=== PATIENT | female | born 1955 | race Two or more races ===

== ENCOUNTER → 2016-03-20 | Outpatient (CLI) | payer BC ==
--- NOTE | 2016-03-20 16:02 | BD ---
EXAMINATION TYPE: MG DEXA axial skeleton. DATE OF EXAM: 03/20/2016 2:46 PM COMPARISON: NONE CLINICAL HISTORY: N95.1 POST MENOPAUSAL SYMPTOMS Height: 63 Weight: 268 FRAX RISK QUESTIONS: Alcohol (3 or more units per day): NO Family History (Parent hip fracture): NO Glucocorticoids (More than 3mos): NO (Ex: prednisone, prednisolone, methylprednisolone, dexamethasone, and hydrocortisone). History of Fracture in Adulthood: NO Secondary Osteoporosis: 1. Type 1 Diabetes: NO 2. Hyperthyroidism: NO 3. Menopause before 45: NO 4. Malnutrition: NO 5. Chronic liver disease: NO Rheumatoid Arthritis: NO Current Tobacco Use: NO RISK FACTORS HISTORY OF: Family History of Osteoporosis: NO Smoke tobacco: NO Drink Alcohol: SOCIAL Active: SOMEWHAT Diet low in dairy products/other sources of calcium: NO Postmenopausal woman: 48 Adrenal Insufficiency: NO MEDICATIONS: Thyroid Medications: YES, Which medication: SYNTHROID, 50 MGS How Long: JUST STARTED Additional Medications: HX OF RADIATION FOR BREAST CA, BP MEDS, PAIN MEDS, NSAIDS Additional History: BREAST CANCER, LT BREAST 2016, EXAM MEASUREMENTS: Bone mineral densitometry was performed using the LIA System. Bone mineral density as measured about the Lumbar spine is: ----- L1-L4(G/cm2): 1.202 T Score Values are as follows: ----- L1: 0.3 ----- L2: -0.9 ----- L3: 0.4 ----- L4: 0.7 ----- L1-L4: 0.2 Bone mineral density IS HER FIRST BONE DENSITY SCAN....BASELINE Bone mineral density about the R hip (g/cm2): 1.009 Bone mineral density about the L hip (g/cm2): 0.950 T Score values are as follows: -----R Neck: -0.2 -----L Neck: -0.6 -----R Intertrochanter: -0.8 -----L Intertrochanter: -0.5 Bone mineral density IS THE FIRST BONE DENSITY SCAN FOR HER, BASELINE FRAX%'S: FOR MAJOR OSTEOPOROTIC FX: 6.0%.....FOR HIP FX: 0.2% PROBABILITY OF FX IN 10 YR S TIME IMPRESSION: Normal (Values between +1 and -1 indicate normal bone mass) NOTE: T-SCORE=SD OF THE YOUNG ADULT MEAN.
== END | disposition home or self-care (01) ==
LOC: RADBDWWP 14:11
PROVIDERS: ATTEND Internal Medicine Hematology & Oncology
DX: N95.1 Menopausal and female climacteric states (principal)
CPT/HCPCS: 77080

== ENCOUNTER → 2016-09-22 | Outpatient (CLI) | payer BC ==
--- NOTE | 2016-09-22 10:14 | MM ---
Reason for exam: history of breast cancer, conservation therapy. Last mammogram was performed 9 months ago. History: Patient is postmenopausal and has history of breast cancer at age 60. Malignant MG pre op needle loc LT of the left breast, February 08, 2016. Took hormonal contraceptives for 2 years beginning at age 16. Physical Findings: Nurse did not find any significant physical abnormalities on exam. MG 3D Diag Mammo W/Cad EDGAR Bilateral CC and MLO view(s) were taken. Prior study comparison: December 24, 2015, mammogram. There are scattered fibroglandular densities. Post lumpectomy changes in the left breast. No significant new findings when compared with previous films. These results were verbally communicated with the patient and result sheet given to the patient on 09/22/16. ASSESSMENT: Benign, BI-RAD 2 RECOMMENDATION: Follow-up diagnostic mammogram of both breasts in 1 year.
== END | disposition home or self-care (01) ==
LOC: RADMAMWWP 09:04
PROVIDERS: ATTEND Radiology Radiation Oncology
DX: Z08 Encounter for follow-up examination after completed treatment for malignant neoplasm (principal); Z85.3 Personal history of malignant neoplasm of breast
CPT/HCPCS: G0204; G0279

== ENCOUNTER → 2017-07-24 | Outpatient (CLI) | payer BC ==
--- NOTE | 2017-07-24 11:32 | MM ---
Reason for exam: additional evaluation requested from prior study. Last mammogram was performed 10 months ago. History: Patient is postmenopausal and has history of breast cancer at age 60. Malignant MG pre op needle loc LT of the left breast, February 08, 2016. Lumpectomy of the left breast, 2016. Radiation therapy of the left breast, 2016. Took hormonal contraceptives for 2 years beginning at age 16. Taking antineoplastic beginning at age 61. Physical Findings: Nurse did not find any significant physical abnormalities on exam. MG 3D Diag Mammo W/Cad EDGAR Bilateral CC and MLO view(s) were taken. Prior study comparison: September 22, 2016, bilateral MG 3d diag mammo w/cad EDGAR. December 24, 2015, mammogram. The breast tissue is almost entirely fat. Post surgical changes in the left breast. No significant new findings when compared with previous films. These results were verbally communicated with the patient and result sheet given to the patient on 07/24/17. ASSESSMENT: Benign, BI-RAD 2 RECOMMENDATION: Follow-up diagnostic mammogram of both breasts in 1 year.
--- NOTE | 2017-07-24 13:12 | CTL ---
EXAMINATION TYPE: CT Low Dose Lung DATE OF EXAM ORDERED: 07/24/2017 HISTORY: 62-year-old female personal history of breast cancer, difficulty breathing, history of smoking. Lung cancer screening CT DLP: [address] CTDI: 3.56 mGy Automated exposure control for dose reduction was used. SCREENING VISIT: Baseline COMPARISON: None TECHNIQUE: Low dose computed tomography scan was performed through the chest at 1 mm thick sections and reconstructed images in the coronal/sagittal plane at [address] DIAGNOSTIC QUALITY: Limited, but interpretable FINDINGS: Large body habitus causing prominent noise artifacts. Heart upper limits of normal in size with small pericardial effusion measuring 5 mm thick. Coronary vessel calcifications are present and are a marker for coronary artery disease. Ectatic ascending aorta at 3.9 cm. Conventional arch vessel branching anatomy. No thoracic lymphadenopathy identified by CT size criteria. Surgical clips partially visualized in the left breast with some left breast skin thickening likely posttreatment change. Mild diffuse bronchial wall thickening. No consolidation or pleural effusion. - 5 mm anterior right midlung pulmonary nodule along the minor fissure likely intrapulmonary lymph node, axial image 121. - Tiny calcified granuloma peripheral left lower lobe axial image 176a. - Tiny 3 mm left mid lung pulmonary nodule along the major fissure axial image 120 likely intrapulmonary lymph node. Tiny hiatal hernia. Visualized upper abdomen otherwise shows no gross anomaly. Bones: Multiple endplate Schmorl's nodes throughout the thoracic spine with a mild to moderate degenerative disc disease lower thoracic spine. No osseous destructive process. IMPRESSION: 1. LungRADS 2, benign appearance, <1% chance of malignancy (couple 5 mm and smaller pulmonary nodules. Likely intrapulmonary lymph nodes given their fissural location). 2. Mild diffuse bronchial wall thickening could represent bronchitis or asthma. 3. Small 5 mm thick pericardial effusion. 4. CAD. RECOMMENDATION: 1. Continue with annual low-dose CT chest. 2. Smoking cessation. FOLLOW UP CT CHEST RECOMMENDATION: [address] LUNG RAD: Lung-Rad 2 Benign Appearance or Behavior MTDD
== END | disposition home or self-care (01) ==
LOC: RADMAMWWP 10:16
PROVIDERS: ATTEND Radiology Radiation Oncology
DX: Z12.2 Encounter for screening for malignant neoplasm of respiratory organs (principal); Z85.3 Personal history of malignant neoplasm of breast; Z87.891 Personal history of nicotine dependence; Z98.890 Other specified postprocedural states
CPT/HCPCS: 77066; 77062; G0297

== ENCOUNTER → 2018-07-30 | Outpatient (CLI) | payer MEDICARE, BC ==
--- NOTE | 2018-07-30 13:19 | MM ---
Reason for exam: additional evaluation requested from prior study. Last mammogram was performed 1 year ago. History: Patient is postmenopausal and has history of breast cancer at age 60. Family history of breast cancer in 2 paternal aunts. Malignant MG pre op needle loc LT of the left breast, February 08, 2016. Lumpectomy of the left breast, 2016. Radiation therapy of the left breast, 2016. Took hormonal contraceptives for 2 years beginning at age 16. Took antineoplastic for 2 years beginning at age 60. Physical Findings: Nurse did not find any significant physical abnormalities on exam. MG 3D Diag Mammo W/Cad EDGAR Bilateral CC and MLO view(s) were taken. Prior study comparison: July 24, 2017, bilateral MG 3d diag mammo w/cad EDGAR. September 22, 2016, bilateral MG 3d diag mammo w/cad EDGAR. There are scattered fibroglandular densities. No suspicious abnormality. Post therapy change on the left. No significant new findings when compared with previous films. These results were verbally communicated with the patient and result sheet given to the patient on 07/30/18. ASSESSMENT: Benign, BI-RAD 2 RECOMMENDATION: Follow-up diagnostic mammogram of both breasts in 1 year.
== END | disposition home or self-care (01) ==
LOC: RADMAMWWP 12:43
PROVIDERS: ATTEND Radiology Radiation Oncology
DX: C50.412 Malignant neoplasm of upper-outer quadrant of left female breast (principal); Z17.0 Estrogen receptor positive status [ER+]; Z92.3 Personal history of irradiation
CPT/HCPCS: 77066; G0279; 77062

== ENCOUNTER → 2018-08-06 | Outpatient (CLI) | payer MEDICARE, BC ==
--- NOTE | 2018-08-07 10:25 | BD ---
EXAMINATION TYPE: Axial Bone Density DATE OF EXAM: 08/06/2018 COMPARISON: 2017 CLINICAL HISTORY: Postmenopausal female. Osteoporosis screening. Height: 63.50 Weight: 262 FRAX RISK QUESTIONS: Alcohol (3 or more units per day): no Family History (Parent hip fracture): no Glucocorticoids (More than 3mos): no (Ex: prednisone, prednisolone, methylprednisolone, dexamethasone, and hydrocortisone). History of Fracture in Adulthood: no Secondary Osteoporosis: 1. Type 1 Diabetes: no 2. Hyperthyroidism: no 3. Menopause before 45: no 4. Malnutrition: no 5. Chronic liver disease: no Rheumatoid Arthritis: no Current Tobacco Use: no RISK FACTORS HISTORY OF: Family History of Osteoporosis: no Active: yes Diet low in dairy products/other sources of calcium: servings several times a week Postmenopausal woman: yes Take estrogen and/or progesterone medications: not now hormonal contraceptives briefly Lost more than 2 inches in height since high school: no Frequent falls: no Poor Health: no Hyperparathyroidism: unsure Adrenal Insufficiency: no MEDICATIONS: Prednisone or other steroids: no Thyroid Medications: not now Which medication: Synthroid How Long: started in 2017; has since stopped Osteoporosis Medications: no Additional Medications: stopped antineoplastic about one month ago Additional History: Breast CA age 60/radiation; arthritis, blood pressure med, cholesterol med EXAM MEASUREMENTS: Bone mineral densitometry was performed using the Kleer System. Bone mineral density as measured about the Lumbar spine is: ----- L1-L4(G/cm2): 1.165 T Score Values are as follows: ----- L2: -0.8 ----- L3: 0.3 ----- L4: 0.0 ----- L1-L4: -0.1 Bone mineral density has: Decreased -2.3% since study of: 03/20/2016 Bone mineral density about the R hip (g/cm2): 0.953 Bone mineral density about the L hip (g/cm2): 0.944 T Score values are as follows: -----R Neck: -0.6 -----L Neck: -0.7 -----R Total: -0.3 -----L Total: -0.9 Bone mineral density has: Decreased -6.1% since study of: 03/20/2016 IMPRESSION: Normal (Values between +1 and -1 indicate normal bone mass). Consider repeating this study in 5 year s or sooner if there is some new clinical indication. NOTE: T-SCORE=SD OF THE YOUNG ADULT MEAN.
== END | disposition home or self-care (01) ==
LOC: RADBDWWP 09:19
PROVIDERS: ATTEND Internal Medicine Hematology & Oncology
DX: C50.512 Malignant neoplasm of lower-outer quadrant of left female breast (principal); N95.1 Menopausal and female climacteric states; Z79.890 Hormone replacement therapy
CPT/HCPCS: 77080

== ENCOUNTER → 2019-08-21 | Outpatient (CLI) | payer MEDICARE, BC ==
--- NOTE | 2019-08-21 20:36 | CT ---
EXAMINATION TYPE: CT chest w con DATE OF EXAM: 08/21/2019 COMPARISON: None HISTORY: Cough x6 months CT DLP: 657 mGycm Automated exposure control for dose reduction was used. CONTRAST: Performed with IV Contrast, patient injected with 80 mL of Isovue 300. There is some subpleural 2 x 1 cm infiltrate in the superior segment of the right lower lobe posterio rly. There is a irregular 1.5 cm infiltrate right lower lobe. There is no pleural effusion. Heart siz e is normal. There is very small pericardial effusion. Upper abdominal soft tissues are intact. There are no hilar masses. There is no mediastinal adenopathy. There is some irregular 1 cm nodular infilt rate right upper lobe. There are 7 mm low-density infiltrates lateral aspect of the left lower lobe. Thoracic vertebra have normal spacing and alignment. Posterior elements are intact. There is spurring of the endplates. Sternum is intact. IMPRESSION: There is some patchy infiltrate in both lungs as above more likely related to inflammatory disease. N ormal heart size. Small pericardial effusion. Infiltrates are essentially new compared to screening c hest CT scan 07/24/2017.
== END | disposition home or self-care (01) ==
LOC: RADCTMAIN 17:28
PROVIDERS: ATTEND Internal Medicine Hematology & Oncology
DX: R91.8 Other nonspecific abnormal finding of lung field (principal); I31.3 Pericardial effusion (noninflammatory); C50.512 Malignant neoplasm of lower-outer quadrant of left female breast
CPT/HCPCS: 82565; 84520; 71260; 36415; Q9967

== ENCOUNTER 2019-11-13 07:43 | Day surgery (SDC) | payer MEDICARE, BC ==
[2019-11-07 12:05] VITALS: BMI 48.0
[~2019-11-13 07:43] MED LIST: ALPRAZolam 0.25 MG TAB PO PRN; ALPRAZolam 0.5 MG TAB PO PRN; ASPIRIN 325 MG TAB PO STA; ATORVASTATIN 80 MG TAB PO STA; NITROGLYCERIN SL TABS 0.4 MG TAB SUBLINGUAL PRN; SODIUM CHLORIDE 0.9% 1,000 ML in EMPTY BAG 1 BAG IV ONE
[2019-11-13] MEDS ORDERED: LIDOCAINE 1% INJ 10MG/ML (20 ML MDV) SQ ONE (09:12)
[2019-11-13] MEDS ORDERED: MIDAZOLAM 2 MG/2 ML VIAL IVP ONE ×2 (09:12→10:10)
[2019-11-13] MEDS ORDERED: fentaNYL (PF) 50 MCG/ML 2 ML AMP IVP ONE ×2 (09:12→10:10)
--- NOTE | 2019-11-13 10:06 | P.CARDCATH ---
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 Procedure(s) Performed: Left heart catheterization with selective coronary arteriography. No LV gram Description of Procedure: HISTORY: This is a 64-year-old female who was recently seen in the office with complaints of exertional shortness of breath. Clinically patient had aortic stenosis. An echocardiogram showed moderate to severe stenosis. A stress test showed ischemia in the anterolateral. Patient is advised to have a cardiac catheterization for definitive diagnosis. CONSENT:I have discussed the risks, benefits and alternative therapies for the above-mentioned procedure and for both sedation/analgesia as well as necessary blood product administration, if indicated, as they pertain to this patient. The patient has indicated understanding and acceptance of the risks and procedures discussed. PROCEDURE: Patient was brought to the lab in a fasting state. Patient was given some IV sedation. The right groin is infiltrated with lidocaine and right femoral artery was entered using Seldinger technique. A 6-Albanian catheter was left in place and selective coronary arteriography was performed. Patient tolerated the procedure well. Femoral angiogram was performed . No immediate complications were noted and patient is waiting to have FFR of the LAD Conscious Sedation: Versed 1mg Fentanyl 25 g Duration 35minutes HEMODYNAMICS: The aortic pressure is about 120/60. Left ventricular end- diastolic pressures were not measured SELECTIVE CORONARY ARTERIOGRAPHY: LEFT MAIN: Normal length and free of occlusive disease THE LEFT ANTERIOR DESCENDING CORONARY ARTERY:. Histor y good caliber vessel giving rise to good-sized diagonal branch. There seemed to be lesion in the origin of the diagonal branch involving mid LAD. In certain views, it appears to be critical. Patient is going to have FFR THE LEFT CIRCUMFLEX AND IS CORONARY ARTERY: Dominant vessel with about 40-50% stenosis in the proximal portion. There is a total occlusion of the one of the OM branch. The distal circumflex has about 70-80% stenosis THE RIGHT CORONARY ARTERY:. This is nondominant and totally occluded LEFT VENTRICULOGRAPHY: Not performed FINAL IMPRESSION: Tripple-vessel disease with total occlusion of RCA, mild to moderate disease in the circumflex with a total occlusion of one of the OM branch and possibly critical lesion in the LAD PLAN:. FFR of the LAD PROGNOSIS:. If FFR shows significant lesion in the LAD, we'll proceed with ELTON examination. If the ELTON shows critical aortic stenosis, patient may need a valve and bypass surgery. If the aortic stenosis is not critical, we'll proceed with stenting of the LAD
[2019-11-13] MEDS ORDERED: BIVALIRUDIN BOLUS 250 MG/50 ML IV ONE (10:20)
[2019-11-13] MEDS ORDERED: BIVALIRUDIN 250 MG in SODIUM CHLORIDE 0.9% 50 ML IV ONE (10:21)
[2019-11-13] MEDS ORDERED: RX INFO: IV CONTRAST WAS GIVEN 1 EACH MISC MISCELLANE PRN (10:29)
[2019-11-13] MEDS ORDERED: IOPAMIDOL-370 125ML BTL INJ ONE (10:34)
--- NOTE | 2019-11-13 10:58 | CE ---
CARDIAC ELECTROPHYSIOLOGY REPORT FRACTIONAL FLOW RESERVE PROCEDURE: DATE OF SERVICE: 11/13/2019 PERFORMING PHYSICIAN: London Carty MD. PROCEDURE PERFORMED: Fractional flow reserve of the LAD. INDICATION: This is a 64-year-old female patient who sees Dr. Medellin in the office, who was experiencing symptoms of chest discomfort and underwent myocardial perfusion imaging stress test and that revealed anterolateral ischemia. He did a heart catheterization on her and that revealed intermediate to severe disease involving the proximal LAD. Because of that, an FFR was advised. APPROACH: Right common femoral artery. COMPLICATION: None. LEVEL OF SEDATION: Moderate with sedation length of 10 minutes. PROCEDURE DESCRIPTION: Please refer to diagnostic heart catheterization was performed by Dr. Medellin earlier today. Anticoagulation was initiated using Angiomax. Subsequently, after zeroing the Doppler wire and equalizing between the Doppler wire and the guiding catheter which was JL4 guiding catheter, we did an IFR and that came in to be at 0.80 which is below the ischemic threshold. CONCLUSION: An IFR of the LAD was performed and came into below ischemic. POSTPROCEDURE MANAGEMENT: 1. The patient is going to undergo a ELTON. 2. Follow up with the patient. MMODL / IJN: [id number] /
[2019-11-13] MEDS: SODIUM CHLORIDE 0.9% 1,000 ML IV SCH ×2 (12:51→18:21)
[2019-11-13] MEDS: METOPROLOL TARTRATE 50 MG TAB PO SCH (19:58)
[2019-11-13] MEDS: lisinopriL 20 MG TAB PO SCH (19:58)
[2019-11-14] MEDS: SODIUM CHLORIDE 0.9% 1,000 ML IV SCH (07:30)
[2019-11-14] MEDS ORDERED: fentaNYL (PF) 50 MCG/ML 2 ML AMP ONE (07:34)
[2019-11-14 07:41] VITALS: TEMP 98.3
[2019-11-14] MEDS ORDERED: IV FLUID CONTINUATION 900 ML IV ONE (07:54)
[2019-11-14 07:59] VITALS: RESP 12
[2019-11-14] MEDS ORDERED: BENZOCAINE SPRAY 1 CAN MUCOUS MEM ONE (08:09)
[2019-11-14] MEDS ORDERED: fentaNYL (PF) 50 MCG/ML 2 ML AMP IV ONE (08:21)
[2019-11-14] MEDS ORDERED: MIDAZOLAM 2 MG/2 ML VIAL IV ONE ×2 (08:21→08:26)
[2019-11-14 08:40] VITALS: BP 164/84; PULSE 85
[2019-11-14] MEDS ORDERED: hydroCHLOROthiazide 12.5 MG CAP PO SCH (09:00)
[2019-11-14] MEDS ORDERED: ISOSORBIDE MONONITRATE ER 30 MG TAB.ER.24H PO SCH (09:00)
[2019-11-14] MEDS ORDERED: ASPIRIN 81 MG PO SCH (09:00)
[2019-11-14] MEDS ORDERED: EZETIMIBE 10 MG TAB PO SCH (09:00)
[2019-11-14] MEDS: lisinopriL 20 MG TAB PO SCH (09:14)
[2019-11-14] MEDS: METOPROLOL TARTRATE 50 MG TAB PO SCH (09:14)
--- NOTE | 2019-11-14 13:04 | P.GSCN ---
History of Present Illness Consult date: 11/14/19 Reason for Consult: Severe aortic stenosis as well as coronary artery disease Requesting physician: Karli Medellin History of present illness: This is a 64-year-old obese woman who follows on an outpatient basis with Dr. Robbins. She has a previous history of hypertension, hyperlipidemia, TIA in December 2017, breast cancer status post lumpectomy with radiation, ovarian cyst with removal, and previous tobacco dependence. She had been experiencing exertional dyspnea and was worked up by pulmonology at the request of her oncologist. She did have a computed tomography scan of the chest completed in August demonstrating patchy infiltrates in both lungs likely related to inflammatory disease. She continued to have exertional shortness of breath and was seen by cardiology, she had a stress test which demonstrated reversible defect in the anterolateral and inferolateral wall. She was recommended to undergo heart catheterization and transesophageal echocardiogram. Heart catheterization revealed critical lesion involving the mid LAD and diagonal branch with FFR 0.80, proximal circumflex stenosis 40-50%, total occlusion of one of the OM branches, distal circumflex with 70-80% stenosis, and chronic total occlusion of the right coronary artery. ELTON demonstrated a calcified bicuspid aortic valve with valve area 1-1.2 cm, peak gradient 60-70 mmHg, mean gradient 35-40 mmHg. Due to these findings consultation was placed to Dr. Storey from cardiothoracic surgery for surgical revascularization along with aortic valve replacement. Review of Systems Review of systems was completed and was negative except as noted - Constitutional Reports sweats - Cardiovascular Reports as per HPI, Reports dyspnea on exertion Past Medical History Past Medical History: Coronary Artery Disease (CAD), Cancer, CVA/TIA, Hyperlipidemia, Hypertension Additional Past Medical History / Comment(s): See Dr Medellin H&P, Hx LEFT BREAST CANCER, CVA 12/2017, states some delayed speech, previous thyroid medication, none currently History of Any Multi-Drug Resistant Organisms: None Reported Past Surgical History: Appendectomy, Breast Surgery, Cholecystectomy, Tonsillectomy Additional Past Surgical History / Comment(s): OVARIAN CYST WITH APPENDECTOMY, breast biopsy,left breast lumpectomy, has mary catheter for radiation left breast, now removed Past Anesthesia/Blood Transfusion Reactions: Postoperative Nausea & Vomiting (PONV) Past Psychological History: No Psychological Hx Reported Smoking Status: Former smoker Past Alcohol Use History: Occasional Additional Past Alcohol Use History / Comment(s): SMOKED 1- 1 1/2 PPD, SMOKED FOR 30 + YEARS. QUIT SMOKING 2009. Past Drug Use History: None Reported - Past Family History Father Family Medical History: Cancer Additional Family Medical History / Comment(s): from lung cancer Brother(s) Family Medical History: Deep Vein Thrombosis (DVT) Mother Family Medical History: Coronary Artery Disease (CAD), Hypertension Medications and Allergies Home Medications Medication Instructions Recorded Confirmed Type lisinopriL [Zestril] 20 mg PO BID 01/26/16 11/13/19 History Aspirin [Adult Low Dose Aspirin EC] 81 mg PO DAILY 11/07/19 11/13/19 History Hydrochlorothiazide 12.5 mg PO DAILY 11/07/19 11/13/19 History [hydroCHLOROthiazide] Isosorbide Mononitrate [Isosorbide 30 mg PO DAILY 11/07/19 11/13/19 History Mononitrate ER] Metoprolol Tartrate [Lopressor] 50 mg PO BID 11/07/19 11/13/19 History Nitroglycerin Sl Tabs [Nitrostat] 0.4 mg SUBLINGUAL Q5M PRN 11/07/19 11/07/19 History Rosuvastatin Calcium [Crestor] 40 mg PO DAILY 11/07/19 11/13/19 History Ezetimibe [Zetia] 25 mg PO DAILY 11/13/19 11/13/19 History Allergies Allergy/AdvReac Type Severity Reaction Status Date / Time codeine Allergy Unknown "Shakey" Verified 11/07/19 11:56 hydrocodone [From Vicodin] Allergy Unknown Itching Verified 11/07/19 11:56 Surgical - Exam Vital Signs Temp Pulse Resp BP Pulse Ox 98.1 F 74 18 161/71 97 11/13/19 08:28 11/13/19 08:28 11/13/19 08:28 11/13/19 08:28 11/13/19 08:28 - General well developed, well nourished, no distress, no pain, obese - Eyes PERRL, normal ocular movement - ENT no hearing loss - Neck no masses, no bruits, trachea midline - Respiratory Lungs sounds clear bilaterally. Respirations even, nonlabored. Currently on room air with oxygen saturation 96%. No chest wall deformities. No clubbing or cyanosis present. - Cardiovascular S1, S2 present. Systolic murmur present. Regular rate and rhythm, sinus rhythm on telemetry. Palpable peripheral pulses bilaterally. No edema present. No calf pain or tenderness noted. - Abdomen Abdomen: soft, non tender, bowel sounds - Genitourinary Deferred - Rectum Deferred - Integumentary no rash, no growths - Neurologic normal coordination, normal sensation - Musculoskeletal normal gait, normal posture - Psychiatric oriented to time, oriented to person, oriented to place, speech is normal, memory intact Results - Imaging Additional studies: Heart catheterization and ELTON films reviewed with Dr. Storey Assessment and Plan Assessment: 1. Calcified bicuspid aortic valve with aortic stenosis 2. Coronary artery disease 3. Hypertension 4. Hyperlipidemia 5. TIA in 2018 6. History of breast cancer status post lumpectomy with radiation 7. Previous tobacco dependence Plan: The patient was seen and examined the bedside with Dr. Storey. Chart/diagnostics were reviewed. The usual perioperative course of open heart surgery was discussed in detail with the patient and her daughter, risks and benefits were reviewed, all questions were answered. Our plan is for bioprosthetic aortic valve replacement, coronary artery bypass surgery with left internal mammary artery and endoscopic vein harvesting by Dr. Storey, timing to be determined. Patient will need dental clearance, she states that she does see a dentist on a regular basis and we will try to obtain clearance. The patient may be discharged to home from our standpoint to follow-up in the office with Dr. Storey in the next 1-2 weeks to set a surgical date in the near future. This was discussed at length with the patient and her daughter and they are in agreement. The case was also discussed with Dr. Ramos who is her sister superior and he will be involved in her case. More recommendations to follow regarding timing of surgery. Thank you Dr. Medellin for this consult. We look forward to working with you in the care of your patient. Time with Patient: Greater than 30
--- NOTE | 2019-11-26 09:07 | P.TEE ---
Indications for Procedure(s): Aortic stenosis Date of Procedure: 11/14/19 Preoperative Diagnosis: Moderate to severe aortic stenosis Postoperative Diagnosis: Severe aortic stenosis Procedure(s) Performed: ELTON Description of Procedure(s): This patient was recently evaluated for symptoms of shortness of breath. Echocardiogram showed findings consistent with moderate to severe aortic stenosis. Patient is advised to have a ELTON examination for further evaluation. Verbal informed consent was obtained from the patient Procedure: Patient was brought to the lab in a fasting state. She was prepped and draped in the usual fashion. The throat was sprayed with Hurricaine. A lubricated Omni probe was introduced into the oropharynx and stomach and multiple views were obtained. Color, pulsed and continuous Doppler studies were performed. Saline contrast bubble injections were also performed. Patient tolerated the procedure well. No immediate complications. Findings: The aortic valve is tricuspid with the restricted opening excursion, and also calcification. By planimetry and valve area of about 1 cm was obtained. A peak gradient of about 60 with a mean of 40 was obtained by Doppler study. There is no significant aortic regurgitation. Mitral valve did not show any regurgitation. Left atrial appendage appeared free of any clot. Left ventricular pressure is preserved. There appears to relate enlargement. There is mild plaque in the aorta. Saline contrast bubble injections did not reveal any crossing of bubbles the interatrial septum appeared to be intact . Final impression: #1. Severe aortic stenosis. #2. No clot in the left atrial appendage. #3. No PFO performed. #4. Preserved LV function. 5. Mild plaque in the aorta
--- NOTE | 2019-11-26 10:46 | ECHOT ---
Patient Name: Debbie Serrano Date of : 1955 Patient Status: Surgical Day Care Attending Provider: Karli Medellin Date: 11/26/19 09:02 Initialization Date: 11/26/19 09:02 Addendum entered and electronically signed by Karli Medellin MD 11/26/19 09:07: Patient was given 20 g of fentanyl and 3 mg of Versed for sedation. The duration of the procedure was 16 minutes Original Note: Indications for Procedure(s): Aortic stenosis Date of Procedure: 11/14/19 Preoperative Diagnosis: Moderate to severe aortic stenosis Postoperative Diagnosis: Severe aortic stenosis Procedure(s) Performed: ELTON Description of Procedure(s): This patient was recently evaluated for symptoms of shortness of breath. Echocardiogram showed findings consistent with moderate to severe aortic stenosis. Patient is advised to have a ELTON examination for further evaluation. Verbal informed consent was obtained from the patient Procedure: Patient was brought to the lab in a fasting state. She was prepped and draped in the usual fashion. The throat was sprayed with Hurricaine. A lubricated Omni probe was introduced into the oropharynx and stomach and multiple views were obtained. Color, pulsed and continuous Doppler studies were performed. Saline contrast bubble injections were also performed. Patient tolerated the procedure well. No immediate complications. Findings: The aortic valve is tricuspid with the restricted opening excursion, and also calcification. By planimetry and valve area of about 1 cm was obtained. A peak gradient of about 60 with a mean of 40 was obtained by Doppler study. There is no significant aortic regurgitation. Mitral valve did not show any regurgitation. Left atrial appendage appeared free of any clot. Left ventricular pressure is preserved. There appears to relate enlargement. There is mild plaque in the aorta. Saline contrast bubble injections did not reveal any crossing of bubbles the interatrial septum appeared to be intact . Final impression: #1. Severe aortic stenosis. #2. No clot in the left atrial appendage. #3. No PFO performed. #4. Preserved LV function. 5. Mild plaque in the aorta MTDD
== END 2019-11-14 13:04 | disposition home or self-care (01) ==
LOC: CATHCVL 07:43 → 3NCARDOBS 10:42 → CATHCVL 11-14 13:04
PROVIDERS: ATTEND Internal Medicine Cardiovascular Disease
DX: I25.10 Atherosclerotic heart disease of native coronary artery without angina pectoris (principal); I25.82 Chronic total occlusion of coronary artery; I10 Essential (primary) hypertension; Q23.1 Congenital insufficiency of aortic valve; I70.0 Atherosclerosis of aorta; R94.39 Abnormal result of other cardiovascular function study; E66.9 Obesity, unspecified; Z68.42 Body mass index [BMI] 45.0-49.9, adult; Z87.891 Personal history of nicotine dependence; E78.00 Pure hypercholesterolemia, unspecified; E78.5 Hyperlipidemia, unspecified; Z82.49 Family history of ischemic heart disease and other diseases of the circulatory system; Z85.3 Personal history of malignant neoplasm of breast; Z92.3 Personal history of irradiation; Z87.42 Personal history of other diseases of the female genital tract; I69.328 Other speech and language deficits following cerebral infarction; Z80.1 Family history of malignant neoplasm of trachea, bronchus and lung; Z90.49 Acquired absence of other specified parts of digestive tract; Z98.890 Other specified postprocedural states; Z79.811 Long term (current) use of aromatase inhibitors; Z79.82 Long term (current) use of aspirin; Z79.899 Other long term (current) drug therapy; Z88.5 Allergy status to narcotic agent
CPT/HCPCS: 93312; 93320; 93325; 93571; 93454; C1760; C1887; C1769 ×3; C1894; J2250 ×2; J2001; J3010 ×2; J0583; Q9967

== ENCOUNTER → 2019-11-24 | Outpatient (CLI) | payer MEDICARE, BC ==
--- NOTE | 2019-11-24 15:15 | CT ---
EXAMINATION TYPE: CT chest w con DATE OF EXAM: 11/24/2019 COMPARISON: Prior CT chest 08/21/2019 HISTORY: Abnormal lung field CT DLP: 833.0 mGycm Automated exposure control for dose reduction was used. CONTRAST: CT scan of the chest is performed with IV Contrast, patient injected with 80 mL of Isovue 300. FINDINGS: LUNGS: The lungs are grossly clear, there is no concerning parenchymal mass or nodule identified. T here is no pleural effusion or pneumothorax seen. The tracheobronchial tree is patent. MEDIASTINUM: There are no greater than 1 cm hilar or mediastinal lymph nodes. Minimal pericardial eff usion is seen as on prior. There are coronary artery calcifications. AORTA: No additional significant abnormality is seen. Metallic density noted at the root of the aort a as on prior. OTHER: Patient is post cholecystectomy. Low density in the liver may represent hepatic steatosis. Po stop changes noted to the left breast. IMPRESSION: Postop changes. Coronary artery disease, small pericardial effusion. Interval improved a eration as compared to prior exam within the lungs.
== END | disposition home or self-care (01) ==
LOC: RADCTMAIN 12:26
PROVIDERS: ATTEND Internal Medicine Critical Care Medicine
DX: I25.10 Atherosclerotic heart disease of native coronary artery without angina pectoris (principal); I31.3 Pericardial effusion (noninflammatory); J98.4 Other disorders of lung; Z88.8 Allergy status to other drugs, medicaments and biological substances; Z98.890 Other specified postprocedural states
CPT/HCPCS: 82565; 84520; 71260; 36415; Q9967

== ENCOUNTER → 2019-11-28 | Outpatient (CLI) | payer MEDICARE, BC ==
--- NOTE | 2019-12-01 14:06 | MM ---
Reason for exam: screening (asymptomatic). Last mammogram was performed 1 year and 4 months ago. History: Patient is postmenopausal and has history of breast cancer at age 60. Family history of breast cancer in 2 paternal aunts. Malignant MG pre op needle loc LT of the left breast, February 08, 2016. Lumpectomy of the left breast, 2016. Radiation therapy of the left breast, 2016. Took hormonal contraceptives for 2 years beginning at age 16. Took antineoplastic for 2 years beginning at age 60. Physical Findings: A clinical breast exam by your physician is recommended on an annual basis and results should be correlated with mammographic findings. MG 3D Screening Mammo W/Cad Bilateral CC and MLO view(s) were taken. Prior study comparison: July 30, 2018, bilateral MG 3d diag mammo w/cad [facility]. July 24, 2017, bilateral MG 3d diag mammo w/cad [facility]. There are scattered fibroglandular densities. Asymmetric breast tissue greater in the right breast. Focal asymmetry left breast. Post biopsy changes left upper outer quadrant. No significant changes when compared with prior studies. ASSESSMENT: Benign, BI-RAD 2 RECOMMENDATION: Routine screening mammogram of both breasts in 1 year.
== END | disposition home or self-care (01) ==
LOC: RADMAMWWP 14:46
PROVIDERS: ATTEND Radiology Radiation Oncology
DX: Z12.31 Encounter for screening mammogram for malignant neoplasm of breast (principal); C50.412 Malignant neoplasm of upper-outer quadrant of left female breast; Z92.3 Personal history of irradiation; Z17.0 Estrogen receptor positive status [ER+]
CPT/HCPCS: 77063; 77067

== ENCOUNTER → 2019-12-09 | Outpatient (CLI) | payer MEDICARE, BC ==
[2019-12-09 10:25] LABS: Appearance,Urine Clear (Clear); Bilirubin,Urine Negative (Negative); Blood,Urine Negative (Negative); Color,Urine Light Yellow; Glucose,Urine (UA) Negative (Negative); Ketones,Urine Negative (Negative); Leukocyte Esterase,Urine Negative (Negative); Nitrite,Urine Negative (Negative); Protein,Urine Negative (Negative); Specific Gravity,Urine 1.012 (1.001-1.035); Urobilinogen,Urine <2.0 mg/dL (<2.0)
[2019-12-09 10:48] LABS: HCT 43.4 % (34.0-46.0); MCH 33.4 pg (25.0-35.0); MCHC 34.5 g/dL (31.0-37.0); MCV 96.6 fL (80.0-100.0); Mean Platelet Volume 7.1; Platelet Count 224 k/uL (150-450); RBC 4.49 m/uL (3.80-5.40); RDW 13.3 % (11.5-15.5); WBC 6.8 k/uL (3.8-10.6)
[2019-12-09 10:55] LABS: Partial Thromboplastin Time 22.5 sec (22.0-30.0); Prothrombin Time 10.5 sec (9.0-12.0)
[2019-12-09 11:14] LABS: Albumin 4.3 g/dL (3.5-5.0); Calcium 10.2 mg/dL (8.4-10.2); Potassium 4.6 mmol/L (3.5-5.1); Total Bilirubin 1.8 mg/dL (0.2-1.3); Total Protein 7.1 g/dL (6.3-8.2)
[2019-12-09 17:45] LABS: Hemoglobin A1C 4.9 % (4.0-6.0)
[2019-12-09 21:49] LABS: Hepatitis A Antibody IgM Non-Reactive (Non-Reactive); Hepatitis B Core IgM Non-Reactive (Non-Reactive); Hepatitis B Surface Antigen Non-Reactive (Non-Reactive); Hepatitis C IgG Antibody Non-Reactive (Non-Reactive)
--- NOTE | 2019-12-10 08:43 | XR ---
EXAMINATION TYPE: XR chest 2V DATE OF EXAM: 12/09/2019 COMPARISON: None INDICATION: Presurgical clearance TECHNIQUE: Frontal and lateral views of the chest are obtained. FINDINGS: The heart size is normal. The pulmonary vasculature is normal. The lungs are clear. Good inspiratory effort with some flattening the diaphragms is present. Conside r emphysematous change. IMPRESSION: 1. No acute pulmonary process. 2. Some emphysematous change or good inspiratory effort may be present.
--- NOTE | 2019-12-11 11:04 | P.ARTDOP ---
Arterial Doppler LOWER EXTREMITY ARTERIAL DOPPLER: DATE OF SERVICE: 12/09/2019 Reason for study: Preop CABG. Doppler waveforms: Multiphasic bilaterally throughout. Pulse volume recording: []. Pressure gradients: None. Ankle-brachial indices: Greater than 1 bilaterally. Toe brachial indices: [] on the right, [] on the left Impression: Normal study.
--- NOTE | 2019-12-11 11:06 | P.VSCSTY ---
Greater Saphenous Vein Mapping This is bilateral lower extremity greater saphenous vein mapping. Date of service: 12/09/2019 Vein quality and ultrasound appearance: We see no intraluminal thrombus or obvious wall changes.. Vein size groin right : 8.5 x 7.0 groin left: 9.8 x 8.5 High thigh right: 8.2 x 6.0 high thigh left: 6.2 x 5.8 Mid thigh right: 3.9 x 3.8 mid thigh left: 6.0 x 5.5 Above-knee right: 3.2 x 3.2 above-knee left: 4.2 x 3.6 Below knee right: 2.2 x 2.4 below-knee left: 4.0 x 3.5 Mid calf right: 2.1 x 1.3 mid calf left: 3.5 x 3.3 Ankle right: 2.3 x 1.9 ankle left: 2.5 x 2.8 Impression: Usable bilateral greater saphenous vein..
== END | disposition home or self-care (01) ==
LOC: LABPAT 08:14
PROVIDERS: ATTEND Thoracic Surgery (Cardiothoracic Vascular Surgery)
DX: Z01.810 Encounter for preprocedural cardiovascular examination (principal); Z01.818 Encounter for other preprocedural examination; I25.10 Atherosclerotic heart disease of native coronary artery without angina pectoris; I35.1 Nonrheumatic aortic (valve) insufficiency; Z79.899 Other long term (current) drug therapy; Z20.828 Contact with and (suspected) exposure to other viral communicable diseases; I73.9 Peripheral vascular disease, unspecified
CPT/HCPCS: 86900; 86901; 80061; 80053; 80074; 84443; 83735; 85027; 85610; 85730; 86850; 86920; 81003; 87070; 87086; 83036; 71046; 93970; 93922; 93005; 36415; U0003; C9803

== ENCOUNTER → 2019-12-15 | Outpatient (CLI) | payer MEDICARE, BC ==
[2019-12-15 11:23] LABS: Albumin 4.2 g/dL (3.5-5.0); Calcium 9.9 mg/dL (8.4-10.2); Potassium 4.3 mmol/L (3.5-5.1); Total Bilirubin 1.8 mg/dL (0.2-1.3); Total Protein 7.1 g/dL (6.3-8.2)
== END | disposition home or self-care (01) ==
LOC: LABPAT 10:38
PROVIDERS: ATTEND Thoracic Surgery (Cardiothoracic Vascular Surgery)
DX: Z01.818 Encounter for other preprocedural examination (principal)
CPT/HCPCS: 80053

== ENCOUNTER → 2019-12-29 | Outpatient (CLI) | payer MEDICARE, BC ==
[2019-12-30 02:49] LABS: African American GFR (CKD) 54.5 (60.0-200.0); Albumin 4.1 g/dL (3.80-4.90); Albumin/Globulin Ratio 1.71 (1.60-3.17); Anion Gap 7.5 mmol/L (4.00-12.00); BUN/Creat Ratio 14.17 Ratio (12.00-20.00); Carbon Dioxide 27.5 mmol/L (21.6-31.8); Globulin 2.4 g/dL (1.6-3.3); Non-African American GFR(CKD) 47.1 (60.0-200.0); Potassium 4.3 mmol/L (3.5-5.5); Total Bilirubin 1.4 mg/dL (0.2-1.2); Total Protein 6.5 g/dL (6.2-8.2)
== END | disposition home or self-care (01) ==
LOC: LABWHC1 13:35
PROVIDERS: ATTEND Thoracic Surgery (Cardiothoracic Vascular Surgery)
DX: R94.5 Abnormal results of liver function studies (principal)
CPT/HCPCS: 36415; 80053

== ENCOUNTER → 2020-01-09 | Outpatient (CLI) | payer MEDICARE, BC ==
[2020-01-09 11:13] LABS: HCT 47.4 % (34.0-46.0); HGB 15.7 gm/dL (11.4-16.0); MCH 32.8 pg (25.0-35.0); MCHC 33.2 g/dL (31.0-37.0); MCV 98.9 fL (80.0-100.0); Mean Platelet Volume 7.2; Platelet Count 238 k/uL (150-450); RBC 4.79 m/uL (3.80-5.40); RDW 12.1 % (11.5-15.5); WBC 6.7 k/uL (3.8-10.6)
[2020-01-09 11:21] LABS: Prothrombin Time 10.1 sec (9.0-12.0)
[2020-01-09 14:58] LABS: African American GFR (CKD) 77.2 (60.0-200.0); Albumin/Globulin Ratio 1.67 (1.60-3.17); Anion Gap 4.1 mmol/L (4.00-12.00); BUN/Creat Ratio 16.67 Ratio (12.00-20.00); Calcium 9.8 mg/dL (8.7-10.3); Carbon Dioxide 26.9 mmol/L (21.6-31.8); Globulin 2.4 g/dL (1.6-3.3); Non-African American GFR(CKD) 66.6 (60.0-200.0); Potassium 4.4 mmol/L (3.5-5.5); Total Bilirubin 1.3 mg/dL (0.2-1.2); Total Protein 6.4 g/dL (6.2-8.2)
== END | disposition home or self-care (01) ==
LOC: LABWHC1 10:16
PROVIDERS: ATTEND Thoracic Surgery (Cardiothoracic Vascular Surgery)
DX: I35.1 Nonrheumatic aortic (valve) insufficiency (principal); I25.10 Atherosclerotic heart disease of native coronary artery without angina pectoris
CPT/HCPCS: 86900; 86901; 80053; 85027; 85610; 85730; 86850; 86920; 36415; U0003; C9803

== ENCOUNTER 2020-01-15 08:00 | Inpatient (IN) | payer MEDICARE, BC ==
[2020-01-16] MEDS ORDERED: NOREPINEPHRINE 4 MG in SODIUM CHLORIDE 0.9% 250 ML IV ONE (05:00)
[2020-01-16] MEDS ORDERED: PROTAMINE SULFATE 250 MG in EMPTY BAG 1 BAG IV ONE (05:00)
[2020-01-16] MEDS ORDERED: CLEVIDIPINE BUTYRATE 25 MG in EMPTY BAG 1 BAG IV ONE (05:00)
[2020-01-16] MEDS ORDERED: ceFAZolin 3 GM in SODIUM CHLORIDE 0.9% 30 ML IVPB ONE (05:00)
[2020-01-16] MEDS ORDERED: CHLORHEXIDINE GLUCONATE 15 ML CUP MUCOUS MEM ONE (05:00)
[2020-01-16] MEDS ORDERED: NITROGLYCERIN-D5W PMX 50 MG in DEXTROSE/WATER 1 250ML.BAG IV ONE (05:00)
[2020-01-16] MEDS ORDERED: LACTATED RINGERS 1,000 ML IV ONE (05:00)
[2020-01-16] MEDS ORDERED: MAGNESIUM SULFATE MG 500 MG/ML IV ONE (05:00)
[2020-01-16] MEDS ORDERED: TRANEXAMIC ACID 2,000 MG in SODIUM CHLORIDE 0.9% 80 ML IV ONE (05:00)
[2020-01-16] MEDS ORDERED: CALCIUM CHLORIDE 100 MG/ML 10 ML SYRINGE IV ONE (05:00)
[2020-01-16] MEDS ORDERED: HEPARIN SODIUM 1,000 UN/ML (10ML VL) IV ONE (05:00)
[2020-01-16] MEDS ORDERED: PROTAMINE SULFATE 10 MG/ML 25 ML VIAL IV ONE ×2 (05:00→07:10)
[2020-01-16] MEDS ORDERED: ALBUMIN HUMAN 5% 500 ML IVPB ONE (05:00)
[2020-01-16] MEDS ORDERED: PHENYLEPHRINE 40 MG in SODIUM CHLORIDE 0.9% 250 ML IV ONE (05:00)
[2020-01-16] MEDS ORDERED: ASPIRIN 325 MG TAB PO ONE (05:00)
[2020-01-16] MEDS ORDERED: INSULIN REGULAR 100 UNIT in SODIUM CHLORIDE 0.9% 100 ML IV ONE (05:00)
[2020-01-16] MEDS ORDERED: SODIUM BICARB 8.4% 50 ML SYR (1 MEQ/ML) IV ONE (05:00)
[2020-01-16] MEDS ORDERED: NITROGLYCERIN-D5W PMX 25 MG/250 ML BTL IV ONE (05:00)
[2020-01-16] MEDS ORDERED: MANNITOL 25% 12.5 GM/50 ML VIAL IV ONE (05:00)
[2020-01-16] MEDS ORDERED: ALBUMIN HUMAN 25% 50 ML IV ONE (05:00)
[2020-01-16] MEDS ORDERED: METOPROLOL TARTRATE 12.5 MG TAB PO ONE (05:00)
[2020-01-16] MEDS ORDERED: ATORVASTATIN 10 MG TAB PO ONE (05:00)
[2020-01-16] MEDS ORDERED: DEXTROSE 5% IN WATER 1,000 ML with POTASSIUM CHLORIDE 110 MEQ, MAGNESIUM SULFATE 16 MEQ... IV ONE ×5 (05:00)
[2020-01-16] MEDS ORDERED: SODIUM CHLORIDE 0.9% 1,000 ML IV ONE (05:00)
[2020-01-16] MEDS ORDERED: HEPARIN SODIUM,PORCINE 5,000 UNIT in SODIUM CHLORIDE 0.9% 500 ML 500 ML IV ONE (05:00)
[2020-01-16] MEDS ORDERED: PHENYLEPHRINE 10 MG/ML VIAL IV ONE (05:00)
[2020-01-16] MEDS ORDERED: propofoL 1,000 MG/100 ML VIAL IV ONE (05:00)
[2020-01-16] MEDS ORDERED: DEXTROSE 5% IN WATER 1,000 ML with POTASSIUM CHLORIDE 25 MEQ, SODIUM CHLORIDE 2.5MEQ/ML... IRRIGATION ONE ×6 (05:00)
[2020-01-16] MEDS ORDERED: PAPAVERINE 360 MG in SODIUM CHLORIDE 0.9% 90 ML IV ONE (05:00)
[2020-01-16] MEDS ORDERED: LIDOCAINE 1% (10MG/ML) FOR IV START INTRADERMA ONE (06:12)
[2020-01-16 06:30] LABS: Glucose,Whole Blood 120 mg/dL (75-99)
[2020-01-16] MEDS ORDERED: CALCIUM CHLORIDE 100 MG/ML 10 ML SYRINGE ONE (07:10)
[2020-01-16] MEDS ORDERED: HEPARIN SODIUM,PORCINE 10,000 UNIT/ML 1 ML VIAL ONE (07:10)
[2020-01-16] MEDS ORDERED: ELECTROLYTE-R (PH 7.4) 1,000 ML IV.SOLN IV ONE (07:10)
[2020-01-16] MEDS ORDERED: MAGNESIUM SULFATE 4 MEQ/ML 10ML VIAL ONE (07:10)
[2020-01-16] MEDS ORDERED: WATER FOR INJECTION, STERILE 10 ML VIAL IV ONE (07:10)
[2020-01-16] MEDS ORDERED: TRANEXAMIC ACID 1,000 MG/10 ML VIAL ONE (07:10)
[2020-01-16] MEDS ORDERED: fentaNYL (PF) 50 MCG/ML 2 ML AMP ONE (07:10)
[2020-01-16] MEDS ORDERED: SODIUM CHLORIDE 0.9% IRRIG 1,000 ML BTL IRRIGATION ONE (07:10)
[2020-01-16] MEDS ORDERED: LIDOCAINE 2% SYG (PF) 100 MG/5 ML ONE (07:10)
[2020-01-16] MEDS ORDERED: VECURONIUM 10 MG VIAL IV ONE (07:10)
[2020-01-16] MEDS ORDERED: SODIUM CHLORIDE 0.9% 100 ML BAG ONE (07:10)
[2020-01-16] MEDS ORDERED: MIDAZOLAM 2 MG/2 ML VIAL ONE (07:10)
[2020-01-16] MEDS ORDERED: SUFentanil 50 MCG/ML 2ML AMP ONE (07:10)
[2020-01-16] MEDS ORDERED: PROPOFOL 10 MG/ML 20 ML VIAL IV ONE (07:10)
[2020-01-16] MEDS ORDERED: fentaNYL (PF) 50 MCG/ML 50 ML VIAL ONE (07:10)
[2020-01-16 09:09] LABS: ABG Base Excess 0.4 mmol/L; ABG Glucose Whole Blood 111 mg/dL (75-99); ABG HCO3 26 mmol/L (21-25); ABG Hematocrit 43 % (34.0-46.0); ABG PCO2 47 mmHg (35-45); ABG PH 7.36 (7.35-7.45); ABG PO2 413 mmHg (83-108); ABG Potassium Whole Blood 3.9 mmol/L (3.4-4.5); ABG Sodium Whole Blood 140 mmol/L (135-146); ABG TCO2 28 mmol/L (19-24)
--- NOTE | 2020-01-16 10:41 | P.PN ---
Progress Note - Text Progress Note Date: 01/16/20 5 meter walk test was completed 12/09/19 which patient tolerated without difficulty #1 3.60 sec #2 3.79 sec #3 3.99 sec STS risk score calculated and discussed with the patient
--- NOTE | 2020-01-16 13:13 | P.ANPRN ---
Procedure Note - Anesthesia - Invasive Line Right Central Line Time Out Performed: Yes (721) Date of Procedure: 01/16/20 Time of Procedure: 07:22 Location of Patient: Phase I Preparation: Sterile Prep, Sterile Dressing Arterial Line Location: Radial Ultrasound Used: Yes Purpose - Visualization and Identification of Vasculature: Yes Needle Guage: 18g angio Image Stored and Saved: Yes Narrative: Central line placement per sterile protocol utilized. +angio +cvp +jwire + uneventful dilation and introduction right IJ cordis Right [place] Darrin Time Out Performed: Yes (721) Date of Procedure: 01/16/20 Time of Procedure: 07:31 Location of Patient: Phase I Arterial Line Location: Radial Ultrasound Used: No Purpose - Visualization and Identification of Vasculature: No Image Stored and Saved: No Narrative: Central line placement per sterile protocol utilized. floated in sheath to pa at 46cm. no wedge.
[2020-01-16 13:17] LABS: ABG Base Excess -1.7 mmol/L; ABG Glucose Whole Blood 144 mg/dL (75-99); ABG HCO3 25 mmol/L (21-25); ABG Hematocrit 26 % (34.0-46.0); ABG Ionized Calcium 4.6 mg/dL (4.5-5.3); ABG Oxygen Saturation 99.6 % (94-97); ABG PCO2 48 mmHg (35-45); ABG PH 7.32 (7.35-7.45); ABG PO2 212 mmHg (83-108); ABG Potassium Whole Blood 3.8 mmol/L (3.4-4.5); ABG Sodium Whole Blood 138 mmol/L (135-146); ABG TCO2 26 mmol/L (19-24)
[2020-01-16] MEDS: MILRINONE 1 MG/ML 20 ML VIAL IV SCH (13:52)
[2020-01-16] MEDS ORDERED: IPRATROPIUM-ALBUTEROL 3 ML NEB INHALATION PRN (13:52)
[2020-01-16] MEDS ORDERED: NITROGLYCERIN-D5W PMX 50 MG in DEXTROSE/WATER 1 250ML.BAG IV SCH (13:52)
[2020-01-16] MEDS ORDERED: hydrALAZINE HCL 20 MG/ML 1 ML VIAL IVP PRN (13:52)
[2020-01-16] MEDS ORDERED: Magnesium Replacement Protocol 1 EACH MISC MISCELLANE PRN (13:52)
[2020-01-16] MEDS ORDERED: ALBUMIN HUMAN 5% 250 ML in EMPTY BAG 1 BAG IVPB PRN (13:52)
[2020-01-16] MEDS ORDERED: BENZOCAINE/MENTHOL LOZENG 1 EACH LOZENGE MUCOUS MEM PRN (13:52)
[2020-01-16] MEDS ORDERED: ONDANSETRON 4 MG/2 ML VIAL IVP PRN (13:52)
[2020-01-16] MEDS ORDERED: AMIODARONE 360 MG in DEXTROSE 5% IN WATER 200 ML IV PRN ×2 (13:52)
[2020-01-16] MEDS ORDERED: Phosphorus Replacement Protoco 1 EACH MISC MISCELLANE PRN (13:52)
[2020-01-16] MEDS ORDERED: Potassium Replacement Protocol 1 EACH MISC MISCELLANE PRN (13:52)
[2020-01-16] MEDS ORDERED: AMIODARONE 300 MG in DEXTROSE 5% IN WATER 250 ML IV PRN ×2 (13:52)
[2020-01-16] MEDS ORDERED: CALCIUM GLUCONATE 2 GM in SODIUM CHLORIDE 0.9% 100 ML IVPB PRN (13:52)
[2020-01-16] MEDS ORDERED: METOCLOPRAMIDE 5 MG/ML 2 ML VIAL IVP PRN (13:52)
[2020-01-16] MEDS ORDERED: DEXTROSE 5% IN WATER 100 ML with AMIODARONE 150 MG IV PRN (13:52)
[2020-01-16 13:57] LABS: ABG Lactic Acid Whole Blood 2.4 mmol/L (0.5-1.6)
[2020-01-16] MEDS ORDERED: DEXMEDETOMIDINE/0.9% NACL(PMX) 400 MCG in EMPTY BAG 1 BAG IV SCH (14:15)
[2020-01-16 14:40] LABS: Glucose,Whole Blood 136 mg/dL (75-99)
[2020-01-16 14:58] LABS: Ionized Calcium 4.9 mg/dL (4.5-5.3)
[2020-01-16 15:03] LABS: INR 1.3 (<1.2); Partial Thromboplastin Time 30.5 sec (22.0-30.0); Prothrombin Time 13.4 sec (9.0-12.0)
--- NOTE | 2020-01-16 15:03 | XR ---
EXAMINATION TYPE: XR chest 1V portable DATE OF EXAM: 01/16/2020 Comparison: 12/09/2019 Clinical History: 64-year-old female Post Operative Cardiac Surgery Findings: ET tube tip 2.1 cm from the guillermo. Mediastinal drain is demonstrated. Bilateral chest tubes. Median sternotomy wires and post-CABG clips. Right IJ [place]-Darrin catheter in the proximal right main pulmonar y artery. Diffuse perihilar and interstitial densities. No sizable effusion. Epicardial pacer leads. Impression: 1. ET tube tip 2.1 cm from the guillermo. 2. Mild cardiomegaly and interstitial opacities. Correlate for mild pulmonary vascular congestion.
[2020-01-16 15:05] LABS: ALT 226 U/L (4-34); AST 371 U/L (14-36); African American GFR (CKD) >90 (>60 ml/min/1.73 sqM); Albumin 2.7 g/dL (3.5-5.0); Alkaline Phosphatase 39 U/L (38-126); Anion Gap 1 mmol/L; Basophils % (A) 0 %; Blood Urea Nitrogen 14 mg/dL (7-17); Calcium 7.8 mg/dL (8.4-10.2); Carbon Dioxide 27 mmol/L (22-30); Chloride 109 mmol/L (98-107); Eosinophils # (A) 0.1 k/uL (0-0.7); Eosinophils % (A) 1 %; Glucose 126 mg/dL (74-99); HCT 28.8 % (34.0-46.0); Lymphocytes # (A) 0.9 k/uL (1.0-4.8); Lymphocytes % (A) 8 %; MCH 34.3 pg (25.0-35.0); MCHC 35.2 g/dL (31.0-37.0); MCV 97.5 fL (80.0-100.0); Magnesium 2.4 mg/dL (1.6-2.3); Mean Platelet Volume 7.5; Monocytes # (A) 0.4 k/uL (0-1.0); Monocytes % (A) 3 %; Neutrophils # (A) 10.6 k/uL (1.3-7.7); Neutrophils % (A) 88 %; Non-African American GFR(CKD) 83 (>60 ml/min/1.73 sqM); Potassium 3.9 mmol/L (3.5-5.1); RBC 2.96 m/uL (3.80-5.40); RDW 12.4 % (11.5-15.5); Sodium 137 mmol/L (137-145); Total Bilirubin 2.9 mg/dL (0.2-1.3); Total Protein 4.3 g/dL (6.3-8.2); WBC 12.1 k/uL (3.8-10.6)
[2020-01-16 15:11] LABS: HGB 10.2 gm/dL (11.4-16.0); Platelet Count 110 k/uL (150-450)
[2020-01-16 15:17] LABS: Glucose,Whole Blood 134 mg/dL (75-99)
[2020-01-16] MEDS: INSULIN REGULAR 100 UNIT in SODIUM CHLORIDE 0.9% 100 ML IV SCH (15:19)
[2020-01-16 15:20] LABS: ABG Base Excess -1.1 mmol/L; ABG HCO3 26 mmol/L (21-25); ABG PCO2 59 mmHg (35-45); ABG PH 7.26 (7.35-7.45); ABG PO2 302 mmHg (83-108); ABG TCO2 28 mmol/L (19-24); Allen Test Performed? Yes
[2020-01-16] MEDS ORDERED: IPRATROPIUM-ALBUTEROL 3 ML NEB INHALATION SCH (16:00)
[2020-01-16] MEDS: ceFAZolin 3 GM in SODIUM CHLORIDE 0.9% 100 ML IVPB SCH ×2 (16:12→23:26)
[2020-01-16] MEDS: SODIUM CHLORIDE 0.9% 1,000 ML IV SCH (16:12)
[2020-01-16 16:22] LABS: Glucose,Whole Blood 124 mg/dL (75-99)
[2020-01-16] MEDS: CLEVIDIPINE BUTYRATE 25 MG in EMPTY BAG 1 BAG IV SCH ×2 (16:25→20:47)
[2020-01-16] MEDS ORDERED: POTASSIUM BICARBONATE/CIT AC 20 MEQ TABLET.EFF NG-TUBE SCH (17:00)
[2020-01-16 17:20] LABS: Glucose,Whole Blood 186 mg/dL (75-99)
[2020-01-16 17:39] LABS: Basophils % (A) 0 %; Eosinophils % (A) 0 %; HCT 32.1 % (34.0-46.0); Lymphocytes # (A) 0.8 k/uL (1.0-4.8); Lymphocytes % (A) 5 %; MCH 33.5 pg (25.0-35.0); MCHC 34.3 g/dL (31.0-37.0); MCV 97.5 fL (80.0-100.0); Mean Platelet Volume 7.6; Monocytes # (A) 0.7 k/uL (0-1.0); Monocytes % (A) 4 %; Neutrophils # (A) 15.4 k/uL (1.3-7.7); Neutrophils % (A) 91 %; Platelet Count 144 k/uL (150-450); RBC 3.29 m/uL (3.80-5.40); RDW 12.5 % (11.5-15.5)
[2020-01-16 18:17] LABS: Glucose,Whole Blood 187 mg/dL (75-99)
[2020-01-16] MEDS: ACETAMINOPHEN IV (For NPO) 1,000 MG in EMPTY BAG 1 BAG IVPB SCH ×2 (18:18→23:01)
[2020-01-16 18:34] LABS: ABG Base Excess -2.3 mmol/L; ABG HCO3 24 mmol/L (21-25); ABG Oxygen Saturation 99.3 % (94-97); ABG PCO2 46 mmHg (35-45); ABG PH 7.33 (7.35-7.45); ABG PO2 128 mmHg (83-108); ABG TCO2 25 mmol/L (19-24); Allen Test Performed? Yes
--- NOTE | 2020-01-16 19:04 | CONS ---
CONSULTATION PULMONARY/CRITICAL CARE CONSULT: DATE OF SERVICE: January 16, 2020. REASON FOR CONSULTATION: ICU management, ventilator management. HISTORY OF PRESENT ILLNESS: This is a patient who has a history of coronary artery disease and aortic stenosis. The patient underwent aortic valve replacement and 2 vessel bypass grafting. The patient had a BAHENA to LAD and saphenous vein graft to the obtuse marginal coronary artery. The surgery was done by Dr. Storey. The cardiac catheterization was done by Dr. Medellin back on November 12. That showed triple-vessel disease with total occlusion of the RCA, mild to moderate disease in the circumflex with total occlusion of the OM branches of the circumflex and critical lesion in the LAD. In addition, transesophageal echocardiogram on November 25 revealed severe aortic stenosis. The valve surface area is 1 cm2. The gradient across the valve was 60 mmHg. For that reason, she underwent surgery today. Today is postop day #0. She came back to the ICU on the ventilator. She was on the SIMV mode, rate of 12, tidal volume 400, FiO2 100%. PEEP of 10. Blood gases show pO2 of 302, pCO2 of 59, and pH is 7.26. The FiO2 was dropped from 100-50 percent and the rate was increased from 12-16. Currently, she is on saline at 50 mL an hour, nitroglycerin at 5 mcg/minute, insulin 0.5 units an hour. PAST MEDICAL HISTORY: Includes chronic tobacco use, hypertension, hyperlipidemia, and family history of coronary artery disease. ALLERGIES: CODEINE AND HYDROCODONE. HOME MEDICATIONS: Include aspirin, lisinopril, nitroglycerin, metoprolol, and hydrochlorothiazide. FAMILY HISTORY: Positive for cardiac disease. OCCUPATIONAL HISTORY: Noncontributory. SURGICAL HISTORY: Primarily remote. REVIEW OF SYSTEMS: Cannot be obtained, the patient is currently on the ventilator. PHYSICAL EXAMINATION: VITAL SIGNS: Current vital signs are temperature 96.8, heart rate 83, respiratory rate 16, blood pressure 110/72 mean 84. Saturations are 100%. CVP 17. Pulmonary artery pressure is 40/23. GENERAL: Appears in no acute distress. Currently semi awake. HEENT: Examination is grossly unremarkable. There is an orally placed endotracheal tube. NECK: Supple. Full range of motion. No adenopathy. Neck veins are flat. CARDIOVASCULAR: Examination reveals regular rhythm and rate. S1, S2 normal. No S3, S4, or murmur. LUNGS: A few scattered rhonchi. No wheezes. ABDOMEN: Soft. Bowel sounds are not noted. EXTREMITIES are intact. No edema. SKIN: Without rash. NEUROLOGIC: Examination could not be adequately assessed. LABS: Reviewed. White count 12.1, hemoglobin 10.2, hematocrit 28.8, platelet count 110,000. PT 13.4, INR 1.3 PTT 30.5. Blood gases have been noted. Sodium 137, potassium 3.9, chloride 109 CO2 27 anion gap was 1, BUN and creatinine were 14 and 0.75. The rest of the labs are reviewed. Medications are reviewed. ASSESSMENT: 1. Postop day #0, status post aortic valve replacement and 2 vessel bypass grafting for aortic stenosis and coronary artery disease. 2. History of chronic tobacco use. 3. History of hypertension. 4. History of hyperlipidemia. PLAN: Currently, the patient is doing well. We hope to get the patient extubated in the near future. The patient is somewhat awake currently. We will go ahead and proceed to a weaning protocol. No additional recommendations are made. Hemodynamically she is stable. She remains on nitroglycerin at 5 mics per minute, insulin 0.5 units an hour. She is getting saline at 50 mL an hour. Oxygenation is reasonable. MMODL / IJN: [id number] /
[2020-01-16 19:12] LABS: Glucose,Whole Blood 179 mg/dL (75-99)
--- NOTE | 2020-01-16 19:27 | OP ---
OPERATIVE REPORT DATE OF THE OPERATION: 01/16/2020. ATTENDING SURGEON: Dr. Javier Storey. ASSIST: Srinivas Gomez and Robert Grissom NP PREOPERATIVE DIAGNOSES: Severe bicuspid aortic valve stenosis, coronary artery disease. POSTOPERATIVE DIAGNOSES: Severe bicuspid aortic valve stenosis, coronary artery disease. PROCEDURE PERFORMED: 1. Aortic valve replacement with a #25 mm Alveles Medtronic bioprosthetic aortic valve. 2. Coronary bypass grafting x2 with left internal mammary to left anterior descending artery, reverse saphenous vein graft off the aorta to the distal obtuse marginal artery. 3. Clip ligation of the left atrial appendage with a 35 mm AtriClip. 4. Intraoperative ELTON. 5. Left lower extremity greater saphenous vein endoscopic vein harvesting. ANESTHESIA: General. BLOOD LOSS: 500 mL. SUMMARY: The patient brought to the operating room, placed supine position. After administration of a general endotracheal anesthetic, placement of [place]-Darrin catheter arterial line adequate IV access, Glover catheter, the patient is carefully prepped and draped in normal sterile fashion using chlorhexidine paint and sterile towels. In reviewing the cardiac cath, the circumflex artery did have about a 70% lesion and 1 piece of vein endoscopically was to be harvested. Greater saphenous vein was harvested from the left thigh using endoscopic vein harvesting technique. All branches were doubly tied and divided. The incisions closed in 2 layers. A midline incision in the chest made, sternum divided, pericardium was opened. Heart size was flat and was relatively normal-sized. The aorta was soft. Left pleural space opened and left internal mammary artery harvested as a pedicle from the xiphoid to the left subclavian vein. It was of 2 mm quality with excellent flow. The patient was heparinized with AST of greater than 480. The aorta and vena cava were cannulated. Antegrade and retrograde cardioplegic catheters positioned in the ascending aorta and the coronary sinus. The patient was placed on bypass, cross-clamp placed, heart arrested with 1 L of antegrade followed by 500 mL retrograde cardioplegia. Retrograde cardioplegia was delivered 3-500 mL at the end of each 20 minutes interval, First the base of the left atrial appendage was measured and a 35 mm AtriClip was secured at the base officially obliterating the left atrial appendage. Distal anastomoses constructed. Reverse saphenous vein graft anastomosis to the circumflex artery was constructed using a 7-0 Prolene running suture. Caliber of this vessel was 1.25-1.5 mm and was a diffusely diseased vessel. Next, the left internal mammary was beveled. Distal anastomosis to the mid left anterior descending artery constructed using an 8-0 Prolene running suture. Caliber of this vessel was 1.75 mm. Next, transverse aortotomy incision was made 2 cm distal to the takeoff of the right coronary artery. A handheld retractor was placed. The aortic valve was a bicuspid valve, very heavily calcified. The valve leaflets were excised. The anulus debrided and it was irrigated out copiously with cold saline. It sized to a 25 mm ICAgen of Aveles aortic valve. The valve was brought into the field and prepared in the usual fashion as 2-0 Tycron pledgeted sutures were placed ventricularly based circumferentially. These were then passed through the sewing cuff of the valve which was seated and seated well. All sutures were then secured, tied and cut using the core knot ligature system device. Once it was irrigated out again copiously, the aorta aortotomy incision was closed with 2 felt strips as buttresses on both outer edges using a 4-0 Prolene vertical mattress followed by an over- and over stitch from both sites. A single proximal anastomosis was then constructed using 6-0 Prolene running suture in the ascending aorta. The patient was placed head down. Complete de-airing maneuvers performed three times. One L of warm blood retrograde cardioplegia was run. Cross-clamp was removed. The vein graft de-aired. Once beating normal sinus rhythm, the patient was brought off bypass. Came off bypass uneventfully with good hemodynamics. Protamine delivered. Patient decannulated. Atrial ventricular pacing wires were placed. Mediastinal left pleural chest tubes were placed. At this point, the sternum was closed with 4 #6 sternal wires and 2 [id number] Tivoli sternal cable closure devices. Skin and subcutaneous tissue, fascia closed in 3 layers. No complications. Patient tolerated procedure well and was taken to the cardiovascular intensive care unit in stable condition. MMODL / IJN: [id number] /
[2020-01-16] MEDS: IPRATROPIUM-ALBUTEROL 3 ML NEB INHALATION SCH ×2 (20:11→20:24)
[2020-01-16 20:16] LABS: Glucose,Whole Blood 161 mg/dL (75-99)
[2020-01-16] MEDS: HEPARIN SODIUM,PORCINE 5,000 UNIT/ML 1 ML VIAL SQ SCH (20:22)
[2020-01-16 20:26] LABS: Basophils % (A) 0 %; Eosinophils % (A) 0 %; HCT 33.2 % (34.0-46.0); HGB 11.2 gm/dL (11.4-16.0); Lymphocytes # (A) 0.4 k/uL (1.0-4.8); Lymphocytes % (A) 3 %; MCH 32.8 pg (25.0-35.0); MCHC 33.7 g/dL (31.0-37.0); MCV 97.2 fL (80.0-100.0); Mean Platelet Volume 8.6; Monocytes # (A) 0.4 k/uL (0-1.0); Monocytes % (A) 3 %; Neutrophils % (A) 94 %; Platelet Count 142 k/uL (150-450); RBC 3.42 m/uL (3.80-5.40); WBC 12.8 k/uL (3.8-10.6)
[2020-01-16] MEDS ORDERED: MUPIROCIN 2% OINT 22 GM TUBE NASAL ONE (20:45)
[2020-01-16 21:02] LABS: Glucose,Whole Blood 157 mg/dL (75-99)
[2020-01-16 22:03] LABS: Glucose,Whole Blood 140 mg/dL (75-99)
[2020-01-16 22:59] LABS: Glucose,Whole Blood 136 mg/dL (75-99)
[2020-01-17] LABS: Glucose,Whole Blood 133 mg/dL (75-99)
[2020-01-17] MEDS ORDERED: HYDROcodone/APAP 5-325MG 1 EACH TAB PO PRN (00:38)
[2020-01-17 01:34] LABS: Glucose,Whole Blood 122 mg/dL (75-99)
[2020-01-17 03:09] LABS: Glucose,Whole Blood 122 mg/dL (75-99)
[2020-01-17] MEDS: HYDROcodone/APAP 5-325MG 1 EACH TAB PO PRN ×3 (03:48→17:02)
[2020-01-17 04:11] LABS: Glucose,Whole Blood 121 mg/dL (75-99)
[2020-01-17 04:25] LABS: Basophils % (A) 0 %; Eosinophils % (A) 0 %; HCT 32.2 % (34.0-46.0); HGB 11.1 gm/dL (11.4-16.0); Lymphocytes # (A) 0.9 k/uL (1.0-4.8); Lymphocytes % (A) 7 %; MCH 33.5 pg (25.0-35.0); MCHC 34.4 g/dL (31.0-37.0); MCV 97.3 fL (80.0-100.0); Mean Platelet Volume 8.4; Monocytes # (A) 0.7 k/uL (0-1.0); Monocytes % (A) 5 %; Neutrophils # (A) 12.3 k/uL (1.3-7.7); Neutrophils % (A) 88 %; Platelet Count 153 k/uL (150-450); RBC 3.31 m/uL (3.80-5.40); RDW 12.5 % (11.5-15.5)
[2020-01-17 04:44] LABS: Ionized Calcium 5.2 mg/dL (4.5-5.3)
[2020-01-17 04:51] LABS: ALT 235 U/L (4-34); AST 212 U/L (14-36); African American GFR (CKD) >90 (>60 ml/min/1.73 sqM); Albumin 3.2 g/dL (3.5-5.0); Alkaline Phosphatase 50 U/L (38-126); Anion Gap 3 mmol/L; Blood Urea Nitrogen 15 mg/dL (7-17); Calcium 8.8 mg/dL (8.4-10.2); Carbon Dioxide 27 mmol/L (22-30); Chloride 108 mmol/L (98-107); Glucose 116 mg/dL (74-99); Magnesium 2.2 mg/dL (1.6-2.3); Non-African American GFR(CKD) 83 (>60 ml/min/1.73 sqM); Potassium 4.3 mmol/L (3.5-5.1); Sodium 138 mmol/L (137-145); Total Bilirubin 1.9 mg/dL (0.2-1.3); Total Protein 5.1 g/dL (6.3-8.2)
[2020-01-17 05:25] LABS: Glucose,Whole Blood 115 mg/dL (75-99)
[2020-01-17 06:28] LABS: Glucose,Whole Blood 122 mg/dL (75-99)
[2020-01-17 07:09] LABS: Glucose,Whole Blood 119 mg/dL (75-99)
--- NOTE | 2020-01-17 07:11 | P.CRDCN ---
History of Present Illness Consult date: 01/17/20 Chief complaint: Status post open heart surgery History of present illness: This is a pleasant 64-year-old female patient was coronary artery disease as well as aortic stenosis who was admitted to the hospital yesterday and underwent aortic valve replacement along with coronary artery bypass grafting. She underwent BAHENA to LAD and reverse SVG to OM. Beside that she underwent aortic valve replacement using a bioprosthetic valve. This is postoperative elevation day #1. The patient overall is doing reasonable recovery. She is not on any vasopressors at this point. She has been maintaining normal sinus mechanism. She has been having good urine output. She has been having low drainage from the chest a few weeks. She is on dual antiplatelet therapy. She is not on a statin because of abnormal liver function tests. The chest x-ray was reviewed this morning. The patient was diagnosed recently with severe triple-vessel coronary artery disease based on heart catheterization was performed by Dr. Medellin in November 2019. Also she underwent transesophageal echocardiogram and that revealed evidence of severe aortic stenosis. Please note that the patient was also extubated yesterday. From a cardiovascular standpoint of view, the patient seems to be moving in the right direction. We will continue the current medical regimen. Continue monitor the kidney function and electrolytes. And continue following up with the patient. Past Medical History Past Medical History: Coronary Artery Disease (CAD), Cancer, CVA/TIA, Hyperlipidemia, Hypertension Additional Past Medical History / Comment(s): Hx LEFT BREAST CANCER, CVA 12/2017, states some delayed speech, previous thyroid medication, none currently, this surgery cancelled recently due to elevated liver enzymes, going down per pt., has happened before when taking statin which was d/c History of Any Multi-Drug Resistant Organisms: None Reported Past Surgical History: Appendectomy, Breast Surgery, Cholecystectomy, Tonsillectomy Additional Past Surgical History / Comment(s): OVARIAN CYST WITH APPENDECTOMY, breast biopsy,left breast lumpectomy, has mary catheter for radiation left breast, now removed Past Anesthesia/Blood Transfusion Reactions: Postoperative Nausea & Vomiting (PONV) Past Psychological History: No Psychological Hx Reported Smoking Status: Former smoker Past Alcohol Use History: Occasional Additional Past Alcohol Use History / Comment(s): SMOKED 1- 1 1/2 PPD, SMOKED FOR 30 + YEARS. QUIT SMOKING 2009. Past Drug Use History: None Reported - Past Family History Father Family Medical History: Cancer Additional Family Medical History / Comment(s): from lung cancer Brother(s) Family Medical History: Deep Vein Thrombosis (DVT) Mother Family Medical History: Coronary Artery Disease (CAD), Hypertension Medications and Allergies Home Medications Medication Instructions Recorded Confirmed Type lisinopriL [Zestril] 20 mg PO DAILY 01/26/16 01/06/20 History Aspirin [Adult Low Dose Aspirin EC] 81 mg PO DAILY 11/07/19 01/16/20 History Hydrochlorothiazide 12.5 mg PO DAILY 11/07/19 01/06/20 History [hydroCHLOROthiazide] Metoprolol Tartrate [Lopressor] 50 mg PO BID 11/07/19 01/06/20 History Nitroglycerin Sl Tabs [Nitrostat] 0.4 mg SUBLINGUAL Q5M PRN 11/07/19 01/06/20 History Allergies Allergy/AdvReac Type Severity Reaction Status Date / Time codeine Allergy Unknown "Shakey" Verified 01/06/20 15:46 hydrocodone [From Vicodin] Allergy Unknown Itching Verified 01/06/20 15:46 Physical Exam Vitals: Vital Signs Temp Pulse Resp BP Pulse Ox 01/17/20 07:00 93 17 121/72 95 01/17/20 06:30 93 15 94 L 01/17/20 06:00 99.3 F 96 20 121/72 93 L 01/17/20 05:30 96 16 93 L 01/17/20 05:00 99.0 F 94 15 130/82 95 01/17/20 04:30 98 16 94 L 01/17/20 04:00 99.0 F 96 13 122/82 95 01/17/20 03:30 96 13 96 01/17/20 03:00 98.8 F 95 15 124/82 96 01/17/20 02:45 96 13 96 01/17/20 02:30 93 13 95 01/17/20 02:15 93 14 95 01/17/20 02:00 98.6 F 94 14 120/83 95 01/17/20 01:45 93 16 120/83 94 L 01/17/20 01:30 97 30 H 120/83 94 L 01/17/20 01:15 96 15 95 01/17/20 01:00 95 16 120/83 95 01/17/20 00:45 95 18 94 L 01/17/20 00:30 93 14 95 01/17/20 00:15 94 16 96 01/17/20 00:03 92 13 119/84 95 01/17/20 00:00 98.6 F 92 14 119/84 96 01/16/20 23:45 93 14 93 L 01/16/20 23:30 93 14 95 01/16/20 23:15 96 15 89 L 01/16/20 23:00 98.8 F 93 14 121/81 94 L 01/16/20 22:45 96 11 L 91 L 01/16/20 22:30 92 14 93 L 01/16/20 22:15 93 14 93 L 01/16/20 22:00 98.8 F 96 17 113/75 94 L 01/16/20 21:45 94 15 94 L 01/16/20 21:30 94 15 92 L 01/16/20 21:15 96 15 95 01/16/20 21:00 96 16 138/97 97 01/16/20 20:45 94 15 138/97 97 01/16/20 20:39 90 01/16/20 20:30 98.6 F 92 13 137/89 100 01/16/20 20:24 92 01/16/20 20:15 89 9 L 138/97 97 01/16/20 20:00 98.6 F 90 22 135/86 95 01/16/20 19:45 88 13 135/86 94 L 01/16/20 19:30 90 16 135/86 99 01/16/20 19:15 88 19 135/86 93 L 01/16/20 19:00 89 20 135/86 94 L 01/16/20 18:54 93 L 01/16/20 18:45 84 15 99 01/16/20 18:30 85 7 L 100 01/16/20 18:15 84 12 99 01/16/20 18:00 97.9 F 84 14 120/83 99 01/16/20 17:45 81 14 99 01/16/20 17:30 82 18 99 01/16/20 17:15 80 16 100 01/16/20 17:00 97.3 F L 79 16 121/77 100 01/16/20 16:45 77 141 H 100 01/16/20 16:30 76 16 99 11/13/20 16:25 82 01/16/20 16:15 78 18 100 01/16/20 16:00 96.8 F L 80 16 110/72 100 01/16/20 15:58 80 01/16/20 15:45 81 13 119/75 100 01/16/20 15:30 84 16 100 01/16/20 15:15 82 12 100 01/16/20 15:00 96.6 F L 79 12 100 01/16/20 14:45 79 12 100 01/16/20 14:30 96.4 F L 85 12 100 Intake and Output 01/16/20 01/17/20 01/17/20 22:59 06:59 14:59 Intake Total 1037.303 625.583 Output Total 1091 1052 Balance -53.697 -426.417 Intake: Intake, IV Titration 1037.303 625.583 Amount ACETAMINOPHEN IV (For NPO 100 100 ) 1,000 mg In Empty Bag 1 bag @ 400 mls/hr IVPB Q6HR AMAYA Rx#:[id number] Albumin Human 5% 250 ml 250 In Empty Bag 1 bag @ 250 mls/hr IVPB Q1HR PRN Rx#: [id number] Clevidipine Butyrate 25 1.467 mg In Empty Bag 1 bag @ 1 MG/HR 2 mls/hr IV .Q24H AMAYA Rx#:[id number] Insulin Regular 100 unit 28.237 15.083 In Sodium Chloride 0.9% 100 ml @ Per Protocol IV .Q0M AMAYA Rx#:[id number] Nitroglycerin-D5w Pmx 50 12.0 10.5 mg In Dextrose/Water 1 250ml.bag @ 5 MCG/MIN 1.5 mls/hr IV .Q24H AMAYA Rx#: [id number] Sodium Chloride 0.9% 1, 400 400 000 ml @ 50 mls/hr IV . Q20H AMAYA Rx#:[id number] ceFAZolin 3 gm In Sodium 100 100 Chloride 0.9% 100 ml @ 100 mls/hr IVPB Q8H AMAYA Rx#:[id number] propofoL 1,000 mg In 145.599 Empty Bag 1 bag @ Titrate IV .Q0M AMAYA Rx#: [id number] Output: Chest Tube Drainage [address] 82 270 Drainage 200 60 Left Calf [address] 130 Urine [id number] Other: Voiding Method Indwelling Catheter Indwelling Catheter Weight 134 kg ABP, PAP, CO, CI - Last 8 Hours Arterial Blood Pressure 123/63 Arterial Blood Pressure 129/62 Arterial Blood Pressure 131/65 Arterial Blood Pressure 128/65 Arterial Blood Pressure 133/71 Arterial Blood Pressure 122/64 Arterial Blood Pressure 130/67 Arterial Blood Pressure 125/63 Arterial Blood Pressure 123/63 Arterial Blood Pressure 124/62 Arterial Blood Pressure 119/60 Arterial Blood Pressure 123/63 Arterial Blood Pressure 120/77 Arterial Blood Pressure 119/62 Arterial Blood Pressure 110/57 Arterial Blood Pressure 126/65 Arterial Blood Pressure 122/63 Arterial Blood Pressure 122/64 Arterial Blood Pressure 127/67 Arterial Blood Pressure 125/65 Arterial Blood Pressure 119/62 Arterial Blood Pressure 125/65 Arterial Blood Pressure 121/62 Arterial Blood Pressure 117/60 Arterial Blood Pressure 118/61 Pulmonary Artery Pressure 28/13 Pulmonary Artery Pressure 26/12 Pulmonary Artery Pressure 30/19 Pulmonary Artery Pressure 31/18 Pulmonary Artery Pressure 36/22 Pulmonary Artery Pressure 31/17 Pulmonary Artery Pressure 31/18 Pulmonary Artery Pressure 29/16 Pulmonary Artery Pressure 30/17 Pulmonary Artery Pressure 30/16 Pulmonary Artery Pressure 30/15 Pulmonary Artery Pressure 31/17 Pulmonary Artery Pressure 31/17 Pulmonary Artery Pressure 29/18 Pulmonary Artery Pressure 30/18 Pulmonary Artery Pressure 29/17 Pulmonary Artery Pressure 29/17 Pulmonary Artery Pressure 31/17 Pulmonary Artery Pressure 30/18 Pulmonary Artery Pressure 31/17 Pulmonary Artery Pressure 30/16 Pulmonary Artery Pressure 31/18 Pulmonary Artery Pressure 32/18 Pulmonary Artery Pressure 31/15 Pulmonary Artery Pressure 33/18 Cardiac Output 6.3 Cardiac Output 5.5 Cardiac Output 6.8 Cardiac Output 6.8 Cardiac Output 6.8 Cardiac Index 2.8 Cardiac Index 2.5 Cardiac Index 3 Cardiac Index 3 Cardiac Index 3 - Constitutional General appearance: no acute distress - Respiratory Respiratory: bilateral: diminished - Cardiovascular Rhythm: regular Heart sounds: normal: S1, S2 Results 01/17/20 04:10 01/17/20 04:10 Cardiac Enzymes 01/16/20 01/17/20 Range/Units 14:40 04:10 AST 371 H 212 H (14-36) U/L Coagulation 01/16/20 Range/Units 14:40 PT 13.4 H (9.0-12.0) sec APTT 30.5 H (22.0-30.0) sec CBC 01/16/20 01/16/20 01/16/20 Range/Units 14:40 17:20 20:15 WBC 12.1 H 17.0 H 12.8 H (3.8-10.6) k/uL RBC 2.96 L 3.29 L 3.42 L (3.80-5.40) m/uL Hgb 10.2 L D 11.0 L 11.2 L (11.4-16.0) gm/dL Hct 28.8 L 32.1 L 33.2 L (34.0-46.0) % Plt Count 110 L D 144 L 142 L (150-450) k/uL 01/17/20 Range/Units 04:10 WBC 14.0 H (3.8-10.6) k/uL RBC 3.31 L (3.80-5.40) m/uL Hgb 11.1 L (11.4-16.0) gm/dL Hct 32.2 L (34.0-46.0) % Plt Count 153 (150-450) k/uL Comprehensive Metabolic Panel 01/16/20 01/17/20 Range/Units 14:40 04:10 Sodium 137 138 (137-145) mmol/L Potassium 3.9 4.3 (3.5-5.1) mmol/L Chloride 109 H 108 H (98-107) mmol/L Carbon Dioxide 27 27 (22-30) mmol/L BUN 14 15 (7-17) mg/dL Creatinine 0.75 0.76 (0.52-1.04) mg/dL Glucose 126 H 116 H (74-99) mg/dL Calcium 7.8 L 8.8 (8.4-10.2) mg/dL AST 371 H 212 H (14-36) U/L ALT 226 H 235 H (4-34) U/L Alkaline Phosphatase 39 50 (38-126) U/L Total Protein 4.3 L 5.1 L (6.3-8.2) g/dL Albumin 2.7 L 3.2 L (3.5-5.0) g/dL Current Medications Generic Name Dose Route Start Last Admin Trade Name Freq PRN Reason Stop Dose Admin Hydrocodone Bitart/Acetaminophen 2 each 01/17/20 00:38 01/17/20 03:48 Hydrocodone/Apap 5-325mg 1 Each Tab PO 2 each Q4HR PRN Administration Severe Pain Hydrocodone Bitart/Acetaminophen 1 each 01/17/20 00:38 Hydrocodone/Apap 5-325mg 1 Each Tab PO Q4HR PRN Moderate Pain Albuterol/Ipratropium 3 ml 01/16/20 13:52 Ipratropium-Albuterol 3 Ml Neb INHALATION RT-Q2H PRN Shortness Of Breath Or Wheezing Albuterol/Ipratropium 3 ml 01/16/20 18:39 01/16/20 20:24 Ipratropium-Albuterol 3 Ml Neb INHALATION 3 ml RT-QID AMAYA Administration Aspirin 325 mg 01/17/20 09:00 Aspirin 325 Mg Tab PO DAILY AMAYA Benzocaine/Menthol 1 each 01/16/20 13:52 Benzocaine/Menthol Lozeng 1 Each Lozenge MUCOUS MEM Q2H PRN Sore Throat Bisacodyl 10 mg 01/17/20 09:00 Bisacodyl 10 Mg Supp RECTAL DAILY PRN Constipation Clopidogrel Bisulfate 75 mg 01/17/20 09:00 Clopidogrel 75 Mg Tab PO DAILY AMAYA Heparin Sodium (Porcine) 5,000 unit 01/16/20 20:39 01/16/20 20:22 Heparin Sodium,Porcine 5,000 Unit/Ml 1 Ml Vial SQ 5,000 unit Q8HR AMAYA Administration Hydralazine HCl 10 mg 01/16/20 13:52 Hydralazine Hcl 20 Mg/Ml 1 Ml Vial IVP Q1H PRN Blood Pressure - High Amiodarone HCl 150 mg/ 103 mls @ 618 mls/hr 01/16/20 13:52 Dextrose/Water IV .Q10M PRN A.FIB/FLUTTER Protocol Amiodarone HCl 360 mg/ 200 mls @ 33.333 mls/hr 01/16/20 13:52 Dextrose/Water IV .Q6H PRN A.FIB/FLUTTER Protocol 1 MG/MIN Amiodarone HCl 300 mg/ 250 mls @ 25 mls/hr 01/16/20 13:52 Dextrose/Water IV .Q10H PRN A.FIB/FLUTTER Protocol 0.5 MG/MIN Albumin Human 250 ml/ IV 250 mls @ 250 mls/hr 01/16/20 13:52 01/16/20 16:36 Solution IVPB 01/18/20 13:53 250 mls/hr Q1HR PRN Administration For Volume Clevidipine 25 mg/ IV Solution 50 mls @ 2 mls/hr 01/16/20 13:52 01/16/20 21:26 IV 1 mg/hr .Q24H AMAYA 2 mls/hr Titration Protocol 1 MG/HR Nitroglycerin/Dextrose 50 mg/ 250 mls @ 1.5 mls/hr 01/16/20 13:52 01/16/20 16:12 IV Solution IV 5 mcg/min .Q24H AMAYA 1.5 mls/hr Administration 5 MCG/MIN Dexmedetomidine HCl 400 mcg/ 100 mls @ 0 mls/hr 01/16/20 14:15 IV Solution IV 01/17/20 14:16 .Q0M AMAYA Protocol Titrate Cefazolin Sodium 3 gm/ Sodium 100 mls @ 100 mls/hr 01/16/20 16:00 01/16/20 23 :26 Chloride IVPB 01/17/20 08:59 100 mls/hr Q8H AMAYA Administration Calcium Gluconate 2 gm/ Sodium 120 mls @ 100 mls/hr 01/16/20 13:52 Chloride IVPB 01/19/20 13:53 ONCE PRN Ionized Calcium less than 4.4 Insulin Human Regular 100 unit 101 mls @ 0 mls/hr 01/16/20 14:30 01/17/20 01:46 / Sodium Chloride IV 3.47 unit/hr .Q0M AMAYA 3.5 mls/hr Titration Protocol Per Protocol Sodium Chloride 1,000 mls @ 50 mls/hr 01/16/20 13:52 01/16/20 16:12 Saline 0.9% IV 50 mls/hr .Q20H AMAYA Administration Magnesium Hydroxide 2,400 mg 01/17/20 09:00 Magnesium Hydroxide 2,400 Mg/10 Ml Cup PO BID PRN Constipation Metoclopramide HCl 10 mg 01/16/20 13:52 Metoclopramide 5 Mg/Ml 2 Ml Vial IVP Q4H PRN Nausea And Vomiting Metoprolol Tartrate 12.5 mg 01/17/20 09:00 Metoprolol Tartrate 12.5 Mg Tab PO BID AMAYA Miscellaneous Information 1 each 01/16/20 13:52 Potassium Replacement Protocol 1 Each [facility] [place]ANE DAILY PRN Per Protocol Protocol Miscellaneous Information 1 each 01/16/20 13:52 Magnesium Replacement Protocol 1 [facility] PRN Per Protocol Protocol Miscellaneous Information 1 each 01/16/20 13:52 Phosphorus Replacement Protoco 1 Each [facility] [place]ISCELLANE DAILY PRN Per Protocol Protocol Ondansetron HCl 4 mg 01/16/20 13:52 01/16/20 19:59 Ondansetron 4 Mg/2 Ml Vial IVP 4 mg Q6HR PRN Administration Nausea And Vomiting Pantoprazole Sodium 40 mg 01/17/20 09:00 Pantoprazole 40 Mg/10 Ml Vial IVP DAILY AMAYA Senna/Docusate Sodium 2 each 01/17/20 21:00 Sennosides-Docusate Sodium 1 Each Tab PO HS AMAYA Sodium Chloride 10 ml 01/16/20 21:00 01/16/20 20:22 Sodium Chloride 0.9% Flush 10 Ml Syringe IV 10 ml BID AMAYA Administration Intake and Output 01/16/20 01/17/20 01/17/20 22:59 06:59 14:59 Intake Total 1037.303 625.583 Output Total 1091 1052 Balance -53.697 -426.417 Intake: Intake, IV Titration 1037.303 625.583 Amount ACETAMINOPHEN IV (For NPO 100 100 ) 1,000 mg In Empty Bag 1 bag @ 400 mls/hr IVPB Q6HR AMA[facility] Rx#:[id number] Albumin Human 5% 250 ml 250 In Empty Bag 1 bag @ 250 mls/hr IVPB Q1HR PRN Rx#: [id number] Clevidipine Butyrate 25 1.467 mg In Empty Bag 1 bag @ 1 MG/HR 2 mls/hr IV .Q24H AMAYA Rx#:[id number] Insulin Regular 100 unit 28.237 15.083 In Sodium Chloride 0.9% 100 ml @ Per Protocol IV .Q0M AMAYA Rx#:[id number] Nitroglycerin-D5w Pmx 50 12.0 10.5 mg In Dextrose/Water 1 250ml.bag @ 5 MCG/MIN 1.5 mls/hr IV .Q24H AMAYA Rx#: [id number] Sodium Chloride 0.9% 1, 400 400 000 ml @ 50 mls/hr IV . Q20H AMAYA Rx#:[id number] ceFAZolin 3 gm In Sodium 100 100 Chloride 0.9% 100 ml @ 100 mls/hr IVPB Q8H AMAYA Rx#:[id number] propofoL 1,000 mg In 145.599 Empty Bag 1 bag @ Titrate IV .Q0M AMAYA Rx#: [id number] Output: Chest Tube Drainage [address] 82 270 Drainage 200 60 Left Calf [address] 130 Urine 752 [id number] Other: Voiding Method Indwelling Catheter Indwelling Catheter Weight 134 kg 01/17/20 04:10 01/17/20 04:10 Assessment and Plan Assessment: Assessment #1 status post aortic valve replacement and coronary artery that is grafting #2 known severe coronary artery disease #3 known severe aortic stenosis #4 multiple comorbid conditions Plan #1 continue the current medical regimen #2 continue hold the statin the liver function tests comedown #3 continue dual antiplatelet therapy #4 follow-up with the patient #5 monitor the kidney function and electrolytes #6 monitor the hemoglobin
[2020-01-17] MEDS: ceFAZolin 3 GM in SODIUM CHLORIDE 0.9% 100 ML IVPB SCH (07:12)
[2020-01-17] MEDS: IPRATROPIUM-ALBUTEROL 3 ML NEB INHALATION SCH ×4 (07:20→19:44)
--- NOTE | 2020-01-17 07:37 | XR ---
EXAMINATION TYPE: XR chest 1V portable DATE OF EXAM: 01/17/2020 COMPARISON: Prior chest x-ray 01/16/2020 HISTORY: Postop cardiac surgery TECHNIQUE: Single frontal view of the chest is obtained. FINDINGS: Endotracheal tube has been removed. Bilateral chest tubes remain in place. Central venous catheter and mediastinal drain, atrial appendage clipping are all stable. Heart remains enlarged, pat ient is rotated. There is prominence of central vascularity and interstitium, patchy bibasilar densit y noted. Lung volumes are low. No evident pneumothorax. . IMPRESSION: Interval extubation. Expiratory rotated exam. There is probable atelectasis. Stable card iomegaly
[2020-01-17 08:18] LABS: Glucose,Whole Blood 115 mg/dL (75-99)
[2020-01-17] MEDS: METOPROLOL TARTRATE 25 MG TAB PO SCH ×2 (08:19→20:12)
[2020-01-17] MEDS: CLOPIDOGREL 75 MG TAB PO SCH (08:19)
[2020-01-17] MEDS: PANTOPRAZOLE 40 MG TABLET PO SCH (08:19)
[2020-01-17] MEDS: KETOROLAC 15 MG/ML 1 ML VIAL IVP SCH ×4 (08:19→23:25)
[2020-01-17] MEDS: ASPIRIN 325 MG TAB PO SCH (08:19)
[2020-01-17] MEDS: HEPARIN SODIUM,PORCINE 5,000 UNIT/ML 1 ML VIAL SQ SCH ×3 (08:20→23:25)
[2020-01-17] MEDS ORDERED: FUROSEMIDE 10 MG/ML 2 ML VIAL IV STA (08:57)
[2020-01-17] MEDS ORDERED: PANTOPRAZOLE 40 MG/10 ML VIAL IVP SCH (09:00)
[2020-01-17] MEDS ORDERED: bisacodyL 10 MG SUPP RECTAL PRN (09:00)
[2020-01-17] MEDS ORDERED: MAGNESIUM HYDROXIDE 2,400 MG/10 ML CUP PO PRN (09:00)
[2020-01-17] MEDS ORDERED: METOPROLOL TARTRATE 12.5 MG TAB PO SCH (09:00)
[2020-01-17 09:17] LABS: Glucose,Whole Blood 126 mg/dL (75-99)
--- NOTE | 2020-01-17 09:45 | P.PN ---
Subjective Progress Note Date: 01/17/20 Principal diagnosis: Severe bicuspid aortic valve stenosis, coronary artery disease. Past medical history significant for hypertension, hyperlipidemia, breast cancer, TIA in 2018, preoperative elevation of her transaminase enzymes, family history of coronary artery disease less than 60 years of age and history of chronic tobacco abuse. POD #1 aortic valve replacement with a 25 mm Avalus Medtronic bioprosthetic aortic valve, coronary artery bypass grafting 2 with left internal mammary artery to the left anterior ascending coronary artery, reverse greater saphenous vein graft off the aorta to the distal obtuse marginal coronary artery, clip ligation of the left atrial appendage with a 35 mm Atriclip, intraoperative transesophageal echocardiogram and left lower extremity greater saphenous vein endoscopic vein harvesting. Postoperative acute blood loss anemia, expected dilutional. The patient is seen in follow-up today on 01/17/2020 at her bedside in the intensive care unit. Currently she is sitting up to the bedside chair, is awake, alert and oriented 3 and is in no acute distress. She remains hemodynamically stable and is currently on no inotropic or pressor support. Right right IJ Brashear-Darrin catheter remains in place with current hemodynamics showing a cardiac output 6.3, cardiac index 2.8, PA pressures 28/13, CVP 8 mmHg. She is on 1 mg an hour of Cleviprex to keep systolic blood pressure around 120 mmHg. Bedside telemetry showing normal sinus rhythm heart rate 93 BPM. Oxygen saturation are 95% on 4 L nasal cannula and she is achieving 500-750 mL on her incentive spirometry with encouragement. Mediastinal, left and right pleural chest tubes remain in place to low continuous wall suction -20 cm H2O. Left and right pleural chest tubes showing a intermittent air leak. Draining thin serosanguineous drainage with mediastinal straining 100 mL output in the last 8 hours and 210 mL output since surgery, left and right pleural chest tubes bekah ined 270 mL output in the last 8 hours and 550 mL output since surgery. Objective - Vital Signs Vital signs: Vital Signs Temp 99.3 F 01/17/20 06:00 Pulse 88 01/17/20 07:37 Resp 17 01/17/20 07:00 BP 121/72 01/17/20 07:00 Pulse Ox 95 01/17/20 07:00 Intake & Output 01/16/20 01/17/20 01/17/20 18:59 06:59 18:59 Intake Total 769.986 954.900 51.5 Output Total 2117 1626 55 Balance -1347.014 -671.100 -3.5 Weight 134 kg Intake: IV 62 Intake, IV Titration 707.986 954.900 51.5 Amount ACETAMINOPHEN IV (For NPO 200 ) 1,000 mg In Empty Bag 1 bag @ 400 mls/hr IVPB Q6HR [facility] Rx#:[id number] Albumin Human 5% 250 ml 250 In Empty Bag 1 bag @ 250 mls/hr IVPB Q1HR PRN Rx#: [id number] Clevidipine Butyrate 25 1.467 mg In Empty Bag 1 bag @ 1 MG/HR 2 mls/hr IV .Q24H [facility] Rx#:[id number] Insulin Regular 100 unit 6.387 36.933 In Sodium Chloride 0.9% 100 ml @ Per Protocol IV .Q0M [facility] Rx#:[id number] Nitroglycerin-D5w Pmx 50 6.0 16.5 1.5 mg In Dextrose/Water 1 250ml.bag @ 5 MCG/MIN 1.5 mls/hr IV .Q24H [facility] Rx#: [id number] Sodium Chloride 0.9% 1, 200 600 50 000 ml @ 50 mls/hr IV . Q20H [facility] Rx#:[id number] ceFAZolin 3 gm In Sodium 100 100 Chloride 0.9% 100 ml @ 100 mls/hr IVPB Q8H [facility] Rx#:[id number] propofoL 1,000 mg In 145.599 Empty Bag 1 bag @ Titrate IV .Q0M AMAYA Rx#: [id number] Output: Chest Tube Drainage [address] 352 30 Drainage 175 85 Left Calf [address] 120 10 Urine 942 1034 25 Estimated Blood Loss 1000 Other: Voiding Method Indwelling Catheter Indwelling Catheter ABP, PAP, CO, CI - Last Documented Arterial Blood Pressure 123/63 Pulmonary Artery Pressure 28/13 Cardiac Output 6.3 Cardiac Index 2.8 - Constitutional General appearance: Present: cooperative, morbidly obese, no acute distress - EENT Eyes: Present: normal appearance. Absent: scleral icterus ENT: Present: hearing grossly normal - Neck Details: Neck is supple, right IJ Cordis and Brashear-Darrin catheter in place and functioning. - Respiratory Details: Lung sounds essentially clear to her bilateral upper lobes, diminished bilateral bases. No wheezes, rhonchi or crackles. Respirations are symmetrical and nonla bored. Oxygen saturation is 95% on 4 L nasal cannula. Achieving 500-750 mL on her incentive spirometry. Mediastinal, left and right pleural chest tubes remain in place to low continuous wall suction -20 cm H2O. Left and right pleural chest tubes showing a intermittent air leak. Draining thin serosanguineous drainage with mediastinal straining 100 mL output in the last 8 hours and 210 mL output since surgery, left and right pleural chest tubes drained 270 mL output in the last 8 hours and 550 mL output since surgery. - Cardiovascular Details: Regular rhythm and rate. S1 and S2 present, negative for S3, gallop or murmur. Sternum is stable. Heart hugger is in place and she is demonstrating appropriate use. Knee-high KIERRA hose and sequential compression devices in place to bilateral lower extremities. Atrial and ventricular epicardial pacemaker wires in place and grounded. Bedside telemetry showing normal sinus rhythm heart rate 93 BPM. No edema present. Right IJ Brashear-Darrin catheter remains in place with current hemodynamic showing a cardiac output 6.3, cardiac index 2.8, PA pressures 28/13, CVP 8 mmHg. - Gastrointestinal Gastrointestinal Comment(s): Abdomen is soft, nontender and nondistended. Hypoactive bowel sounds present in all 4 abdominal quadrants. No guarding or rigidity. Tolerating oral intake. Morbidly obese. - Genitourinary Genitourinary Comment(s): Glover catheter for accurate I&O. Draining clear yellow urine, 625 mL output the last 8 hours. - Integumentary Integumentary Comment(s): Skin is warm and dry. No clubbing or cyanosis is present. Midline sternal incision is clean, dry and approximated. No drainage or redness is present. Dressing is clean, dry and intact. Left lower extremity EVH sites are clean, dry and approximated. No drainage or redness is present. Left lower extremity ADOLFO drain in place draining thin scant serosanguineous drainage with 60 mL output in the last 8 hours. - Neurologic Neurologic: Present: CNII-XII intact - Musculoskeletal Musculoskeletal: Present: gait normal, generalized weakness, strength equal bilaterally - Psychiatric Psychiatric: Present: A&O x's 3, appropriate affect, intact judgment & insight - Allied health notes Allied health notes reviewed: nursing - Labs CBC & Chem 7: 01/17/20 04:10 01/17/20 04:10 Labs: Abnormal Lab Results - Last 24 Hours (Table) 01/09/20 01/16/20 01/16/20 Range/Units 10:26 09:09 13:16 WBC (3.8-10.6) k/uL RBC (3.80-5.40) m/uL Hgb (11.4-16.0) gm/dL Hct (34.0-46.0) % Plt Count (150-450) k/uL Neutrophils # (1.3-7.7) k/uL Lymphocytes # (1.0-4.8) k/uL PT (9.0-12.0) sec INR (<1.2) APTT (22.0-30.0) sec ABG pH 7.32 L (7.35-7.45) ABG pCO2 47 H 48 H (35-45) mmHg ABG pO2 413 H 212 H (83-108) mmHg ABG HCO3 26 H (21-25) mmol/L ABG Total CO2 28 H 26 H (19-24) mmol/L ABG O2 Saturation 100.0 H 99.6 H (94-97) % ABG Hematocrit 26 L (34.0-46.0) % ABG Glucose 111 H 144 H (75-99) mg/dL ABG Lactic Acid 2.4 H* (0.5-1.6) mmol/L Hemoglobin 8.5 L (11.4-16.0) gm/dL Chloride (98-107) mmol/L Glucose (74-99) mg/dL POC Glucose (mg/dL) (75-99) mg/dL Calcium (8.4-10.2) mg/dL Magnesium (1.6-2.3) mg/dL Total Bilirubin (0.2-1.3) mg/dL AST (14-36) U/L ALT (4-34) U/L Total Protein (6.3-8.2) g/dL Albumin (3.5-5.0) g/dL Arterial Blood Glucose 111 H 144 H (75-99) mg/dL Crossmatch See Detail 01/16/20 01/16/20 01/16/20 Range/Units 14:38 14:40 14:40 WBC 12.1 H (3.8-10.6) k/uL RBC 2.96 L (3.80-5.40) m/uL Hgb 10.2 L D (11.4-16.0) gm/dL Hct 28.8 L (34.0-46.0) % Plt Count 110 L D (150-450) k/uL Neutrophils # 10.6 H (1.3-7.7) k/uL Lymphocytes # 0.9 L (1.0-4.8) k/uL PT 13.4 H (9.0-12.0) sec INR 1.3 H (<1.2) APTT 30.5 H (22.0-30.0) sec ABG pH (7.35-7.45) ABG pCO2 (35-45) mmHg ABG pO2 (83-108) mmHg ABG HCO3 (21-25) mmol/L ABG Total CO2 (19-24) mmol/L ABG O2 Saturation (94-97) % ABG Hematocrit (34.0-46.0) % ABG Glucose (75-99) mg/dL ABG Lactic Acid (0.5-1.6) mmol/L Hemoglobin (11.4-16.0) gm/dL Chloride (98-107) mmol/L Glucose (74-99) mg/dL POC Glucose (mg/dL) 136 H (75-99) mg/dL Calcium (8.4-10.2) mg/dL Magnesium (1.6-2.3) mg/dL Total Bilirubin (0.2-1.3) mg/dL AST (14-36) U/L ALT (4-34) U/L Total Protein (6.3-8.2) g/dL Albumin (3.5-5.0) g/dL Arterial Blood Glucose (75-99) mg/dL Crossmatch 01/16/20 01/16/20 01/16/20 Range/Units 14:40 15:16 15:18 WBC (3.8-10.6) k/uL RBC (3.80-5.40) m/uL Hgb (11.4-16.0) gm/dL Hct (34.0-46.0) % Plt Count (150-450) k/uL Neutrophils # (1.3-7.7) k/uL Lymphocytes # (1.0-4.8) k/uL PT (9.0-12.0) sec INR (<1.2) APTT (22.0-30.0) sec ABG pH 7.26 L (7.35-7.45) ABG pCO2 59 H (35-45) mmHg ABG pO2 302 H (83-108) mmHg ABG HCO3 26 H (21-25) mmol/L ABG Total CO2 28 H (19-24) mmol/L ABG O2 Saturation 100.0 H (94-97) % ABG Hematocrit (34.0-46.0) % ABG Glucose (75-99) mg/dL ABG Lactic Acid (0.5-1.6) mmol/L Hemoglobin (11.4-16.0) gm/dL Chloride 109 H (98-107) mmol/L Glucose 126 H (74-99) mg/dL POC Glucose (mg/dL) 134 H (75-99) mg/dL Calcium 7.8 L (8.4-10.2) mg/dL Magnesium 2.4 H (1.6-2.3) mg/dL Total Bilirubin 2.9 H (0.2-1.3) mg/dL AST 371 H (14-36) U/L ALT 226 H (4-34) U/L Total Protein 4.3 L (6.3-8.2) g/dL Albumin 2.7 L (3.5-5.0) g/dL Arterial Blood Glucose (75-99) mg/dL Crossmatch 01/16/20 01/16/20 01/16/20 Range/Units 16:20 17:19 17:20 WBC 17.0 H (3.8-10.6) k/uL RBC 3.29 L (3.80-5.40) m/uL Hgb 11.0 L (11.4-16.0) gm/dL Hct 32.1 L (34.0-46.0) % Plt Count 144 L (150-450) k/uL Neutrophils # 15.4 H (1.3-7.7) k/uL Lymphocytes # 0.8 L (1.0-4.8) k/uL PT (9.0-12.0) sec INR (<1.2) APTT (22.0-30.0) sec ABG pH (7.35-7.45) ABG pCO2 (35-45) mmHg ABG pO2 (83-108) mmHg ABG HCO3 (21-25) mmol/L ABG Total CO2 (19-24) mmol/L ABG O2 Saturation (94-97) % ABG Hematocrit (34.0-46.0) % ABG Glucose (75-99) mg/dL ABG Lactic Acid (0.5-1.6) mmol/L Hemoglobin (11.4-16.0) gm/dL Chloride (98-107) mmol/L Glucose (74-99) mg/dL POC Glucose (mg/dL) 124 H 186 H (75-99) mg/dL Calcium (8.4-10.2) mg/dL Magnesium (1.6-2.3) mg/dL Total Bilirubin (0.2-1.3) mg/dL AST (14-36) U/L ALT (4-34) U/L Total Protein (6.3-8.2) g/dL Albumin (3.5-5.0) g/dL Arterial Blood Glucose (75-99) mg/dL Crossmatch 01/16/20 01/16/20 01/16/20 Range/Units 18:16 18:30 19:10 WBC (3.8-10.6) k/uL RBC (3.80-5.40) m/uL Hgb (11.4-16.0) gm/dL Hct (34.0-46.0) % Plt Count (150-450) k/uL Neutrophils # (1.3-7.7) k/uL Lymphocytes # (1.0-4.8) k/uL PT (9.0-12.0) sec INR (<1.2) APTT (22.0-30.0) sec ABG pH 7.33 L (7.35-7.45) ABG pCO2 46 H (35-45) mmHg ABG pO2 128 H (83-108) mmHg ABG HCO3 (21-25) mmol/L ABG Total CO2 25 H (19-24) mmol/L ABG O2 Saturation 99.3 H (94-97) % ABG Hematocrit (34.0-46.0) % ABG Glucose (75-99) mg/dL ABG Lactic Acid (0.5-1.6) mmol/L Hemoglobin (11.4-16.0) gm/dL Chloride (98-107) mmol/L Glucose (74-99) mg/dL POC Glucose (mg/dL) 187 H 179 H (75-99) mg/dL Calcium (8.4-10.2) mg/dL Magnesium (1.6-2.3) mg/dL Total Bilirubin (0.2-1.3) mg/dL AST (14-36) U/L ALT (4-34) U/L Total Protein (6.3-8.2) g/dL Albumin (3.5-5.0) g/dL Arterial Blood Glucose (75-99) mg/dL Crossmatch 01/16/20 01/16/20 01/16/20 Range/Units 20:15 20:15 21:00 WBC 12.8 H (3.8-10.6) k/uL RBC 3.42 L (3.80-5.40) m/uL Hgb 11.2 L (11.4-16.0) gm/dL Hct 33.2 L (34.0-46.0) % Plt Count 142 L (150-450) k/uL Neutrophils # 12.0 H (1.3-7.7) k/uL Lymphocytes # 0.4 L (1.0-4.8) k/uL PT (9.0-12.0) sec INR (<1.2) APTT (22.0-30.0) sec ABG pH (7.35-7.45) ABG pCO2 (35-45) mmHg ABG pO2 (83-108) mmHg ABG HCO3 (21-25) mmol/L ABG Total CO2 (19-24) mmol/L ABG O2 Saturation (94-97) % ABG Hematocrit (34.0-46.0) % ABG Glucose (75-99) mg/dL ABG Lactic Acid (0.5-1.6) mmol/L Hemoglobin (11.4-16.0) gm/dL Chloride (98-107) mmol/L Glucose (74-99) mg/dL POC Glucose (mg/dL) 161 H 157 H (75-99) mg/dL Calcium (8.4-10.2) mg/dL Magnesium (1.6-2.3) mg/dL Total Bilirubin (0.2-1.3) mg/dL AST (14-36) U/L ALT (4-34) U/L Total Protein (6.3-8.2) g/dL Albumin (3.5-5.0) g/dL Arterial Blood Glucose (75-99) mg/dL Crossmatch 01/16/20 01/16/20 01/16/20 Range/Units 22:01 22:58 23:58 WBC (3.8-10.6) k/uL RBC (3.80-5.40) m/uL Hgb (11.4-16.0) gm/dL Hct (34.0-46.0) % Plt Count (150-450) k/uL Neutrophils # (1.3-7.7) k/uL Lymphocytes # (1.0-4.8) k/uL PT (9.0-12.0) sec INR (<1.2) APTT (22.0-30.0) sec ABG pH (7.35-7.45) ABG pCO2 (35-45) mmHg ABG pO2 (83-108) mmHg ABG HCO3 (21-25) mmol/L ABG Total CO2 (19-24) mmol/L ABG O2 Saturation (94-97) % ABG Hematocrit (34.0-46.0) % ABG Glucose (75-99) mg/dL ABG Lactic Acid (0.5-1.6) mmol/L Hemoglobin (11.4-16.0) gm/dL Chloride (98-107) mmol/L Glucose (74-99) mg/dL POC Glucose (mg/dL) 140 H 136 H 133 H (75-99) mg/dL Calcium (8.4-10.2) mg/dL Magnesium (1.6-2.3) mg/dL Total Bilirubin (0.2-1.3) mg/dL AST (14-36) U/L ALT (4-34) U/L Total Protein (6.3-8.2) g/dL Albumin (3.5-5.0) g/dL Arterial Blood Glucose (75-99) mg/dL Crossmatch 01/17/20 01/17/20 01/17/20 Range/Units 01:32 03:06 04:09 WBC (3.8-10.6) k/uL RBC (3.80-5.40) m/uL Hgb (11.4-16.0) gm/dL Hct (34.0-46.0) % Plt Count (150-450) k/uL Neutrophils # (1.3-7.7) k/uL Lymphocytes # (1.0-4.8) k/uL PT (9.0-12.0) sec INR (<1.2) APTT (22.0-30.0) sec ABG pH (7.35-7.45) ABG pCO2 (35-45) mmHg ABG pO2 (83-108) mmHg ABG HCO3 (21-25) mmol/L ABG Total CO2 (19-24) mmol/L ABG O2 Saturation (94-97) % ABG Hematocrit (34.0-46.0) % ABG Glucose (75-99) mg/dL ABG Lactic Acid (0.5-1.6) mmol/L Hemoglobin (11.4-16.0) gm/dL Chloride (98-107) mmol/L Glucose (74-99) mg/dL POC Glucose (mg/dL) 122 H 122 H 121 H (75-99) mg/dL Calcium (8.4-10.2) mg/dL Magnesium (1.6-2.3) mg/dL Total Bilirubin (0.2-1.3) mg/dL AST (14-36) U/L ALT (4-34) U/L Total Protein (6.3-8.2) g/dL Albumin (3.5-5.0) g/dL Arterial Blood Glucose (75-99) mg/dL Crossmatch 01/17/20 01/17/20 01/17/20 Range/Units 04:10 04:10 05:24 WBC 14.0 H (3.8-10.6) k/uL RBC 3.31 L (3.80-5.40) m/uL Hgb 11.1 L (11.4-16.0) gm/dL Hct 32.2 L (34.0-46.0) % Plt Count (150-450) k/uL Neutrophils # 12.3 H (1.3-7.7) k/uL Lymphocytes # 0.9 L (1.0-4.8) k/uL PT (9.0-12.0) sec INR (<1.2) APTT (22.0-30.0) sec ABG pH (7.35-7.45) ABG pCO2 (35-45) mmHg ABG pO2 (83-108) mmHg ABG HCO3 (21-25) mmol/L ABG Total CO2 (19-24) mmol/L ABG O2 Saturation (94-97) % ABG Hematocrit (34.0-46.0) % ABG Glucose (75-99) mg/dL ABG Lactic Acid (0.5-1.6) mmol/L Hemoglobin (11.4-16.0) gm/dL Chloride 108 H (98-107) mmol/L Glucose 116 H (74-99) mg/dL POC Glucose (mg/dL) 115 H (75-99) mg/dL Calcium (8.4-10.2) mg/dL Magnesium (1.6-2.3) mg/dL Total Bilirubin 1.9 H (0.2-1.3) mg/dL AST 212 H (14-36) U/L ALT 235 H (4-34) U/L Total Protein 5.1 L (6.3-8.2) g/dL Albumin 3.2 L (3.5-5.0) g/dL Arterial Blood Glucose (75-99) mg/dL Crossmatch 01/17/20 01/17/20 01/17/20 Range/Units 06:23 07:07 08:17 WBC (3.8-10.6) k/uL RBC (3.80-5.40) m/uL Hgb (11.4-16.0) gm/dL Hct (34.0-46.0) % Plt Count (150-450) k/uL Neutrophils # (1.3-7.7) k/uL Lymphocytes # (1.0-4.8) k/uL PT (9.0-12.0) sec INR (<1.2) APTT (22.0-30.0) sec ABG pH (7.35-7.45) ABG pCO2 (35-45) mmHg ABG pO2 (83-108) mmHg ABG HCO3 (21-25) mmol/L ABG Total CO2 (19-24) mmol/L ABG O2 Saturation (94-97) % ABG Hematocrit (34.0-46.0) % ABG Glucose (75-99) mg/dL ABG Lactic Acid (0.5-1.6) mmol/L Hemoglobin (11.4-16.0) gm/dL Chloride (98-107) mmol/L Glucose (74-99) mg/dL POC Glucose (mg/dL) 122 H 119 H 115 H (75-99) mg/dL Calcium (8.4-10.2) mg/dL Magnesium (1.6-2.3) mg/dL Total Bilirubin (0.2-1.3) mg/dL AST (14-36) U/L ALT (4-34) U/L Total Protein (6.3-8.2) g/dL Albumin (3.5-5.0) g/dL Arterial Blood Glucose (75-99) mg/dL Crossmatch 01/17/20 Range/Units 09:16 WBC (3.8-10.6) k/uL RBC (3.80-5.40) m/uL Hgb (11.4-16.0) gm/dL Hct (34.0-46.0) % Plt Count (150-450) k/uL Neutrophils # (1.3-7.7) k/uL Lymphocytes # (1.0-4.8) k/uL PT (9.0-12.0) sec INR (<1.2) APTT (22.0-30.0) sec ABG pH (7.35-7.45) ABG pCO2 (35-45) mmHg ABG pO2 (83-108) mmHg ABG HCO3 (21-25) mmol/L ABG Total CO2 (19-24) mmol/L ABG O2 Saturation (94-97) % ABG Hematocrit (34.0-46.0) % ABG Glucose (75-99) mg/dL ABG Lactic Acid (0.5-1.6) mmol/L Hemoglobin (11.4-16.0) gm/dL Chloride (98-107) mmol/L Glucose (74-99) mg/dL POC Glucose (mg/dL) 126 H (75-99) mg/dL Calcium (8.4-10.2) mg/dL Magnesium (1.6-2.3) mg/dL Total Bilirubin (0.2-1.3) mg/dL AST (14-36) U/L ALT (4-34) U/L Total Protein (6.3-8.2) g/dL Albumin (3.5-5.0) g/dL Arterial Blood Glucose (75-99) mg/dL Crossmatch - Imaging and Cardiology Chest x-ray: report reviewed, image reviewed Assessment and Plan Assessment: 1. Severe bicuspid aortic valve stenosis, status post aortic valve replacement using a 25 mm Avalus Medtronic bioprosthetic aortic valve 2. Coronary artery disease, status post coronary artery bypass grafting 2 vessels 3. History of hypertension, 4. History of hyperlipidemia 5. History of TIA in 2018 6. History of breast cancer 7. History of elevation in her transaminase enzymes preoperatively 8. Chronic tobacco abuse 9. Family history of coronary artery disease less than 60 years of age 10. Postoperative acute blood loss anemia, expected 11. Postoperative elevation in her transaminase enzymes, expected Plan: 1. Continue to maximize medical therapy with aspirin, Plavix and beta chase. Will increase metoprolol tartrate 25 mg by mouth twice a day. 2. Discontinue IV nitroglycerin drip. 3. Wean O2 as tolerated. Continue to encourage use of incentive spirometry 10 times every hour while awake. Bronchodilators per pulmonology/critical care management. 4. Will monitor daily labs and chest x-rays. Electrolytes replacement per protocol. No transfusion at this time. 5. GI/DVT prophylaxis. Protonix switched to by mouth. 6. Pain control with current medication regimen. 7. Diabetes/insulin management per Dr. Hansen. 8. Discontinue right IJ Brashear-Darrin catheter, keep right IJ Cordis and placed to continuous CVP monitoring. 9. Keep mediastinal and left/right pleural chest tubes for another 24 hours. We will separate the left and right pleural chest tubes. 10. Keep Glover catheter for another 24 hours for strict accurate intake and output. 11. Daily weights using standup scale, no bed scale. 12. Lasix 20 mg IV 1 now. 13. Keep atrial and ventricular epicardial pacemaker wires in place and grounded. 14. More recommendations to follow based on patient's clinical course. Nurse practitioner note has been reviewed by the physician. Signing provider agrees with the above documented findings, assessment and plan of care. Time with Patient: Greater than 30
[2020-01-17 10:40] LABS: Glucose,Whole Blood 120 mg/dL (75-99)
--- NOTE | 2020-01-17 11:44 | P.PN ---
Subjective Progress Note Date: 01/17/20 Principal diagnosis: Severe bicuspid aortic valve stenosis, coronary artery disease The patient is seen today 01/17/2020. She was found to have severe bicuspid aortic valve stenosis, coronary artery disease and is status post aortic valve replacement with a bioprosthetic aortic valve and coronary artery bypass grafting 2. This is postoperative day #1. She does have a history of hypertension, hyperlipidemia, breast cancer, TIA and a prior history of chronic tobacco use. She is seen today in follow-up in the ICU. She is currently sitting up in a chair at the bedside. Awake and alert in no acute distress. He was successfully extubated approximately 4 hours 20 minutes postoperatively. She is currently on 3 L/m per nasal cannula to maintain O2 saturations in the 90 s. She remains on lactated Ringer's at 20 ML's per hour. Insulin drip at 3.5 units per hour. She is working well with the incentive spirometer. Right IJ Arimo-Darrin catheter remains in place. Cardiac output 6.3. Cardiac index 2.8. PA pressures 28/13 with a CVP of 8 mmHg. Her Cleviprex is off. Right, left and mediastinal chest tubes remain in place, her chest x-ray reveals some atelectasis at the bases. Objective - Vital Signs Vital signs: Vital Signs Temp 99.1 F 01/17/20 08:00 Pulse 92 01/17/20 11:27 Resp 15 01/17/20 10:00 BP 121/69 01/17/20 10:00 Pulse Ox 97 01/17/20 10:00 Intake & Output 01/16/20 01/17/20 01/17/20 18:59 06:59 18:59 Intake Total 769.986 954.900 211.5 Output Total 2117 1626 285 Balance -1347.014 -671.100 -73.5 Weight 134 kg Intake: IV 62 Intake, IV Titration 707.986 954.900 111.5 Amount ACETAMINOPHEN IV (For NPO 200 ) 1,000 mg In Empty Bag 1 bag @ 400 mls/hr IVPB Q6HR [facility] Rx#:[id number] Albumin Human 5% 250 ml 250 In Empty Bag 1 bag @ 250 mls/hr IVPB Q1HR PRN Rx#: [id number] Clevidipine Butyrate 25 1.467 mg In Empty Bag 1 bag @ 1 MG/HR 2 mls/hr IV .Q24H [facility]MA[facility] Rx#:[id number] Insulin Regular 100 unit 6.387 36.933 In Sodium Chloride 0.9% 100 ml @ Per Protocol IV .Q0M [facility] Rx#:[id number] Nitroglycerin-D5w Pmx 50 6.0 16.5 1.5 mg In Dextrose/Water 1 250ml.bag @ 5 MCG/MIN 1.5 mls/hr IV .Q24H [facility] Rx#: [id number] Sodium Chloride 0.9% 1, 200 600 110 000 ml @ 20 mls/hr IV . Q24H [facility] Rx#:[id number] ceFAZolin 3 gm In Sodium 100 100 Chloride 0.9% 100 ml @ 100 mls/hr IVPB Q8H [facility] Rx#:[id number] propofoL 1,000 mg In 145.599 Empty Bag 1 bag @ Titrate IV .Q0M AMA[facility] Rx#: [id number] Oral 100 Output: Chest Tube Drainage [address] 352 30 Drainage 175 85 110 Left Calf [address] 55 15 [address] 120 10 70 Urine 942 1034 145 Estimated Blood Loss 1000 Other: Voiding Method Indwelling Catheter Indwelling Catheter Indwelling Catheter ABP, PAP, CO, CI - Last Documented Arterial Blood Pressure 113/61 Pulmonary Artery Pressure 28/12 Cardiac Output 6.9 Cardiac Index 3.1 - Exam GENERAL EXAM: Alert, very pleasant 64 year old female patient, up in a chair at the bedside, on 3 L nasal cannula, fairly comfortable in no apparent distress. HEAD: Normocephalic. EYES: Normal reaction of pupils, equal size. NOSE: Clear with pink turbinates. THROAT: No erythema or exudates. NECK: Right IJ Arimo-Darrin catheter in place. No masses, no JVD. CHEST: Sternal dressing dry and intact. Heart Hugger in place. Mediastinal and bilateral chest tubes in place. Epicardial pacemaker wires in place and grounded. LUNGS: Equal air entry with crackles in the bilateral posterior bases. CVS: S1 and S2 normal with no audible murmur, regular rhythm. ABDOMEN: No hepatosplenomegaly, normal bowel sounds, no guarding or rigidity. SPINE: No scoliosis or deformity SKIN: No rashes CENTRAL NERVOUS SYSTEM: No focal deficits, tone is normal in all 4 extremities. EXTREMITIES: Apnea KIERRA hose in place with sequential compression devices bilate rally. There is no peripheral edema. No clubbing, no cyanosis. Peripheral pulses are intact. - Labs CBC & Chem 7: 01/17/20 04:10 01/17/20 04:10 Labs: Abnormal Lab Results - Last 24 Hours (Table) 01/09/20 01/16/20 01/16/20 Range/Units 10:26 09:09 13:16 WBC (3.8-10.6) k/uL RBC (3.80-5.40) m/uL Hgb (11.4-16.0) gm/dL Hct (34.0-46.0) % Plt Count (150-450) k/uL Neutrophils # (1.3-7.7) k/uL Lymphocytes # (1.0-4.8) k/uL PT (9.0-12.0) sec INR (<1.2) APTT (22.0-30.0) sec ABG pH 7.32 L (7.35-7.45) ABG pCO2 47 H 48 H (35-45) mmHg ABG pO2 413 H 212 H (83-108) mmHg ABG HCO3 26 H (21-25) mmol/L ABG Total CO2 28 H 26 H (19-24) mmol/L ABG O2 Saturation 100.0 H 99.6 H (94-97) % ABG Hematocrit 26 L (34.0-46.0) % ABG Glucose 111 H 144 H (75-99) mg/dL ABG Lactic Acid 2.4 H* (0.5-1.6) mmol/L Hemoglobin 8.5 L (11.4-16.0) gm/dL Chloride (98-107) mmol/L Glucose (74-99) mg/dL POC Glucose (mg/dL) (75-99) mg/dL Calcium (8.4-10.2) mg/dL Magnesium (1.6-2.3) mg/dL Total Bilirubin (0.2-1.3) mg/dL AST (14-36) U/L ALT (4-34) U/L Total Protein (6.3-8.2) g/dL Albumin (3.5-5.0) g/dL Arterial Blood Glucose 111 H 144 H (75-99) mg/dL Crossmatch See Detail 01/16/20 01/16/20 01/16/20 Range/Units 14:38 14:40 14:40 WBC 12.1 H (3.8-10.6) k/uL RBC 2.96 L (3.80-5.40) m/uL Hgb 10.2 L D (11.4-16.0) gm/dL Hct 28.8 L (34.0-46.0) % Plt Count 110 L D (150-450) k/uL Neutrophils # 10.6 H (1.3-7.7) k/uL Lymphocytes # 0.9 L (1.0-4.8) k/uL PT 13.4 H (9.0-12.0) sec INR 1.3 H (<1.2) APTT 30.5 H (22.0-30.0) sec ABG pH (7.35-7.45) ABG pCO2 (35-45) mmHg ABG pO2 (83-108) mmHg ABG HCO3 (21-25) mmol/L ABG Total CO2 (19-24) mmol/L ABG O2 Saturation (94-97) % ABG Hematocrit (34.0-46.0) % ABG Glucose (75-99) mg/dL ABG Lactic Acid (0.5-1.6) mmol/L Hemoglobin (11.4-16.0) gm/dL Chloride (98-107) mmol/L Glucose (74-99) mg/dL POC Glucose (mg/dL) 136 H (75-99) mg/dL Calcium (8.4-10.2) mg/dL Magnesium (1.6-2.3) mg/dL Total Bilirubin (0.2-1.3) mg/dL AST (14-36) U/L ALT (4-34) U/L Total Protein (6.3-8.2) g/dL Albumin (3.5-5.0) g/dL Arterial Blood Glucose (75-99) mg/dL Crossmatch 01/16/20 01/16/20 01/16/20 Range/Units 14:40 15:16 15:18 WBC (3.8-10.6) k/uL RBC (3.80-5.40) m/uL Hgb (11.4-16.0) gm/dL Hct (34.0-46.0) % Plt Count (150-450) k/uL Neutrophils # (1.3-7.7) k/uL Lymphocytes # (1.0-4.8) k/uL PT (9.0-12.0) sec INR (<1.2) APTT (22.0-30.0) sec ABG pH 7.26 L (7.35-7.45) ABG pCO2 59 H (35-45) mmHg ABG pO2 302 H (83-108) mmHg ABG HCO3 26 H (21-25) mmol/L ABG Total CO2 28 H (19-24) mmol/L ABG O2 Saturation 100.0 H (94-97) % ABG Hematocrit (34.0-46.0) % ABG Glucose (75-99) mg/dL ABG Lactic Acid (0.5-1.6) mmol/L Hemoglobin (11.4-16.0) gm/dL Chloride 109 H (98-107) mmol/L Glucose 126 H (74-99) mg/dL POC Glucose (mg/dL) 134 H (75-99) mg/dL Calcium 7.8 L (8.4-10.2) mg/dL Magnesium 2.4 H (1.6-2.3) mg/dL Total Bilirubin 2.9 H (0.2-1.3) mg/dL AST 371 H (14-36) U/L ALT 226 H (4-34) U/L Total Protein 4.3 L (6.3-8.2) g/dL Albumin 2.7 L (3.5-5.0) g/dL Arterial Blood Glucose (75-99) mg/dL Crossmatch 01/16/20 01/16/20 01/16/20 Range/Units 16:20 17:19 17:20 WBC 17.0 H (3.8-10.6) k/uL RBC 3.29 L (3.80-5.40) m/uL Hgb 11.0 L (11.4-16.0) gm/dL Hct 32.1 L (34.0-46.0) % Plt Count 144 L (150-450) k/uL Neutrophils # 15.4 H (1.3-7.7) k/uL Lymphocytes # 0.8 L (1.0-4.8) k/uL PT (9.0-12.0) sec INR (<1.2) APTT (22.0-30.0) sec ABG pH (7.35-7.45) ABG pCO2 (35-45) mmHg ABG pO2 (83-108) mmHg ABG HCO3 (21-25) mmol/L ABG Total CO2 (19-24) mmol/L ABG O2 Saturation (94-97) % ABG Hematocrit (34.0-46.0) % ABG Glucose (75-99) mg/dL ABG Lactic Acid (0.5-1.6) mmol/L Hemoglobin (11.4-16.0) gm/dL Chloride (98-107) mmol/L Glucose (74-99) mg/dL POC Glucose (mg/dL) 124 H 186 H (75-99) mg/dL Calcium (8.4-10.2) mg/dL Magnesium (1.6-2.3) mg/dL Total Bilirubin (0.2-1.3) mg/dL AST (14-36) U/L ALT (4-34) U/L Total Protein (6.3-8.2) g/dL Albumin (3.5-5.0) g/dL Arterial Blood Glucose (75-99) mg/dL Crossmatch 01/16/20 01/16/20 01/16/20 Range/Units 18:16 18:30 19:10 WBC (3.8-10.6) k/uL RBC (3.80-5.40) m/uL Hgb (11.4-16.0) gm/dL Hct (34.0-46.0) % Plt Count (150-450) k/uL Neutrophils # (1.3-7.7) k/uL Lymphocytes # (1.0-4.8) k/uL PT (9.0-12.0) sec INR (<1.2) APTT (22.0-30.0) sec ABG pH 7.33 L (7.35-7.45) ABG pCO2 46 H (35-45) mmHg ABG pO2 128 H (83-108) mmHg ABG HCO3 (21-25) mmol/L ABG Total CO2 25 H (19-24) mmol/L ABG O2 Saturation 99.3 H (94-97) % ABG Hematocrit (34.0-46.0) % ABG Glucose (75-99) mg/dL ABG Lactic Acid (0.5-1.6) mmol/L Hemoglobin (11.4-16.0) gm/dL Chloride (98-107) mmol/L Glucose (74-99) mg/dL POC Glucose (mg/dL) 187 H 179 H (75-99) mg/dL Calcium (8.4-10.2) mg/dL Magnesium (1.6-2.3) mg/dL Total Bilirubin (0.2-1.3) mg/dL AST (14-36) U/L ALT (4-34) U/L Total Protein (6.3-8.2) g/dL Albumin (3.5-5.0) g/dL Arterial Blood Glucose (75-99) mg/dL Crossmatch 01/16/20 01/16/20 01/16/20 Range/Units 20:15 20:15 21:00 WBC 12.8 H (3.8-10.6) k/uL RBC 3.42 L (3.80-5.40) m/uL Hgb 11.2 L (11.4-16.0) gm/dL Hct 33.2 L (34.0-46.0) % Plt Count 142 L (150-450) k/uL Neutrophils # 12.0 H (1.3-7.7) k/uL Lymphocytes # 0.4 L (1.0-4.8) k/uL PT (9.0-12.0) sec INR (<1.2) APTT (22.0-30.0) sec ABG pH (7.35-7.45) ABG pCO2 (35-45) mmHg ABG pO2 (83-108) mmHg ABG HCO3 (21-25) mmol/L ABG Total CO2 (19-24) mmol/L ABG O2 Saturation (94-97) % ABG Hematocrit (34.0-46.0) % ABG Glucose (75-99) mg/dL ABG Lactic Acid (0.5-1.6) mmol/L Hemoglobin (11.4-16.0) gm/dL Chloride (98-107) mmol/L Glucose (74-99) mg/dL POC Glucose (mg/dL) 161 H 157 H (75-99) mg/dL Calcium (8.4-10.2) mg/dL Magnesium (1.6-2.3) mg/dL Total Bilirubin (0.2-1.3) mg/dL AST (14-36) U/L ALT (4-34) U/L Total Protein (6.3-8.2) g/dL Albumin (3.5-5.0) g/dL Arterial Blood Glucose (75-99) mg/dL Crossmatch 01/16/20 01/16/20 01/16/20 Range/Units 22:01 22:58 23:58 WBC (3.8-10.6) k/uL RBC (3.80-5.40) m/uL Hgb (11.4-16.0) gm/dL Hct (34.0-46.0) % Plt Count (150-450) k/uL Neutrophils # (1.3-7.7) k/uL Lymphocytes # (1.0-4.8) k/uL PT (9.0-12.0) sec INR (<1.2) APTT (22.0-30.0) sec ABG pH (7.35-7.45) ABG pCO2 (35-45) mmHg ABG pO2 (83-108) mmHg ABG HCO3 (21-25) mmol/L ABG Total CO2 (19-24) mmol/L ABG O2 Saturation (94-97) % ABG Hematocrit (34.0-46.0) % ABG Glucose (75-99) mg/dL ABG Lactic Acid (0.5-1.6) mmol/L Hemoglobin (11.4-16.0) gm/dL Chloride (98-107) mmol/L Glucose (74-99) mg/dL POC Glucose (mg/dL) 140 H 136 H 133 H (75-99) mg/dL Calcium (8.4-10.2) mg/dL Magnesium (1.6-2.3) mg/dL Total Bilirubin (0.2-1.3) mg/dL AST (14-36) U/L ALT (4-34) U/L Total Protein (6.3-8.2) g/dL Albumin (3.5-5.0) g/dL Arterial Blood Glucose (75-99) mg/dL Crossmatch 01/17/20 01/17/20 01/17/20 Range/Units 01:32 03:06 04:09 WBC (3.8-10.6) k/uL RBC (3.80-5.40) m/uL Hgb (11.4-16.0) gm/dL Hct (34.0-46.0) % Plt Count (150-450) k/uL Neutrophils # (1.3-7.7) k/uL Lymphocytes # (1.0-4.8) k/uL PT (9.0-12.0) sec INR (<1.2) APTT (22.0-30.0) sec ABG pH (7.35-7.45) ABG pCO2 (35-45) mmHg ABG pO2 (83-108) mmHg ABG HCO3 (21-25) mmol/L ABG Total CO2 (19-24) mmol/L ABG O2 Saturation (94-97) % ABG Hematocrit (34.0-46.0) % ABG Glucose (75-99) mg/dL ABG Lactic Acid (0.5-1.6) mmol/L Hemoglobin (11.4-16.0) gm/dL Chloride (98-107) mmol/L Glucose (74-99) mg/dL POC Glucose (mg/dL) 122 H 122 H 121 H (75-99) mg/dL Calcium (8.4-10.2) mg/dL Magnesium (1.6-2.3) mg/dL Total Bilirubin (0.2-1.3) mg/dL AST (14-36) U/L ALT (4-34) U/L Total Protein (6.3-8.2) g/dL Albumin (3.5-5.0) g/dL Arterial Blood Glucose (75-99) mg/dL Crossmatch 01/17/20 01/17/20 01/17/20 Range/Units 04:10 04:10 05:24 WBC 14.0 H (3.8-10.6) k/uL RBC 3.31 L (3.80-5.40) m/uL Hgb 11.1 L (11.4-16.0) gm/dL Hct 32.2 L (34.0-46.0) % Plt Count (150-450) k/uL Neutrophils # 12.3 H (1.3-7.7) k/uL Lymphocytes # 0.9 L (1.0-4.8) k/uL PT (9.0-12.0) sec INR (<1.2) APTT (22.0-30.0) sec ABG pH (7.35-7.45) ABG pCO2 (35-45) mmHg ABG pO2 (83-108) mmHg ABG HCO3 (21-25) mmol/L ABG Total CO2 (19-24) mmol/L ABG O2 Saturation (94-97) % ABG Hematocrit (34.0-46.0) % ABG Glucose (75-99) mg/dL ABG Lactic Acid (0.5-1.6) mmol/L Hemoglobin (11.4-16.0) gm/dL Chloride 108 H (98-107) mmol/L Glucose 116 H (74-99) mg/dL POC Glucose (mg/dL) 115 H (75-99) mg/dL Calcium (8.4-10.2) mg/dL Magnesium (1.6-2.3) mg/dL Total Bilirubin 1.9 H (0.2-1.3) mg/dL AST 212 H (14-36) U/L ALT 235 H (4-34) U/L Total Protein 5.1 L (6.3-8.2) g/dL Albumin 3.2 L (3.5-5.0) g/dL Arterial Blood Glucose (75-99) mg/dL Crossmatch 01/17/20 01/17/20 01/17/20 Range/Units 06:23 07:07 08:17 WBC (3.8-10.6) k/uL RBC (3.80-5.40) m/uL Hgb (11.4-16.0) gm/dL Hct (34.0-46.0) % Plt Count (150-450) k/uL Neutrophils # (1.3-7.7) k/uL Lymphocytes # (1.0-4.8) k/uL PT (9.0-12.0) sec INR (<1.2) APTT (22.0-30.0) sec ABG pH (7.35-7.45) ABG pCO2 (35-45) mmHg ABG pO2 (83-108) mmHg ABG HCO3 (21-25) mmol/L ABG Total CO2 (19-24) mmol/L ABG O2 Saturation (94-97) % ABG Hematocrit (34.0-46.0) % ABG Glucose (75-99) mg/dL ABG Lactic Acid (0.5-1.6) mmol/L Hemoglobin (11.4-16.0) gm/dL Chloride (98-107) mmol/L Glucose (74-99) mg/dL POC Glucose (mg/dL) 122 H 119 H 115 H (75-99) mg/dL Calcium (8.4-10.2) mg/dL Magnesium (1.6-2.3) mg/dL Total Bilirubin (0.2-1.3) mg/dL AST (14-36) U/L ALT (4-34) U/L Total Protein (6.3-8.2) g/dL Albumin (3.5-5.0) g/dL Arterial Blood Glucose (75-99) mg/dL Crossmatch 01/17/20 01/17/20 Range/Units 09:16 10:27 WBC (3.8-10.6) k/uL RBC (3.80-5.40) m/uL Hgb (11.4-16.0) gm/dL Hct (34.0-46.0) % Plt Count (150-450) k/uL Neutrophils # (1.3-7.7) k/uL Lymphocytes # (1.0-4.8) k/uL PT (9.0-12.0) sec INR (<1.2) APTT (22.0-30.0) sec ABG pH (7.35-7.45) ABG pCO2 (35-45) mmHg ABG pO2 (83-108) mmHg ABG HCO3 (21-25) mmol/L ABG Total CO2 (19-24) mmol/L ABG O2 Saturation (94-97) % ABG Hematocrit (34.0-46.0) % ABG Glucose (75-99) mg/dL ABG Lactic Acid (0.5-1.6) mmol/L Hemoglobin (11.4-16.0) gm/dL Chloride (98-107) mmol/L Glucose (74-99) mg/dL POC Glucose (mg/dL) 126 H 120 H (75-99) mg/dL Calcium (8.4-10.2) mg/dL Magnesium (1.6-2.3) mg/dL Total Bilirubin (0.2-1.3) mg/dL AST (14-36) U/L ALT (4-34) U/L Total Protein (6.3-8.2) g/dL Albumin (3.5-5.0) g/dL Arterial Blood Glucose (75-99) mg/dL Crossmatch Assessment and Plan Assessment: 1 Severe bicuspid aortic valve stenosis, status post aortic valve replacement utilizing a 25 mm bioprosthetic aortic valve. Post operative day #1 2 Coronary artery disease status post coronary artery bypass grafting 2, postoperative day #1 3 Hypertension. 4 Hyperlipidemia 5 Chronic tobacco dependence 6 History of breast cancer 8 History of TIA Plan: The patient was seen and evaluated by Dr. García Chest x-ray and labs reviewed Lasix 20 mg IVP times one per CT services Encouraged increased use the incentive spirometer and cough and deep breathing exercises Increase her activity as tolerated Repeat chest x-ray in a.m. Continue bronchodilators Encouraged regarding the importance of complete smoking cessation We will continue to follow and make further recommendations based on her clinical status I, the cosigning physician, performed a history & physical examination of the patient. Lungs sounds crackles in the bilateral posterior bases. Maintaining good O2 saturations in the 90s on 3 L/m per nasal cannula. I discussed the assessment and plan of care with my nurse practitioner, Ivelisse Mcgowan. I attest to the above note as dictated by her.
[2020-01-17 12:10] LABS: Glucose,Whole Blood 101 mg/dL (75-99)
[2020-01-17 13:36] LABS: Glucose,Whole Blood 134 mg/dL (75-99)
[2020-01-17] MEDS: SODIUM CHLORIDE 0.9% 1,000 ML IV SCH (13:39)
[2020-01-17] MEDS: INSULIN REGULAR 100 UNIT in SODIUM CHLORIDE 0.9% 100 ML IV SCH (14:41)
[2020-01-17 14:45] LABS: Glucose,Whole Blood 123 mg/dL (75-99)
[2020-01-17 15:55] LABS: Glucose,Whole Blood 111 mg/dL (75-99)
[2020-01-17 17:11] LABS: Glucose,Whole Blood 118 mg/dL (75-99)
--- NOTE | 2020-01-17 17:15 | P.CONS ---
History of Present Illness - Reason for Consult Consult date: 01/17/20 Medical management - Chief Complaint Severe bicuspid aortic valve stenosis - History of Present Illness 64-year-old female patient with severe bicuspid aortic valve stenosis, coronary artery disease and is status post aortic valve replacement with a bioprosthetic aortic valve and coronary artery bypass grafting 2. This is postoperative day #1. She does have a history of hypertension, hyperlipidemia, breast cancer, TIA and a prior history of chronic tobacco use. She is seen today in follow-up in the ICU. She is currently sitting up in a chair at the bedside. Awake and alert in no acute distress. He was successfully extubated approximately 4 hours 20 minutes postoperatively. She is currently on 3 L/m per nasal cannula to maintain O2 saturations in the 90s. She remains on lactated Ringer's at 20 ML's per hour. Insulin drip at 3.5 units per hour. She is working well with the [email or web address] spirometer. Internal medicine service is consulted for medical management Review of Systems REVIEW OF SYSTEMS: CONSTITUTIONAL: No fever, no malaise, no fatigue. HEENT: No recent visual problems or hearing problems. Denied any sore throat. CARDIOVASCULAR: No chest pain, orthopnea, PND, no palpitations, no syncope. PULMONARY: No shortness of breath, no cough, no hemoptysis. GASTROINTESTINAL: No diarrhea, no nausea, no vomiting, no abdominal pain. NEUROLOGICAL: No headaches, no weakness, no numbness. HEMATOLOGICAL: Denies any bleeding or petechiae. GENITOURINARY: Denies any burning micturition, frequency, or urgency. MUSCULOSKELETAL/RHEUMATOLOGICAL: Denies any joint pain, swelling, or any muscle pain. ENDOCRINE: Denies any polyuria or polydipsia. The rest of the 14-point review of systems is negative. Past Medical History Past Medical History: Coronary Artery Disease (CAD), Cancer, CVA/TIA, Hyperlipidemia, Hypertension Additional Past Medical History / Comment(s): Hx LEFT BREAST CANCER, CVA 12/2017, states some delayed speech, previous thyroid medication, none currently, this surgery cancelled recently due to elevated liver enzymes, going down per pt., has happened before when taking statin which was d/c History of Any Multi-Drug Resistant Organisms: None Reported Past Surgical History: Appendectomy, Breast Surgery, Cholecystectomy, Tonsillectomy Additional Past Surgical History / Comment(s): OVARIAN CYST WITH APPENDECTOMY, breast biopsy,left breast lumpectomy, has mary catheter for radiation left breast, now removed Past Anesthesia/Blood Transfusion Reactions: Postoperative Nausea & Vomiting (PONV) Past Psychological History: No Psychological Hx Reported Smoking Status: Former smoker Past Alcohol Use History: Occasional Additional Past Alcohol Use History / Comment(s): SMOKED 1- 1 1/2 PPD, SMOKED FOR 30 + YEARS. QUIT SMOKING 2009. Past Drug Use History: None Reported - Past Family History Father Family Medical History: Cancer Additional Family Medical History / Comment(s): from lung cancer Brother(s) Family Medical History: Deep Vein Thrombosis (DVT) Mother Family Medical History: Coronary Artery Disease (CAD), Hypertension Medications and Allergies Home Medications Medication Instructions Recorded Confirmed Type lisinopriL [Zestril] 20 mg PO DAILY 01/26/16 01/06/20 History Aspirin [Adult Low Dose Aspirin EC] 81 mg PO DAILY 11/07/19 01/16/20 History Hydrochlorothiazide 12.5 mg PO DAILY 11/07/19 01/06/20 History [hydroCHLOROthiazide] Metoprolol Tartrate [Lopressor] 50 mg PO BID 11/07/19 01/06/20 History Nitroglycerin Sl Tabs [Nitrostat] 0.4 mg SUBLINGUAL Q5M PRN 11/07/19 01/06/20 History Allergies Allergy/AdvReac Type Severity Reaction Status Date / Time codeine Allergy Unknown "Shakey" Verified 01/06/20 15:46 hydrocodone [From Vicodin] Allergy Unknown Itching Verified 01/06/20 15:46 Physical Exam Vitals: Vital Signs Temp Pulse Resp BP Pulse Ox 01/17/20 09:00 96 17 123/66 98 01/17/20 08:00 99.1 F 98 17 112/76 98 01/17/20 07:37 88 01/17/20 07:20 92 01/17/20 07:00 93 17 121/72 95 01/17/20 06:30 93 15 94 L 01/17/20 06:00 99.3 F 96 20 121/72 93 L 01/17/20 05:30 96 16 93 L 01/17/20 05:00 99.0 F 94 15 130/82 95 01/17/20 04:30 98 16 94 L 01/17/20 04:00 99.0 F 96 13 122/82 95 01/17/20 03:30 96 13 96 01/17/20 03:00 98.8 F 95 15 124/82 96 01/17/20 02:45 96 13 96 01/17/20 02:30 93 13 95 01/17/20 02:15 93 14 95 01/17/20 02:00 98.6 F 94 14 120/83 95 01/17/20 01:45 93 16 120/83 94 L 01/17/20 01:30 97 30 H 120/83 94 L 01/17/20 01:15 96 15 95 01/17/20 01:00 95 16 120/83 95 01/17/20 00:45 95 18 94 L 01/17/20 00:30 93 14 95 01/17/20 00:15 94 16 96 01/17/20 00:03 92 13 119/84 95 01/17/20 00:00 98.6 F 92 14 119/84 96 01/16/20 23:45 93 14 93 L 01/16/20 23:30 93 14 95 01/16/20 23:15 96 15 89 L 01/16/20 23:00 98.8 F 93 14 121/81 94 L 01/16/20 22:45 96 11 L 91 L 01/16/20 22:30 92 14 93 L 01/16/20 22:15 93 14 93 L 01/16/20 22:00 98.8 F 96 17 113/75 94 L 01/16/20 21:45 94 15 94 L 01/16/20 21:30 94 15 92 L 01/16/20 21:15 96 15 95 01/16/20 21:00 96 16 138/97 97 01/16/20 20:45 94 15 138/97 97 01/16/20 20:39 90 01/16/20 20:30 98.6 F 92 13 137/89 100 01/16/20 20:24 92 01/16/20 20:15 89 9 L 138/97 97 01/16/20 20:00 98.6 F 90 22 135/86 95 01/16/20 19:45 88 13 135/86 94 L 01/16/20 19:30 90 16 135/86 99 01/16/20 19:15 88 19 135/86 93 L 01/16/20 19:00 89 20 135/86 94 L 01/16/20 18:54 93 L 01/16/20 18:45 84 15 99 01/16/20 18:30 85 7 L 100 01/16/20 18:15 84 12 99 01/16/20 18:00 97.9 F 84 14 120/83 99 01/16/20 17:45 81 14 99 01/16/20 17:30 82 18 99 01/16/20 17:15 80 16 100 01/16/20 17:00 97.3 F L 79 16 121/77 100 01/16/20 16:45 77 141 H 100 01/16/20 16:30 76 16 99 01/16/20 16:25 82 01/16/20 16:15 78 18 100 01/16/20 16:00 96.8 F L 80 16 110/72 100 01/16/20 15:58 80 01/16/20 15:45 81 13 119/75 100 01/16/20 15:30 84 16 100 01/16/20 15:15 82 12 100 01/16/20 15:00 96.6 F L 79 12 100 01/16/20 14:45 79 12 100 01/16/20 14:30 96.4 F L 85 12 100 Intake and Output 01/16/20 01/17/20 01/17/20 22:59 06:59 14:59 Intake Total 1037.303 625.583 191.5 Output Total 1091 1052 200 Balance -53.697 -426.417 -8.5 Intake: Intake, IV Titration 1037.303 625.583 91.5 Amount ACETAMINOPHEN IV (For NPO 100 100 ) 1,000 mg In Empty Bag 1 bag @ 400 mls/hr IVPB Q6HR [facility] Rx#:[id number] Albumin Human 5% 250 ml 250 In Empty Bag 1 bag @ 250 mls/hr IVPB Q1HR PRN Rx#: [id number] Clevidipine Butyrate 25 1.467 mg In Empty Bag 1 bag @ 1 MG/HR 2 mls/hr IV .Q24H AMA[facility] Rx#:[id number] Insulin Regular 100 unit 28.237 15.083 In Sodium Chloride 0.9% 100 ml @ Per Protocol IV .Q0M [facility]MA[facility] Rx#:[id number] Nitroglycerin-D5w Pmx 50 12.0 10.5 1.5 mg In Dextrose/Water 1 250ml.bag @ 5 MCG/MIN 1.5 mls/hr IV .Q24H [facility]MA[facility] Rx#: [id number] Sodium Chloride 0.9% 1, 400 400 90 000 ml @ 20 mls/hr IV . Q24H [facility] Rx#:[id number] ceFAZolin 3 gm In Sodium 100 100 Chloride 0.9% 100 ml @ 100 mls/hr IVPB Q8H [facility] Rx#:[id number] propofoL 1,000 mg In 145.599 Empty Bag 1 bag @ Titrate IV .Q0M AMAYA Rx#: [id number] Oral 100 Output: Chest Tube Drainage [address] 57 98 [address] 82 270 30 Drainage 200 60 70 Left Calf [address] 70 [address] 130 50 Urine 752 624 100 Other: Voiding Method Indwelling Catheter Indwelling Catheter Weight 134 kg ABP, PAP, CO, CI - Last 8 Hours Arterial Blood Pressure 121/61 Arterial Blood Pressure 116/60 Arterial Blood Pressure 123/63 Arterial Blood Pressure 129/62 Arterial Blood Pressure 131/65 Arterial Blood Pressure 128/65 Arterial Blood Pressure 133/71 Arterial Blood Pressure 122/64 Arterial Blood Pressure 130/67 Arterial Blood Pressure 125/63 Arterial Blood Pressure 123/63 Arterial Blood Pressure 124/62 Arterial Blood Pressure 119/60 Arterial Blood Pressure 123/63 Pulmonary Artery Pressure 28/12 Pulmonary Artery Pressure 24/13 Pulmonary Artery Pressure 28/13 Pulmonary Artery Pressure 26/12 Pulmonary Artery Pressure 30/19 Pulmonary Artery Pressure 31/18 Pulmonary Artery Pressure 36/22 Pulmonary Artery Pressure 31/17 Pulmonary Artery Pressure 31/18 Pulmonary Artery Pressure 29/16 Pulmonary Artery Pressure 30/17 Pulmonary Artery Pressure 30/16 Pulmonary Artery Pressure 30/15 Pulmonary Artery Pressure 31/17 Cardiac Output 6.9 Cardiac Output 6.3 Cardiac Output 5.5 Cardiac Index 3.1 Cardiac Index 2.8 Cardiac Index 2.5 GENERAL EXAM: Alert, very pleasant 64 year old female patient, up in a chair at the bedside, on 3 L nasal cannula, fairly comfortable in no apparent distress. HEAD: Normocephalic. EYES: Normal reaction of pupils, equal size. NECK: Right IJ [place] catheter in place. No masses, no JVD. CHEST: Sternal dressing dry and intact. Heart Hugger in place. Mediastinal and bilateral chest tubes in place. Epicardial pacemaker wires in place and grounded. LUNGS: Equal air entry with crackles in the bilateral posterior bases. CVS: S1 and S2 normal with no audible murmur, regular rhythm. ABDOMEN: No hepatosplenomegaly, normal bowel sounds, no guarding or rigidity. EXTREMITIES: Apnea KIERRA hose in place with sequential compression devices bilaterally. There is no peripheral edema. No clubbing, no cyanosis. Periphe ral pulses are intact. Results CBC & Chem 7: 01/17/20 04:10 01/17/20 04:10 Labs: Abnormal Lab Results - Last 24 Hours (Table) 01/09/20 01/16/20 01/16/20 Range/Units 10:26 09:09 13:16 WBC (3.8-10.6) k/uL RBC (3.80-5.40) m/uL Hgb (11.4-16.0) gm/dL Hct (34.0-46.0) % Plt Count (150-450) k/uL Neutrophils # (1.3-7.7) k/uL Lymphocytes # (1.0-4.8) k/uL PT (9.0-12.0) sec INR (<1.2) APTT (22.0-30.0) sec ABG pH 7.32 L (7.35-7.45) ABG pCO2 47 H 48 H (35-45) mmHg ABG pO2 413 H 212 H (83-108) mmHg ABG HCO3 26 H (21-25) mmol/L ABG Total CO2 28 H 26 H (19-24) mmol/L ABG O2 Saturation 100.0 H 99.6 H (94-97) % ABG Hematocrit 26 L (34.0-46.0) % ABG Glucose 111 H 144 H (75-99) mg/dL ABG Lactic Acid 2.4 H* (0.5-1.6) mmol/L Hemoglobin 8.5 L (11.4-16.0) gm/dL Chloride (98-107) mmol/L Glucose (74-99) mg/dL POC Glucose (mg/dL) (75-99) mg/dL Calcium (8.4-10.2) mg/dL Magnesium (1.6-2.3) mg/dL Total Bilirubin (0.2-1.3) mg/dL AST (14-36) U/L ALT (4-34) U/L Total Protein (6.3-8.2) g/dL Albumin (3.5-5.0) g/dL Arterial Blood Glucose 111 H 144 H (75-99) mg/dL Crossmatch See Detail 01/16/20 01/16/20 01/16/20 Range/Units 14:38 14:40 14:40 WBC 12.1 H (3.8-10.6) k/uL RBC 2.96 L (3.80-5.40) m/uL Hgb 10.2 L D (11.4-16.0) gm/dL Hct 28.8 L (34.0-46.0) % Plt Count 110 L D (150-450) k/uL Neutrophils # 10.6 H (1.3-7.7) k/uL Lymphocytes # 0.9 L (1.0-4.8) k/uL PT 13.4 H (9.0-12.0) sec INR 1.3 H (<1.2) APTT 30.5 H (22.0-30.0) sec ABG pH (7.35-7.45) ABG pCO2 (35-45) mmHg ABG pO2 (83-108) mmHg ABG HCO3 (21-25) mmol/L ABG Total CO2 (19-24) mmol/L ABG O2 Saturation (94-97) % ABG Hematocrit (34.0-46.0) % ABG Glucose (75-99) mg/dL ABG Lactic Acid (0.5-1.6) mmol/L Hemoglobin (11.4-16.0) gm/dL Chloride (98-107) mmol/L Glucose (74-99) mg/dL POC Glucose (mg/dL) 136 H (75-99) mg/dL Calcium (8.4-10.2) mg/dL Magnesium (1.6-2.3) mg/dL Total Bilirubin (0.2-1.3) mg/dL AST (14-36) U/L ALT (4-34) U/L Total Protein (6.3-8.2) g/dL Albumin (3.5-5.0) g/dL Arterial Blood Glucose (75-99) mg/dL Crossmatch 01/16/20 01/16/20 01/16/20 Range/Units 14:40 15:16 15:18 WBC (3.8-10.6) k/uL RBC (3.80-5.40) m/uL Hgb (11.4-16.0) gm/dL Hct (34.0-46.0) % Plt Count (150-450) k/uL Neutrophils # (1.3-7.7) k/uL Lymphocytes # (1.0-4.8) k/uL PT (9.0-12.0) sec INR (<1.2) APTT (22.0-30.0) sec ABG pH 7.26 L (7.35-7.45) ABG pCO2 59 H (35-45) mmHg ABG pO2 302 H (83-108) mmHg ABG HCO3 26 H (21-25) mmol/L ABG Total CO2 28 H (19-24) mmol/L ABG O2 Saturation 100.0 H (94-97) % ABG Hematocrit (34.0-46.0) % ABG Glucose (75-99) mg/dL ABG Lactic Acid (0.5-1.6) mmol/L Hemoglobin (11.4-16.0) gm/dL Chloride 109 H (98-107) mmol/L Glucose 126 H (74-99) mg/dL POC Glucose (mg/dL) 134 H (75-99) mg/dL Calcium 7.8 L (8.4-10.2) mg/dL Magnesium 2.4 H (1.6-2.3) mg/dL Total Bilirubin 2.9 H (0.2-1.3) mg/dL AST 371 H (14-36) U/L ALT 226 H (4-34) U/L Total Protein 4.3 L (6.3-8.2) g/dL Albumin 2.7 L (3.5-5.0) g/dL Arterial Blood Glucose (75-99) mg/dL Crossmatch 01/16/20 01/16/20 01/16/20 Range/Units 16:20 17:19 17:20 WBC 17.0 H (3.8-10.6) k/uL RBC 3.29 L (3.80-5.40) m/uL Hgb 11.0 L (11.4-16.0) gm/dL Hct 32.1 L (34.0-46.0) % Plt Count 144 L (150-450) k/uL Neutrophils # 15.4 H (1.3-7.7) k/uL Lymphocytes # 0.8 L (1.0-4.8) k/uL PT (9.0-12.0) sec INR (<1.2) APTT (22.0-30.0) sec ABG pH (7.35-7.45) ABG pCO2 (35-45) mmHg ABG pO2 (83-108) mmHg ABG HCO3 (21-25) mmol/L ABG Total CO2 (19-24) mmol/L ABG O2 Saturation (94-97) % ABG Hematocrit (34.0-46.0) % ABG Glucose (75-99) mg/dL ABG Lactic Acid (0.5-1.6) mmol/L Hemoglobin (11.4-16.0) gm/dL Chloride (98-107) mmol/L Glucose (74-99) mg/dL POC Glucose (mg/dL) 124 H 186 H (75-99) mg/dL Calcium (8.4-10.2) mg/dL Magnesium (1.6-2.3) mg/dL Total Bilirubin (0.2-1.3) mg/dL AST (14-36) U/L ALT (4-34) U/L Total Protein (6.3-8.2) g/dL Albumin (3.5-5.0) g/dL Arterial Blood Glucose (75-99) mg/dL Crossmatch 01/16/20 01/16/20 01/16/20 Range/Units 18:16 18:30 19:10 WBC (3.8-10.6) k/uL RBC (3.80-5.40) m/uL Hgb (11.4-16.0) gm/dL Hct (34.0-46.0) % Plt Count (150-450) k/uL Neutrophils # (1.3-7.7) k/uL Lymphocytes # (1.0-4.8) k/uL PT (9.0-12.0) sec INR (<1.2) APTT (22.0-30.0) sec ABG pH 7.33 L (7.35-7.45) ABG pCO2 46 H (35-45) mmHg ABG pO2 128 H (83-108) mmHg ABG HCO3 (21-25) mmol/L ABG Total CO2 25 H (19-24) mmol/L ABG O2 Saturation 99.3 H (94-97) % ABG Hematocrit (34.0-46.0) % ABG Glucose (75-99) mg/dL ABG Lactic Acid (0.5-1.6) mmol/L Hemoglobin (11.4-16.0) gm/dL Chloride (98-107) mmol/L Glucose (74-99) mg/dL POC Glucose (mg/dL) 187 H 179 H (75-99) mg/dL Calcium (8.4-10.2) mg/dL Magnesium (1.6-2.3) mg/dL Total Bilirubin (0.2-1.3) mg/dL AST (14-36) U/L ALT (4-34) U/L Total Protein (6.3-8.2) g/dL Albumin (3.5-5.0) g/dL Arterial Blood Glucose (75-99) mg/dL Crossmatch 01/16/20 01/16/20 01/16/20 Range/Units 20:15 20:15 21:00 WBC 12.8 H (3.8-10.6) k/uL RBC 3.42 L (3.80-5.40) m/uL Hgb 11.2 L (11.4-16.0) gm/dL Hct 33.2 L (34.0-46.0) % Plt Count 142 L (150-450) k/uL Neutrophils # 12.0 H (1.3-7.7) k/uL Lymphocytes # 0.4 L (1.0-4.8) k/uL PT (9.0-12.0) sec INR (<1.2) APTT (22.0-30.0) sec ABG pH (7.35-7.45) ABG pCO2 (35-45) mmHg ABG pO2 (83-108) mmHg ABG HCO3 (21-25) mmol/L ABG Total CO2 (19-24) mmol/L ABG O2 Saturation (94-97) % ABG Hematocrit (34.0-46.0) % ABG Glucose (75-99) mg/dL ABG Lactic Acid (0.5-1.6) mmol/L Hemoglobin (11.4-16.0) gm/dL Chloride (98-107) mmol/L Glucose (74-99) mg/dL POC Glucose (mg/dL) 161 H 157 H (75-99) mg/dL Calcium (8.4-10.2) mg/dL Magnesium (1.6-2.3) mg/dL Total Bilirubin (0.2-1.3) mg/dL AST (14-36) U/L ALT (4-34) U/L Total Protein (6.3-8.2) g/dL Albumin (3.5-5.0) g/dL Arterial Blood Glucose (75-99) mg/dL Crossmatch 01/16/20 01/16/20 01/16/20 Range/Units 22:01 22:58 23:58 WBC (3.8-10.6) k/uL RBC (3.80-5.40) m/uL Hgb (11.4-16.0) gm/dL Hct (34.0-46.0) % Plt Count (150-450) k/uL Neutrophils # (1.3-7.7) k/uL Lymphocytes # (1.0-4.8) k/uL PT (9.0-12.0) sec INR (<1.2) APTT (22.0-30.0) sec ABG pH (7.35-7.45) ABG pCO2 (35-45) mmHg ABG pO2 (83-108) mmHg ABG HCO3 (21-25) mmol/L ABG Total CO2 (19-24) mmol/L ABG O2 Saturation (94-97) % ABG Hematocrit (34.0-46.0) % ABG Glucose (75-99) mg/dL ABG Lactic Acid (0.5-1.6) mmol/L Hemoglobin (11.4-16.0) gm/dL Chloride (98-107) mmol/L Glucose (74-99) mg/dL POC Glucose (mg/dL) 140 H 136 H 133 H (75-99) mg/dL Calcium (8.4-10.2) mg/dL Magnesium (1.6-2.3) mg/dL Total Bilirubin (0.2-1.3) mg/dL AST (14-36) U/L ALT (4-34) U/L Total Protein (6.3-8.2) g/dL Albumin (3.5-5.0) g/dL Arterial Blood Glucose (75-99) mg/dL Crossmatch 01/17/20 01/17/20 01/17/20 Range/Units 01:32 03:06 04:09 WBC (3.8-10.6) k/uL RBC (3.80-5.40) m/uL Hgb (11.4-16.0) gm/dL Hct (34.0-46.0) % Plt Count (150-450) k/uL Neutrophils # (1.3-7.7) k/uL Lymphocytes # (1.0-4.8) k/uL PT (9.0-12.0) sec INR (<1.2) APTT (22.0-30.0) sec ABG pH (7.35-7.45) ABG pCO2 (35-45) mmHg ABG pO2 (83-108) mmHg ABG HCO3 (21-25) mmol/L ABG Total CO2 (19-24) mmol/L ABG O2 Saturation (94-97) % ABG Hematocrit (34.0-46.0) % ABG Glucose (75-99) mg/dL ABG Lactic Acid (0.5-1.6) mmol/L Hemoglobin (11.4-16.0) gm/dL Chloride (98-107) mmol/L Glucose (74-99) mg/dL POC Glucose (mg/dL) 122 H 122 H 121 H (75-99) mg/dL Calcium (8.4-10.2) mg/dL Magnesium (1.6-2.3) mg/dL Total Bilirubin (0.2-1.3) mg/dL AST (14-36) U/L ALT (4-34) U/L Total Protein (6.3-8.2) g/dL Albumin (3.5-5.0) g/dL Arterial Blood Glucose (75-99) mg/dL Crossmatch 01/17/20 01/17/20 01/17/20 Range/Units 04:10 04:10 05:24 WBC 14.0 H (3.8-10.6) k/uL RBC 3.31 L (3.80-5.40) m/uL Hgb 11.1 L (11.4-16.0) gm/dL Hct 32.2 L (34.0-46.0) % Plt Count (150-450) k/uL Neutrophils # 12.3 H (1.3-7.7) k/uL Lymphocytes # 0.9 L (1.0-4.8) k/uL PT (9.0-12.0) sec INR (<1.2) APTT (22.0-30.0) sec ABG pH (7.35-7.45) ABG pCO2 (35-45) mmHg ABG pO2 (83-108) mmHg ABG HCO3 (21-25) mmol/L ABG Total CO2 (19-24) mmol/L ABG O2 Saturation (94-97) % ABG Hematocrit (34.0-46.0) % ABG Glucose (75-99) mg/dL ABG Lactic Acid (0.5-1.6) mmol/L Hemoglobin (11.4-16.0) gm/dL Chloride 108 H (98-107) mmol/L Glucose 116 H (74-99) mg/dL POC Glucose (mg/dL) 115 H (75-99) mg/dL Calcium (8.4-10.2) mg/dL Magnesium (1.6-2.3) mg/dL Total Bilirubin 1.9 H (0.2-1.3) mg/dL AST 212 H (14-36) U/L ALT 235 H (4-34) U/L Total Protein 5.1 L (6.3-8.2) g/dL Albumin 3.2 L (3.5-5.0) g/dL Arterial Blood Glucose (75-99) mg/dL Crossmatch 01/17/20 01/17/20 01/17/20 Range/Units 06:23 07:07 08:17 WBC (3.8-10.6) k/uL RBC (3.80-5.40) m/uL Hgb (11.4-16.0) gm/dL Hct (34.0-46.0) % Plt Count (150-450) k/uL Neutrophils # (1.3-7.7) k/uL Lymphocytes # (1.0-4.8) k/uL PT (9.0-12.0) sec INR (<1.2) APTT (22.0-30.0) sec ABG pH (7.35-7.45) ABG pCO2 (35-45) mmHg ABG pO2 (83-108) mmHg ABG HCO3 (21-25) mmol/L ABG Total CO2 (19-24) mmol/L ABG O2 Saturation (94-97) % ABG Hematocrit (34.0-46.0) % ABG Glucose (75-99) mg/dL ABG Lactic Acid (0.5-1.6) mmol/L Hemoglobin (11.4-16.0) gm/dL Chloride (98-107) mmol/L Glucose (74-99) mg/dL POC Glucose (mg/dL) 122 H 119 H 115 H (75-99) mg/dL Calcium (8.4-10.2) mg/dL Magnesium (1.6-2.3) mg/dL Total Bilirubin (0.2-1.3) mg/dL AST (14-36) U/L ALT (4-34) U/L Total Protein (6.3-8.2) g/dL Albumin (3.5-5.0) g/dL Arterial Blood Glucose (75-99) mg/dL Crossmatch 01/17/20 Range/Units 09:16 WBC (3.8-10.6) k/uL RBC (3.80-5.40) m/uL Hgb (11.4-16.0) gm/dL Hct (34.0-46.0) % Plt Count (150-450) k/uL Neutrophils # (1.3-7.7) k/uL Lymphocytes # (1.0-4.8) k/uL PT (9.0-12.0) sec INR (<1.2) APTT (22.0-30.0) sec ABG pH (7.35-7.45) ABG pCO2 (35-45) mmHg ABG pO2 (83-108) mmHg ABG HCO3 (21-25) mmol/L ABG Total CO2 (19-24) mmol/L ABG O2 Saturation (94-97) % ABG Hematocrit (34.0-46.0) % ABG Glucose (75-99) mg/dL ABG Lactic Acid (0.5-1.6) mmol/L Hemoglobin (11.4-16.0) gm/dL Chloride (98-107) mmol/L Glucose (74-99) mg/dL POC Glucose (mg/dL) 126 H (75-99) mg/dL Calcium (8.4-10.2) mg/dL Magnesium (1.6-2.3) mg/dL Total Bilirubin (0.2-1.3) mg/dL AST (14-36) U/L ALT (4-34) U/L Total Protein (6.3-8.2) g/dL Albumin (3.5-5.0) g/dL Arterial Blood Glucose (75-99) mg/dL Crossmatch Assessment and Plan Assessment: 1 Severe bicuspid aortic valve stenosis, status post aortic valve replacement; Post operative day #1 - Patient encouraged to use incentive spirometer with cough and deep breathing exercises - Increase activity as tolerated 2 Coronary artery disease status post coronary artery bypass grafting 2, postoperative day #1 - Management per CT services 3 Hypertension; metoprolol 25 mg twice a day. 4 Hyperlipidemia; atorvastatin 10 mg daily- held secondary to transaminitis 5 Chronic tobacco dependence; counseling done on cessation of smoking 6 History of TIA; aspirin 325 mg daily; statin therapy on hold due to transaminitis
[2020-01-17 18:10] LABS: Glucose,Whole Blood 156 mg/dL (75-99)
[2020-01-17 19:10] LABS: Glucose,Whole Blood 135 mg/dL (75-99)
[2020-01-17 20:07] LABS: Glucose,Whole Blood 120 mg/dL (75-99)
[2020-01-17] MEDS: SENNOSIDES-DOCUSATE SODIUM 1 EACH TAB PO SCH (20:12)
[2020-01-17 21:11] LABS: Glucose,Whole Blood 124 mg/dL (75-99)
[2020-01-17 21:53] LABS: Glucose,Whole Blood 132 mg/dL (75-99)
[2020-01-17 23:20] LABS: Glucose,Whole Blood 135 mg/dL (75-99)
[2020-01-18 00:31] LABS: Glucose,Whole Blood 134 mg/dL (75-99)
[2020-01-18 00:57] LABS: Glucose,Whole Blood 140 mg/dL (75-99)
[2020-01-18 02:20] LABS: Glucose,Whole Blood 134 mg/dL (75-99)
[2020-01-18 03:00] LABS: Glucose,Whole Blood 129 mg/dL (75-99)
[2020-01-18 04:07] LABS: Glucose,Whole Blood 138 mg/dL (75-99)
[2020-01-18 04:30] LABS: Basophils % (A) 0 %; Eosinophils # (A) 0.3 k/uL (0-0.7); Eosinophils % (A) 2 %; HCT 29.4 % (34.0-46.0); Lymphocytes # (A) 1.2 k/uL (1.0-4.8); Lymphocytes % (A) 8 %; MCH 33.2 pg (25.0-35.0); MCHC 33.9 g/dL (31.0-37.0); MCV 97.9 fL (80.0-100.0); Mean Platelet Volume 8.3; Monocytes # (A) 0.7 k/uL (0-1.0); Monocytes % (A) 5 %; Neutrophils # (A) 12.7 k/uL (1.3-7.7); Neutrophils % (A) 85 %; Platelet Count 124 k/uL (150-450); RDW 13.1 % (11.5-15.5)
[2020-01-18 04:43] LABS: Ionized Calcium 5.2 mg/dL (4.5-5.3)
[2020-01-18 04:51] LABS: Glucose,Whole Blood 141 mg/dL (75-99)
[2020-01-18 04:52] LABS: Albumin 2.7 g/dL (3.5-5.0); Calcium 8.7 mg/dL (8.4-10.2); Potassium 4.3 mmol/L (3.5-5.1); Total Bilirubin 2.1 mg/dL (0.2-1.3); Total Protein 4.7 g/dL (6.3-8.2)
[2020-01-18] MEDS: KETOROLAC 15 MG/ML 1 ML VIAL IVP SCH ×3 (05:17→18:31)
[2020-01-18 06:04] LABS: Glucose,Whole Blood 143 mg/dL (75-99)
[2020-01-18] MEDS: PANTOPRAZOLE 40 MG TABLET PO SCH (06:36)
[2020-01-18] MEDS: HYDROcodone/APAP 5-325MG 1 EACH TAB PO PRN ×2 (06:36→10:18)
[2020-01-18 06:56] LABS: Glucose,Whole Blood 139 mg/dL (75-99)
[2020-01-18] MEDS: IPRATROPIUM-ALBUTEROL 3 ML NEB INHALATION SCH ×4 (07:25→22:06)
--- NOTE | 2020-01-18 07:27 | XR ---
EXAMINATION TYPE: XR chest 1V portable DATE OF EXAM: 01/18/2020 HISTORY: Post Op CABG COMPARISON: 01/17/2020 TECHNIQUE: Single view of the chest is submitted. FINDINGS: Endotracheal tube, NG tube, SG catheter, mediastianal drains and chest tubes are appropriately placed . Post operative changes of CABG. No sizeable pneumothorax. Scattered Pleural-parenchymal opacities may reflect atelectasis. The heart mildly enlarged. IMPRESSION: 1. Post operative changes of CABG. Overall no significant change when compared to prior examination.
[2020-01-18] MEDS ORDERED: FUROSEMIDE 10 MG/ML 2 ML VIAL IV STA (07:30)
--- NOTE | 2020-01-18 07:35 | P.PN ---
Subjective Progress Note Date: 01/18/20 Principal diagnosis: Status post open heart surgery This is a pleasant 64-year-old female patient was coronary artery disease as well as aortic stenosis who was admitted to the hospital yesterday and underwent aortic valve replacement along with coronary artery bypass grafting. She underwent BAHENA to LAD and reverse SVG to OM. Beside that she underwent aortic valve replacement using a bioprosthetic valve. This is postoperative patient day #2. Overall the patient is doing good recovery. She remains in normal sinus rhythm. She remains hemodynamics the stable and not on any vasopressors. The chest tube drainage is minimal. Urine output is good. She is on maximize medical treatment including dual antiplatelet therapy along with metoprolol but she is not on statin because of abnormal liver function tests. From a cardiovascular standpoint of view, we'll continue the current medical regimen and continue monitor the kidney function and electrolytes as well as hemoglobin and continue following up with the patient. Objective - Vital Signs Vital signs: Vital Signs Temp 98.4 F 01/18/20 04:00 Pulse 94 01/18/20 07:00 Resp 18 01/18/20 07:00 BP 108/71 01/18/20 07:00 Pulse Ox 92 L 01/18/20 07:00 Intake & Output 01/17/20 01/18/20 01/18/20 18:59 06:59 18:59 Intake Total 815.525 395.460 36 Output Total 1085 582 210 Balance -269.475 -186.540 -174 Weight 134 kg 133.3 kg Intake: IV 66 6 Pressure bags 66 6 Intake, IV Titration 315.525 329.460 30 Amount Insulin Regular 100 unit 44.025 19.460 In Sodium Chloride 0.9% 100 ml @ Per Protocol IV .Q0M [facility] Rx#:[id number] Nitroglycerin-D5w Pmx 50 1.5 mg In Dextrose/Water 1 250ml.bag @ 5 MCG/MIN 1.5 mls/hr IV .Q24H [facility] Rx#: [id number] Sodium Chloride 0.9% 1, 270 310 30 000 ml @ 20 mls/hr IV . Q24H [facility] Rx#:[id number] Oral 500 Output: Chest Tube Drainage 30 192 170 Left [address] 0 70 40 Right 73 [address] 30 Drainage 285 30 Left 70 20 Left Calf [address] 60 0 Right 45 [address] 70 Urine 770 360 40 Other: Voiding Method Indwelling Catheter Indwelling Catheter ABP, PAP, CO, CI - Last Documented Arterial Blood Pressure 94/51 Pulmonary Artery Pressure 28/12 Cardiac Output 6.9 Cardiac Index 3.1 - Constitutional General appearance: Present: no acute distress - Respiratory Respiratory: bilateral: diminished - Cardiovascular Rhythm: regular - Labs CBC & Chem 7: 01/18/20 04:10 01/18/20 04:10 Labs: Abnormal Lab Results - Last 24 Hours (Table) 01/17/20 01/17/20 01/17/20 Range/Units 08:17 09:16 10:27 WBC (3.8-10.6) k/uL RBC (3.80-5.40) m/uL Hgb (11.4-16.0) gm/dL Hct (34.0-46.0) % Plt Count (150-450) k/uL Neutrophils # (1.3-7.7) k/uL Sodium (137-145) mmol/L BUN (7-17) mg/dL Glucose (74-99) mg/dL POC Glucose (mg/dL) 115 H 126 H 120 H (75-99) mg/dL Total Bilirubin (0.2-1.3) mg/dL AST (14-36) U/L ALT (4-34) U/L Total Protein (6.3-8.2) g/dL Albumin (3.5-5.0) g/dL 01/17/20 01/17/20 01/17/20 Range/Units 12:09 13:34 14:43 WBC (3.8-10.6) k/uL RBC (3.80-5.40) m/uL Hgb (11.4-16.0) gm/dL Hct (34.0-46.0) % Plt Count (150-450) k/uL Neutrophils # (1.3-7.7) k/uL Sodium (137-145) mmol/L BUN (7-17) mg/dL Glucose (74-99) mg/dL POC Glucose (mg/dL) 101 H 134 H 123 H (75-99) mg/dL Total Bilirubin (0.2-1.3) mg/dL AST (14-36) U/L ALT (4-34) U/L Total Protein (6.3-8.2) g/dL Albumin (3.5-5.0) g/dL 01/17/20 01/17/20 01/17/20 Range/Units 15:53 17:09 18:09 WBC (3.8-10.6) k/uL RBC (3.80-5.40) m/uL Hgb (11.4-16.0) gm/dL Hct (34.0-46.0) % Plt Count (150-450) k/uL Neutrophils # (1.3-7.7) k/uL Sodium (137-145) mmol/L BUN (7-17) mg/dL Glucose (74-99) mg/dL POC Glucose (mg/dL) 111 H 118 H 156 H (75-99) mg/dL Total Bilirubin (0.2-1.3) mg/dL AST (14-36) U/L ALT (4-34) U/L Total Protein (6.3-8.2) g/dL Albumin (3.5-5.0) g/dL 01/17/20 01/17/20 01/17/20 Range/Units 19:09 20:06 21:09 WBC (3.8-10.6) k/uL RBC (3.80-5.40) m/uL Hgb (11.4-16.0) gm/dL Hct (34.0-46.0) % Plt Count (150-450) k/uL Neutrophils # (1.3-7.7) k/uL Sodium (137-145) mmol/L BUN (7-17) mg/dL Glucose (74-99) mg/dL POC Glucose (mg/dL) 135 H 120 H 124 H (75-99) mg/dL Total Bilirubin (0.2-1.3) mg/dL AST (14-36) U/L ALT (4-34) U/L Total Protein (6.3-8.2) g/dL Albumin (3.5-5.0) g/dL 01/17/20 01/17/20 01/18/20 Range/Units 21:51 23:18 00:30 WBC (3.8-10.6) k/uL RBC (3.80-5.40) m/uL Hgb (11.4-16.0) gm/dL Hct (34.0-46.0) % Plt Count (150-450) k/uL Neutrophils # (1.3-7.7) k/uL Sodium (137-145) mmol/L BUN (7-17) mg/dL Glucose (74-99) mg/dL POC Glucose (mg/dL) 132 H 135 H 134 H (75-99) mg/dL Total Bilirubin (0.2-1.3) mg/dL AST (14-36) U/L ALT (4-34) U/L Total Protein (6.3-8.2) g/dL Albumin (3.5-5.0) g/dL 01/18/20 01/18/20 01/18/20 Range/Units 00:56 02:19 02:59 WBC (3.8-10.6) k/uL RBC (3.80-5.40) m/uL Hgb (11.4-16.0) gm/dL Hct (34.0-46.0) % Plt Count (150-450) k/uL Neutrophils # (1.3-7.7) k/uL Sodium (137-145) mmol/L BUN (7-17) mg/dL Glucose (74-99) mg/dL POC Glucose (mg/dL) 140 H 134 H 129 H (75-99) mg/dL Total Bilirubin (0.2-1.3) mg/dL AST (14-36) U/L ALT (4-34) U/L Total Protein (6.3-8.2) g/dL Albumin (3.5-5.0) g/dL 01/18/20 01/18/20 01/18/20 Range/Units 04:01 04:10 04:10 WBC 15.0 H (3.8-10.6) k/uL RBC 3.00 L (3.80-5.40) m/uL Hgb 10.0 L (11.4-16.0) gm/dL Hct 29.4 L (34.0-46.0) % Plt Count 124 L (150-450) k/uL Neutrophils # 12.7 H (1.3-7.7) k/uL Sodium 134 L (137-145) mmol/L BUN 22 H (7-17) mg/dL Glucose 139 H (74-99) mg/dL POC Glucose (mg/dL) 138 H (75-99) mg/dL Total Bilirubin 2.1 H (0.2-1.3) mg/dL AST 73 H (14-36) U/L ALT 127 H (4-34) U/L Total Protein 4.7 L (6.3-8.2) g/dL Albumin 2.7 L (3.5-5.0) g/dL 01/18/20 01/18/20 01/18/20 Range/Units 04:50 06:03 06:55 WBC (3.8-10.6) k/uL RBC (3.80-5.40) m/uL Hgb (11.4-16.0) gm/dL Hct (34.0-46.0) % Plt Count (150-450) k/uL Neutrophils # (1.3-7.7) k/uL Sodium (137-145) mmol/L BUN (7-17) mg/dL Glucose (74-99) mg/dL POC Glucose (mg/dL) 141 H 143 H 139 H (75-99) mg/dL Total Bilirubin (0.2-1.3) mg/dL AST (14-36) U/L ALT (4-34) U/L Total Protein (6.3-8.2) g/dL Albumin (3.5-5.0) g/dL Assessment and Plan Assessment: Assessment #1 status post aortic valve replacement and coronary artery that is grafting #2 known severe coronary artery disease #3 known severe aortic stenosis #4 multiple comorbid conditions Plan #1 continue the current medical regimen #2 continue hold the statin the liver function tests comedown #3 continue dual antiplatelet therapy #4 follow-up with the patient
[2020-01-18 08:27] LABS: Glucose,Whole Blood 141 mg/dL (75-99)
[2020-01-18] MEDS: INSULIN ASPART (NovoLOG) 100 UNIT/ML VIAL SQ SCH ×4 (08:28→21:23)
[2020-01-18] MEDS: HEPARIN SODIUM,PORCINE 5,000 UNIT/ML 1 ML VIAL SQ SCH ×2 (08:54→16:25)
[2020-01-18] MEDS: ASPIRIN 325 MG TAB PO SCH (08:55)
[2020-01-18] MEDS: METOPROLOL TARTRATE 25 MG TAB PO SCH ×3 (08:55→21:40)
[2020-01-18] MEDS: CLOPIDOGREL 75 MG TAB PO SCH (08:55)
[2020-01-18] MEDS: CLEVIDIPINE BUTYRATE 25 MG in EMPTY BAG 1 BAG IV SCH (08:56)
[2020-01-18] MEDS: SODIUM CHLORIDE 0.9% 1,000 ML IV SCH (08:56)
--- NOTE | 2020-01-18 11:49 | P.PN ---
Subjective Progress Note Date: 01/18/20 Principal diagnosis: Severe bicuspid aortic valve stenosis, coronary artery disease The patient is seen today 01/17/2020. She was found to have severe bicuspid aortic valve stenosis, coronary artery disease and is status post aortic valve replacement with a bioprosthetic aortic valve and coronary artery bypass grafting 2. This is postoperative day #1. She does have a history of hypertension, hyperlipidemia, breast cancer, TIA and a prior history of chronic tobacco use. She is seen today in follow-up in the ICU. She is currently sitting up in a chair at the bedside. Awake and alert in no acute distress. He was successfully extubated approximately 4 hours 20 minutes postoperatively. She is currently on 3 L/m per nasal cannula to maintain O2 saturations in the 90 s. She remains on lactated Ringer's at 20 ML's per hour. Insulin drip at 3.5 units per hour. She is working well with the incentive spirometer. Right IJ [place]-Darrin catheter remains in place. Cardiac output 6.3. Cardiac index 2.8. PA pressures 28/13 with a CVP of 8 mmHg. Her Cleviprex is off. Right, left and mediastinal chest tubes remain in place, her chest x-ray reveals some atelectasis at the bases. The patient is seen today 01/18/2020 in follow-up in the intensive care unit. She is currently sitting up in a chair at the bedside. Awake and alert in no acute distress. This is postoperative day #2. She is maintaining good O2 saturations in the 90s on 2 L/m per nasal cannula. No IV fluids. Chest x-ray reveals scattered pleural parenchymal opacities reflecting atelectasis. No change compared to previous. His been up with assistance. Working well with the incentive spirometer. White count 15.0. Hemoglobin 10.0. Platelet count 124. Sodium 134. Potassium 4.3. Creatinine 0.87. Objective - Vital Signs Vital signs: Vital Signs Temp 98.1 F 01/18/20 08:00 Pulse 86 01/18/20 11:00 Resp 18 01/18/20 11:00 BP 99/55 01/18/20 11:00 Pulse Ox 93 L 01/18/20 11:00 Intake & Output 01/17/20 01/18/20 01/18/20 18:59 06:59 18:59 Intake Total 815.525 395.460 182 Output Total 1085 582 775 Balance -269.475 -186.540 -593 Weight 134 kg 133.3 kg Intake: IV 66 12 Pressure bags 66 12 Intake, IV Titration 315.525 329.460 50 Amount Insulin Regular 100 unit 44.025 19.460 In Sodium Chloride 0.9% 100 ml @ Per Protocol IV .Q0M [facility] Rx#:[id number] Nitroglycerin-D5w Pmx 50 1.5 mg In Dextrose/Water 1 250ml.bag @ 5 MCG/MIN 1.5 mls/hr IV .Q24H [facility] Rx#: [id number] Sodium Chloride 0.9% 1, 270 310 50 000 ml @ 20 mls/hr IV . Q24H [facility] Rx#:[id number] Oral 500 120 Output: Chest Tube Drainage 30 192 170 Left [address] 0 70 40 Right 73 [address] 30 Drainage 285 30 80 Left 70 20 10 Left Calf [address] 60 0 10 Right 45 10 [address] 70 Urine 770 360 525 Other: Voiding Method Indwelling Catheter Indwelling Catheter Indwelling Catheter ABP, PAP, CO, CI - Last Documented Arterial Blood Pressure 94/51 Pulmonary Artery Pressure 28/12 Cardiac Output 6.9 Cardiac Index 3.1 - Exam GENERAL EXAM: Alert, very pleasant 64 year old female patient, up in a chair at the bedside, on 2 L nasal cannula, fairly comfortable in no apparent distress. HEAD: Normocephalic. EYES: Normal reaction of pupils, equal size. NOSE: Clear with pink turbinates. THROAT: No erythema or exudates. NECK: Right IJ [facility] [place]-Darrin catheter in place. No masses, no JVD. CHEST: Sternal dressing dry and intact. Heart Hugger in place. Mediastinal and bilateral chest tubes in place. Epicardial pacemaker wires in place and grounded. LUNGS: Equal air entry with crackles in the bilateral posterior bases. CVS: S1 and S2 normal with no audible murmur, regular rhythm. ABDOMEN: No hepatosplenomegaly, normal bowel sounds, no guarding or rigidity. SPINE: No scoliosis or deformity SKIN: No rashes CENTRAL NERVOUS SYSTEM: No focal deficits, tone is normal in all 4 extremities. EXTREMITIES: Apnea KIERRA hose in place with sequential compression devices bilaterally. There is no peripheral edema. No clubbing, no cyanosis. Peripheral pulses are intact. - Labs CBC & Chem 7: 01/18/20 04:10 01/18/20 04:10 Labs: Abnormal Lab Results - Last 24 Hours (Table) 01/17/20 01/17/20 01/17/20 Range/Units 12:09 13:34 14:43 WBC (3.8-10.6) k/uL RBC (3.80-5.40) m/uL Hgb (11.4-16.0) gm/dL Hct (34.0-46.0) % Plt Count (150-450) k/uL Neutrophils # (1.3-7.7) k/uL Sodium (137-145) mmol/L BUN (7-17) mg/dL Glucose (74-99) mg/dL POC Glucose (mg/dL) 101 H 134 H 123 H (75-99) mg/dL Total Bilirubin (0.2-1.3) mg/dL AST (14-36) U/L ALT (4-34) U/L Total Protein (6.3-8.2) g/dL Albumin (3.5-5.0) g/dL 01/17/20 01/17/20 01/17/20 Range/Units 15:53 17:09 18:09 WBC (3.8-10.6) k/uL RBC (3.80-5.40) m/uL Hgb (11.4-16.0) gm/dL Hct (34.0-46.0) % Plt Count (150-450) k/uL Neutrophils # (1.3-7.7) k/uL Sodium (137-145) mmol/L BUN (7-17) mg/dL Glucose (74-99) mg/dL POC Glucose (mg/dL) 111 H 118 H 156 H (75-99) mg/dL Total Bilirubin (0.2-1.3) mg/dL AST (14-36) U/L ALT (4-34) U/L Total Protein (6.3-8.2) g/dL Albumin (3.5-5.0) g/dL 01/17/20 01/17/20 01/17/20 Range/Units 19:09 20:06 21:09 WBC (3.8-10.6) k/uL RBC (3.80-5.40) m/uL Hgb (11.4-16.0) gm/dL Hct (34.0-46.0) % Plt Count (150-450) k/uL Neutrophils # (1.3-7.7) k/uL Sodium (137-145) mmol/L BUN (7-17) mg/dL Glucose (74-99) mg/dL POC Glucose (mg/dL) 135 H 120 H 124 H (75-99) mg/dL Total Bilirubin (0.2-1.3) mg/dL AST (14-36) U/L ALT (4-34) U/L Total Protein (6.3-8.2) g/dL Albumin (3.5-5.0) g/dL 01/17/20 01/17/20 01/18/20 Range/Units 21:51 23:18 00:30 WBC (3.8-10.6) k/uL RBC (3.80-5.40) m/uL Hgb (11.4-16.0) gm/dL Hct (34.0-46.0) % Plt Count (150-450) k/uL Neutrophils # (1.3-7.7) k/uL Sodium (137-145) mmol/L BUN (7-17) mg/dL Glucose (74-99) mg/dL POC Glucose (mg/dL) 132 H 135 H 134 H (75-99) mg/dL Total Bilirubin (0.2-1.3) mg/dL AST (14-36) U/L ALT (4-34) U/L Total Protein (6.3-8.2) g/dL Albumin (3.5-5.0) g/dL 01/18/20 01/18/20 01/18/20 Range/Units 00:56 02:19 02:59 WBC (3.8-10.6) k/uL RBC (3.80-5.40) m/uL Hgb (11.4-16.0) gm/dL Hct (34.0-46.0) % Plt Count (150-450) k/uL Neutrophils # (1.3-7.7) k/uL Sodium (137-145) mmol/L BUN (7-17) mg/dL Glucose (74-99) mg/dL POC Glucose (mg/dL) 140 H 134 H 129 H (75-99) mg/dL Total Bilirubin (0.2-1.3) mg/dL AST (14-36) U/L ALT (4-34) U/L Total Protein (6.3-8.2) g/dL Albumin (3.5-5.0) g/dL 01/18/20 01/18/20 01/18/20 Range/Units 04:01 04:10 04:10 WBC 15.0 H (3.8-10.6) k/uL RBC 3.00 L (3.80-5.40) m/uL Hgb 10.0 L (11.4-16.0) gm/dL Hct 29.4 L (34.0-46.0) % Plt Count 124 L (150-450) k/uL Neutrophils # 12.7 H (1.3-7.7) k/uL Sodium 134 L (137-145) mmol/L BUN 22 H (7-17) mg/dL Glucose 139 H (74-99) mg/dL POC Glucose (mg/dL) 138 H (75-99) mg/dL Total Bilirubin 2.1 H (0.2-1.3) mg/dL AST 73 H (14-36) U/L ALT 127 H (4-34) U/L Total Protein 4.7 L (6.3-8.2) g/dL Albumin 2.7 L (3.5-5.0) g/dL 01/18/20 01/18/20 01/18/20 Range/Units 04:50 06:03 06:55 WBC (3.8-10.6) k/uL RBC (3.80-5.40) m/uL Hgb (11.4-16.0) gm/dL Hct (34.0-46.0) % Plt Count (150-450) k/uL Neutrophils # (1.3-7.7) k/uL Sodium (137-145) mmol/L BUN (7-17) mg/dL Glucose (74-99) mg/dL POC Glucose (mg/dL) 141 H 143 H 139 H (75-99) mg/dL Total Bilirubin (0.2-1.3) mg/dL AST (14-36) U/L ALT (4-34) U/L Total Protein (6.3-8.2) g/dL Albumin (3.5-5.0) g/dL 01/18/20 Range/Units 08:26 WBC (3.8-10.6) k/uL RBC (3.80-5.40) m/uL Hgb (11.4-16.0) gm/dL Hct (34.0-46.0) % Plt Count (150-450) k/uL Neutrophils # (1.3-7.7) k/uL Sodium (137-145) mmol/L BUN (7-17) mg/dL Glucose (74-99) mg/dL POC Glucose (mg/dL) 141 H (75-99) mg/dL Total Bilirubin (0.2-1.3) mg/dL AST (14-36) U/L ALT (4-34) U/L Total Protein (6.3-8.2) g/dL Albumin (3.5-5.0) g/dL Assessment and Plan Assessment: 1 Severe bicuspid aortic valve stenosis, status post aortic valve replacement utilizing a 25 mm bioprosthetic aortic valve. Post operative day #2 2 Coronary artery disease status post coronary artery bypass grafting 2, postoperative day #2 3 Hypertension. 4 Hyperlipidemia 5 Chronic tobacco dependence 6 History of breast cancer 8 History of TIA Plan: The patient was seen and evaluated by Dr. García Chest x-ray and labs reviewed Encouraged increased use the incentive spirometer and cough and deep breathing exercises Increase her activity as tolerated We will continue to follow and make further recommendations based on her clinical status I, the cosigning physician, performed a history & physical examination of the patient. Lungs sounds crackles in the bilateral posterior bases. Maintaining good O2 saturations in the 90s on 2 L/m per nasal cannula. I discussed the assessment and plan of care with my nurse practitioner, Ivelisse Mcgowan. I attest to the above note as dictated by her.
[2020-01-18 12:09] LABS: Glucose,Whole Blood 131 mg/dL (75-99)
--- NOTE | 2020-01-18 12:45 | P.PN ---
Subjective Progress Note Date: 01/18/20 Principal diagnosis: Severe bicuspid aortic valve stenosis, coronary artery disease. Past medical history significant for hypertension, hyperlipidemia, breast cancer, TIA in 2018, preoperative elevation of her transaminase enzymes, family history of coronary artery disease less than 60 years of age and history of chronic tobacco abuse. POD #2 aortic valve replacement with a 25 mm Avalus Medtronic bioprosthetic aortic valve, coronary artery bypass grafting 2 with left internal mammary artery to the left anterior ascending coronary artery, reverse greater saphenous vein graft off the aorta to the distal obtuse marginal coronary artery, clip ligation of the left atrial appendage with a 35 mm Atriclip, intraoperative transesophageal echocardiogram and left lower extremity greater saphenous vein endoscopic vein harvesting. Postoperative acute blood loss anemia, expected dilutional. The patient is seen in follow-up today on 01/18/2020 at her bedside in the intensive care unit. Currently she is sitting up to the bedside chair, is awake, alert and oriented 3 and is in no acute distress. She remains hemodynamically stable and is currently on no inotropic or pressor support. Right IJ cordis remains in place with continuous CVP monitoring, current CVP pressure 16 mmHg. Oxygen saturation are 92% on 2 L nasal cannula and she is achieving 500 mL with much encouragement on her incentive spirometry. Mediastinal, right and left pleural chest tubes remain in place to low continuous wall suction -20 cm H2O. No air leak is present. Chest tubes are draining thin serosanguineous drainage. Mediastinal chest tube drained 180 mL output in 24 hours and 60 mL output in the last 8 hours, left pleural chest tube drained 170 mL output in the last 24 hours and 40 mL output last 8 hours and her right pleural chest tube drained 220 mL output in the last 24 hours and 70 mL output in the last 8 hours. She reports she ambulated in the intensive care unit hallway yesterday around 25-50 feet with assistance from nursing staff. Denies any complaints of shortness of breath, although is complaining of some surgical type pain to her chest tube insertion sites. Objective - Vital Signs Vital signs: Vital Signs Temp 98.4 F 01/18/20 04:00 Pulse 94 01/18/20 07:00 Resp 18 01/18/20 07:00 BP 108/71 01/18/20 07:00 Pulse Ox 92 L 01/18/20 07:00 Intake & Output 01/17/20 01/18/20 01/18/20 18:59 06:59 18:59 Intake Total 815.525 395.460 36 Output Total 1085 582 210 Balance -269.475 -186.540 -174 Weight 134 kg 133.3 kg Intake: IV 66 6 Pressure bags 66 6 Intake, IV Titration 315.525 329.460 30 Amount Insulin Regular 100 unit 44.025 19.460 In Sodium Chloride 0.9% 100 ml @ Per Protocol IV .Q0M [facility] Rx#:[id number] Nitroglycerin-D5w Pmx 50 1.5 mg In Dextrose/Water 1 250ml.bag @ 5 MCG/MIN 1.5 mls/hr IV .Q24H [facility] Rx#: [id number] Sodium Chloride 0.9% 1, 270 310 30 000 ml @ 20 mls/hr IV . Q24H [facility] Rx#:[id number] Oral 500 Output: Chest Tube Drainage 30 192 170 Left [address] 0 70 40 Right 73 [address] 30 Drainage 285 30 Left 70 20 Left Calf [address] 60 0 Right 45 [address] 70 Urine 770 360 40 Other: Voiding Method Indwelling Catheter Indwelling Catheter ABP, PAP, CO, CI - Last Documented Arterial Blood Pressure 94/51 Pulmonary Artery Pressure 28/12 Cardiac Output 6.9 Cardiac Index 3.1 - Constitutional General appearance: Present: cooperative, morbidly obese, no acute distress - EENT Eyes: Present: normal appearance. Absent: scleral icterus - Neck Details: Neck is supple, no JVD, no lymphadenopathy. Right IJ Cordis with continuous CVP monitoring. - Respiratory Details: Lung sounds essentially clear to her bilateral upper lobes, diminished bilateral bases with few scattered crackles. No wheezes or rhonchi. Respirations are symmetrical and nonlabored. Oxygen saturation is 92% on 2 L nasal cannula. A chieving 500 mL on her incentive spirometry. Mediastinal, right and left pleural chest tubes remain in place to low continuous wall suction -20 cm H2O. No air leak is present. Chest tubes are draining thin serosanguineous drainage. Mediastinal chest tube drained 180 mL output in 24 hours and 60 mL output in the last 8 hours, left pleural chest tube drained 170 mL output in the last 24 hours and 40 mL output last 8 hours and her right pleural chest tube drained 220 mL output in the last 24 hours and 70 mL output in the last 8 hours. - Cardiovascular Details: Regular rhythm and rate. S1 and S2 present, negative for S3, gallop or murmur. Sternum is stable. Bedside telemetry showing normal sinus rhythm heart rate 96 BPM. No edema present. Right IJ Cordis with continuous CVP monitoring, current CVP pressure 60 mmHg. Knee-high KIERRA hose and sequential compression devices in place to bilateral lower extremities. Heart hugger is in place and she is demonstrating appropriate use. Atrial and ventricular epicardial pacemaker wires in place and grounded. - Gastrointestinal Gastrointestinal Comment(s): Abdomen is soft, nontender and nondistended. Hypoactive bowel sounds present in all 4 abdominal quadrants. No guarding or rigidity. Tolerating oral intake. Passing flatus. - Genitourinary Genitourinary Comment(s): Glover catheter for accurate I&O. Draining clear lizzie urine. 230 mL output in the last 8 hours. - Neurologic Neurologic: Present: CNII-XII intact - Musculoskeletal Musculoskeletal: Present: gait normal, generalized weakness, strength equal bilaterally - Psychiatric Psychiatric: Present: A&O x's 3, appropriate affect, intact judgment & insight - Allied health notes Allied health notes reviewed: nursing - Labs CBC & Chem 7: 01/18/20 04:10 01/18/20 04:10 Labs: Abnormal Lab Results - Last 24 Hours (Table) 01/17/20 01/17/20 01/17/20 Range/Units 08:17 09:16 10:27 WBC (3.8-10.6) k/uL RBC (3.80-5.40) m/uL Hgb (11.4-16.0) gm/dL Hct (34.0-46.0) % Plt Count (150-450) k/uL Neutrophils # (1.3-7.7) k/uL Sodium (137-145) mmol/L BUN (7-17) mg/dL Glucose (74-99) mg/dL POC Glucose (mg/dL) 115 H 126 H 120 H (75-99) mg/dL Total Bilirubin (0.2-1.3) mg/dL AST (14-36) U/L ALT (4-34) U/L Total Protein (6.3-8.2) g/dL Albumin (3.5-5.0) g/dL 01/17/20 01/17/20 01/17/20 Range/Units 12:09 13:34 14:43 WBC (3.8-10.6) k/uL RBC (3.80-5.40) m/uL Hgb (11.4-16.0) gm/dL Hct (34.0-46.0) % Plt Count (150-450) k/uL Neutrophils # (1.3-7.7) k/uL Sodium (137-145) mmol/L BUN (7-17) mg/dL Glucose (74-99) mg/dL POC Glucose (mg/dL) 101 H 134 H 123 H (75-99) mg/dL Total Bilirubin (0.2-1.3) mg/dL AST (14-36) U/L ALT (4-34) U/L Total Protein (6.3-8.2) g/dL Albumin (3.5-5.0) g/dL 01/17/20 01/17/20 01/17/20 Range/Units 15:53 17:09 18:09 WBC (3.8-10.6) k/uL RBC (3.80-5.40) m/uL Hgb (11.4-16.0) gm/dL Hct (34.0-46.0) % Plt Count (150-450) k/uL Neutrophils # (1.3-7.7) k/uL Sodium (137-145) mmol/L BUN (7-17) mg/dL Glucose (74-99) mg/dL POC Glucose (mg/dL) 111 H 118 H 156 H (75-99) mg/dL Total Bilirubin (0.2-1.3) mg/dL AST (14-36) U/L ALT (4-34) U/L Total Protein (6.3-8.2) g/dL Albumin (3.5-5.0) g/dL 01/17/20 01/17/20 01/17/20 Range/Units 19:09 20:06 21:09 WBC (3.8-10.6) k/uL RBC (3.80-5.40) m/uL Hgb (11.4-16.0) gm/dL Hct (34.0-46.0) % Plt Count (150-450) k/uL Neutrophils # (1.3-7.7) k/uL Sodium (137-145) mmol/L BUN (7-17) mg/dL Glucose (74-99) mg/dL POC Glucose (mg/dL) 135 H 120 H 124 H (75-99) mg/dL Total Bilirubin (0.2-1.3) mg/dL AST (14-36) U/L ALT (4-34) U/L Total Protein (6.3-8.2) g/dL Albumin (3.5-5.0) g/dL 01/17/20 01/17/20 01/18/20 Range/Units 21:51 23:18 00:30 WBC (3.8-10.6) k/uL RBC (3.80-5.40) m/uL Hgb (11.4-16.0) gm/dL Hct (34.0-46.0) % Plt Count (150-450) k/uL Neutrophils # (1.3-7.7) k/uL Sodium (137-145) mmol/L BUN (7-17) mg/dL Glucose (74-99) mg/dL POC Glucose (mg/dL) 132 H 135 H 134 H (75-99) mg/dL Total Bilirubin (0.2-1.3) mg/dL AST (14-36) U/L ALT (4-34) U/L Total Protein (6.3-8.2) g/dL Albumin (3.5-5.0) g/dL 01/18/20 01/18/20 01/18/20 Range/Units 00:56 02:19 02:59 WBC (3.8-10.6) k/uL RBC (3.80-5.40) m/uL Hgb (11.4-16.0) gm/dL Hct (34.0-46.0) % Plt Count (150-450) k/uL Neutrophils # (1.3-7.7) k/uL Sodium (137-145) mmol/L BUN (7-17) mg/dL Glucose (74-99) mg/dL POC Glucose (mg/dL) 140 H 134 H 129 H (75-99) mg/dL Total Bilirubin (0.2-1.3) mg/dL AST (14-36) U/L ALT (4-34) U/L Total Protein (6.3-8.2) g/dL Albumin (3.5-5.0) g/dL 01/18/20 01/18/20 01/18/20 Range/Units 04:01 04:10 04:10 WBC 15.0 H (3.8-10.6) k/uL RBC 3.00 L (3.80-5.40) m/uL Hgb 10.0 L (11.4-16.0) gm/dL Hct 29.4 L (34.0-46.0) % Plt Count 124 L (150-450) k/uL Neutrophils # 12.7 H (1.3-7.7) k/uL Sodium 134 L (137-145) mmol/L BUN 22 H (7-17) mg/dL Glucose 139 H (74-99) mg/dL POC Glucose (mg/dL) 138 H (75-99) mg/dL Total Bilirubin 2.1 H (0.2-1.3) mg/dL AST 73 H (14-36) U/L ALT 127 H (4-34) U/L Total Protein 4.7 L (6.3-8.2) g/dL Albumin 2.7 L (3.5-5.0) g/dL 01/18/20 01/18/20 01/18/20 Range/Units 04:50 06:03 06:55 WBC (3.8-10.6) k/uL RBC (3.80-5.40) m/uL Hgb (11.4-16.0) gm/dL Hct (34.0-46.0) % Plt Count (150-450) k/uL Neutrophils # (1.3-7.7) k/uL Sodium (137-145) mmol/L BUN (7-17) mg/dL Glucose (74-99) mg/dL POC Glucose (mg/dL) 141 H 143 H 139 H (75-99) mg/dL Total Bilirubin (0.2-1.3) mg/dL AST (14-36) U/L ALT (4-34) U/L Total Protein (6.3-8.2) g/dL Albumin (3.5-5.0) g/dL - Imaging and Cardiology Chest x-ray: report reviewed, image reviewed Assessment and Plan Assessment: 1. Severe bicuspid aortic valve stenosis, status post aortic valve replacement using a 25 mm Avalus Medtronic bioprosthetic aortic valve 2. Coronary artery disease, status post coronary artery bypass grafting 2 vessels 3. History of hypertension, 4. History of hyperlipidemia 5. History of TIA in 2018 6. History of breast cancer 7. History of elevation in her transaminase enzymes preoperatively 8. Chronic tobacco abuse 9. Family history of coronary artery disease less than 60 years of age 10. Postoperative acute blood loss anemia, expected 11. Postoperative elevation in her transaminase enzymes, expected Plan: 1. Continue to maximize medical therapy with aspirin, Plavix and beta chase. Will increase metoprolol tartrate 25 mg by mouth 3 times a day. 2. Discontinue Glover catheter. Continue to record accurate I's and O's. 3. Wean O2 as tolerated. Continue to encourage use of incentive spirometry 10 times every hour while awake. Bronchodilators per pulmonology/critical care management. 4. Will monitor daily labs and chest x-rays. Electrolytes replacement per protocol. No transfusion at this time. 5. GI/DVT prophylaxis. 6. Pain control with current medication regimen. Discontinue [place], had acetaminophen 1000 mg by mouth every 6 hours when necessary pain. Continue Toradol. 7. Diabetes/insulin management per Dr. Hansen. 8. Discontinue right IJ Cordis. 9. Remove mediastinal chest tube, keep right and left pleural chest tubes in place to low continuous wall suction -20 cm H2O. 10. Lasix 20 mg IV 1 now. 11. Daily weights using standup scale, no bed scale. 12. Remove atrial epicardial pacemaker wires. Bed rest for 1 hour post pacemaker wire removal. Ground and ventricular epicardial pacemaker wires. 13. More recommendations to follow based on patient's clinical course Nurse practitioner note has been reviewed by the physician. Signing provider agrees with the above documented findings, assessment and plan of care. Time with Patient: Greater than 30
[2020-01-18] MEDS: ACETAMINOPHEN TAB 500 MG TAB PO PRN ×2 (16:24→21:39)
[2020-01-18 16:33] LABS: Glucose,Whole Blood 107 mg/dL (75-99)
--- NOTE | 2020-01-18 16:56 | P.PN ---
Subjective Progress Note Date: 01/18/20 Principal diagnosis: Severe bicuspid aortic valve stenosis, coronary artery disease 64-year-old female patient with severe bicuspid aortic valve stenosis, coronary artery disease and is status post aortic valve replacement with a bioprosthetic aortic valve and coronary artery bypass grafting 2. This is postoperative day #1. She does have a history of hypertension, hyperlipidemia, breast cancer, TIA and a prior history of chronic tobacco use. She is seen today in follow-up in the ICU. She is currently sitting up in a chair at the bedside. Awake and alert in no acute distress. He was successfully extubated approximately 4 hours 20 minutes postoperatively. 01/18/2020 Patient is seen and evaluated in follow-up in the intensive care unit. She is currently sitting up in a chair at the bedside. Awake and alert in no acute distress. This is postoperative day #2. She is maintaining good O2 saturations in the 90s on 2 L/m per nasal cannula. No IV fluids. Chest x-ray reveals scattered pleural parenchymal opacities reflecting atelectasis. No change compared to previous. His been up with assistance. Working well with the incentive spirometer. White count 15.0. Hemoglobin 10.0. Platelet count 124. Sodium 134. Potassium 4.3. Creatinine 0.87. Objective - Vital Signs Vital signs: Vital Signs Temp 98.4 F 01/18/20 04:00 Pulse 96 01/18/20 07:40 Resp 18 01/18/20 07:00 BP 108/71 01/18/20 07:00 Pulse Ox 92 L 01/18/20 07:00 Intake & Output 01/17/20 01/18/20 01/18/20 18:59 06:59 18:59 Intake Total 815.525 395.460 182 Output Total 1085 582 380 Balance -269.475 -186.540 -198 Weight 134 kg 133.3 kg Intake: IV 66 12 Pressure bags 66 12 Intake, IV Titration 315.525 329.460 50 Amount Insulin Regular 100 unit 44.025 19.460 In Sodium Chloride 0.9% 100 ml @ Per Protocol IV .Q0M [facility] Rx#:[id number] Nitroglycerin-D5w Pmx 50 1.5 mg In Dextrose/Water 1 250ml.bag @ 5 MCG/MIN 1.5 mls/hr IV .Q24H [facility] Rx#: [id number] Sodium Chloride 0.9% 1, 270 310 50 000 ml @ 20 mls/hr IV . Q24H [facility] Rx#:[id number] Oral 500 120 Output: Chest Tube Drainage 30 192 170 Left [address] 0 70 40 Right 73 [address] 30 Drainage 285 30 20 Left 70 20 10 Left Calf [address] 60 0 0 Right 45 10 [address] 70 Urine 770 360 190 Other: Voiding Method Indwelling Catheter Indwelling Catheter ABP, PAP, CO, CI - Last Documented Arterial Blood Pressure 94/51 Pulmonary Artery Pressure 28/12 Cardiac Output 6.9 Cardiac Index 3.1 - Exam GENERAL EXAM: Alert, very pleasant 64 year old female patient, up in a chair at the bedside, on 3 L nasal cannula, fairly comfortable in no apparent distress. HEAD: Normocephalic. EYES: Normal reaction of pupils, equal size. NECK: Right IJ Riparius-Darrin catheter in place. No masses, no JVD. CHEST: Sternal dressing dry and intact. Heart Hugger in place. Mediastinal and bilateral chest tubes in place. Epicardial pacemaker wires in place and grounded. LUNGS: Equal air entry with crackles in the bilateral posterior bases. CVS: S1 and S2 normal with no audible murmur, regular rhythm. ABDOMEN: No hepatosplenomegaly, normal bowel sounds, no guarding or rigidity. - Labs CBC & Chem 7: 01/18/20 04:10 01/18/20 04:10 Labs: Abnormal Lab Results - Last 24 Hours (Table) 01/17/20 01/17/20 01/17/20 Range/Units 10:27 12:09 13:34 WBC (3.8-10.6) k/uL RBC (3.80-5.40) m/uL Hgb (11.4-16.0) gm/dL Hct (34.0-46.0) % Plt Count (150-450) k/uL Neutrophils # (1.3-7.7) k/uL Sodium (137-145) mmol/L BUN (7-17) mg/dL Glucose (74-99) mg/dL POC Glucose (mg/dL) 120 H 101 H 134 H (75-99) mg/dL Total Bilirubin (0.2-1.3) mg/dL AST (14-36) U/L ALT (4-34) U/L Total Protein (6.3-8.2) g/dL Albumin (3.5-5.0) g/dL 01/17/20 01/17/20 01/17/20 Range/Units 14:43 15:53 17:09 WBC (3.8-10.6) k/uL RBC (3.80-5.40) m/uL Hgb (11.4-16.0) gm/dL Hct (34.0-46.0) % Plt Count (150-450) k/uL Neutrophils # (1.3-7.7) k/uL Sodium (137-145) mmol/L BUN (7-17) mg/dL Glucose (74-99) mg/dL POC Glucose (mg/dL) 123 H 111 H 118 H (75-99) mg/dL Total Bilirubin (0.2-1.3) mg/dL AST (14-36) U/L ALT (4-34) U/L Total Protein (6.3-8.2) g/dL Albumin (3.5-5.0) g/dL 01/17/20 01/17/20 01/17/20 Range/Units 18:09 19:09 20:06 WBC (3.8-10.6) k/uL RBC (3.80-5.40) m/uL Hgb (11.4-16.0) gm/dL Hct (34.0-46.0) % Plt Count (150-450) k/uL Neutrophils # (1.3-7.7) k/uL Sodium (137-145) mmol/L BUN (7-17) mg/dL Glucose (74-99) mg/dL POC Glucose (mg/dL) 156 H 135 H 120 H (75-99) mg/dL Total Bilirubin (0.2-1.3) mg/dL AST (14-36) U/L ALT (4-34) U/L Total Protein (6.3-8.2) g/dL Albumin (3.5-5.0) g/dL 01/17/20 01/17/20 01/17/20 Range/Units 21:09 21:51 23:18 WBC (3.8-10.6) k/uL RBC (3.80-5.40) m/uL Hgb (11.4-16.0) gm/dL Hct (34.0-46.0) % Plt Count (150-450) k/uL Neutrophils # (1.3-7.7) k/uL Sodium (137-145) mmol/L BUN (7-17) mg/dL Glucose (74-99) mg/dL POC Glucose (mg/dL) 124 H 132 H 135 H (75-99) mg/dL Total Bilirubin (0.2-1.3) mg/dL AST (14-36) U/L ALT (4-34) U/L Total Protein (6.3-8.2) g/dL Albumin (3.5-5.0) g/dL 01/18/20 01/18/20 01/18/20 Range/Units 00:30 00:56 02:19 WBC (3.8-10.6) k/uL RBC (3.80-5.40) m/uL Hgb (11.4-16.0) gm/dL Hct (34.0-46.0) % Plt Count (150-450) k/uL Neutrophils # (1.3-7.7) k/uL Sodium (137-145) mmol/L BUN (7-17) mg/dL Glucose (74-99) mg/dL POC Glucose (mg/dL) 134 H 140 H 134 H (75-99) mg/dL Total Bilirubin (0.2-1.3) mg/dL AST (14-36) U/L ALT (4-34) U/L Total Protein (6.3-8.2) g/dL Albumin (3.5-5.0) g/dL 01/18/20 01/18/20 01/18/20 Range/Units 02:59 04:01 04:10 WBC 15.0 H (3.8-10.6) k/uL RBC 3.00 L (3.80-5.40) m/uL Hgb 10.0 L (11.4-16.0) gm/dL Hct 29.4 L (34.0-46.0) % Plt Count 124 L (150-450) k/uL Neutrophils # 12.7 H (1.3-7.7) k/uL Sodium (137-145) mmol/L BUN (7-17) mg/dL Glucose (74-99) mg/dL POC Glucose (mg/dL) 129 H 138 H (75-99) mg/dL Total Bilirubin (0.2-1.3) mg/dL AST (14-36) U/L ALT (4-34) U/L Total Protein (6.3-8.2) g/dL Albumin (3.5-5.0) g/dL 01/18/20 01/18/20 01/18/20 Range/Units 04:10 04:50 06:03 WBC (3.8-10.6) k/uL RBC (3.80-5.40) m/uL Hgb (11.4-16.0) gm/dL Hct (34.0-46.0) % Plt Count (150-450) k/uL Neutrophils # (1.3-7.7) k/uL Sodium 134 L (137-145) mmol/L BUN 22 H (7-17) mg/dL Glucose 139 H (74-99) mg/dL POC Glucose (mg/dL) 141 H 143 H (75-99) mg/dL Total Bilirubin 2.1 H (0.2-1.3) mg/dL AST 73 H (14-36) U/L ALT 127 H (4-34) U/L Total Protein 4.7 L (6.3-8.2) g/dL Albumin 2.7 L (3.5-5.0) g/dL 01/18/20 01/18/20 Range/Units 06:55 08:26 WBC (3.8-10.6) k/uL RBC (3.80-5.40) m/uL Hgb (11.4-16.0) gm/dL Hct (34.0-46.0) % Plt Count (150-450) k/uL Neutrophils # (1.3-7.7) k/uL Sodium (137-145) mmol/L BUN (7-17) mg/dL Glucose (74-99) mg/dL POC Glucose (mg/dL) 139 H 141 H (75-99) mg/dL Total Bilirubin (0.2-1.3) mg/dL AST (14-36) U/L ALT (4-34) U/L Total Protein (6.3-8.2) g/dL Albumin (3.5-5.0) g/dL Assessment and Plan Assessment: 1 Severe bicuspid aortic valve stenosis, status post aortic valve replacement; Post operative day #1 - Patient encouraged to use incentive spirometer with cough and deep breathing exercises - Increase activity as tolerated 2 Coronary artery disease status post coronary artery bypass grafting 2, postoperative day #1 - Management per CT services 3 Hypertension; metoprolol 25 mg twice a day. 4 Hyperlipidemia; atorvastatin 10 mg daily- held secondary to transaminitis 5 Chronic tobacco dependence; counseling done on cessation of smoking 6 History of TIA; aspirin 325 mg daily; statin therapy on hold due to transaminitis
[2020-01-18 21:07] LABS: Glucose,Whole Blood 116 mg/dL (75-99)
[2020-01-18] MEDS: SENNOSIDES-DOCUSATE SODIUM 1 EACH TAB PO SCH (21:39)
[2020-01-19] MEDS: KETOROLAC 15 MG/ML 1 ML VIAL IVP SCH ×4 (00:10→17:05)
[2020-01-19] MEDS: HEPARIN SODIUM,PORCINE 5,000 UNIT/ML 1 ML VIAL SQ SCH ×3 (00:11→17:04)
[2020-01-19 02:21] LABS: Glucose,Whole Blood 126 mg/dL (75-99)
[2020-01-19] MEDS: INSULIN ASPART (NovoLOG) 100 UNIT/ML VIAL SQ SCH ×5 (02:26→21:11)
[2020-01-19] MEDS: ACETAMINOPHEN TAB 500 MG TAB PO PRN ×3 (04:33→17:05)
[2020-01-19 05:10] LABS: Basophils # (A) 0.1 k/uL (0-0.2); Basophils % (A) 0 %; Eosinophils # (A) 0.1 k/uL (0-0.7); Eosinophils % (A) 1 %; HCT 27.9 % (34.0-46.0); HGB 9.3 gm/dL (11.4-16.0); Lymphocytes # (A) 1.5 k/uL (1.0-4.8); Lymphocytes % (A) 11 %; MCH 32.8 pg (25.0-35.0); MCHC 33.1 g/dL (31.0-37.0); MCV 98.8 fL (80.0-100.0); Monocytes # (A) 0.6 k/uL (0-1.0); Monocytes % (A) 5 %; Neutrophils % (A) 82 %; Platelet Count 134 k/uL (150-450); RBC 2.83 m/uL (3.80-5.40); RDW 13.2 % (11.5-15.5); WBC 13.3 k/uL (3.8-10.6)
[2020-01-19 05:24] LABS: Albumin 2.7 g/dL (3.5-5.0); Calcium 8.7 mg/dL (8.4-10.2); Potassium 3.9 mmol/L (3.5-5.1); Total Bilirubin 1.9 mg/dL (0.2-1.3); Total Protein 4.7 g/dL (6.3-8.2)
[2020-01-19] MEDS ORDERED: POTASSIUM CHLORIDE ER 20 MEQ TAB.ER PO SCH (06:00)
--- NOTE | 2020-01-19 08:13 | XR ---
EXAMINATION TYPE: XR chest 1V portable DATE OF EXAM: 01/19/2020 HISTORY: Shortness of breath. COMPARISON: 01/18/2020 TECHNIQUE: Single view of the chest is submitted. FINDINGS: Bilateral chest tubes are in place. No evidence for sizable pneumothorax. Scattered pleural-parenchym al opacities persist although appear to be improving. The heart is stable. Hilar and mediastinal structures are within normal limits. Degenerative changes are seen of the dorsal spine. IMPRESSION: 1. Bilateral chest tubes are in place. No evidence for sizable pneumothorax. Scattered pleural-paren chymal opacities persist although appear to be improving
[2020-01-19] MEDS: CLOPIDOGREL 75 MG TAB PO SCH (08:19)
[2020-01-19] MEDS: METOPROLOL TARTRATE 25 MG TAB PO SCH (08:19)
[2020-01-19] MEDS: PANTOPRAZOLE 40 MG TABLET PO SCH (08:19)
[2020-01-19] MEDS: ASPIRIN 325 MG TAB PO SCH (08:19)
[2020-01-19] MEDS ORDERED: FUROSEMIDE 10 MG/ML 2 ML VIAL IV STA (08:27)
[2020-01-19] MEDS: IPRATROPIUM-ALBUTEROL 3 ML NEB INHALATION SCH ×4 (08:30→20:04)
[2020-01-19] MEDS ORDERED: METOPROLOL TARTRATE 25 MG TAB PO STA (08:43)
--- NOTE | 2020-01-19 08:55 | P.PN ---
Subjective Progress Note Date: 01/19/20 Principal diagnosis: Severe bicuspid aortic valve stenosis, coronary artery disease. Past medical history significant for hypertension, hyperlipidemia, breast cancer, TIA in 2018, preoperative elevation of her transaminase enzymes, family history of coronary artery disease less than 60 years of age and history of chronic tobacco abuse. POD #3 aortic valve replacement with a 25 mm Avalus Medtronic bioprosthetic aortic valve, coronary artery bypass grafting 2 with left internal mammary artery to the left anterior ascending coronary artery, reverse greater saphenous vein graft off the aorta to the distal obtuse marginal coronary artery, clip ligation of the left atrial appendage with a 35 mm Atriclip, intraoperative transesophageal echocardiogram and left lower extremity greater saphenous vein endoscopic vein harvesting. Postoperative acute blood loss anemia, expected dilutional. The patient is seen in follow-up today on 01/19/2020 at her bedside in the intensive care unit. Currently she is sitting up to the bedside chair, is awake, alert and oriented 3 and is in no acute distress. She denies any complaints of pain or shortness of breath at this time. She reports that she has been ambulating in the intensive care unit hallway with assistance from nursing staff. She remained hemodynamically stable and is currently on no inotropic her pressure support. Bedside telemetry showing normal sinus rhythm heart rate 90 BPM. Oxygen saturation is 95% on 2 L nasal cannula and she is achieving 750 mL on her incentive spirometry. Right and left pleural chest tubes remain in place to low continuous wall suction -20 cm H2O. Small intermittent air leak present to her right pleural chest tube. Draining thin serosanguineous drainage. Right pleural chest tube drained 40 mL output in the last 8 hours and 200 mL output in the last 24 hours. Left pleural chest tube drained 50 mL output in the last 8 hours, and 160 mL output last 24 hours. Mediastinal chest tube and atrial epicardial pacemaker wires were removed yesterday without incident. Objective - Vital Signs Vital signs: Vital Signs Temp 99.1 F 01/19/20 04:00 Pulse 93 01/19/20 08:30 Resp 18 01/19/20 07:00 BP 104/47 01/19/20 07:00 Pulse Ox 94 L 01/19/20 07:00 Intake & Output 01/18/20 01/19/20 01/19/20 18:59 06:59 18:59 Intake Total 302 Output Total 1165 470 Balance -863 -470 Weight 130.1 kg Intake: IV 12 Pressure bags 12 Intake, IV Titration 50 Amount Sodium Chloride 0.9% 1, 50 000 ml @ 20 mls/hr IV . Q24H [facility] Rx#:[id number] Oral 240 Output: Chest Tube Drainage 170 90 Left [address] 40 Right 100 40 Drainage 170 20 Left [address] 10 Right 110 10 Urine 825 360 Other: Voiding Method Indwelling Catheter Bedside Commode # Voids 1 ABP, PAP, CO, CI - Last Documented Arterial Blood Pressure 94/51 Pulmonary Artery Pressure 28/12 Cardiac Output 6.9 Cardiac Index 3.1 - Constitutional General appearance: Present: cooperative, morbidly obese, no acute distress - EENT Eyes: Present: normal appearance. Absent: scleral icterus - Neck Details: Neck is supple, no JVD. - Respiratory Details: Lung sounds essentially clear throughout, diminished bilateral bases. No wheezes, rhonchi or crackles. Respirations are symmetrical and nonlabored. Oxygen saturation are 95% on 2 L nasal cannula. Achieving 750 mL on her incentive spirometry. Right and left pleural chest tube to remain in place to low continuous wall suction -20 cm H2O. Small intermittent air leak present to her right pleural chest tube. Chest tubes are draining thin serosanguineous drainage with right pleural chest tube draining 40 mL output in the last 8 hours and 200 mL output in the last 24 hours, left pleural chest tube draining 50 mL output in the last 8 hours and 160 mL output in the last 24 hours. - Cardiovascular Details: Regular rhythm and rate. S1 and S2 present, negative for S3, gallop or murmur. Sternum is stable. Bedside telemetry showing normal sinus rhythm heart rate 90 BPM. Ventricular epicardial pacemaker wires in place and grounded. Heart hugger is in place and she is demonstrating appropriate use. Knee-high KIERRA hose and sequential compression devices in place to bilateral lower extremities. - Gastrointestinal Gastrointestinal Comment(s): Abdomen is soft, nontender and nondistended. Active bowel sounds present in all 4 abdominal quadrants. No guarding or rigidity. No organomegaly appreciated. Morbidly obese. Tolerating oral intake. - Genitourinary Genitourinary Comment(s): Continues to void. 360 mL urine output in the last 8 hours. - Integumentary Integumentary Comment(s): Skin is warm and dry. No clubbing or cyanosis is present. Midline sternal incision is clean, dry and approximated. No drainage or redness is present. Left lower extremity EVH sites are clean, dry and approximated. No drainage or redness is present. - Neurologic Neurologic: Present: CNII-XII intact - Musculoskeletal Musculoskeletal: Present: gait normal, generalized weakness, strength equal bilaterally - Psychiatric Psychiatric: Present: A&O x's 3, appropriate affect, intact judgment & insight - Allied health notes Allied health notes reviewed: nursing - Labs CBC & Chem 7: 01/19/20 04:04 01/19/20 04:04 Labs: Abnormal Lab Results - Last 24 Hours (Table) 01/18/20 01/18/20 01/18/20 Range/Units 12:08 16:31 21:05 WBC (3.8-10.6) k/uL RBC (3.80-5.40) m/uL Hgb (11.4-16.0) gm/dL Hct (34.0-46.0) % Plt Count (150-450) k/uL Neutrophils # (1.3-7.7) k/uL Sodium (137-145) mmol/L BUN (7-17) mg/dL Glucose (74-99) mg/dL POC Glucose (mg/dL) 131 H 107 H 116 H (75-99) mg/dL Total Bilirubin (0.2-1.3) mg/dL AST (14-36) U/L ALT (4-34) U/L Total Protein (6.3-8.2) g/dL Albumin (3.5-5.0) g/dL 01/19/20 01/19/20 01/19/20 Range/Units 02:19 04:04 04:04 WBC 13.3 H (3.8-10.6) k/uL RBC 2.83 L (3.80-5.40) m/uL Hgb 9.3 L (11.4-16.0) gm/dL Hct 27.9 L (34.0-46.0) % Plt Count 134 L (150-450) k/uL Neutrophils # 11.0 H (1.3-7.7) k/uL Sodium 134 L (137-145) mmol/L BUN 27 H (7-17) mg/dL Glucose 105 H (74-99) mg/dL POC Glucose (mg/dL) 126 H (75-99) mg/dL Total Bilirubin 1.9 H (0.2-1.3) mg/dL AST 37 H (14-36) U/L ALT 90 H (4-34) U/L Total Protein 4.7 L (6.3-8.2) g/dL Albumin 2.7 L (3.5-5.0) g/dL - Imaging and Cardiology Chest x-ray: report reviewed, image reviewed Assessment and Plan Assessment: 1. Severe bicuspid aortic valve stenosis, status post aortic valve replacement using a 25 mm Avalus Medtronic bioprosthetic aortic valve 2. Coronary artery disease, status post coronary artery bypass grafting 2 vessels 3. History of hypertension, 4. History of hyperlipidemia 5. History of TIA in 2018 6. History of breast cancer 7. History of elevation in her transaminase enzymes preoperatively 8. Chronic tobacco abuse 9. Family history of coronary artery disease less than 60 years of age 10. Postoperative acute blood loss anemia, expected 11. Postoperative elevation in her transaminase enzymes, expected Plan: 1. Continue to maximize medical therapy with aspirin, Plavix and beta chase. Will increase metoprolol tartrate 50 mg by mouth twice a day. 2. Continue to record strict and accurate I's and O's. 3. Wean O2 as tolerated. Continue to encourage use of incentive spirometry 10 times every hour while awake. Bronchodilators per pulmonology/critical care management. 4. Will monitor daily labs and chest x-rays. Electrolytes replacement per protocol. 5. GI/DVT prophylaxis. 6. Pain control with current medication regimen. 7. Diabetes/insulin management per Dr. Hansen. 8. We will remove her left pleural chest tube today and keep her right pleural chest tube in place to water seal. 9. Lasix 20 mg IV 1 now. 10. Continue daily weights using standup scale, no bed scale use. 11. Keep ventricular epicardial pacemaker wire in place and grounded. 12. Discharge planning is in place. Transfer orders placed for the cardiac stepdown unit. 13. More recommendations to follow based on patient's clinical course Nurse practitioner note has been reviewed by the physician. Signing provider agrees with the above documented findings, assessment and plan of care. Time with Patient: Greater than 30
--- NOTE | 2020-01-19 09:29 | PN ---
PROGRESS NOTE Mrs. Serrano is a 64-year-old female who underwent aortic valve replacement for severe bicuspid aortic valve stenosis, and coronary artery bypass grafting with BAHENA to LAD, saphenous vein graft to the distal OM with ligation of the left atrial appendage. She is feeling tired this morning. She denies any symptoms of chest discomfort. Her breathing is stable. She is in sinus mechanism. She denies any dizziness, palpitation. She denies any nausea. Hemodynamically, she is stable, on no pressors. Her urine output is good. She continues to be on aspirin once a day, Plavix 75 mg daily, metoprolol tartrate 25 mg 3 times a day. PHYSICAL EXAMINATION: Blood pressure 104/50 with a heart rate in the 90s. LUNGS: Clear. HEART: Regular rate and rhythm, S1, S2. No S3 with a systolic murmur, no diastolic murmur, no rub. ABDOMEN: Soft, nontender. EXTREMITIES: No edema. LAB DATA: BUN and creatinine 27 and 0.93, potassium 3.9, hemoglobin of 9.3. IMPRESSION: 1. Status post aortic valve replacement coronary bypass grafting, stable. 2. History of hypertension. 3. Prior history of smoking. 4. History of TIA. RECOMMENDATION: From the cardiac standpoint, will continue present therapy. Continue incentive spirometry, increase her level of activity gradually and depending on her blood pressure trend, further recommendation will be made. MMODL / IJN: [id number] /
[2020-01-19 12:23] LABS: Glucose,Whole Blood 114 mg/dL (75-99)
[2020-01-19 16:45] LABS: Glucose,Whole Blood 100 mg/dL (75-99)
--- NOTE | 2020-01-19 16:57 | P.PN ---
Subjective Progress Note Date: 01/19/20 Severe bicuspid aortic valve stenosis, coronary artery disease The patient is seen today 01/17/2020. She was found to have severe bicuspid aortic valve stenosis, coronary artery disease and is status post aortic valve replacement with a bioprosthetic aortic valve and coronary artery bypass grafting 2. This is postoperative day #1. She does have a history of hypertension, hyperlipidemia, breast cancer, TIA and a prior history of chronic tobacco use. She is seen today in follow-up in the ICU. She is currently sitting up in a chair at the bedside. Awake and alert in no acute distress. He was successfully extubated approximately 4 hours 20 minutes postoperatively. She is currently on 3 L/m per nasal cannula to maintain O2 saturations in the 90s. She remains on lactated Ringer's at 20 ML's per hour. Insulin drip at 3.5 units per hour. She is working well with the incentive spirometer. Right IJ Dickinson-Darrin catheter remains in place. Cardiac output 6.3. Cardiac index 2.8. PA pressures 28/13 with a CVP of 8 mmHg. Her Cleviprex is off. Right, left and mediastinal chest tubes remain in place, her chest x-ray reveals some atelectasis at the bases. The patient is seen today 01/18/2020 in follow-up in the intensive care unit. She is currently sitting up in a chair at the bedside. Awake and alert in no acute distress. This is postoperative day #2. She is maintaining good O2 saturations in the 90s on 2 L/m per nasal cannula. No IV fluids. Chest x-ray reveals scattered pleural parenchymal opacities reflecting atelectasis. No change compared to previous. His been up with assistance. Working well with the incentive spirometer. White count 15.0. Hemoglobin 10.0. Platelet count 124. Sodium 134. Potassium 4.3. Creatinine 0.87. On 01/19/2020, the patient is doing well. The patient has no specific complaints. The patient is recovering nicely from her surgery. She is currently on 2 L of oxygen by nasal cannula. She is postop day #3. The patient has a normal sinus rhythm. The patient is still has a left-sided chest tube in place. Chest x-ray from today shows bilateral chest tubes being in place. There is no evidence of any significant pneumothorax. The plan is to remove the left pleural chest tube based on the diminished output that has been noted over the past 24 hours. Hemoglobin stable at 9.3. Renal function is also stable. Objective - Vital Signs Vital signs: Vital Signs Temp 97.8 F 01/19/20 08:00 Pulse 91 01/19/20 16:04 Resp 14 01/19/20 12:00 BP 110/61 01/19/20 12:00 Pulse Ox 95 01/19/20 12:00 Intake & Output 01/18/20 01/19/20 01/19/20 18:59 06:59 18:59 Intake Total 302 Output Total 1165 470 650 Balance -178 -080 -650 Weight 130.1 kg Intake: IV 12 Pressure bags 12 Intake, IV Titration 50 Amount Sodium Chloride 0.9% 1, 50 000 ml @ 20 mls/hr IV . Q24H [facility] Rx#:[id number] Oral 240 Output: Chest Tube Drainage 170 90 Left [address] 40 Right 100 40 Drainage 170 20 Left [address] 10 Right 110 10 Urine 825 360 650 Other: Voiding Method Indwelling Catheter Bedside Commode Bedside Commode # Voids 1 # Bowel Movements 1 ABP, PAP, CO, CI - Last Documented Arterial Blood Pressure 94/51 Pulmonary Artery Pressure 28/12 Cardiac Output 6.9 Cardiac Index 3.1 - Exam - Constitutional General appearance: Present: cooperative, morbidly obese, no acute distress - EENT Eyes: Present: normal appearance. Absent: scleral icterus - Neck Details: Neck is supple, no JVD. - Respiratory Details: Lung sounds essentially clear throughout, diminished bilateral bases. No wheezes, rhonchi or crackles. Respirations are symmetrical and nonlabored. Oxygen saturation are 95% on 2 L nasal cannula. Achieving 750 mL on her incentive spirometry. Right and left pleural chest tube to remain in place to low continuous wall suction -20 cm H2O. Small intermittent air leak present to her right pleural chest tube. Chest tubes are draining thin serosanguineous drainage with right pleural chest tube draining 40 mL output in the last 8 hours and 200 mL output in the last 24 hours, left pleural chest tube draining 50 mL output in the last 8 hours and 160 mL output in the last 24 hours. - Cardiovascular Details: Regular rhythm and rate. S1 and S2 present, negative for S3, gallop or murmur. Sternum is stable. Bedside telemetry showing normal sinus rhythm heart rate 90 BPM. Ventricular epicardial pacemaker wires in place and grounded. Heart hugger is in place and she is demonstrating appropriate use. Knee-high KIERRA hose and sequential compression devices in place to bilateral lower extremities. - Gastrointestinal Gastrointestinal Comment(s): Abdomen is soft, nontender and nondistended. Active bowel sounds present in all 4 abdominal quadrants. No guarding or rigidity. No organomegaly appreciated. Morbidly obese. Tolerating oral intake. - Genitourinary Genitourinary Comment(s): Continues to void. 360 mL urine output in the last 8 hours. - Integumentary Integumentary Comment(s): Skin is warm and dry. No clubbing or cyanosis is present. Midline sternal incision is clean, dry and approximated. No drainage or redness is present. Left lower extremity EVH sites are clean, dry and approximated. No drainage or redness is present. - Neurologic Neurologic: Present: CNII-XII intact - Musculoskeletal Musculoskeletal: Present: gait normal, generalized weakness, strength equal bilaterally - Psychiatric Psychiatric: Present: A&O x's 3, appropriate affect, intact judgment & insight - Labs CBC & Chem 7: 01/19/20 04:04 01/19/20 04:04 Labs: Abnormal Lab Results - Last 24 Hours (Table) 01/18/20 01/19/20 01/19/20 Range/Units 21:05 02:19 04:04 WBC 13.3 H (3.8-10.6) k/uL RBC 2.83 L (3.80-5.40) m/uL Hgb 9.3 L (11.4-16.0) gm/dL Hct 27.9 L (34.0-46.0) % Plt Count 134 L (150-450) k/uL Neutrophils # 11.0 H (1.3-7.7) k/uL Sodium (137-145) mmol/L BUN (7-17) mg/dL Glucose (74-99) mg/dL POC Glucose (mg/dL) 116 H 126 H (75-99) mg/dL Total Bilirubin (0.2-1.3) mg/dL AST (14-36) U/L ALT (4-34) U/L Total Protein (6.3-8.2) g/dL Albumin (3.5-5.0) g/dL 01/19/20 01/19/20 01/19/20 Range/Units 04:04 12:20 16:44 WBC (3.8-10.6) k/uL RBC (3.80-5.40) m/uL Hgb (11.4-16.0) gm/dL Hct (34.0-46.0) % Plt Count (150-450) k/uL Neutrophils # (1.3-7.7) k/uL Sodium 134 L (137-145) mmol/L BUN 27 H (7-17) mg/dL Glucose 105 H (74-99) mg/dL POC Glucose (mg/dL) 114 H 100 H (75-99) mg/dL Total Bilirubin 1.9 H (0.2-1.3) mg/dL AST 37 H (14-36) U/L ALT 90 H (4-34) U/L Total Protein 4.7 L (6.3-8.2) g/dL Albumin 2.7 L (3.5-5.0) g/dL Assessment and Plan Plan: 1 Severe bicuspid aortic valve stenosis, status post aortic valve replacement ut ilizing a 25 mm bioprosthetic aortic valve. Post operative day #3 2 Coronary artery disease status post coronary artery bypass grafting 2, postoperative day #3 3 post thoracotomy. The patient has been weaned off the mechanical ventilator and the patient is currently on 2 L of oxygen by nasal cannula. Patient utilizing incentive spirometer. Surgical into the with anterior chest that is dry clean and intact. Patient has bilateral chest tubes in place. The patient has a right pleural and left pleural chest tube. There are also postsurgical small bilateral pleural effusions. No evidence of pneumothorax. 4 Hypertension. 5 Hyperlipidemia 6 History of breast cancer 7 History of TIA 8 history of smoking Plan Patient is doing well. Patient is on examination aspirin and Plavix and beta blockers. Metoprolol be increased up to 50 mg by mouth twice a day. Remove the left pleural chest tube Give the patient was on Lasix 20 mg IV push Keep the right pleural chest tube in place Monitor electrolytes We'll chance for this patient out of the intensive care unit. This was discussed with cardiothoracic surgery.
[2020-01-19 20:41] LABS: Glucose,Whole Blood 120 mg/dL (75-99)
[2020-01-19] MEDS: METOPROLOL TARTRATE 50 MG TAB PO SCH (21:15)
[2020-01-19] MEDS: SENNOSIDES-DOCUSATE SODIUM 1 EACH TAB PO SCH (21:15)
[2020-01-20] MEDS: HEPARIN SODIUM,PORCINE 5,000 UNIT/ML 1 ML VIAL SQ SCH ×3 (00:03→17:04)
[2020-01-20] MEDS: KETOROLAC 15 MG/ML 1 ML VIAL IVP SCH ×2 (00:03→05:29)
[2020-01-20] MEDS: ACETAMINOPHEN TAB 500 MG TAB PO PRN ×2 (00:22→17:04)
[2020-01-20 02:05] LABS: Glucose,Whole Blood 112 mg/dL (75-99)
[2020-01-20] MEDS: INSULIN ASPART (NovoLOG) 100 UNIT/ML VIAL SQ SCH ×5 (02:05→20:13)
[2020-01-20 06:13] LABS: Glucose,Whole Blood 102 mg/dL (75-99)
[2020-01-20] MEDS: PANTOPRAZOLE 40 MG TABLET PO SCH (06:15)
[2020-01-20] MEDS: IPRATROPIUM-ALBUTEROL 3 ML NEB INHALATION SCH ×4 (07:20→19:52)
--- NOTE | 2020-01-20 08:30 | XR ---
EXAMINATION TYPE: XR chest 1V portable DATE OF EXAM: 01/20/2020 COMPARISON: Prior chest x-ray 01/19/2020 HISTORY: Postop cardiac surgery and atrial valve replacement TECHNIQUE: Single frontal view of the chest is obtained. FINDINGS: Patient is post median sternotomy, left atrial appendage clipping placement. Right-sided c hest tube remains in place. Heart is stable. Left chest tube has been removed. No sizable pneumothora x. Bibasilar density persists. IMPRESSION: No evident complication status post left chest tube removal. There may be basilar atelec tasis, minimal effusion.
[2020-01-20 08:52] LABS: HCT 29.1 % (34.0-46.0); HGB 9.6 gm/dL (11.4-16.0); MCH 32.6 pg (25.0-35.0); MCHC 32.9 g/dL (31.0-37.0); MCV 99.1 fL (80.0-100.0); Mean Platelet Volume 8.3; Platelet Count 186 k/uL (150-450); RBC 2.94 m/uL (3.80-5.40); RDW 13.4 % (11.5-15.5)
[2020-01-20 09:04] LABS: Calcium 9.1 mg/dL (8.4-10.2); Potassium 4.1 mmol/L (3.5-5.1); Total Bilirubin 2.2 mg/dL (0.2-1.3); Total Protein 5.4 g/dL (6.3-8.2)
[2020-01-20] MEDS: ASPIRIN 325 MG TAB PO SCH (10:17)
[2020-01-20] MEDS: CLOPIDOGREL 75 MG TAB PO SCH (10:17)
[2020-01-20] MEDS: METOPROLOL TARTRATE 50 MG TAB PO SCH (10:18)
--- NOTE | 2020-01-20 10:22 | P.PN ---
Subjective Progress Note Date: 01/19/20 Principal diagnosis: Severe bicuspid aortic valve stenosis, coronary artery disease 64-year-old female patient with severe bicuspid aortic valve stenosis, coronary artery disease and is status post aortic valve replacement with a bioprosthetic aortic valve and coronary artery bypass grafting 2. This is postoperative day #1. She does have a history of hypertension, hyperlipidemia, breast cancer, TIA and a prior history of chronic tobacco use. She is seen today in follow-up in the ICU. She is currently sitting up in a chair at the bedside. Awake and alert in no acute distress. He was successfully extubated approximately 4 hours 20 minutes postoperatively. 01/18/2020 Patient is seen and evaluated in follow-up in the intensive care unit. She is currently sitting up in a chair at the bedside. Awake and alert in no acute distress. This is postoperative day #2. She is maintaining good O2 saturations in the 90s on 2 L/m per nasal cannula. No IV fluids. Chest x-ray reveals scattered pleural parenchymal opacities reflecting atelectasis. No change compared to previous. His been up with assistance. Working well with the incentive spirometer. White count 15.0. Hemoglobin 10.0. Platelet count 124. Sodium 134. Potassium 4.3. Creatinine 0.87. 01/19/2020 Patient is currently lying in the bed comfortably. No complaints of chest pain or shortness of breath. Left-sided chest pain will be removed as per CT surgery. Chest x-ray showed bilateral chest tubes in place. No evidence for sizable pneumothorax. Scattered pleural parenchymal opacities persist although appears to be improving. Laboratory data showed dullness at 13.3, hemoglobin 9.3 and platelets 134 Sodium 134, potassium 3.9 and BUN and 27 creatinine 0.93, total bilirubin level I.9 Patient is being transferred to medical floor today. Current medications reviewed. Objective - Vital Signs Vital signs: Vital Signs Temp 97.8 F 01/19/20 08:00 Pulse 91 01/19/20 16:04 Resp 14 01/19/20 12:00 BP 110/61 01/19/20 12:00 Pulse Ox 95 01/19/20 12:00 Intake & Output 01/18/20 01/19/20 01/19/20 18:59 06:59 18:59 Intake Total 302 Output Total 1162 990 096 Balance -791 -882 -944 Weight 130.1 kg Intake: IV 12 Pressure bags 12 Intake, IV Titration 50 Amount Sodium Chloride 0.9% 1, 50 000 ml @ 20 mls/hr IV . Q24H [facility] Rx#:[id number] Oral 240 Output: Chest Tube Drainage 170 90 Left [address] 40 Right 100 40 Drainage 170 20 Left [address] 10 Right 110 10 Urine 825 360 650 Other: Voiding Method Indwelling Catheter Bedside Commode Bedside Commode # Voids 1 # Bowel Movements 1 ABP, PAP, CO, CI - Last Documented Arterial Blood Pressure 94/51 Pulmonary Artery Pressure 28/12 Cardiac Output 6.9 Cardiac Index 3.1 - Exam - Exam GENERAL EXAM: Alert, very pleasant 64 year old female patient, up in a chair at the bedside, on 3 L nasal cannula, fairly comfortable in no apparent distress. HEAD: Normocephalic. EYES: Normal reaction of pupils, equal size. NECK: Right IJ Bulan-Darrin catheter in place. No masses, no JVD. CHEST: Sternal dressing dry and intact. Heart Hugger in place. Mediastinal and bilateral chest tubes in place. Epicardial pacemaker wires in place and grounded. LUNGS: Equal air entry with crackles in the bilateral posterior bases. CVS: S1 and S2 normal with no audible murmur, regular rhythm. ABDOMEN: No hepatosplenomegaly, normal bowel sounds, no guarding or rigidity. - Labs CBC & Chem 7: 01/20/20 08:02 01/20/20 08:02 Labs: Abnormal Lab Results - Last 24 Hours (Table) 01/18/20 01/18/20 01/19/20 Range/Units 16:31 21:05 02:19 WBC (3.8-10.6) k/uL RBC (3.80-5.40) m/uL Hgb (11.4-16.0) gm/dL Hct (34.0-46.0) % Plt Count (150-450) k/uL Neutrophils # (1.3-7.7) k/uL Sodium (137-145) mmol/L BUN (7-17) mg/dL Glucose (74-99) mg/dL POC Glucose (mg/dL) 107 H 116 H 126 H (75-99) mg/dL Total Bilirubin (0.2-1.3) mg/dL AST (14-36) U/L ALT (4-34) U/L Total Protein (6.3-8.2) g/dL Albumin (3.5-5.0) g/dL 01/19/20 01/19/20 01/19/20 Range/Units 04:04 04:04 12:20 WBC 13.3 H (3.8-10.6) k/uL RBC 2.83 L (3.80-5.40) m/uL Hgb 9.3 L (11.4-16.0) gm/dL Hct 27.9 L (34.0-46.0) % Plt Count 134 L (150-450) k/uL Neutrophils # 11.0 H (1.3-7.7) k/uL Sodium 134 L (137-145) mmol/L BUN 27 H (7-17) mg/dL Glucose 105 H (74-99) mg/dL POC Glucose (mg/dL) 114 H (75-99) mg/dL Total Bilirubin 1.9 H (0.2-1.3) mg/dL AST 37 H (14-36) U/L ALT 90 H (4-34) U/L Total Protein 4.7 L (6.3-8.2) g/dL Albumin 2.7 L (3.5-5.0) g/dL Assessment and Plan Assessment: 1 Severe bicuspid aortic valve stenosis, status post aortic valve replacement; Post operative day #3 - Patient encouraged to use incentive spirometer with cough and deep breathing exercises - Increase activity as tolerated 2 Coronary artery disease status post coronary artery bypass grafting 2, postoperative day #3 - Management per CT services 3 Hypertension; metoprolol 25 mg twice a day. 4 Hyperlipidemia; atorvastatin 10 mg daily- held secondary to transaminitis 5 Chronic tobacco dependence; counseling done on cessation of smoking 6 History of TIA; aspirin 325 mg daily; statin therapy on hold due to transam initis Time with Patient: Greater than 30
[2020-01-20 11:38] LABS: Glucose,Whole Blood 102 mg/dL (75-99)
--- NOTE | 2020-01-20 12:21 | P.PN ---
Subjective This is a pleasant 64-year-old female status post aortic valve replacement and coronary artery bypass grafting. She is seen and examined sitting up in bed in no acute distress. She complains of feeling uncomfortable and unable to get into a comfortable position. She is tired and ready to go home. Her chest tube pacemaker leads came out this morning per CT surgery. She denies symptoms of chest pain, shortness of breath, dizziness or palpitations. She continues to maintain sinus mechanism on telemetry. Blood pressure 137/72 heart rate 84 afebrile maintaining oxygen saturation on room air. Laboratory data reviewed, WBC 12, hemoglobin 9.6, platelets 186, sodium 134, potassium 4.1, creatinine 0.84. Chest x-ray this morning reveals minimal effusion and basilar atelectasis. Currently maintained on aspirin 325 mg daily, Plavix 75 mg daily and metoprolol 50 mg twice a day. GENERAL: Well-appearing, well-nourished and in no acute distress. NECK: Supple without JVD or thyromegaly. LUNGS: Breath sounds clear to auscultation bilaterally. Respiration equal and unlabored. No wheezes, rales or rhonchi. HEART: Regular rate and rhythm with systolic ejection murmur at the base, no rubs or gallops. S1 and S2 heard. Heart hugger in place. EXTREMITIES: Normal range of motion, no edema. No clubbing or cyanosis. Peripheral pulses intact. ASSESSMENT Valvular heart disease status post aortic valve replacement and coronary artery bypass grafting Coronary artery disease Hypertension PLAN Recommend ongoing use of incentive spirometer q1hour while awake. Increase activity as tolerated and recommended per CT surgery. Nurse Practitioner note has been reviewed, I agree with a documented findings and plan of care. Patient was seen and examined. Objective - Vital Signs Vital signs: Vital Signs Temp 98.2 F 01/20/20 07:50 Pulse 84 01/20/20 10:58 Resp 18 01/20/20 07:50 BP 137/72 01/20/20 07:50 Pulse Ox 94 L 01/20/20 08:44 Intake & Output 01/19/20 01/20/20 01/20/20 18:59 06:59 18:59 Intake Total 470 900 240 Output Total 1700 760 300 Balance -1230 140 -60 Weight 129 kg Intake: Oral 470 900 240 Output: Chest Tube Drainage 160 Right 160 Drainage 0 Right 0 Urine 1700 600 300 Other: Voiding Method Toilet Toilet # Voids 2 1 # Bowel Movements 1 ABP, PAP, CO, CI - Last Documented Arterial Blood Pressure 94/51 Pulmonary Artery Pressure 28/12 Cardiac Output 6.9 Cardiac Index 3.1 - Labs CBC & Chem 7: 01/20/20 08:02 01/20/20 08:02 Labs: Abnormal Lab Results - Last 24 Hours (Table) 01/19/20 01/19/20 01/19/20 Range/Units 12:20 16:44 20:39 WBC (3.8-10.6) k/uL RBC (3.80-5.40) m/uL Hgb (11.4-16.0) gm/dL Hct (34.0-46.0) % Sodium (137-145) mmol/L BUN (7-17) mg/dL Glucose (74-99) mg/dL POC Glucose (mg/dL) 114 H 100 H 120 H (75-99) mg/dL Total Bilirubin (0.2-1.3) mg/dL ALT (4-34) U/L Total Protein (6.3-8.2) g/dL Albumin (3.5-5.0) g/dL 01/20/20 01/20/20 01/20/20 Range/Units 02:03 06:12 08:02 WBC (3.8-10.6) k/uL RBC (3.80-5.40) m/uL Hgb (11.4-16.0) gm/dL Hct (34.0-46.0) % Sodium 134 L (137-145) mmol/L BUN 25 H (7-17) mg/dL Glucose 106 H (74-99) mg/dL POC Glucose (mg/dL) 112 H 102 H (75-99) mg/dL Total Bilirubin 2.2 H (0.2-1.3) mg/dL ALT 68 H (4-34) U/L Total Protein 5.4 L (6.3-8.2) g/dL Albumin 3.0 L (3.5-5.0) g/dL 01/20/20 Range/Units 08:02 WBC 12.0 H (3.8-10.6) k/uL RBC 2.94 L (3.80-5.40) m/uL Hgb 9.6 L (11.4-16.0) gm/dL Hct 29.1 L (34.0-46.0) % Sodium (137-145) mmol/L BUN (7-17) mg/dL Glucose (74-99) mg/dL POC Glucose (mg/dL) (75-99) mg/dL Total Bilirubin (0.2-1.3) mg/dL ALT (4-34) U/L Total Protein (6.3-8.2) g/dL Albumin (3.5-5.0) g/dL
[2020-01-20 14:24] VITALS: BMI 48.8
[2020-01-20 16:27] LABS: Glucose,Whole Blood 101 mg/dL (75-99)
[2020-01-20] MEDS ORDERED: FUROSEMIDE 10 MG/ML 4 ML VIAL IV STA (16:44)
--- NOTE | 2020-01-20 17:14 | P.PN ---
Subjective Progress Note Date: 01/20/20 Principal diagnosis: Severe bicuspid aortic valve stenosis, coronary artery disease. Past medical history significant for hypertension, hyperlipidemia, breast cancer, TIA in 2018, preoperative elevation of her transaminase enzymes, family history of coronary artery disease less than 60 years of age and history of chronic tobacco abuse. POD #4 aortic valve replacement with a 25 mm Avalus Medtronic bioprosthetic aortic valve, coronary artery bypass grafting 2 with left internal mammary artery to the left anterior ascending coronary artery, reverse greater saphenous vein graft off the aorta to the distal obtuse marginal coronary artery, clip ligation of the left atrial appendage with a 35 mm Atriclip, intraoperative transesophageal echocardiogram and left lower extremity greater saphenous vein endoscopic vein harvesting. Postoperative acute blood loss anemia, expected dilutional. The patient is seen in follow-up today on 01/20/2020 at her bedside on the cardiac stepdown unit. Currently she is sitting up to the bedside chair, is awake, alert and oriented 3 and is in no acute distress. She denies any complaints of pain or shortness of breath at this time. She reports she has been up ambulating in the cardiac stepdown unit hallway with minimal assistance from nursing staff. Bowel movement this a.m. She remains hemodynamically stable and is currently on no inotropic or pressor support. Remote telemetry showing normal sinus rhythm heart rate 96 BPM. Oxygen saturations 97% on room air. Achieving 4927-1306 mL on her incentive spirometry. No new concerns. Objective - Vital Signs Vital signs: Vital Signs Temp 98.8 F 01/20/20 12:09 Pulse 80 01/20/20 16:05 Resp 18 01/20/20 12:09 BP 127/57 01/20/20 12:09 Pulse Ox 97 01/20/20 15:52 Intake & Output 01/19/20 01/20/20 01/20/20 18:59 06:59 18:59 Intake Total 470 900 240 Output Total 1700 760 300 Balance -1230 140 -60 Weight 129 kg 129 kg Intake: Oral 470 900 240 Output: Chest Tube Drainage 160 Right 160 Drainage 0 Right 0 Urine 1700 600 300 Other: Voiding Method Toilet Toilet # Voids 2 1 # Bowel Movements 1 ABP, PAP, CO, CI - Last Documented Arterial Blood Pressure 94/51 Pulmonary Artery Pressure 28/12 Cardiac Output 6.9 Cardiac Index 3.1 - Constitutional General appearance: Present: cooperative, morbidly obese, no acute distress - EENT Eyes: Present: scleral icterus - Neck Details: Neck is supple, no JVD, no lymphadenopathy. - Respiratory Details: Lungs sounds essentially clear throughout, diminished bilateral bases. No wheezes, rhonchi or crackles. Respirations are symmetrical and nonlabored. Oxygen saturation is 97% on room air. Achieving 9513-1853 mL on her incentive spirometry. Right pleural chest tube in place to water seal. No air leak is present. 150 mL output of thin serosanguineous drainage in the last 24 hours. - Cardiovascular Details: Regular rhythm and rate. S1 and S2 present, negative for S3, gallop or murmur. Sternum is stable. Remote telemetry showing normal sinus rhythm heart rate 96 BPM. Knee-high KIERRA hose and sequential compression devices in place from her bilateral lower extremities. Heart hugger is in place and she is demonstrating appropriate use. Ventricular epicardial pacemaker wires remain in place and grounded. - Gastrointestinal Gastrointestinal Comment(s): Abdomen is soft, nontender and nondistended. Morbidly obese. No guarding or rigidity. No organomegaly appreciated. Tolerating oral intake. Bowel movement this a.m. - Genitourinary Genitourinary Comment(s): Continues to void. - Integumentary Integumentary Comment(s): Skin is warm and dry. No clubbing or cyanosis is present. Midline sternal incision is clean, dry and approximated. No drainage or redness is present. Left lower extremity EVH sites clean, dry and approximated. No drainage redness is present. - Neurologic Neurologic: Present: CNII-XII intact - Musculoskeletal Musculoskeletal: Present: gait normal, generalized weakness, strength equal bi laterally - Psychiatric Psychiatric: Present: A&O x's 3, appropriate affect, intact judgment & insight - Allied health notes Allied health notes reviewed: nursing - Labs CBC & Chem 7: 01/20/20 08:02 01/20/20 08:02 Labs: Abnormal Lab Results - Last 24 Hours (Table) 01/19/20 01/20/20 01/20/20 Range/Units 20:39 02:03 06:12 WBC (3.8-10.6) k/uL RBC (3.80-5.40) m/uL Hgb (11.4-16.0) gm/dL Hct (34.0-46.0) % Sodium (137-145) mmol/L BUN (7-17) mg/dL Glucose (74-99) mg/dL POC Glucose (mg/dL) 120 H 112 H 102 H (75-99) mg/dL Total Bilirubin (0.2-1.3) mg/dL ALT (4-34) U/L Total Protein (6.3-8.2) g/dL Albumin (3.5-5.0) g/dL 01/20/20 01/20/20 01/20/20 Range/Units 08:02 08:02 11:37 WBC 12.0 H (3.8-10.6) k/uL RBC 2.94 L (3.80-5.40) m/uL Hgb 9.6 L (11.4-16.0) gm/dL Hct 29.1 L (34.0-46.0) % Sodium 134 L (137-145) mmol/L BUN 25 H (7-17) mg/dL Glucose 106 H (74-99) mg/dL POC Glucose (mg/dL) 102 H (75-99) mg/dL Total Bilirubin 2.2 H (0.2-1.3) mg/dL ALT 68 H (4-34) U/L Total Protein 5.4 L (6.3-8.2) g/dL Albumin 3.0 L (3.5-5.0) g/dL 01/20/20 Range/Units 16:26 WBC (3.8-10.6) k/uL RBC (3.80-5.40) m/uL Hgb (11.4-16.0) gm/dL Hct (34.0-46.0) % Sodium (137-145) mmol/L BUN (7-17) mg/dL Glucose (74-99) mg/dL POC Glucose (mg/dL) 101 H (75-99) mg/dL Total Bilirubin (0.2-1.3) mg/dL ALT (4-34) U/L Total Protein (6.3-8.2) g/dL Albumin (3.5-5.0) g/dL - Imaging and Cardiology Chest x-ray: report reviewed, image reviewed Assessment and Plan Assessment: 1. Severe bicuspid aortic valve stenosis, status post aortic valve replacement using a 25 mm Avalus Medtronic bioprosthetic aortic valve 2. Coronary artery disease, status post coronary artery bypass grafting 2 vessels 3. History of hypertension, 4. History of hyperlipidemia 5. History of TIA in 2018 6. History of breast cancer 7. History of elevation in her transaminase enzymes preoperatively 8. Chronic tobacco abuse 9. Family history of coronary artery disease less than 60 years of age 10. Postoperative acute blood loss anemia, expected 11. Postoperative elevation in her transaminase enzymes, expected Plan: 1. Continue to maximize medical therapy with aspirin, Plavix and beta chase. Will increase metoprolol tartrate 75 mg by mouth twice a day. 2. Continue to record strict and accurate I's and O's. 3. Continue to encourage use of incentive spirometry 10 times every hour while awake. Bronchodilators per pulmonology/critical care management. 4. Will monitor daily labs and chest x-rays. Electrolytes replacement per protocol. 5. GI/DVT prophylaxis. 6. Pain control with current medication regimen. 7. Diabetes/insulin management per Dr. Hansen. 8. Right pleural chest tube removed without incident. 4 x 4 gauze to cover, impregnated Vaseline gauze to cover and secured with tape. 9. Lasix 40 mg IV 1 now. 10. Continue daily weights using standup scale, no bed scale use. 11. Ventricular epicardial pacemaker wires removed without incident. Bed rest for 1 hour post pacemaker wire removal. 12. Discharge planning is in place. Anticipate discharge home within the next 24 hours to 48 hours with home health care. 13. Increase activity as tolerated, physical/occupational therapy and cardiac rehab following. Out of bed for all meals. 14. First postoperative shower tomorrow 01/21/2020. 15. More recommendations to follow based on patient's clinical course Nurse practitioner note has been reviewed by the physician. Signing provider agrees with the above documented findings, assessment and plan of care. Time with Patient: Greater than 30
--- NOTE | 2020-01-20 19:18 | P.PN ---
Subjective Progress Note Date: 01/20/20 Principal diagnosis: Severe bicuspid aortic valve stenosis, coronary artery disease The patient is seen today 01/17/2020. She was found to have severe bicuspid aortic valve stenosis, coronary artery disease and is status post aortic valve replacement with a bioprosthetic aortic valve and coronary artery bypass grafting 2. This is postoperative day #1. She does have a history of hypertension, hyperlipidemia, breast cancer, TIA and a prior history of chronic tobacco use. She is seen today in follow-up in the ICU. She is currently sitting up in a chair at the bedside. Awake and alert in no acute distress. He was successfully extubated approximately 4 hours 20 minutes postoperatively. She is currently on 3 L/m per nasal cannula to maintain O2 saturations in the 9 0s. She remains on lactated Ringer's at 20 ML's per hour. Insulin drip at 3.5 units per hour. She is working well with the incentive spirometer. Right IJ Spelter-Darrin catheter remains in place. Cardiac output 6.3. Cardiac index 2.8. PA pressures 28/13 with a CVP of 8 mmHg. Her Cleviprex is off. Right, left and mediastinal chest tubes remain in place, her chest x-ray reveals some atelectasis at the bases. The patient is seen today 01/18/2020 in follow-up in the intensive care unit. She is currently sitting up in a chair at the bedside. Awake and alert in no acute distress. This is postoperative day #2. She is maintaining good O2 saturations in the 90s on 2 L/m per nasal cannula. No IV fluids. Chest x-ray reveals scattered pleural parenchymal opacities reflecting atelectasis. No change compared to previous. His been up with assistance. Working well with the incentive spirometer. White count 15.0. Hemoglobin 10.0. Platelet count 124. Sodium 134. Potassium 4.3. Creatinine 0.87. On 01/19/2020, the patient is doing well. The patient has no specific complaints. The patient is recovering nicely from her surgery. She is currently on 2 L of oxygen by nasal cannula. She is postop day #3. The patient has a normal sinus rhythm. The patient is still has a left-sided chest tube in place. Chest x-ray from today shows bilateral chest tubes being in place. There is no evidence of any significant pneumothorax. The plan is to remove the left pleural chest tube based on the diminished output that has been noted over the past 24 hours. Hemoglobin stable at 9.3. Renal function is also stable. On 01/20/2020 patient seen in follow-up on selective care unit. Today is postoperative day 4, status post aortic valve replacement with a bioprosthetic aortic valve and coronary artery bypass grafting 2. She is awake and alert, in no acute distress, she is currently on room air, her pulse ox is 95%, all chest tubes have been removed, Glover catheter has been removed, patient denies any physical complaints, she has been ambulating extensively in the [place] with the physical therapy and tolerating it well. Chest x-ray today reviewed showing basilar atelectasis, minimal effusion. Clinically patient has been stable, she's been working on incentive spirometer, lung sounds are clear, with minimal right basilar crackles. She is maintaining sinus mechanism on the monitor. Vital signs have been stable. Objective - Vital Signs Vital signs: Vital Signs Temp 98.6 F 01/20/20 16:00 Pulse 80 01/20/20 16:05 Resp 18 01/20/20 16:00 BP 131/79 01/20/20 16:00 Pulse Ox 95 01/20/20 16:00 Intake & Output 01/20/20 01/20/20 01/21/20 06:59 18:59 06:59 Intake Total 900 240 Output Total 760 1800 Balance 140 -1560 Weight 129 kg 129 kg Intake: Oral 900 240 Output: Chest Tube Drainage 160 Right 160 Drainage 0 Right 0 Urine 600 1800 Other: Voiding Method Toilet Toilet # Voids 1 5 # Bowel Movements 1 ABP, PAP, CO, CI - Last Documented Arterial Blood Pressure 94/51 Pulmonary Artery Pressure 28/12 Cardiac Output 6.9 Cardiac Index 3.1 - Exam GENERAL EXAM: Alert, active, 64-year-old white female, on room air, ambulating with physical therapy comfortable in no apparent distress. HEAD: Normocephalic/atraumatic. EYES: Normal reaction of pupils, equal size. Conjunctiva pink, sclera white. NOSE: Clear with pink turbinates. THROAT: No erythema or exudates. NECK: No masses, no JVD, no thyroid enlargement, no adenopathy. CHEST: No chest wall deformity. Symmetrical expansion. Midsternal incision, chest tube sites are clean dry and intact, covered with surgical dressing LUNGS: Equal air entry with no crackles, wheeze, rhonchi or dullness. CVS: Regular rate and rhythm, normal S1 and S2, no gallops, no murmurs, no rubs ABDOMEN: Soft, nontender. No hepatosplenomegaly, normal bowel sounds, no guarding or rigidity. EXTREMITIES: No clubbing, no edema, no cyanosis, 2+ pulses and upper and lower extremities. MUSCULOSKELETAL: Muscle strength and tone normal. SPINE: No scoliosis or deformity SKIN: No rashes CENTRAL NERVOUS SYSTEM: Alert and oriented -3. No focal deficits, tone is normal in all 4 extremities. PSYCHIATRIC: Alert and oriented -3. Appropriate affect. Intact judgment and insight. - Labs CBC & Chem 7: 01/20/20 08:02 01/20/20 08:02 Labs: Abnormal Lab Results - Last 24 Hours (Table) 01/19/20 01/20/20 01/20/20 Range/Units 20:39 02:03 06:12 WBC (3.8-10.6) k/uL RBC (3.80-5.40) m/uL Hgb (11.4-16.0) gm/dL Hct (34.0-46.0) % Sodium (137-145) mmol/L BUN (7-17) mg/dL Glucose (74-99) mg/dL POC Glucose (mg/dL) 120 H 112 H 102 H (75-99) mg/dL Total Bilirubin (0.2-1.3) mg/dL ALT (4-34) U/L Total Protein (6.3-8.2) g/dL Albumin (3.5-5.0) g/dL 01/20/20 01/20/20 01/20/20 Range/Units 08:02 08:02 11:37 WBC 12.0 H (3.8-10.6) k/uL RBC 2.94 L (3.80-5.40) m/uL Hgb 9.6 L (11.4-16.0) gm/dL Hct 29.1 L (34.0-46.0) % Sodium 134 L (137-145) mmol/L BUN 25 H (7-17) mg/dL Glucose 106 H (74-99) mg/dL POC Glucose (mg/dL) 102 H (75-99) mg/dL Total Bilirubin 2.2 H (0.2-1.3) mg/dL ALT 68 H (4-34) U/L Total Protein 5.4 L (6.3-8.2) g/dL Albumin 3.0 L (3.5-5.0) g/dL 11/17/20 Range/Units 16:26 WBC (3.8-10.6) k/uL RBC (3.80-5.40) m/uL Hgb (11.4-16.0) gm/dL Hct (34.0-46.0) % Sodium (137-145) mmol/L BUN (7-17) mg/dL Glucose (74-99) mg/dL POC Glucose (mg/dL) 101 H (75-99) mg/dL Total Bilirubin (0.2-1.3) mg/dL ALT (4-34) U/L Total Protein (6.3-8.2) g/dL Albumin (3.5-5.0) g/dL Assessment and Plan Plan: Assessment: 1 Severe bicuspid aortic valve stenosis, status post aortic valve replacement utilizing a 25 mm bioprosthetic aortic valve. Post operative day #4 2 Coronary artery disease status post coronary artery bypass grafting 2, postoperative day #4 3 post thoracotomy. The patient has been weaned off the mechanical ventilator and the patient is currently on 2 L of oxygen by nasal cannula. Patient utilizing incentive spirometer. Surgical into the with anterior chest that is dry clean and intact. Patient has bilateral chest tubes in place. The patient has a right pleural and left pleural chest tube. There are also postsurgical small bilateral pleural effusions. No evidence of pneumothorax. 4 Hypertension. 5 Hyperlipidemia 6 History of breast cancer 7 History of TIA 8 history of smoking Plan: Continue encouraging deep breathing and coughing, ambulation, vital signs have been stable, today's chest x-ray has been reviewed showing atelectasis, patient is on room air, she's had no acute events overnight. Maintaining sinus mech anism, anticipate discharge home tomorrow if cleared by CT surgery, we'll continue to follow I performed a history & physical examination of the patient and discussed their management with my nurse practitioner, Mckenna Ravi. I reviewed the nurse practitioner's note and agree with the documented findings and plan of care. Lung sounds are positive for dim breath sounds. The findings and the impression was discussed with the patient. I attest to the documentation by the nurse practitioner. Time with Patient: Less than 30
[2020-01-20 20:00] LABS: Glucose,Whole Blood 110 mg/dL (75-99)
[2020-01-20] MEDS: METOPROLOL TARTRATE 25 MG TAB PO SCH (20:23)
[2020-01-20] MEDS: SENNOSIDES-DOCUSATE SODIUM 1 EACH TAB PO SCH (20:23)
[2020-01-21] MEDS: HEPARIN SODIUM,PORCINE 5,000 UNIT/ML 1 ML VIAL SQ SCH ×2 (00:29→08:55)
[2020-01-21 02:13] LABS: Glucose,Whole Blood 105 mg/dL (75-99)
[2020-01-21] MEDS: INSULIN ASPART (NovoLOG) 100 UNIT/ML VIAL SQ SCH ×3 (03:20→12:11)
[2020-01-21 06:15] LABS: Glucose,Whole Blood 109 mg/dL (75-99)
[2020-01-21] MEDS: PANTOPRAZOLE 40 MG TABLET PO SCH (06:37)
[2020-01-21 08:10] VITALS: RESP 18; TEMP 98.6
[2020-01-21 08:11] LABS: HCT 28.8 % (34.0-46.0); HGB 9.5 gm/dL (11.4-16.0); MCH 33.1 pg (25.0-35.0); MCHC 33.1 g/dL (31.0-37.0); MCV 99.8 fL (80.0-100.0); Mean Platelet Volume 7.8; Platelet Count 208 k/uL (150-450); RBC 2.88 m/uL (3.80-5.40); RDW 12.9 % (11.5-15.5); WBC 11.8 k/uL (3.8-10.6)
--- NOTE | 2020-01-21 08:24 | XR ---
EXAMINATION TYPE: XR chest 2V DATE OF EXAM: 01/21/2020 COMPARISON: 01/20/2020 INDICATION: Postop cardiac surgery TECHNIQUE: Frontal and lateral views of the chest are obtained. FINDINGS: The heart size is normal. Sternotomy wires are present from prior CABG. The pulmonary vasculature is normal. There appears to be some bibasilar atelectasis present. Minimal left pleural effusion should be consi dered.. IMPRESSION: 1. Bibasilar atelectasis with mild left pleural effusion. 2. No pneumothorax post right chest tube removal.
[2020-01-21 08:29] LABS: African American GFR (CKD) >90 (>60 ml/min/1.73 sqM); Anion Gap 4 mmol/L; Blood Urea Nitrogen 19 mg/dL (7-17); Calcium 9.1 mg/dL (8.4-10.2); Carbon Dioxide 27 mmol/L (22-30); Chloride 104 mmol/L (98-107); Glucose 95 mg/dL (74-99); Magnesium 1.9 mg/dL (1.6-2.3); Non-African American GFR(CKD) 81 (>60 ml/min/1.73 sqM); Potassium 3.7 mmol/L (3.5-5.1); Sodium 135 mmol/L (137-145)
[2020-01-21] MEDS: CLOPIDOGREL 75 MG TAB PO SCH (08:55)
[2020-01-21] MEDS: ASPIRIN 325 MG TAB PO SCH (08:55)
[2020-01-21] MEDS: METOPROLOL TARTRATE 25 MG TAB PO SCH (08:56)
[2020-01-21] MEDS: IPRATROPIUM-ALBUTEROL 3 ML NEB INHALATION SCH ×2 (08:57→13:06)
[2020-01-21] MEDS ORDERED: FUROSEMIDE 40 MG TAB PO SCH (09:00)
[2020-01-21] MEDS ORDERED: POTASSIUM CHLORIDE ER 20 MEQ TAB.ER PO SCH (09:00)
[2020-01-21 11:56] LABS: Glucose,Whole Blood 106 mg/dL (75-99)
[2020-01-21 12:21] VITALS: BP 129/74; PULSE 95
--- NOTE | 2020-01-21 12:57 | P.DS ---
Providers Date of admission: 01/16/20 05:32 Expected date of discharge: 01/21/20 Attending physician: Javier Storey Consults: 01/16/20 13:52 Consult Physician Routine Consulting Provider: Epifanio García Consult Reason/Comments: Tire Fabric Inspector Consult: post cardiac surgery Do you want consulting provider notified?: Yes Consult Physician Routine Consulting Provider: Keagan Hansen Consult Reason/Comments: [facility] [place]; [place] patient Do you want consulting provider notified?: Yes Consult Physician Routine Consulting Provider: London Carty Consult Reason/Comments: Shear Operator Helper Consult: post cardiac surgery Do you want consulting provider notified?: Yes Primary care physician: Chaz cristy [facility] Course: FINAL DIAGNOSIS: 1. Severe bicuspid aortic valve stenosis, status post aortic valve replacement using a 25 mm Avalus Medtronic bioprosthetic aortic valve 2. Coronary artery disease, status post coronary artery bypass grafting 2 vessels 3. History of hypertension, 4. History of hyperlipidemia 5. History of TIA in 2018 6. History of breast cancer 7. History of elevation in her transaminase enzymes preoperatively 8. Chronic tobacco abuse 9. Family history of coronary artery disease less than 60 years of age 10. Postoperative acute blood loss anemia, expected 11. Postoperative elevation in her transaminase enzymes, expected PRINCIPAL PROCEDURE: 1. Aortic valve replacement with a 25 mm Avalus Medtronic bioprosthetic aortic valve. 2. Coronary artery bypass grafting 2 vessels with left internal mammary artery to the left anterior descending coronary artery, a reverse greater saphenous vein graft off the aorta to the distal obtuse marginal coronary artery. 3. Clip ligation of the left atrial appendage using a 35 mm Atriclip. 4. Intraoperative transesophageal echocardiogram. 5. Left lower extremity greater saphenous vein endoscopic harvesting. HISTORY OF PRESENT ILLNESS: This is a 64-year-old female patient who is followed by Dr. Chaz Robbins on an outpatient basis. She has a past medical history significant for hypertension, hyperlipidemia, history of TIA in 2018, history of breast cancer, elevation in her transaminase enzymes from statins, chronic tobacco abuse and family history of coronary artery disease less than 60 years of age. Recently, the patient has been experiencing some episodes of exertional shortness of breath. She underwent a nuclear stress test which showed some ischemia in the anterior lateral segments. Due to her shortness of breath and abnormal stress test she underwent a cardiac catheterization on 11/13/2019 which demonstrated a critical lesion in the left anterior descending coronary artery, a 40-50% stenosis of the proximal circumflex coronary artery, a 70-80% stenosis to her obtuse marginal branch of her circumflex coronary artery and a totally occluded right coronary artery. For further evaluation she underwent a transesophageal echocardiogram completed on 11/26/2019 which showed severe aortic valve stenosis, and a preserved left ventricular function. Due to the findings on the cardiac catheterization and transesophageal echocardiogram a consult was placed to Dr. Javier Storey from cardiothoracic surgery for further evaluation and treatment recommendations. Dr. Storey met with the patient as an outpatient, reviewed the findings on the cardiac catheterization and transesophageal echocardiogram with the patient, treatment options were discussed including aortic valve replacement and coronary artery bypass grafting surgery. Knowing the risks and benefits of surgery including the STS risk for she decided to proceed with the surgical option. HOSPITAL COURSE: The patient was admitted to the hospital on 01/16/2020, brought to the preoperative area, prepared in the usual fashion and subsequently taken to the operating room where Dr. Javier Storey performed an aortic valve replacement with a 25 mm Avalus Medtronic bioprosthetic aortic valve, coronary artery bypass grafting 2 vessels with left internal mammary artery to the left anterior descending coronary artery, a reverse greater saphenous vein graft off the aorta to the distal obtuse marginal coronary artery, clip ligation of the left atrial appendage using a 35 mm Atriclip, left lower extremity greater saphenous vein endoscopic harvesting and an intraoperative transesophageal echocardiogram. Upon completion of the surgery the patient was transferred to the cardiovascular intensive care unit where she was recovered, monitored hemodynamically and where she progressed cardiac rehabilitation phase 1. She was extubated, all lines, tubes and supportive drips were discontinued when appropriate and she was transferred to the cardiac stepdown unit for further monitoring and will dilatation. Her oxygen was titrated down, she continued work with physical and occupational therapy, she was tolerating an oral diet, her pain was well-controlled and was ready to be discharged home with [facility] care on postoperative day #5. She has received written and verbal instructions regarding her medications, activity restrictions, signs and symptoms requiring physician on occasion and her follow-up appointments. COMPLICATIONS: There were no postoperative complications. CONSULTATIONS: 1. Dr. Carty for cardiology management. 2. Dr. García for pulmonary and ventilator management. 3. Dr. Sotelo for medical management. Plan - Discharge Summary Discharge Rx Participant: Yes New Discharge Prescriptions: New Aspirin 325 mg PO DAILY tab Furosemide [Lasix] 40 mg PO DAILY #4 tab Metoprolol Tartrate [Lopressor] 75 mg PO BID #180 tab Clopidogrel [Plavix] 75 mg PO DAILY #30 tab Pantoprazole [Protonix] 40 mg PO AC-BRKFST #30 tablet. Acetaminophen Tab [Tylenol] 1,000 mg PO Q6HR PRN tab PRN Reason: Fever And/ Or Pain lisinopriL [Zestril] 2.5 mg PO DAILY #30 tab Potassium Chloride ER [K-Dur 10] 10 meq PO DAILY #4 tab Ezetimibe [Zetia] 10 mg PO DAILY #30 tab Discontinued lisinopriL [Zestril] 20 mg PO DAILY Nitroglycerin Sl Tabs [Nitrostat] 0.4 mg SUBLINGUAL Q5M PRN PRN Reason: Angina Metoprolol Tartrate [Lopressor] 50 mg PO BID Hydrochlorothiazide [hydroCHLOROthiazide] 12.5 mg PO DAILY Aspirin [Adult Low Dose Aspirin EC] 81 mg PO DAILY Discharge Medication List Acetaminophen Tab [Tylenol] 1,000 mg PO Q6HR PRN tab 01/21/20 [Rx] Aspirin 325 mg PO DAILY tab 01/21/20 [Rx] Clopidogrel [Plavix] 75 mg PO DAILY #30 tab 01/21/20 [Rx] Ezetimibe [Zetia] 10 mg PO DAILY #30 tab 01/21/20 [Rx] Furosemide [Lasix] 40 mg PO DAILY #4 tab 01/21/20 [Rx] Metoprolol Tartrate [Lopressor] 75 mg PO BID #180 tab 01/21/20 [Rx] Pantoprazole [Protonix] 40 mg PO AC-BRKFST #30 tablet. 01/21/20 [Rx] Potassium Chloride ER [K-Dur 10] 10 meq PO DAILY #4 tab 01/21/20 [Rx] lisinopriL [Zestril] 2.5 mg PO DAILY #30 tab 01/21/20 [Rx] Follow up Appointment(s)/Referral(s): Yovani Grissom NPC [Nurse Practitioner] - 01/28/20 3:00 pm [facility], [NON-STAFF] - Javier Storey MD [STAFF PHYSICIAN] - 02/13/20 1:00 pm Karli Medellin MD [STAFF PHYSICIAN] - 01/26/20 2:45 pm (north office at [facility] in front of [address] in [facility] ) Chaz Robbins MD [Primary Care Provider] - 01/28/20 8:30 am Magaly Ramos MD [STAFF PHYSICIAN] - 02/17/20 9:45 am Ambulatory/Diagnostic Orders: Complete Blood Count w/diff [LAB.AMB] Time Frame: 01/24/20, Facility: [facility], Location: Laboratory [facility] Comprehensive Metabolic Panel [LAB.AMB] Time Frame: 01/24/20, Facility: [facility], Location: [facility] Patient Instructions/Handouts: Sternal Precautions (GEN), CABG (Coronary Artery Bypass Graft) (DC) Activity/Diet/Wound Care/Special Instructions: DISCHARGE INSTRUCTIONS: 1. No driving for 4 weeks, or until physician gives their ok. 2. The patient should sleep in their own bed, no medical bed needed. 3. Stairs are not an issue. If the bedroom is upstairs, it is advised that the patient go up at night and down in the morning for the first week. Go slowly, using handrail and take 1 step at a time. 4. KIERRA hose are to be worn for 30 days or until physician discontinues. 5. Heart hugger is to be worn 100% of the time until physician discontinues.(except when showering) 6. No lifting, pushing, or pulling more than 10 pounds for 12 weeks. The physician will advise of any restriction changes. 7. The patient is expected to continue the prescribed walking program. 8. Continue pain control per as needed orders. 9. Continue with incentive spirometry and splinting/heart hugger until otherwise directed by the physician. 10. Must shower daily using liquid antibacterial soap and a separate white wa shcloth for each individual incision. 11. Routine sternal incision care. No powders, lotions, ointments on incisions. No dressings are necessary on incisions unless they are draining. Dermabond tape is to remain on sternal incision until surgeon follow-up. 12. Please call surgeon/LICENSED APPRAISER for temp greater than 101 F or purulent drainage from incisions. 13. All prescriptions given by surgeon for 30 days. Refills need to be filled through circulation worker/primary care physician. 14. A Red armband has been placed on the patient. It should be worn for 30 days post surgery and will be removed by the cardiac surgeons. If an ER visit is necessary, please make sure the number on the Red armband is called. 15. You have been referred to and are expected to begin Cardiac Rehab in approximately 4-6 weeks. en stop 16. Please weigh yourself every morning and keep a log of your daily weights 17. The patient will not be discharged home on a statin at this time due to some elevation in her liver enzymes preoperatively and postoperatively. This will be reevaluated on an outpatient basis. HOME HEALTH SERVICES TO PROVIDE: RN SKILLED HOME CARE SERVICES FOR POST-OP SURGICAL PATIENTS WITH THE FOLLOWING: Coronary Artery Bypass Surgery (CABG), Mitral Valve Replacement/Repair ( MVR), Aortic Valve Replacement/Repair (AVR) RN TO CONTINUE EDUCATION FROM ``ROAD TO A HEALTH HEART PATIENT EDUCATION MANUAL (GIVEN TO PATIENT IN THE HOSPITAL) MEDICATION RECONCILIATION WITH EDUCATION NEEDED ON FIRST HOME VISIT EMPHASIZE IMPORTANCE OF WEARING BREAST SUPPORT/HEART HUGGER ENCOURAGE USE OF INCENTIVE SPIROMETER 10 X EVERY HOUR WHILE AWAKE ENCOURAGE UTILIZATION OF LOWER EXTREMITY COMPRESSION STOCKINGS/KIERRA HOSE and ELEVATE LEGS ABOVE LEVEL OF HEART WHILE AT REST. ENCOURAGE AMBULATION 3-5x/day INCREASING TOLERATES, WHILE AVOIDING EXTREMES IN TEMPERATURE FREQUENCY: RN TO OPEN THE PATIENT WITHIN 24 HOURS OF DISCHARGE FROM THE HOSPITAL WITH TELEHEALTH INSTALLED AT [facility], RN TO VISIT 2-3 X A WEEK FOR 4 WEEKS ESTABLISHED BY PATIENT NEEDS. LABORATORY: CBC, CMP TO BE DRAWN ON THE THIRD DAY HOME, 01/24/2020 (RAN STAT) FAX RESULTS TO [phone]. TELEHEALTH PARAMETERS: WEIGHT: NOTIFY MD OF WEIGHT GAIN OF 2 LBS IN 24 HOURS OR 5 LBS IN ONE WEEK HR: NOTIFY MD OF HR <55 BPM OR HR>100 BPM BP: NOTIFY MD IF BP <90/55 OR BP>140/100 O2 SAT: NOTIFY MD IF PO2<93% ON ROOM AIR SEND TELEHEALTH REPORT TO MATERIALS ASSOCIATE AND CARDIOVASCULAR SURGEON THE FIRST WEEK OF CARE AND THEN BI-WEEKLY. PLEASE ADDITIONALLY COMMUNICATE ANY ABNORMALS AND NEW FINDINGS TO THE SURGEONS OFFICE. For any questions or concerns please call geopolitics teacher Erin @ or Robert @ Discharge Disposition: HOME WITH HOME HEALTH SERVICES
--- NOTE | 2020-01-21 13:23 | P.PN ---
Subjective This is a pleasant 64-year-old female status post aortic valve replacement and coronary artery bypass grafting. She is seen and examined sitting up in the chair in no acute distress. She denies chest pain, shortness of breath, dizziness or palpitations. She is tearful and expressing feeling sad missing her and desire to go home. CT surgery is planning for discharge home today. Blood pressure 135/78 heart rate 98 afebrile and maintaining oxygen saturation on room air. Laboratory data reviewed, WBC 11.8, hemoglobin 9.5, platelets 208, sodium 135, potassium 3.7, creatinine 0.77 and magnesium 1.9. GENERAL: Well-appearing, well-nourished and in no acute distress. NECK: Supple without JVD or thyromegaly. LUNGS: Breath sounds clear to auscultation bilaterally. Respiration equal and unlabored. No wheezes, rales or rhonchi. HEART: Regular rate and rhythm with systolic ejection murmur at the base, no rubs or gallops. S1 and S2 heard. Heart hugger in place. EXTREMITIES: Normal range of motion, no edema. No clubbing or cyanosis. Peripheral pulses intact. ASSESSMENT Valvular heart disease status post aortic valve replacement and coronary artery bypass grafting Coronary artery disease Hypertension PLAN Recommend ongoing use of incentive spirometer q1hour while awake. Increase activity as tolerated and recommended per CT surgery. Follow up with Dr. Medellin in the office upon discharge. Nurse Practitioner note has been reviewed, I agree with a documented findings and plan of care. Patient was seen and examined. Objective - Vital Signs Vital signs: Vital Signs Temp 98.6 F 01/21/20 08:09 Pulse 96 01/21/20 09:11 Resp 18 01/21/20 08:09 BP 135/78 01/21/20 08:09 Pulse Ox 95 01/21/20 08:09 Intake & Output 01/20/20 01/21/20 01/21/20 18:59 06:59 18:59 Intake Total 240 0 Output Total 1800 900 0 Balance -1560 -900 0 Weight 129 kg 127.6 kg Intake: Oral 240 0 Output: Urine 1800 900 0 Stool 0 Other: Voiding Method Toilet Toilet # Voids 5 0 # Bowel Movements 1 0 ABP, PAP, CO, CI - Last Documented Arterial Blood Pressure 94/51 Pulmonary Artery Pressure 28/12 Cardiac Output 6.9 Cardiac Index 3.1 - Labs CBC & Chem 7: 01/21/20 07:17 01/21/20 07:17 Labs: Abnormal Lab Results - Last 24 Hours (Table) 01/20/20 01/20/20 01/20/20 Range/Units 11:37 16:26 19:59 WBC (3.8-10.6) k/uL RBC (3.80-5.40) m/uL Hgb (11.4-16.0) gm/dL Hct (34.0-46.0) % Sodium (137-145) mmol/L BUN (7-17) mg/dL POC Glucose (mg/dL) 102 H 101 H 110 H (75-99) mg/dL 01/21/20 01/21/20 01/21/20 Range/Units 02:12 06:14 07:17 WBC 11.8 H (3.8-10.6) k/uL RBC 2.88 L (3.80-5.40) m/uL Hgb 9.5 L (11.4-16.0) gm/dL Hct 28.8 L (34.0-46.0) % Sodium (137-145) mmol/L BUN (7-17) mg/dL POC Glucose (mg/dL) 105 H 109 H (75-99) mg/dL 01/21/20 Range/Units 07:17 WBC (3.8-10.6) k/uL RBC (3.80-5.40) m/uL Hgb (11.4-16.0) gm/dL Hct (34.0-46.0) % Sodium 135 L (137-145) mmol/L BUN 19 H (7-17) mg/dL POC Glucose (mg/dL) (75-99) mg/dL
--- NOTE | 2020-01-21 14:52 | P.PN ---
Subjective Progress Note Date: 01/21/20 Principal diagnosis: Severe bicuspid aortic valve stenosis, coronary artery disease The patient is seen today 01/17/2020. She was found to have severe bicuspid aortic valve stenosis, coronary artery disease and is status post aortic valve replacement with a bioprosthetic aortic valve and coronary artery bypass grafting 2. This is postoperative day #1. She does have a history of hypertension, hyperlipidemia, breast cancer, TIA and a prior history of chronic tobacco use. She is seen today in follow-up in the ICU. She is currently sitting up in a chair at the bedside. Awake and alert in no acute distress. He was successfully extubated approximately 4 hours 20 minutes postoperatively. She is currently on 3 L/m per nasal cannula to maintain O2 saturations in the 90 s. She remains on lactated Ringer's at 20 ML's per hour. Insulin drip at 3.5 units per hour. She is working well with the incentive spirometer. Right IJ Sentinel-Darrin catheter remains in place. Cardiac output 6.3. Cardiac index 2.8. PA pressures 28/13 with a CVP of 8 mmHg. Her Cleviprex is off. Right, left and mediastinal chest tubes remain in place, her chest x-ray reveals some atelectasis at the bases. The patient is seen today 01/18/2020 in follow-up in the intensive care unit. She is currently sitting up in a chair at the bedside. Awake and alert in no acute distress. This is postoperative day #2. She is maintaining good O2 saturations in the 90s on 2 L/m per nasal cannula. No IV fluids. Chest x-ray reveals scattered pleural parenchymal opacities reflecting atelectasis. No change compared to previous. His been up with assistance. Working well with the incentive spirometer. White count 15.0. Hemoglobin 10.0. Platelet count 124. Sodium 134. Potassium 4.3. Creatinine 0.87. The patient is seen today 01/21/2020 in follow-up on the selective care unit. She is awake and alert in no acute distress. Maintaining good O2 saturations in the 90s on room air. She denies any worsening shortness of breath, cough or congestion. Chest x-ray reveals bibasilar atelectasis with mild left pleural effusion. No pneumothorax post chest tube removal. She continues to work well with the incentive spirometer. White count 11.8. Hemoglobin 9.5. Sodium 135. Potassium 3.7. Creatinine 0.77. Objective - Vital Signs Vital signs: Vital Signs Temp 98.6 F 01/21/20 12:20 Pulse 95 01/21/20 12:20 Resp 18 01/21/20 12:20 BP 129/74 01/21/20 12:20 Pulse Ox 96 01/21/20 12:20 Intake & Output 01/20/20 01/21/20 01/21/20 18:59 06:59 18:59 Intake Total 240 180 Output Total 1800 900 0 Balance -1560 -900 180 Weight 129 kg 127.6 kg Intake: Oral 240 180 Output: Urine 1800 900 0 Stool 0 Other: Voiding Method Toilet Toilet Toilet # Voids 5 0 # Bowel Movements 1 0 ABP, PAP, CO, CI - Last Documented Arterial Blood Pressure 94/51 Pulmonary Artery Pressure 28/12 Cardiac Output 6.9 Cardiac Index 3.1 - Exam GENERAL EXAM: Alert, very pleasant 64 year old female patient, up in a chair at the bedside, on room air, comfortable in no apparent distress. HEAD: Normocephalic. EYES: Normal reaction of pupils, equal size. NOSE: Clear with pink turbinates. THROAT: No erythema or exudates. NECK: No masses, no JVD. CHEST: Sternal dressing dry and intact. Heart Hugger in place. LUNGS: Equal air entry with crackles in the bilateral posterior bases. CVS: S1 and S2 normal with no audible murmur, regular rhythm. ABDOMEN: No hepatosplenomegaly, normal bowel sounds, no guarding or rigidity. SPINE: No scoliosis or deformity SKIN: No rashes CENTRAL NERVOUS SYSTEM: No focal deficits, tone is normal in all 4 extremities. EXTREMITIES: Apnea KIERRA hose in place with sequential compression devices bilaterally. There is no peripheral edema. No clubbing, no cyanosis. Peripheral pulses are intact. - Labs CBC & Chem 7: 01/21/20 07:17 01/21/20 07:17 Labs: Abnormal Lab Results - Last 24 Hours (Table) 01/20/20 01/20/20 01/21/20 Range/Units 16:26 19:59 02:12 WBC (3.8-10.6) k/uL RBC (3.80-5.40) m/uL Hgb (11.4-16.0) gm/dL Hct (34.0-46.0) % Sodium (137-145) mmol/L BUN (7-17) mg/dL POC Glucose (mg/dL) 101 H 110 H 105 H (75-99) mg/dL 01/21/20 01/21/20 01/21/20 Range/Units 06:14 07:17 07:17 WBC 11.8 H (3.8-10.6) k/uL RBC 2.88 L (3.80-5.40) m/uL Hgb 9.5 L (11.4-16.0) gm/dL Hct 28.8 L (34.0-46.0) % Sodium 135 L (137-145) mmol/L BUN 19 H (7-17) mg/dL POC Glucose (mg/dL) 109 H (75-99) mg/dL 01/21/20 Range/Units 11:55 WBC (3.8-10.6) k/uL RBC (3.80-5.40) m/uL Hgb (11.4-16.0) gm/dL Hct (34.0-46.0) % Sodium (137-145) mmol/L BUN (7-17) mg/dL POC Glucose (mg/dL) 106 H (75-99) mg/dL Assessment and Plan Assessment: 1 Severe bicuspid aortic valve stenosis, status post aortic valve replacement utilizing a 25 mm bioprosthetic aortic valve. 2 Coronary artery disease status post coronary artery bypass grafting 2 3 Hypertension. 4 Hyperlipidemia 5 Chronic tobacco dependence 6 History of breast cancer 8 History of TIA Plan: The patient was seen and evaluated by Dr. Ramos Chest x-ray and labs reviewed Encouraged increased use the incentive spirometer and cough and deep breathing exercises Cleared for discharge from the pulmonary standpoint Follow-up in the office in 1 week, we will repeat a chest x-ray done I, the cosigning physician, performed a history & physical examination of the patient. Lungs sounds crackles in the bilateral posterior bases. Maintaining good O2 saturations in the 90s on room air. I discussed the assessment and plan of care with my nurse practitioner, Ivelisse Mcgowan. I attest to the above note as dictated by her.
== END 2020-01-21 14:18 | disposition home health service (06) | DRG 220 ==
LOC: 2ORMAIN 01-16 05:32 → 2SICU 01-16 13:39 → 3SCARD 01-19 13:18
PROVIDERS: ADMIT Thoracic Surgery (Cardiothoracic Vascular Surgery); ATTEND Thoracic Surgery (Cardiothoracic Vascular Surgery)
PROC: 02L70CK Occlusion of Left Atrial Appendage with Extraluminal Device, Open Approach (ICD-10-PCS; principal; 2020-01-16 08:00)
PROC: 06BQ4ZZ Excision of Left Saphenous Vein, Percutaneous Endoscopic Approach (ICD-10-PCS; principal; 2020-01-16 08:00)
PROC: 021009W Bypass Coronary Artery, One Artery from Aorta with Autologous Venous Tissue, Open Approach (ICD-10-PCS; principal; 2020-01-16 08:00)
PROC: 02RF08Z Replacement of Aortic Valve with Zooplastic Tissue, Open Approach (ICD-10-PCS; principal; 2020-01-16 08:00)
PROC: B24BZZ4 Ultrasonography of Heart with Aorta, Transesophageal (ICD-10-PCS; principal; 2020-01-16 08:00)
PROC: 5A1221Z Performance of Cardiac Output, Continuous (ICD-10-PCS; principal; 2020-01-16 08:00)
PROC: 02100Z9 Bypass Coronary Artery, One Artery from Left Internal Mammary, Open Approach (ICD-10-PCS; principal; 2020-01-16 08:00)
PROC: 02HN0JZ Insertion of Pacemaker Lead into Pericardium, Open Approach (ICD-10-PCS; principal; 2020-01-16 08:00)
PROC: 5A1223Z Performance of Cardiac Pacing, Continuous (ICD-10-PCS; principal; 2020-01-16 08:00)
DX: I35.0 Nonrheumatic aortic (valve) stenosis (principal); D62 Acute posthemorrhagic anemia; J90 Pleural effusion, not elsewhere classified; J98.11 Atelectasis; Z68.42 Body mass index [BMI] 45.0-49.9, adult; E66.01 Morbid (severe) obesity due to excess calories; I25.82 Chronic total occlusion of coronary artery; I25.10 Atherosclerotic heart disease of native coronary artery without angina pectoris; E78.5 Hyperlipidemia, unspecified; F17.210 Nicotine dependence, cigarettes, uncomplicated; I10 Essential (primary) hypertension; R94.5 Abnormal results of liver function studies; R74.01 Elevation of levels of liver transaminase levels; Z71.6 Tobacco abuse counseling; Z79.82 Long term (current) use of aspirin; Z79.899 Other long term (current) drug therapy; Z86.73 Personal history of transient ischemic attack (TIA), and cerebral infarction without residual deficits; Z85.3 Personal history of malignant neoplasm of breast; Z88.5 Allergy status to narcotic agent; Z90.49 Acquired absence of other specified parts of digestive tract; Z98.890 Other specified postprocedural states; Z90.89 Acquired absence of other organs; Z87.42 Personal history of other diseases of the female genital tract; Z80.1 Family history of malignant neoplasm of trachea, bronchus and lung; Z82.49 Family history of ischemic heart disease and other diseases of the circulatory system
CPT/HCPCS: 71045; 71046; 80048; 80053; 82330; 82805; 83735; 85025; 85027; 85347; 85520; 85610; 85730; 86850; 86891; 86900; 86901; 86920; 88305; 94002; 94640

== ENCOUNTER 2020-01-30 16:40 | Inpatient (IN) | payer MEDICARE, BC ==
[2020-01-30] MEDS ORDERED: SODIUM CHLORIDE 0.9% 1,000 ML IV STA ×2 (16:54→17:44)
[2020-01-30] MEDS ORDERED: DILTIAZEM DRIP BOLUS FROM BAG 1 MG SOLN IV ONE ×2 (16:54→18:01)
[2020-01-30] MEDS ORDERED: SODIUM CHLORIDE 0.9% 500 ML 500 ML IV STA (16:54)
--- NOTE | 2020-01-30 16:54 | ED ---
Arrhythmia/Palpitations HPI - General Chief Complaint: Arrhythmia/Palpitations Stated Complaint: Fluctuating Heart Rate Time Seen by Provider: 01/30/20 16:49 Source: patient, RN notes reviewed, old records reviewed Mode of arrival: wheelchair Limitations: physical limitation - History of Present Illness Initial Comments: This is a 64-year-old female DF for evaluation she is about 10 days out of open heart surgery bypass and aortic valve replacement. On blood thinners, patient coming a significantly elevated heart rate today some anxiety and shortness of breath secondary recent which she says is both stress of the elevated heart rate and she feels the palpitations. No recent fevers no nausea vomiting or diarrhea no other illnesses, taking all medications as prescribed MD Complaint: rapid heart beat, "heart racing", palpitations -: hour(s) Context: occurred during rest Arrhythmia History: other (Recent history of heart surgery) Associated Symptoms: shortness of breath Treatments Prior to Arrival: other (Patient is on beta blockers taken as prescribed) - Related Data Previous Rx's Medication Instructions Recorded Acetaminophen Tab [Tylenol] 1,000 mg PO Q6HR PRN tab 01/21/20 Aspirin 325 mg PO DAILY tab 01/21/20 Clopidogrel [Plavix] 75 mg PO DAILY #30 tab 01/21/20 Ezetimibe [Zetia] 10 mg PO DAILY #30 tab 01/21/20 Furosemide [Lasix] 40 mg PO DAILY #4 tab 01/21/20 Metoprolol Tartrate [Lopressor] 75 mg PO BID #180 tab 01/21/20 Pantoprazole [Protonix] 40 mg PO AC-BRKFST #30 tablet. 01/21/20 Potassium Chloride ER [K-Dur 10] 10 meq PO DAILY #4 tab 01/21/20 lisinopriL [Zestril] 2.5 mg PO DAILY #30 tab 01/21/20 Allergies Allergy/AdvReac Type Severity Reaction Status Date / Time codeine Allergy Unknown "Shakey" Verified 01/30/20 16:48 hydrocodone [From Vicodin] Allergy Unknown Itching Verified 01/30/20 16:48 Review of Systems ROS Statement: Those systems with pertinent positive or pertinent negative responses have been documented in the HPI. ROS Other: All systems not noted in ROS Statement are negative. Past Medical History Past Medical History: Coronary Artery Disease (CAD), Cancer, CVA/TIA, Hyperlipidemia, Hypertension Additional Past Medical History / Comment(s): Hx LEFT BREAST CANCER, CVA 12/2017, states some delayed speech History of Any Multi-Drug Resistant Organisms: None Reported Past Surgical History: Appendectomy, Breast Surgery, Cholecystectomy, Coronary Bypass/CABG, Tonsillectomy Additional Past Surgical History / Comment(s): OVARIAN CYST WITH APPENDECTOMY, breast biopsy,left breast lumpectomy, has mary catheter for radiation left breast, cabg Past Anesthesia/Blood Transfusion Reactions: Postoperative Nausea & Vomiting (PONV) Past Psychological History: No Psychological Hx Reported Smoking Status: Former smoker Past Alcohol Use History: Occasional Past Drug Use History: None Reported - Past Family History Father Family Medical History: Cancer Additional Family Medical History / Comment(s): from lung cancer Brother(s) Family Medical History: Deep Vein Thrombosis (DVT) Mother Family Medical History: Coronary Artery Disease (CAD), Hypertension General Exam Limitations: physical limitation General appearance: alert, in no apparent distress, anxious Head exam: Present: atraumatic, normocephalic, normal inspection Eye exam: Present: normal appearance, PERRL, EOMI. Absent: scleral icterus, conjunctival injection, periorbital swelling ENT exam: Present: normal exam, mucous membranes moist Neck exam: Present: normal inspection. Absent: tenderness, meningismus, lymphadenopathy Respiratory exam: Present: accessory muscle use, decreased breath sounds, prolonged expiratory. Absent: respiratory distress, wheezes, rales, rhonchi, stridor Cardiovascular Exam: Present: normal rhythm, tachycardia, normal heart sounds. Absent: systolic murmur, diastolic murmur, rubs, gallop, clicks GI/Abdominal exam: Present: soft, normal bowel sounds. Absent: distended, tenderness, guarding, rebound, rigid Extremities exam: Present: normal inspection, full ROM, normal capillary refill. Absent: tenderness, pedal edema, joint swelling, calf tenderness Back exam: Present: normal inspection Neurological exam: Present: alert, oriented X3, CN II-XII intact Psychiatric exam: Present: normal affect, normal mood Skin exam: Present: warm, dry, intact, normal color. Absent: rash Course Vital Signs 01/30/20 01/30/20 01/30/20 16:44 17:10 17:30 Temperature 98.1 F Pulse Rate 156 H 161 H 152 H Respiratory 20 18 18 Rate Blood Pressure 119/83 118/90 105/68 O2 Sat by Pulse 95 97 98 Oximetry 01/30/20 01/30/20 17:40 17:50 Temperature Pulse Rate 151 H 151 H Respiratory 16 16 Rate Blood Pressure 94/54 100/77 O2 Sat by Pulse 99 99 Oximetry - Reevaluation(s) Reevaluation #1: 01/30/20 17:12 Medical record is reviewed Reevaluation #2: 01/30/20 18:27 Heart rate difficult to control, patient is showing A. fib likely a flutter heart rate right on 151 after metoprolol. Did switch to a dose of Cardizem and digoxin after speaking with Dr. Medellin who is patient's own neurology technologist Reevaluation #3: 01/30/20 18:27 Blood pressure remains labile cannot diuresis although she does have effusion and CHF on x-ray - Consultations Consultation #1: Spoke with H who agree to admit this patient EKG Findings - EKG Comments: EKG Findings:: EKG is sinus tach 162, VT 94, QRS 86 QTc 508 Medical Decision Making - Medical Decision Making 64 female DF for evaluation to the ER w atrial fibrillation a flutter with RVR. Moderately improved rate control and not significantly improved. Patient is on anticoagulation will continue, elevated troponin, patient does have pleural effusions anticoagulation on x-ray - Lab Data Result diagrams: 01/30/20 17:07 01/30/20 17:07 Lab Results 01/30/20 01/30/20 01/30/20 Range/Units 17:07 17:07 17:07 WBC 18.6 H (3.8-10.6) k/uL RBC 3.69 L (3.80-5.40) m/uL Hgb 11.8 (11.4-16.0) gm/dL Hct 37.1 (34.0-46.0) % MCV 100.6 H (80.0-100.0) fL MCH 32.0 (25.0-35.0) pg MCHC 31.8 (31.0-37.0) g/dL RDW 14.1 (11.5-15.5) % Plt Count 645 H D (150-450) k/uL MPV 6.8 Neutrophils % 89 % Lymphocytes % 6 % Monocytes % 3 % Eosinophils % 1 % Basophils % 0 % Neutrophils # 16.6 H (1.3-7.7) k/uL Lymphocytes # 1.0 (1.0-4.8) k/uL Monocytes # 0.6 (0-1.0) k/uL Eosinophils # 0.2 (0-0.7) k/uL Basophils # 0.1 (0-0.2) k/uL Macrocytosis Slight PT 11.3 (9.0-12.0) sec INR 1.1 (<1.2) APTT 22.6 (22.0-30.0) sec Sodium 137 (137-145) mmol/L Potassium 3.9 (3.5-5.1) mmol/L Chloride 104 (98-107) mmol/L Carbon Dioxide 27 (22-30) mmol/L Anion Gap 6 mmol/L BUN 15 (7-17) mg/dL Creatinine 0.86 (0.52-1.04) mg/dL Est GFR (CKD-EPI)AfAm 82 (>60 ml/min/1.73 sqM) Est GFR (CKD-EPI)NonAf 71 (>60 ml/min/1.73 sqM) Glucose 114 H (74-99) mg/dL Calcium 9.4 (8.4-10.2) mg/dL Phosphorus 3.1 (2.5-4.5) mg/dL Magnesium 2.0 (1.6-2.3) mg/dL Total Bilirubin 1.1 (0.2-1.3) mg/dL AST 36 (14-36) U/L ALT 69 H (4-34) U/L Alkaline Phosphatase 105 (38-126) U/L Creatine Kinase 31 (30-135) U/L Troponin I (0.000-0.034) ng/mL NT-Pro-B Natriuret Pep pg/mL Total Protein 6.1 L (6.3-8.2) g/dL Albumin 3.3 L (3.5-5.0) g/dL TSH 2.970 (0.465-4.680) mIU/L 01/30/20 01/30/20 Range/Units 17:07 17:07 WBC (3.8-10.6) k/uL RBC (3.80-5.40) m/uL Hgb (11.4-16.0) gm/dL Hct (34.0-46.0) % MCV (80.0-100.0) fL MCH (25.0-35.0) pg MCHC (31.0-37.0) g/dL RDW (11.5-15.5) % Plt Count (150-450) k/uL MPV Neutrophils % % Lymphocytes % % Monocytes % % Eosinophils % % Basophils % % Neutrophils # (1.3-7.7) k/uL Lymphocytes # (1.0-4.8) k/uL Monocytes # (0-1.0) k/uL Eosinophils # (0-0.7) k/uL Basophils # (0-0.2) k/uL Macrocytosis PT (9.0-12.0) sec INR (<1.2) APTT (22.0-30.0) sec Sodium (137-145) mmol/L Potassium (3.5-5.1) mmol/L Chloride (98-107) mmol/L Carbon Dioxide (22-30) mmol/L Anion Gap mmol/L BUN (7-17) mg/dL Creatinine (0.52-1.04) mg/dL Est GFR (CKD-EPI)AfAm (>60 ml/min/1.73 sqM) Est GFR (CKD-EPI)NonAf (>60 ml/min/1.73 sqM) Glucose (74-99) mg/dL Calcium (8.4-10.2) mg/dL Phosphorus (2.5-4.5) mg/dL Magnesium (1.6-2.3) mg/dL Total Bilirubin (0.2-1.3) mg/dL AST (14-36) U/L ALT (4-34) U/L Alkaline Phosphatase (38-126) U/L Creatine Kinase (30-135) U/L Troponin I 0.102 H* (0.000-0.034) ng/mL NT-Pro-B Natriuret Pep 2840 pg/mL Total Protein (6.3-8.2) g/dL Albumin (3.5-5.0) g/dL TSH (0.465-4.680) mIU/L - Radiology Data Radiology results: report reviewed (Chest x-rays pleural effusions and CHF), image reviewed Critical Care Time Critical Care Time: Yes Total Critical Care Time: 31 Disposition Clinical Impression: Atrial fibrillation, Tachycardia, Palpitations, Atrial fibrillation with RVR, CHF (congestive heart failure), Elevated troponin Disposition: ADMITTED IP TO THIS HOSP Condition: Fair Is patient prescribed a controlled substance at d/c from ED?: No Referrals: Chaz Robbins MD [Primary Care Provider] - 1-2 days
[2020-01-30] MEDS ORDERED: DILTIAZEM 125 MG in SODIUM CHLORIDE 0.9% 100 ML IV SCH ×2 (17:00→18:15)
[2020-01-30] MEDS ORDERED: METOPROLOL TARTRATE 5 MG/5 ML VIAL IVP STA ×4 (17:07→17:44)
[2020-01-30 17:22] LABS: Basophils # (A) 0.1 k/uL (0-0.2); Basophils % (A) 0 %; Eosinophils # (A) 0.2 k/uL (0-0.7); Eosinophils % (A) 1 %; HCT 37.1 % (34.0-46.0); HGB 11.8 gm/dL (11.4-16.0); Lymphocytes % (A) 6 %; MCHC 31.8 g/dL (31.0-37.0); MCV 100.6 fL (80.0-100.0); Macrocytosis Slight; Mean Platelet Volume 6.8; Monocytes # (A) 0.6 k/uL (0-1.0); Monocytes % (A) 3 %; Neutrophils # (A) 16.6 k/uL (1.3-7.7); Neutrophils % (A) 89 %; RBC 3.69 m/uL (3.80-5.40); RDW 14.1 % (11.5-15.5); WBC 18.6 k/uL (3.8-10.6)
[2020-01-30 17:31] LABS: Platelet Count 645 k/uL (150-450)
[2020-01-30 17:34] LABS: Albumin 3.3 g/dL (3.5-5.0); Calcium 9.4 mg/dL (8.4-10.2); INR 1.1 (<1.2); Partial Thromboplastin Time 22.6 sec (22.0-30.0); Phosphorus 3.1 mg/dL (2.5-4.5); Potassium 3.9 mmol/L (3.5-5.1); Prothrombin Time 11.3 sec (9.0-12.0); Total Bilirubin 1.1 mg/dL (0.2-1.3); Total Protein 6.1 g/dL (6.3-8.2)
[2020-01-30] MEDS ORDERED: DIGOXIN 250 MCG/ML 2 ML AMP IVP ONE (18:01)
--- NOTE | 2020-01-30 18:13 | XR ---
EXAMINATION TYPE: XR chest 1V portable DATE OF EXAM: 01/30/2020 COMPARISON: 01/21/2020 HISTORY: Short of breath TECHNIQUE: FINDINGS: Heart is enlarged. There is some pulmonary vascular congestion. There is blunting of the co stophrenic angles. There are sternal wires. There are chest leads. IMPRESSION: Congestive heart failure with pleural effusions increased compared to recent exam.
[2020-01-30] MEDS: SODIUM CHLORIDE 0.9% 1,000 ML IV SCH (19:11)
[2020-01-30] MEDS ORDERED: HEPARIN SODIUM,PORCINE 5,000 UNIT/ML 1 ML VIAL IV ONE (19:16)
[2020-01-30] MEDS ORDERED: HEPARIN SODIUM,PORCINE 5,000 UNIT/ML 1 ML VIAL IV PRN (19:16)
[2020-01-30] MEDS ORDERED: HEPARIN SOD,PORK IN 0.45% NACL 25,000 UNIT in 0.45% NACL 1 250ML.BAG IV SCH (19:30)
[2020-01-30] MEDS: FAMOTIDINE 20 MG/2 ML VIAL IV SCH (22:04)
[2020-01-31] MEDS: DIGOXIN 250 MCG/ML 2 ML AMP IVP SCH ×3 (01:00→13:41)
[2020-01-31 06:05] LABS: Basophils # (A) 0.1 k/uL (0-0.2); Basophils % (A) 1 %; Eosinophils # (A) 0.1 k/uL (0-0.7); Eosinophils % (A) 0 %; HCT 34.7 % (34.0-46.0); HGB 11.2 gm/dL (11.4-16.0); Hypochromasia Slight; Lymphocytes # (A) 1.3 k/uL (1.0-4.8); Lymphocytes % (A) 9 %; MCHC 32.4 g/dL (31.0-37.0); MCV 101.8 fL (80.0-100.0); Macrocytosis Slight; Mean Platelet Volume 7.3; Monocytes # (A) 0.6 k/uL (0-1.0); Monocytes % (A) 4 %; Neutrophils # (A) 12.9 k/uL (1.3-7.7); Neutrophils % (A) 86 %; Platelet Count 544 k/uL (150-450); RBC 3.41 m/uL (3.80-5.40); RDW 13.7 % (11.5-15.5); WBC 15.1 k/uL (3.8-10.6)
[2020-01-31 06:14] LABS: INR 1.2 (<1.2); Partial Thromboplastin Time 25.6 sec (22.0-30.0); Prothrombin Time 11.9 sec (9.0-12.0)
[2020-01-31] MEDS: PANTOPRAZOLE 40 MG TABLET PO SCH (07:19)
[2020-01-31] MEDS: APIXABAN 5 MG TAB PO SCH ×2 (09:12→21:03)
[2020-01-31] MEDS: FAMOTIDINE 20 MG/2 ML VIAL IV SCH ×2 (09:12→21:03)
[2020-01-31] MEDS: FUROSEMIDE 10 MG/ML 2 ML VIAL IV SCH ×2 (09:13→21:03)
[2020-01-31] MEDS: EZETIMIBE 10 MG TAB PO SCH (09:13)
[2020-01-31] MEDS: ASPIRIN 81 MG PO SCH (09:13)
[2020-01-31] MEDS: lisinopriL 20 MG TAB PO SCH (09:14)
[2020-01-31] MEDS: METOPROLOL TARTRATE 25 MG TAB PO SCH ×2 (09:15→21:03)
[2020-01-31] MEDS: POTASSIUM CHLORIDE ER 10 MEQ TAB.ER.PRT PO SCH (09:16)
[2020-01-31] MEDS: SPIRONOLACTONE 25 MG TAB PO SCH (09:16)
--- NOTE | 2020-01-31 11:53 | ECHOF ---
Referral Reason:Heart Failure MEASUREMENTS -------- HEIGHT: 162.6 cm WEIGHT: 126.6 kg BP: IVSd: 1.3 cm (0.6 - 1.1) LVIDd: 4.5 cm (3.9 - 5.3) LVPWd: 1.4 cm (0.6 - 1.1) EDV(Teich): 91 ml IVSs: 1.6 cm LVIDs: 2.7 cm LVPWs: 1.7 cm %IVS Thck: 25 % ESV(Teich): 27 ml EF(Teich): 71 % %FS: 40 % SV(Teich): 65 ml LALs A4C: 5.7 cm LAAs A4C: 23.5 cm LAESV A-L A4C: 82 ml LAESV MOD A4C: 73 ml LALs A2C: 4.6 cm LAAs A2C: 11.7 cm LAESV A-L A2C: 25 ml LAESV MOD A2C: 24 ml LAESV(A-L): 51 ml LAESV Index (A-L): 22.40 ml/m Ao Diam: 3.5 cm (2.0 - 3.7) LA Diam: 3.2 cm (2.7 - 3.8) EPSS: 0.5 cm MV E Franco: 0.83 m/s MV DecT: 209 ms MV Dec Grundy: 4.0 m/s MV A Franco: 0.60 m/s MV E/A Ratio: 1.40 MV PHT: 61 ms MR Vmax: 1.34 m/s MR maxP.23 mmHg AV Vmax: 2.40 m/s AV maxP.98 mmHg AV Vmax: 2.49 m/s AV Vmean: 1.95 m/s AV maxP.84 mmHg AV meanP.15 mmHg AV Env.Ti: 240 ms AV VTI: 46.8 cm TR Vmax: 1.59 m/s TR maxP.06 mmHg RAP: 5.00 mmHg RVSP: 15.06 mmHg MV EF SLOPE: 57.26 mm/s (70 - 150) MV EXCURSION: 17.31 mm (> 18.000) FINDINGS -------- This was a technically difficult study with suboptimal views. The left ventricular size is normal. There is moderate concentric left ventricular hypertrophy. O verall left ventricular systolic function is normal with, an EF between 55 - 60 %. Normal LAP Grade 1 Diastolic Dysfunction. The right ventricle is normal in size. The left atrial size is normal. The right atrial size is normal. Lumason used Peak/mean gradient across the Aortic Valve is 24.84mmHg / 16.15mmHg. Normally functioning bioprosth etic valve. The mitral valve is normal. Mild mitral regurgitation is present. The tricuspid valve appears structurally normal. Mild tricuspid regurgitation present. Right vent ricular systolic pressure is normal at < 35 mmHg. There is no pulmonic regurgitation present. The aortic root size is normal. IVC Not well visulized. There is no pericardial effusion. CONCLUSIONS -------- 1. The left ventricular size is normal. 2. There is moderate concentric left ventricular hypertrophy. 3. Overall left ventricular systolic function is normal with, an EF between 55 - 60 %. 4. Normal LAP Grade 1 Diastolic Dysfunction. 5. Peak/mean gradient across the Aortic Valve is 24.84mmHg / 16.15mmHg. 6. Normally functioning bioprosthetic valve. 7. Mild mitral regurgitation is present. 8. Mild tricuspid regurgitation present. 9. There is no pericardial effusion. ROUGH RICE TENDER: Erin Martines RDCS
--- NOTE | 2020-01-31 12:32 | P.CRDCN ---
History of Present Illness Consult date: 01/31/20 History of present illness: CHIEF COMPLAINT: A. fib, CHF HISTORY OF PRESENT ILLNESS: This is a 64 -year old female with a past medical history significant for coronary artery disease with recent CABG 2 and aortic valve replacement, hypertension, hyperlipidemia, and breast cancer. Patient follows in the office with Dr. Medellin. We have been asked to see the patient in consultation for atrial fibrillation and CHF. Patient examined this morning in the emergency room. Patient presented to the hospital secondary to shortness of breath and heart palpitations. The patient denies chest pain or pressure. The patient was started on a cardizem drip in the ER. Dr. Medellin reviewed EKG revealing atrial flutter. She is currently maintaining sinus mechanism. DIAGNOSTICS: EKG reveals atrial flutter. Heart rate 162 Chest xray congestive heart failure with pleural effusions Laboratory data: WBC 15.1. Hemoglobin 11.2. Platelet count 544. Sodium 137. Potassium 3.9. BUN 15. Creatinine 0.86. Troponin 0.102. 0.102. 0.092. 0.095. BNP 2940. Current home cardiac medications include lisinopril 10 mg daily, metoprolol 75 mg twice a day, Lasix 40 mg daily, Plavix 75 mg daily, and aspirin 25 mg daily REVIEW OF SYSTEMS: At the time of my exam: CONSTITUTIONAL: Denies fever or chills. HEENT: Denies blurred vision, vision changes, or eye pain. Denies hemoptysis CARDIOVASCULAR: Denies chest pain, orthopnea, PND or palpitations RESPIRATORY: No shortness of breath. GASTROINTESTINAL: Denies abdominal pain. Denies nausea or vomiting. HEMATOLOGIC: Denies bleeding disorders. GENITOURINARY: Denies any blood in urine. SKIN: Denies pruitis. Denies rash. PHYSICAL EXAM: VITAL SIGNS: Reviewed. GENERAL: Well-developed in no acute distress. HEENT: Head is normocephalic. Pupils are equal, round. Sclerae anicteric. Mucous membranes of the mouth are moist. Neck supple. No JVD or thyromegaly LUNGS: Respirations even and unlabored. Lungs diminished with rales to bilateral bases HEART: Regular rate and rhythm. S1 and S2 heard. Heart hugger present. ABDOMEN: Soft. Nondistended. Nontender. EXTREMITIES: Normal range of motion. No clubbing or cyanosis. Peripheral pulses intact. No lower extremity edema NEUROLOGIC: Awake and alert. Oriented x 3. ASSESSMENT: New-onset atrial flutter, currently maintaining sinus mechanism Acute exacerbation of chronic diastolic congestive heart failure, EF 55-60% Coronary artery disease with recent CABG 2 and aortic valve replacement Abnormal troponins, no evidence of acute coronary syndrome Hypertension Hyperlipidemia PLAN: Begin Eliquis 5 mg twice a day. Discontinue IV heparin Patient has been started on digoxin per ER physician. Continue digoxin 125mcg PO daily Begin Lasix 20 mg IV every 12 hours Aldactone 12.5 mg daily Monitor kidney function Accurate I&O Daily weights Obtain 2-D echo to assess cardiac structure and function Consult CTS due to recent CABG Further recommendations pending patient's course Nurse practitioner note has been reviewed by physician. Signing provider agrees with the documented findings, assessment, and plan of care. Past Medical History Past Medical History: Coronary Artery Disease (CAD), Cancer, CVA/TIA, Hyperlipidemia, Hypertension Additional Past Medical History / Comment(s): Hx LEFT BREAST CANCER, CVA 12/2017, states some delayed speech History of Any Multi-Drug Resistant Organisms: None Reported Past Surgical History: Appendectomy, Breast Surgery, Cholecystectomy, Coronary Bypass/CABG, Tonsillectomy Additional Past Surgical History / Comment(s): OVARIAN CYST WITH APPENDECTOMY, breast biopsy,left breast lumpectomy, has mary catheter for radiation left breast, cabg Past Anesthesia/Blood Transfusion Reactions: Postoperative Nausea & Vomiting (PONV) Past Psychological History: No Psychological Hx Reported Smoking Status: Former smoker Past Alcohol Use History: Occasional Past Drug Use History: None Reported - Past Family History Father Family Medical History: Cancer Additional Family Medical History / Comment(s): from lung cancer Brother(s) Family Medical History: Deep Vein Thrombosis (DVT) Mother Family Medical History: Coronary Artery Disease (CAD), Hypertension Medications and Allergies Home Medications Medication Instructions Recorded Confirmed Type Acetaminophen Tab [Tylenol] 1,000 mg PO Q6HR PRN tab 01/21/20 01/30/20 Rx Aspirin 325 mg PO DAILY tab 01/21/20 01/30/20 Rx Clopidogrel [Plavix] 75 mg PO DAILY #30 tab 01/21/20 01/30/20 Rx Ezetimibe [Zetia] 10 mg PO DAILY #30 tab 01/21/20 01/30/20 Rx Furosemide [Lasix] 40 mg PO DAILY #4 tab 01/21/20 01/30/20 Rx Metoprolol Tartrate [Lopressor] 75 mg PO BID #180 tab 01/21/20 01/30/20 Rx Pantoprazole [Protonix] 40 mg PO AC-BRKFST #30 tablet. 01/21/20 01/30/20 Rx Potassium Chloride ER [K-Dur 10] 10 meq PO DAILY #4 tab 01/21/20 01/30/20 Rx lisinopriL [Prinivil] 10 mg PO DAILY 01/30/20 01/30/20 History Allergies Allergy/AdvReac Type Severity Reaction Status Date / Time codeine Allergy Unknown "Shakey" Verified 01/30/20 21:18 hydrocodone [From Vicodin] Allergy Unknown Itching Verified 01/30/20 21:18 Physical Exam Vitals: Vital Signs Temp Pulse Pulse Resp BP Pulse Ox 01/31/20 11:29 97.6 F 76 18 123/75 99 01/31/20 11:24 97.6 F 75 16 123/65 99 01/31/20 09:26 98.1 F 86 18 127/85 100 01/31/20 09:01 98.1 F 86 18 127/85 199 H 01/31/20 06:35 98.6 F 78 18 116/71 99 01/31/20 03:00 75 18 113/98 98 01/31/20 02:00 113 H 18 123/72 98 01/31/20 01:00 112 H 18 115/94 99 01/30/20 23:00 113 H 18 122/92 95 01/30/20 22:13 156 H 18 122/92 98 01/30/20 20:30 138 H 18 102/70 98 01/30/20 20:00 128 H 18 113/81 98 01/30/20 19:30 135 H 18 113/81 98 01/30/20 19:00 105 H 16 120/77 99 01/30/20 18:43 105 H 18 109/78 98 01/30/20 18:40 124 H 20 120/88 99 01/30/20 18:30 158 H 19 110/44 98 01/30/20 18:10 151 H 01/30/20 18:00 151 H 22 100/77 99 01/30/20 17:50 151 H 16 100/77 99 01/30/20 17:40 151 H 16 94/54 99 01/30/20 17:30 152 H 18 105/68 98 01/30/20 17:10 161 H 18 118/90 97 01/30/20 16:44 98.1 F 156 H 20 119/83 95 Intake and Output 01/30/20 01/31/20 01/31/20 22:59 06:59 14:59 Intake Total 16.667 18.833 124 Balance 16.667 18.833 124 Intake: Intake, IV Titration 16.667 18.833 124 Amount Diltiazem 125 mg In 16.667 18.833 Sodium Chloride 0.9% 100 ml @ 5 MG/HR 5 mls/hr IV .Q24H [facility] Rx#:[id number] Heparin Sod,Pork in 0.45% 124 NaCl 25,000 unit In 0.45 % NaCl 1 250ml.bag @ 7. 902 UNITS/KG/HR 10 mls/hr IV .Q24H [facility] Rx#: [id number] Other: Weight 126.552 kg Results 01/31/20 04:44 01/30/20 17:07 Cardiac Enzymes 01/30/20 01/30/20 01/30/20 Range/Units 17:07 17:07 20:17 AST 36 (14-36) U/L Troponin I 0.102 H* 0.102 H* (0.000-0.034) ng/mL 01/30/20 01/31/20 Range/Units 22:35 02:00 AST (14-36) U/L Troponin I 0.092 H* 0.095 H* (0.000-0.034) ng/mL Coagulation 01/30/20 01/31/20 Range/Units 17:07 04:44 PT 11.3 11.9 (9.0-12.0) sec APTT 22.6 25.6 (22.0-30.0) sec CBC 01/30/20 01/31/20 Range/Units 17:07 04:44 WBC 18.6 H 15.1 H (3.8-10.6) k/uL RBC 3.69 L 3.41 L (3.80-5.40) m/uL Hgb 11.8 11.2 L (11.4-16.0) gm/dL Hct 37.1 34.7 (34.0-46.0) % Plt Count 645 H D 544 H (150-450) k/uL Comprehensive Metabolic Panel 01/30/20 Range/Units 17:07 Sodium 137 (137-145) mmol/L Potassium 3.9 (3.5-5.1) mmol/L Chloride 104 (98-107) mmol/L Carbon Dioxide 27 (22-30) mmol/L BUN 15 (7-17) mg/dL Creatinine 0.86 (0.52-1.04) mg/dL Glucose 114 H (74-99) mg/dL Calcium 9.4 (8.4-10.2) mg/dL AST 36 (14-36) U/L ALT 69 H (4-34) U/L Alkaline Phosphatase 105 (38-126) U/L Total Protein 6.1 L (6.3-8.2) g/dL Albumin 3.3 L (3.5-5.0) g/dL Current Medications Generic Name Dose Route Start Last Admin Trade Name Freq PRN Reason Stop Dose Admin Apixaban 5 mg 01/31/20 09:00 01/31/20 09:12 Apixaban 5 Mg Tab PO 5 mg BID AMAYA Administration Aspirin 81 mg 01/31/20 09:00 01/31/20 09:13 Aspirin 81 Mg PO 81 mg DAILY AMAYA Administration Digoxin 125 mcg 02/01/20 09:00 Digoxin 125 Mcg Tab PO DAILY AMAYA Ezetimibe 10 mg 01/31/20 09:00 01/31/20 09:13 Ezetimibe 10 Mg Tab PO 10 mg DAILY AMAYA Administration Famotidine 20 mg 01/30/20 21:00 01/31/20 09:12 Famotidine 20 Mg/2 Ml Vial IV 20 mg Q12HR AMAYA Administration Furosemide 20 mg 01/31/20 09:00 01/31/20 09:13 Furosemide 10 Mg/Ml 2 Ml Vial IV 20 mg Q12HR [facility]MA[facility] Administration Diltiazem HCl 125 mg/ Sodium 125 mls @ 5 mls/hr 01/30/20 18:15 01/30/20 23:52 Chloride IV 15 mg/hr .Q24H [facility] 15 mls/hr Infusion 5 MG/HR Sodium Chloride 1,000 mls @ 20 mls/hr 01/30/20 18:30 01/30/20 19:11 Saline 0.9% IV 20 mls/hr .Q24H [facility]MA[facility] Administration Lisinopril 5 mg 01/31/20 09:00 01/31/20 09:14 Lisinopril 20 Mg Tab PO 5 mg DAILY AMAYA Administration Metoprolol Tartrate 50 mg 01/31/20 09:00 01/31/20 09:15 Metoprolol Tartrate 25 Mg Tab PO 50 mg BID AMAYA Administration Pantoprazole Sodium 40 mg 01/31/20 07:30 01/31/20 07:19 Pantoprazole 40 Mg Tablet PO 40 mg AC-BRKFST A[facility] Administration Potassium Chloride 10 meq 01/31/20 09:00 01/31/20 09:16 Potassium Chloride Er 10 Meq Tab.Er.Prt PO 10 meq DAILY AMAYA Administration Spironolactone 12.5 mg 01/31/20 09:00 01/31/20 09:16 Spironolactone 25 Mg Tab PO 12.5 mg DAILY AMAYA Administration Intake and Output 01/30/20 01/31/20 01/31/20 22:59 06:59 14:59 Intake Total 16.667 18.833 124 Balance 16.667 18.833 124 Intake: Intake, IV Titration 16.667 18.833 124 Amount Diltiazem 125 mg In 16.667 18.833 Sodium Chloride 0.9% 100 ml @ 5 MG/HR 5 mls/hr IV .Q24H [facility] Rx#:[id number] Heparin Sod,Pork in 0.45% 124 NaCl 25,000 unit In 0.45 % NaCl 1 250ml.bag @ 7. 902 UNITS/KG/HR 10 mls/hr IV .Q24H [facility] Rx#: [id number] Other: Weight 126.552 kg 01/31/20 04:44 01/30/20 17:07
--- NOTE | 2020-01-31 12:59 | P.HPIM ---
History of Present Illness This is a pleasant 64 years old female who was recently discharged from the hospital about 10 days ago for aortic stenosis and coronary artery disease, she underwent aortic valve replacement and two-vessel bypass grafting. With other medical problems including hypertension, hyperlipidemia and nicotine dependence Presents because of dyspnea and anxiety and tachycardia. She denies coughing, no dysuria. She has some purulent discharge from the puncture at her medial upper left thigh where she had the procedure On admission her heart rate was 150-16, reversal vitals are stable. Labs showing leukocytosis of 15.1 K, rest of CBC, INR, BMP and liver enzymes were unremarkable. Troponin was elevated time for between 0.09 and 0.1 Chest x-ray: Invasive heart failure with pleural effusion agrees to recent exam EKG shows supraventricular tachycardia at 151 Echocardiogram showed ejection fraction of 55-60%. LV hypertrophy. Grade 1 diastolic dysfunction. Mild valvular disease An ER patient was started on digoxin. And started on Lasix 20 mg IV twice daily Review of Systems CONSTITUTIONAL: No fever, no malaise, no fatigue. HEENT: No recent visual problems or hearing problems. Denied any sore throat. CARDIOVASCULAR: No orthopnea, PND, no palpitations, no syncope. PULMONARY: No shortness of breath, no cough, no hemoptysis. GASTROINTESTINAL: No diarrhea, no nausea, no vomiting, no abdominal pain. Normoactive bowel sounds. NEUROLOGICAL: No headaches, no weakness, no numbness. HEMATOLOGICAL: Denies any bleeding or petechiae. GENITOURINARY: Denies any burning micturition, frequency, or urgency. MUSCULOSKELETAL/RHEUMATOLOGICAL: Denies any joint pain, swelling, or any muscle pain. ENDOCRINE: Denies any polyuria or polydipsia. Past Medical History Past Medical History: Coronary Artery Disease (CAD), Cancer, CVA/TIA, Hyperlipidemia, Hypertension Additional Past Medical History / Comment(s): Hx LEFT BREAST CANCER, CVA 12/2017, states some delayed speech History of Any Multi-Drug Resistant Organisms: None Reported Past Surgical History: Appendectomy, Breast Surgery, Cholecystectomy, Coronary Bypass/CABG, Tonsillectomy Additional Past Surgical History / Comment(s): OVARIAN CYST WITH APPENDECTOMY, breast biopsy,left breast lumpectomy, has mary catheter for radiation left breast, cabg Past Anesthesia/Blood Transfusion Reactions: Postoperative Nausea & Vomiting (PONV) Past Psychological History: No Psychological Hx Reported Smoking Status: Former smoker Past Alcohol Use History: Occasional Past Drug Use History: None Reported - Past Family History Father Family Medical History: Cancer Additional Family Medical History / Comment(s): from lung cancer Brother(s) Family Medical History: Deep Vein Thrombosis (DVT) Mother Family Medical History: Coronary Artery Disease (CAD), Hypertension Medications and Allergies Home Medications Medication Instructions Recorded Confirmed Type Acetaminophen Tab [Tylenol] 1,000 mg PO Q6HR PRN tab 01/21/20 01/30/20 Rx Aspirin 325 mg PO DAILY tab 01/21/20 01/30/20 Rx Clopidogrel [Plavix] 75 mg PO DAILY #30 tab 01/21/20 01/30/20 Rx Ezetimibe [Zetia] 10 mg PO DAILY #30 tab 01/21/20 01/30/20 Rx Furosemide [Lasix] 40 mg PO DAILY #4 tab 01/21/20 01/30/20 Rx Metoprolol Tartrate [Lopressor] 75 mg PO BID #180 tab 01/21/20 01/30/20 Rx Pantoprazole [Protonix] 40 mg PO AC-BRKFST #30 tablet. 01/21/20 01/30/20 Rx Potassium Chloride ER [K-Dur 10] 10 meq PO DAILY #4 tab 01/21/20 01/30/20 Rx lisinopriL [Prinivil] 10 mg PO DAILY 01/30/20 01/30/20 History Allergies Allergy/AdvReac Type Severity Reaction Status Date / Time codeine Allergy Unknown "Shakey" Verified 01/30/20 21:18 hydrocodone [From Vicodin] Allergy Unknown Itching Verified 01/30/20 21:18 Physical Exam Vitals: Vital Signs Temp Pulse Pulse Resp BP Pulse Ox 01/31/20 11:29 97.6 F 76 18 123/75 99 01/31/20 11:24 97.6 F 75 16 123/65 99 01/31/20 09:26 98.1 F 86 18 127/85 100 01/31/20 09:01 98.1 F 86 18 127/85 199 H 01/31/20 06:35 98.6 F 78 18 116/71 99 01/31/20 03:00 75 18 113/98 98 01/31/20 02:00 113 H 18 123/72 98 01/31/20 01:00 112 H 18 115/94 99 01/30/20 23:00 113 H 18 122/92 95 01/30/20 22:13 156 H 18 122/92 98 01/30/20 20:30 138 H 18 102/70 98 01/30/20 20:00 128 H 18 113/81 98 01/30/20 19:30 135 H 18 113/81 98 01/30/20 19:00 105 H 16 120/77 99 01/30/20 18:43 105 H 18 109/78 98 01/30/20 18:40 124 H 20 120/88 99 01/30/20 18:30 158 H 19 110/44 98 01/30/20 18:10 151 H 01/30/20 18:00 151 H 22 100/77 99 01/30/20 17:50 151 H 16 100/77 99 01/30/20 17:40 151 H 16 94/54 99 01/30/20 17:30 152 H 18 105/68 98 01/30/20 17:10 161 H 18 118/90 97 01/30/20 16:44 98.1 F 156 H 20 119/83 95 Intake and Output 01/30/20 01/31/20 01/31/20 22:59 06:59 14:59 Intake Total 16.667 18.833 124 Balance 16.667 18.833 124 Intake: Intake, IV Titration 16.667 18.833 124 Amount Diltiazem 125 mg In 16.667 18.833 Sodium Chloride 0.9% 100 ml @ 5 MG/HR 5 mls/hr IV .Q24H [facility] Rx#:[id number] Heparin Sod,Pork in 0.45% 124 NaCl 25,000 unit In 0.45 % NaCl 1 250ml.bag @ 7. 902 UNITS/KG/HR 10 mls/hr IV .Q24H [facility] Rx#: [id number] Other: Weight 126.552 kg GENERAL: The patient is alert and oriented x3, not in any acute distress. Well developed, well nourished. HEENT: Pupils are round and equally reacting to light. EOMI. No scleral icterus. No conjunctival pallor. Normocephalic, atraumatic. No pharyngeal erythema. No thyromegaly. CARDIOVASCULAR: S1 and S2 present. No murmurs, rubs, or gallops. PULMONARY: Chest is clear to auscultation, no wheezing or crackles. ABDOMEN: Soft, nontender, nondistended, normoactive bowel sounds. No palpable organomegaly. MUSCULOSKELETAL: No joint swelling or deformity. -EXTREMITIES: No cyanosis, clubbing, or pedal edema. Left upper medial thigh there is a puncture wound with some purulent discharge, dressing is in place. No surrounding cellulitis NEUROLOGICAL: Gross neurological examination did not reveal any focal deficits. SKIN: No rashes. No petechiae Results CBC & Chem 7: 01/31/20 04:44 01/30/20 17:07 Labs: Abnormal Lab Results - Last 24 Hours (Table) 01/30/20 01/30/20 01/30/20 Range/Units 17:07 17:07 17:07 WBC 18.6 H (3.8-10.6) k/uL RBC 3.69 L (3.80-5.40) m/uL Hgb (11.4-16.0) gm/dL MCV 100.6 H (80.0-100.0) fL Plt Count 645 H D (150-450) k/uL Neutrophils # 16.6 H (1.3-7.7) k/uL INR (<1.2) Glucose 114 H (74-99) mg/dL ALT 69 H (4-34) U/L Troponin I 0.102 H* (0.000-0.034) ng/mL Total Protein 6.1 L (6.3-8.2) g/dL Albumin 3.3 L (3.5-5.0) g/dL 01/30/20 01/30/20 01/31/20 Range/Units 20:17 22:35 02:00 WBC (3.8-10.6) k/uL RBC (3.80-5.40) m/uL Hgb (11.4-16.0) gm/dL MCV (80.0-100.0) fL Plt Count (150-450) k/uL Neutrophils # (1.3-7.7) k/uL INR (<1.2) Glucose (74-99) mg/dL ALT (4-34) U/L Troponin I 0.102 H* 0.092 H* 0.095 H* (0.000-0.034) ng/mL Total Protein (6.3-8.2) g/dL Albumin (3.5-5.0) g/dL 01/31/20 01/31/20 Range/Units 04:44 04:44 WBC 15.1 H (3.8-10.6) k/uL RBC 3.41 L (3.80-5.40) m/uL Hgb 11.2 L (11.4-16.0) gm/dL MCV 101.8 H (80.0-100.0) fL Plt Count 544 H (150-450) k/uL Neutrophils # 12.9 H (1.3-7.7) k/uL INR 1.2 H (<1.2) Glucose (74-99) mg/dL ALT (4-34) U/L Troponin I (0.000-0.034) ng/mL Total Protein (6.3-8.2) g/dL Albumin (3.5-5.0) g/dL Assessment and Plan Assessment: Infected left upper thigh wound from her previous surgery Supraventricular tachycardia acute on chronic diastolic CHF ejection fraction 55-60% Recent history of aortic stenosis and coronary artery disease, she underwent aortic valve replacement and two-vessel bypass grafting. patient is on Eliquis 5 mg twice daily. Hypertension Hyperlipidemia Nicotine dependence Plan: this is a pleasant 64 years old female who presents because of supraventricular tachycardia and CHF. Cardiology on the case. Digoxin was started. Continue with the Eliquis. Continue with Lasix Consult cardiovascular surgery check wound culture, consult wound care. Start Zosyn Labs and medication were reviewed.. Continue same treatment. Continue with symptomatic treatment. Resume home medication. Monitor lytes and vitals. DVT and GI prophylaxis. Further recommendations depends on the clinical course of the patient DVT prophyla Eliquis GI Prophylaxis: Ppi Prognosis is guarded
[2020-01-31 13:47] LABS: Appearance,Urine Clear (Clear); Bilirubin,Urine Negative (Negative); Blood,Urine Negative (Negative); Color,Urine Colorless; Glucose,Urine (UA) Negative (Negative); Ketones,Urine Negative (Negative); Leukocyte Esterase,Urine Negative (Negative); Nitrite,Urine Negative (Negative); PH, Urine 6.5 (5.0-8.0); Protein,Urine Negative (Negative); Specific Gravity,Urine 1.006 (1.001-1.035); Urobilinogen,Urine <2.0 mg/dL (<2.0)
[2020-01-31] MEDS: PIPERACILLIN-TAZOBACTAM 3.375 GM in SODIUM CHLORIDE 0.9% 100 ML IVPB SCH ×2 (17:04→22:57)
[2020-01-31] MEDS: SODIUM CHLORIDE 0.9% 1,000 ML IV SCH (19:42)
[2020-02-01] MEDS: ACETAMINOPHEN TAB 325 MG TAB PO PRN ×3 (00:37→23:09)
[2020-02-01] MEDS: PANTOPRAZOLE 40 MG TABLET PO SCH (06:48)
[2020-02-01 08:01] LABS: Basophils # (A) 0.1 k/uL (0-0.2); Basophils % (A) 1 %; Eosinophils # (A) 0.1 k/uL (0-0.7); Eosinophils % (A) 0 %; HCT 33.9 % (34.0-46.0); HGB 11.2 gm/dL (11.4-16.0); Hypochromasia Slight; Lymphocytes # (A) 0.8 k/uL (1.0-4.8); Lymphocytes % (A) 5 %; MCH 33.3 pg (25.0-35.0); MCV 100.9 fL (80.0-100.0); Macrocytosis Slight; Mean Platelet Volume 6.8; Monocytes # (A) 0.7 k/uL (0-1.0); Monocytes % (A) 4 %; Neutrophils # (A) 14.2 k/uL (1.3-7.7); Neutrophils % (A) 90 %; Platelet Count 453 k/uL (150-450); RBC 3.36 m/uL (3.80-5.40); RDW 13.5 % (11.5-15.5); WBC 15.8 k/uL (3.8-10.6)
[2020-02-01 08:04] LABS: Calcium 9.1 mg/dL (8.4-10.2); Magnesium 1.9 mg/dL (1.6-2.3); Potassium 3.7 mmol/L (3.5-5.1); Total Bilirubin 1.7 mg/dL (0.2-1.3); Total Protein 5.8 g/dL (6.3-8.2)
[2020-02-01 08:05] LABS: INR 1.2 (<1.2); Partial Thromboplastin Time 24.9 sec (22.0-30.0); Prothrombin Time 11.7 sec (9.0-12.0)
[2020-02-01] MEDS: APIXABAN 5 MG TAB PO SCH ×2 (08:08→21:24)
[2020-02-01] MEDS: METOPROLOL TARTRATE 25 MG TAB PO SCH ×2 (08:08→21:24)
[2020-02-01] MEDS: ASPIRIN 81 MG PO SCH (08:08)
[2020-02-01] MEDS: lisinopriL 20 MG TAB PO SCH (08:08)
[2020-02-01] MEDS: FAMOTIDINE 20 MG/2 ML VIAL IV SCH (08:08)
[2020-02-01] MEDS: SPIRONOLACTONE 25 MG TAB PO SCH (08:08)
[2020-02-01] MEDS: PIPERACILLIN-TAZOBACTAM 3.375 GM in SODIUM CHLORIDE 0.9% 100 ML IVPB SCH (08:08)
[2020-02-01] MEDS: DIGOXIN 125 MCG TAB PO SCH (08:09)
[2020-02-01] MEDS: POTASSIUM CHLORIDE ER 10 MEQ TAB.ER.PRT PO SCH (08:09)
[2020-02-01] MEDS: FUROSEMIDE 10 MG/ML 2 ML VIAL IV SCH (08:10)
[2020-02-01] MEDS: EZETIMIBE 10 MG TAB PO SCH (08:11)
[2020-02-01] MEDS ORDERED: Potassium Replacement Protocol 1 EACH MISC MISCELLANE PRN (08:37)
[2020-02-01] MEDS ORDERED: Magnesium Replacement Protocol 1 EACH MISC MISCELLANE PRN (08:41)
[2020-02-01] MEDS ORDERED: POTASSIUM CHLORIDE ER 20 MEQ TAB.ER PO SCH (09:00)
[2020-02-01] MEDS ORDERED: VANCOMYCIN IV PER PHARMACY 1 EACH MISC MISCELLANE PRN (09:07)
--- NOTE | 2020-02-01 10:39 | P.GSCN ---
History of Present Illness Consult date: 02/01/20 Reason for Consult: Recent aortic valve replacement and coronary artery bypass grafting surgery on 01/16/[address] Javier Storey. Known to our service. Requesting physician: Karli Medellin History of present illness: This is a 64-year-old female patient who is followed by Dr. Chaz Robbins on an outpatient basis. She has a past medical history significant for severe aortic valve stenosis, coronary artery disease status post aortic valve replacement using a 25 mm Avalus bioprosthetic aortic valve and is status post coronary artery bypass grafting 2 vessels on 01/16/2020. She also has a past medical history significant for hypertension, hyperlipidemia, morbid obesity, TIA in 2018, history of breast cancer, elevation of her transaminase enzymes from statins, remote history of tobacco abuse, quit smoking in 2009 and family history of coronary artery disease less than 60 years of age. She reports she has been having a good recovery from her open heart surgery at home until 01/30/2020 when she became anxious, short of breath and felt her heart was racing. She denies any recent fever, chills, nausea, vomiting, diarrhea, orthopnea, dizziness, or syncope. Due to her above-mentioned symptoms she presented to the emergency department here at [facility]. In the emergency department a chest x-ray was completed which the report showed some pulmonary vascular congestion. A 12-lead EKG was also completed which demonstrated atrial fibrillation with RVR heart rate 162 BPM. Initial laboratory results in the emergency department showed a WBC count of 18.6, hemoglobin 11.8, platelets 645, sodium 137, potassium 3.9, BUN 15, creatinine 0.86, glucose 114, and a troponin of 0.102. Due to the patient's presenting symptoms and atrial fibrillation she was admitted to the hospital for further evaluation and treatment recommendations. On 01/31/2020 she underwent a 2-D echocardiogram which demonstrated an overall left ventricular systolic function to be normal with an ejection fraction between 55 and 60%, normally functioning bioprosthetic aortic valve, mild mitral valve regurgitation and mild tricuspid valve regurgitation. No pericardial effusion demonstrated. The patient is also complaining of some increased redness to her left thigh with some serous colored drainage coming from her left groin incision. Subsequently, due to the patient's recent cardiac surgery Dr. Javier Storey from cardiothoracic surgery was consulted for further evaluation and treatment recommendations. Review of Systems A 14 point review of systems was completed and was negative except as mentioned in the HPI. Past Medical History Past Medical History: Coronary Artery Disease (CAD), Cancer, CVA/TIA, Hyperlipidemia, Hypertension Additional Past Medical History / Comment(s): History of severe bicuspid aortic valve stenosis. Hx LEFT BREAST CANCER, CVA 12/2017, states some delayed speech, history of elevated transaminase enzymes due to statin. Morbid obesity. History of Any Multi-Drug Resistant Organisms: None Reported Past Surgical History: Appendectomy, Breast Surgery, Cholecystectomy, Coronary Bypass/CABG, Tonsillectomy Additional Past Surgical History / Comment(s): OVARIAN CYST WITH APPENDECTOMY, breast biopsy,left breast lumpectomy, has mary catheter for radiation left breast, history of severe bicuspid aortic valve stenosis, status post aortic valve replacement using a 25 mm Avalus bioprosthetic aortic valve and coronary artery bypass grafting 2 vessels, BAHENA to the LAD and SVG to the distal obtuse marginal coronary artery on 01/16/2020. Past Anesthesia/Blood Transfusion Reactions: Postoperative Nausea & Vomiting (PONV) Past Psychological History: Anxiety Smoking Status: Former smoker Past Alcohol Use History: Occasional Additional Past Alcohol Use History / Comment(s): SMOKED 1- 1 1/2 PPD, SMOKED FOR 30 + YEARS. QUIT SMOKING 2009. Past Drug Use History: None Reported - Past Family History Father Family Medical History: Cancer Additional Family Medical History / Comment(s): from lung cancer Brother(s) Family Medical History: Deep Vein Thrombosis (DVT) Mother Family Medical History: Coronary Artery Disease (CAD), Hypertension Medications and Allergies Home Medications Medication Instructions Recorded Confirmed Type Acetaminophen Tab [Tylenol] 1,000 mg PO Q6HR PRN tab 01/21/20 01/30/20 Rx Aspirin 325 mg PO DAILY tab 01/21/20 01/30/20 Rx Clopidogrel [Plavix] 75 mg PO DAILY #30 tab 01/21/20 01/30/20 Rx Ezetimibe [Zetia] 10 mg PO DAILY #30 tab 01/21/20 01/30/20 Rx Furosemide [Lasix] 40 mg PO DAILY #4 tab 01/21/20 01/30/20 Rx Metoprolol Tartrate [Lopressor] 75 mg PO BID #180 tab 01/21/20 01/30/20 Rx Pantoprazole [Protonix] 40 mg PO AC-BRKFST #30 tablet. 01/21/20 01/30/20 Rx Potassium Chloride ER [K-Dur 10] 10 meq PO DAILY #4 tab 01/21/20 01/30/20 Rx lisinopriL [Prinivil] 10 mg PO DAILY 01/30/20 01/30/20 History Allergies Allergy/AdvReac Type Severity Reaction Status Date / Time codeine Allergy Unknown "Shakey" Verified 01/30/20 21:18 hydrocodone [From Vicodin] Allergy Unknown Itching Verified 01/30/20 21:18 Surgical - Exam Vital Signs Temp Pulse Resp BP Pulse Ox 98.1 F 156 H 20 119/83 95 01/30/20 16:44 01/30/20 16:44 01/30/20 16:44 01/30/20 16:44 01/30/20 16:44 - General Morbidly obese. well developed, well nourished, no distress - Eyes PERRL, normal ocular movement, no icteric - ENT normal pinna, normal nares, normal mucosa, no hearing loss, no congestion - Neck Neck is supple. no masses, no bruits, trachea midline, no venous distension - Respiratory Lung sounds are essentially clear throughout, diminished bilateral bases. No wheezes, rhonchi or crackles. Respirations are symmetrical and nonlabored. - Cardiovascular Regular rhythm and rate. S1 and S2 present, negative for S3, gallop or murmur. Sternum stable. Surgical support Bra in place. Heart hugger is in place and she is demonstrating appropriate use. Knee-high KIERRA hose and sequential compression devices in place to bilateral lower extremities. - Abdomen Abdomen is soft, nontender and nondistended. Obese. Active bowel sounds pres ent in all 4 abdominal quadrants. No guarding or rigidity. Tolerating oral intake. - Genitourinary Deferred - Rectum Deferred - Integumentary Skin is warm and dry. No clubbing or cyanosis is present. Midline sternal incision is clean, dry and approximated. No drainage or redness is present. Left groin EVH site with serous drainage, erythema to her left thigh, warm and tender to touch. EVH site to her right knee area clean, dry and approximated. No drainage or redness present. - Neurologic Cranial nerves II through XII intact. No focal or motor deficits. - Musculoskeletal normal gait - Psychiatric oriented to time, oriented to person, oriented to place, speech is normal, memory intact Results - Labs 02/01/20 07:38 02/01/20 07:38 Abnormal Lab Results - Last 24 Hours (Table) 01/31/20 02/01/20 02/01/20 Range/Units 16:51 07:38 07:38 WBC 15.8 H (3.8-10.6) k/uL RBC 3.36 L (3.80-5.40) m/uL Hgb 11.2 L (11.4-16.0) gm/dL Hct 33.9 L (34.0-46.0) % MCV 100.9 H (80.0-100.0) fL Plt Count 453 H (150-450) k/uL Neutrophils # 14.2 H (1.3-7.7) k/uL Lymphocytes # 0.8 L (1.0-4.8) k/uL INR (<1.2) APTT 63.5 H (22.0-30.0) sec Carbon Dioxide 31 H (22-30) mmol/L Glucose 121 H (74-99) mg/dL Total Bilirubin 1.7 H (0.2-1.3) mg/dL ALT 71 H (4-34) U/L Total Protein 5.8 L (6.3-8.2) g/dL Albumin 3.0 L (3.5-5.0) g/dL 02/01/20 Range/Units 07:38 WBC (3.8-10.6) k/uL RBC (3.80-5.40) m/uL Hgb (11.4-16.0) gm/dL Hct (34.0-46.0) % MCV (80.0-100.0) fL Plt Count (150-450) k/uL Neutrophils # (1.3-7.7) k/uL Lymphocytes # (1.0-4.8) k/uL INR 1.2 H (<1.2) APTT (22.0-30.0) sec Carbon Dioxide (22-30) mmol/L Glucose (74-99) mg/dL Total Bilirubin (0.2-1.3) mg/dL ALT (4-34) U/L Total Protein (6.3-8.2) g/dL Albumin (3.5-5.0) g/dL Microbiology - Last 24 Hours (Table) 01/31/20 13:34 Gram Stain - Preliminary Leg - Left Wound Culture - Preliminary Beta Hemolytic Strep Group C 01/31/20 13:54 Anaerobic Culture - Preliminary Leg - Left Diabetes panel 02/01/20 Range/Units 07:38 Sodium 138 (137-145) mmol/L Potassium 3.7 (3.5-5.1) mmol/L Chloride 104 (98-107) mmol/L Carbon Dioxide 31 H (22-30) mmol/L BUN 17 (7-17) mg/dL Creatinine 0.93 (0.52-1.04) mg/dL Glucose 121 H (74-99) mg/dL Calcium 9.1 (8.4-10.2) mg/dL AST 30 (14-36) U/L ALT 71 H (4-34) U/L Alkaline Phosphatase 93 (38-126) U/L Total Protein 5.8 L (6.3-8.2) g/dL Albumin 3.0 L (3.5-5.0) g/dL Calcium panel 02/01/20 Range/Units 07:38 Calcium 9.1 (8.4-10.2) mg/dL Albumin 3.0 L (3.5-5.0) g/dL Pituitary panel 02/01/20 Range/Units 07:38 Sodium 138 (137-145) mmol/L Potassium 3.7 (3.5-5.1) mmol/L Chloride 104 (98-107) mmol/L Carbon Dioxide 31 H (22-30) mmol/L BUN 17 (7-17) mg/dL Creatinine 0.93 (0.52-1.04) mg/dL Glucose 121 H (74-99) mg/dL Calcium 9.1 (8.4-10.2) mg/dL Adrenal panel 02/01/20 Range/Units 07:38 Sodium 138 (137-145) mmol/L Potassium 3.7 (3.5-5.1) mmol/L Chloride 104 (98-107) mmol/L Carbon Dioxide 31 H (22-30) mmol/L BUN 17 (7-17) mg/dL Creatinine 0.93 (0.52-1.04) mg/dL Glucose 121 H (74-99) mg/dL Calcium 9.1 (8.4-10.2) mg/dL Total Bilirubin 1.7 H (0.2-1.3) mg/dL AST 30 (14-36) U/L ALT 71 H (4-34) U/L Alkaline Phosphatase 93 (38-126) U/L Total Protein 5.8 L (6.3-8.2) g/dL Albumin 3.0 L (3.5-5.0) g/dL - Imaging Chest x-ray: report reviewed, image reviewed EKG: image reviewed Additional studies: 2-D echocardiogram report results reviewed. Assessment and Plan Assessment: 1. Superficial left upper thigh EVH site infection, culture showing beta hemolytic strep group C 2. New onset paroxysmal atrial fibrillation, currently normal sinus rhythm, status post placement of Atriclip to her left atrial appendage on 01/16/2020 3. Acute on chronic diastolic congestive heart failure, 2-D echocardiogram showing ejection fraction 55-60% 4. History of severe bicuspid aortic valve stenosis, status post aortic valve replacement using a 25 mm Avalus bioprosthetic aortic valve on 01/16/2020 5. History of coronary artery disease, status post 2 vessel coronary artery bypass grafting surgery on 01/16/2020 6. History of hypertension 7. History of hyperlipidemia 8. Morbid obesity 9. TIA in 2018 10. History of breast cancer 11. History of elevated transaminase enzymes from statins 12. Remote history of tobacco abuse, quit smoking in 2009 13. Family history of coronary artery disease less than 60 years of age 14. Anxiety Plan: The patient was seen and examined at her bedside on the cardiac stepdown unit. Her chart and diagnostics were reviewed. Her case was discussed in detail with Dr. Javier Storey from cardiothoracic surgery. We will discontinue her Zosyn and place her on vancomycin to be dosed by pharmacy for a positive culture to her left lower extremity showing hemolytic strep group C. Awaiting sensitivities on culture. She remains afebrile. We will place an Eagle wrap to her left lower extremity from her toes to her groin. Continue to monitor daily labs and chest x-rays. Encourage ambulating as tolerated, out of bed for all meals. Consult physical and occupational therapy. Continue to optimize medical management with aspirin, Zetia, beta chase and EAGLE inhibitor. Atrial fibrillation management per cardiology recommendations. 2-D echocardiogram results reviewed. Medical management and other comorbidities per primary care service. Continue to follow post cardiac surgery discharge instructions. Continue use of heart hugger and lifting restrictions, no lifting or pushing or pulling greater than 10 pounds or jug mild for 12 full weeks. Encourage use of incentive spirometry 10 times every hour while awake. Recommendations to follow based on patient's clinical course. Thank you Dr. Medellin for this consult and we look forward to working with you in the care of this patient. I have seen and examined the patient and agree with the assessment and plan as dictated by my nurse practitioner. Time with Patient: Greater than 30
[2020-02-01] MEDS ORDERED: VANCOMYCIN 2,500 MG in SODIUM CHLORIDE 0.9% 500 ML 500 ML IVPB ONE (11:00)
[2020-02-01 14:17] VITALS: BMI 47.6
--- NOTE | 2020-02-01 15:20 | P.PN ---
Subjective Progress Note Date: 02/01/20 CHIEF COMPLAINT: A. fib, CHF HISTORY OF PRESENT ILLNESS: Patient examined this morning at the bedside. She denies chest pain or pressure. Denies shortness of breath. She has been started on antibiotics for a superficial left upper thigh EVH site infection. PHYSICAL EXAM: VITAL SIGNS: Reviewed. GENERAL: Well-developed in no acute distress. HEENT: Head is normocephalic. Pupils are equal, round. Sclerae anicteric. Mucous membranes of the mouth are moist. Neck supple. No JVD or thyromegaly LUNGS: Respirations even and unlabored. Lungs clear. HEART: Regular rate and rhythm. S1 and S2 heard. Heart hugger present. ABDOMEN: Soft. Nondistended. Nontender. EXTREMITIES: Normal range of motion. No clubbing or cyanosis. Peripheral pul ses intact. No lower extremity edema NEUROLOGIC: Awake and alert. Oriented x 3. ASSESSMENT: New-onset atrial flutter, currently maintaining sinus mechanism Acute exacerbation of chronic diastolic congestive heart failure, EF 55-60% Coronary artery disease with recent CABG 2 and aortic valve replacement Abnormal troponins, no evidence of acute coronary syndrome Hypertension Hyperlipidemia Superficial left upper thigh EVH site infection PLAN: Continue antibiotics. Cardiothoracic surgery following Continue Eliquis Continue additional current cardiac medications Discontinue IV Lasix. Begin oral Lasix 40 mg twice a day Further recommendations pending patient's course Nurse practitioner note has been reviewed by physician. Signing provider agrees with the documented findings, assessment, and plan of care. Objective - Vital Signs Vital signs: Vital Signs Temp 97.8 F 02/01/20 11:39 Pulse 78 02/01/20 13:15 Resp 16 02/01/20 13:15 BP 109/61 02/01/20 11:39 Pulse Ox 95 02/01/20 11:39 Intake & Output 01/31/20 02/01/20 02/01/20 18:59 06:59 18:59 Intake Total 124 358 Output Total 1400 1200 Balance 124 -1400 -842 Weight 126.552 kg 125.9 kg 125.9 kg Intake: Intake, IV Titration 124 Amount Heparin Sod,Pork in 0.45% 124 NaCl 25,000 unit In 0.45 % NaCl 1 250ml.bag @ 7. 902 UNITS/KG/HR 10 mls/hr IV .Q24H [facility] Rx#: [id number] Oral 358 Output: Urine 1400 1200 Other: Voiding Method Toilet Toilet # Voids 1 # Bowel Movements 1 - Labs CBC & Chem 7: 02/01/20 07:38 02/01/20 07:38 Labs: Abnormal Lab Results - Last 24 Hours (Table) 01/31/20 02/01/20 02/01/20 Range/Units 16:51 07:38 07:38 WBC 15.8 H (3.8-10.6) k/uL RBC 3.36 L (3.80-5.40) m/uL Hgb 11.2 L (11.4-16.0) gm/dL Hct 33.9 L (34.0-46.0) % MCV 100.9 H (80.0-100.0) fL Plt Count 453 H (150-450) k/uL Neutrophils # 14.2 H (1.3-7.7) k/uL Lymphocytes # 0.8 L (1.0-4.8) k/uL INR (<1.2) APTT 63.5 H (22.0-30.0) sec Carbon Dioxide 31 H (22-30) mmol/L Glucose 121 H (74-99) mg/dL Total Bilirubin 1.7 H (0.2-1.3) mg/dL ALT 71 H (4-34) U/L Total Protein 5.8 L (6.3-8.2) g/dL Albumin 3.0 L (3.5-5.0) g/dL 02/01/20 Range/Units 07:38 WBC (3.8-10.6) k/uL RBC (3.80-5.40) m/uL Hgb (11.4-16.0) gm/dL Hct (34.0-46.0) % MCV (80.0-100.0) fL Plt Count (150-450) k/uL Neutrophils # (1.3-7.7) k/uL Lymphocytes # (1.0-4.8) k/uL INR 1.2 H (<1.2) APTT (22.0-30.0) sec Carbon Dioxide (22-30) mmol/L Glucose (74-99) mg/dL Total Bilirubin (0.2-1.3) mg/dL ALT (4-34) U/L Total Protein (6.3-8.2) g/dL Albumin (3.5-5.0) g/dL Microbiology - Last 24 Hours (Table) 01/31/20 13:34 Gram Stain - Preliminary Leg - Left Wound Culture - Preliminary Beta Hemolytic Strep Group C Gram Neg Bacilli 01/31/20 13:54 Anaerobic Culture - Preliminary Leg - Left
[2020-02-01] MEDS: MAGNESIUM SULFATE-D5W PMX 1 GM in DEXTROSE/WATER 1 100ML.BAG IVPB SCH ×2 (15:49→22:35)
[2020-02-01] MEDS ORDERED: PIPERACILLIN-TAZOBACTAM 3.375 GM in SODIUM CHLORIDE 0.9% 100 ML IVPB SCH (16:00)
[2020-02-01] MEDS: FUROSEMIDE 40 MG TAB PO SCH (17:17)
--- NOTE | 2020-02-01 20:57 | P.PN ---
Subjective This is a pleasant 64 years old female who was recently discharged from the hospital about 10 days ago for aortic stenosis and coronary artery disease, she underwent aortic valve replacement and two-vessel bypass grafting. With other medical problems including hypertension, hyperlipidemia and nicotine dependence Presents because of dyspnea and anxiety and tachycardia. She denies coughing, no dysuria. She has some purulent discharge from the p uncture at her medial upper left thigh where she had the procedure On admission her heart rate was 150-16, reversal vitals are stable. Labs showing leukocytosis of 15.1 K, rest of CBC, INR, BMP and liver enzymes were unremarkable. Troponin was elevated time for between 0.09 and 0.1 Chest x-ray: Invasive heart failure with pleural effusion agrees to recent exam EKG shows supraventricular tachycardia at 151 Echocardiogram showed ejection fraction of 55-60%. LV hypertrophy. Grade 1 diastolic dysfunction. Mild valvular disease An ER patient was started on digoxin. And started on Lasix 20 mg IV twice daily 02/01/2020 Patient still complaining from discomfort at her left upper thigh, purulent discharge is culture is growing beta hemolytic streptococcus and gram-negative bacilli. Patient to continue with Zosyn and we'll consult infectious disease for further recommendation. Cardiology on the case and echocardiogram showed ejection fraction of 55-60%, change Lasix to oral Also patient is on Eliquis and digitoxin. Blood culture is pending, patient still have leukocytosis of 13 K Review of Systems CONSTITUTIONAL: No fever, no malaise, no fatigue. HEENT: No recent visual problems or hearing problems. Denied any sore throat. CARDIOVASCULAR: No orthopnea, PND, no palpitations, no syncope. PULMONARY: No shortness of breath, no cough, no hemoptysis. GASTROINTESTINAL: No diarrhea, no nausea, no vomiting, no abdominal pain. Normoactive bowel sounds. NEUROLOGICAL: No headaches, no weakness, no numbness. HEMATOLOGICAL: Denies any bleeding or petechiae. Active Medications Generic Name Dose Route Start Last Admin Trade Name Freq PRN Reason Stop Dose Admin Acetaminophen 650 mg 01/31/20 18:58 02/01/20 11:41 Acetaminophen Tab 325 Mg Tab PO 650 mg Q6HR PRN Administration Fever and/ or Pain Apixaban 5 mg 01/31/20 09:00 02/01/20 08:08 Apixaban 5 Mg Tab PO 5 mg BID A[facility]YA Administration Aspirin 81 mg 01/31/20 09:00 02/01/20 08:08 Aspirin 81 Mg PO 81 mg DAILY AMAYA Administration Digoxin 125 mcg 02/01/20 09:00 02/01/20 08:09 Digoxin 125 Mcg Tab PO 125 mcg DAILY [facility] Administration Ezetimibe 10 mg 01/31/20 09:00 02/01/20 08:11 Ezetimibe 10 Mg Tab PO 10 mg DAILY [facility] Administration Famotidine 20 mg 02/01/20 21:00 Famotidine 20 Mg Tab PO Q12HR [facility] Furosemide 40 mg 02/01/20 16:00 02/01/20 17:17 Furosemide 40 Mg Tab PO 40 mg BID@0900,1600 [facility] Administration Sodium Chloride 1,000 mls @ 20 mls/hr 01/30/20 18:30 01/31/20 19:42 Saline 0.9% IV Not Given .Q24H [facility] Piperacillin Sod/Tazobactam 100 mls @ 25 mls/hr 02/01/20 16:00 02/01/20 17:18 Sod 3.375 gm/ Sodium Chloride IVPB 25 mls/hr Q8HR [facility] Administration Lisinopril 5 mg 01/31/20 09:00 02/01/20 08:08 Lisinopril 20 Mg Tab PO 5 mg DAILY AMAYA Administration Metoprolol Tartrate 50 mg 01/31/20 09:00 02/01/20 08:08 Metoprolol Tartrate 25 Mg Tab PO 50 mg BID AMAYA Administration Miscellaneous Information 1 each 02/01/20 08:37 Potassium Replacement Protocol 1 [facility] MISCELLANE DAILY PRN Per Protocol Protocol Miscellaneous Information 1 each 02/01/20 08:41 Magnesium Replacement Protocol 1 [facility] MISCELLANE DAILY PRN Per Protocol Protocol Pantoprazole Sodium 40 mg 01/31/20 07:30 02/01/20 06:48 Pantoprazole 40 Mg Tablet PO 40 mg [id number] AMAYA Administration Potassium Chloride 10 meq 01/31/20 09:00 02/01/20 08:09 Potassium Chloride Er 10 Meq Tab.Er.Prt PO 10 meq DAILY [facility]MA[facility] Administration Spironolactone 12.5 mg 01/31/20 09:00 02/01/20 08:08 Spironolactone 25 Mg Tab PO 12.5 mg DAILY AMAYA Administration Objective - Vital Signs Vital signs: Vital Signs Temp 97.3 F L 02/01/20 16:00 Pulse 86 02/01/20 16:00 Resp 16 02/01/20 16:00 BP 136/78 02/01/20 16:00 Pulse Ox 96 02/01/20 16:00 Intake & Output 01/31/20 02/01/20 02/01/20 18:59 06:59 18:59 Intake Total 124 358 Output Total 1400 1200 Balance 124 -1400 -842 Weight 126.552 kg 125.9 kg 125.9 kg Intake: Intake, IV Titration 124 Amount Heparin Sod,Pork in 0.45% 124 NaCl 25,000 unit In 0.45 % NaCl 1 250ml.bag @ 7. 902 UNITS/KG/HR 10 mls/hr IV .Q24H [facility] Rx#: [id number] Oral 358 Output: Urine 1400 1200 Other: Voiding Method Toilet Toilet # Voids 1 # Bowel Movements 1 - Exam GENERAL: The patient is alert and oriented x3, not in any acute distress. Well developed, well nourished. HEENT: Pupils are round and equally reacting to light. EOMI. No scleral icterus. No conjunctival pallor. Normocephalic, atraumatic. No pharyngeal erythema. No thyromegaly. CARDIOVASCULAR: S1 and S2 present. No murmurs, rubs, or gallops. PULMONARY: Chest is clear to auscultation, no wheezing or crackles. ABDOMEN: Soft, nontender, nondistended, normoactive bowel sounds. No palpable organomegaly. MUSCULOSKELETAL: No joint swelling or deformity. -EXTREMITIES: No cyanosis, clubbing, or pedal edema. Left upper medial thigh there is a puncture wound with some purulent discharge, dressing is in place. No surrounding cellulitis NEUROLOGICAL: Gross neurological examination did not reveal any focal deficits. SKIN: No rashes. No petechiae - Labs CBC & Chem 7: 02/01/20 07:38 02/01/20 07:38 Labs: Abnormal Lab Results - Last 24 Hours (Table) 02/01/20 02/01/20 02/01/20 Range/Units 07:38 07:38 07:38 WBC 15.8 H (3.8-10.6) k/uL RBC 3.36 L (3.80-5.40) m/uL Hgb 11.2 L (11.4-16.0) gm/dL Hct 33.9 L (34.0-46.0) % MCV 100.9 H (80.0-100.0) fL Plt Count 453 H (150-450) k/uL Neutrophils # 14.2 H (1.3-7.7) k/uL Lymphocytes # 0.8 L (1.0-4.8) k/uL INR 1.2 H (<1.2) Carbon Dioxide 31 H (22-30) mmol/L Glucose 121 H (74-99) mg/dL Total Bilirubin 1.7 H (0.2-1.3) mg/dL ALT 71 H (4-34) U/L Total Protein 5.8 L (6.3-8.2) g/dL Albumin 3.0 L (3.5-5.0) g/dL Microbiology - Last 24 Hours (Table) 01/31/20 13:34 Gram Stain - Preliminary Leg - Left Wound Culture - Preliminary Beta Hemolytic Strep Group C Gram Neg Bacilli 01/31/20 13:54 Anaerobic Culture - Preliminary Leg - Left Assessment and Plan Assessment: Infected left upper thigh wound from her previous surgery Supraventricular tachycardia acute on chronic diastolic CHF ejection fraction 55-60% Recent history of aortic stenosis and coronary artery disease, she underwent aortic valve replacement and two-vessel bypass grafting. patient is on Eliquis 5 mg twice daily. Hypertension Hyperlipidemia Nicotine dependence Plan: this is a pleasant 64 years old female who presents because of supraventricular tachycardia and CHF. Cardiology on the case. Digoxin was started. Continue with the Eliquis. Continue with Lasix Consult cardiovascular surgery check wound culture, consult wound care. Start Zosyn Labs and medication were reviewed.. Continue same treatment. Continue with symptomatic treatment. Resume home medication. Monitor lytes and vitals. DVT and GI prophylaxis. Further recommendations depends on the clinical course of the patient DVT prophyla Eliquis GI Prophylaxis: Ppi Prognosis is guarded
[2020-02-01] MEDS ORDERED: FAMOTIDINE 20 MG TAB PO SCH (21:00)
[2020-02-01] MEDS: CEFEPIME 2 GM in SODIUM CHLORIDE 0.9% 100 ML IVPB SCH (23:57)
[2020-02-02] MEDS ORDERED: VANCOMYCIN 2,250 MG in SODIUM CHLORIDE 0.9% 500 ML 500 ML IVPB SCH (02:00)
--- NOTE | 2020-02-02 06:27 | CONS ---
CONSULTATION DATE OF SERVICE: 02/01/2020 REASON FOR CONSULTATION: Surgical site infection. HISTORY OF PRESENT ILLNESS: The patient is a 64-year-old female who is status post coronary artery bypass grafting as well as aortic valve replacement on 01/16/2020. The patient was subsequently discharged home in stable condition. The patient has presented back to the ER at [facility] 2 days ago for evaluation of palpitation and anxiety. The patient was noticed to be in atrial fibrillation with RVR and is being managed by Cardiology team. The patient also noticed having swelling and redness to the left thigh area and some drainage from the upper end of the thigh wound the site of the venous graft. The patient has been complaining of pain to the left thigh, more of a pressure-like 3 to 4 out of 10 and no radiation and did have minimal drainage, which she says she stinks. The patient denies high-grade fever or chills and no fever has been recorded during this admission. On presentation to the hospital, the patient did have a white count of 18.6, which is currently down to 15.8. Patient did have normal kidney function, did have elevated troponin and UA was negative. Patient did have a local cultures obtained showing beta-hemolytic strep C, gram-negative. Blood culture has been negative. The patient has been treated with vancomycin, Zosyn, vancomycin was discontinued, Zosyn continued. Infectious Disease was consulted today for further management with concern for surgical site infection. REVIEW OF SYSTEMS: Positive points have been mentioned in HPI. Rest of systems are negative. PAST MEDICAL HISTORY: Coronary artery disease, CVA, TIA, hypertension, hyperlipidemia, left breast cancer. PAST SURGICAL HISTORY: Appendectomy, breast surgery, cholecystectomy, coronary artery bypass grafting, tonsillectomy. SOCIAL HISTORY: Remote history of smoking. Occasionally drinks. No drug use. FAMILY HISTORY: Father from lung cancer. Mother with history of heart disease. ALLERGIES: CODEINE, HYDROCODONE. MEDICATIONS: Medications include the patient is currently on Tylenol, Eliquis, aspirin, Zosyn, digoxin, Zetia, Pepcid, Lasix, Zestril, Lopressor, Protonix, K-Dur, and Aldactone. PHYSICAL EXAMINATION: Blood pressure 136/78 with a pulse of 86, temperature 97.3. She is 96% on room air. General description is an elderly female up in the chair in no distress. No tachypnea or accessory muscle of respiration use. HEENT: Examination shows slight pallor. No scleral icterus. Oral mucous membrane is dry. NECK: Trachea central. No thyromegaly. LUNGS: Unlabored breathing, decreased breath sounds at the bases. No wheeze. HEART: S1, S2. Irregular rhythm. No added sounds. ABDOMEN: Soft, no tenderness. No guarding or rigidity. EXTREMITIES: Left leg did have minimal swelling and redness. The upper wound did have minimal drainage, but no foul smelling. NEUROLOGICAL: Patient is awake, alert, oriented x3. Mood and affect normal. LABS: Hemoglobin 11.1, white count 15.8. BUN of 17, creatinine 0.93. Local culture with strep and gram-negative bacilli. Blood culture has been negative. DIAGNOSTIC IMPRESSION: Patient with left thigh cellulitis at the site of the venous graft for the bypass surgery that was done 2 weeks ago with some local culture positive for strep and gram- negative bacilli. ID sensitivity gram-negative currently pending. With evidence of mild cellulitis clinically not behaving as a deep infection or an abscess. PLAN: 1. We will discontinue Zosyn. 2. Start the patient on cefepime 2 grams q.12 hours. 3. Dry protective dressing to the upper end of the wound and let it drain. 4. We will follow on clinical condition and further adjust medication if needed. Thank you for this consultation. Will follow this patient along with you. MMODL / IJN: [id number] /
[2020-02-02] MEDS: PANTOPRAZOLE 40 MG TABLET PO SCH (06:33)
[2020-02-02] MEDS: SODIUM CHLORIDE 0.9% 1,000 ML IV SCH ×2 (06:52→17:12)
--- NOTE | 2020-02-02 08:32 | XR ---
EXAMINATION TYPE: XR chest 1V portable DATE OF EXAM: 02/02/2020 COMPARISON: 01/30/2020 INDICATION: Postoperative cardiac surgery TECHNIQUE: Single frontal view of the chest is obtained. FINDINGS: The heart size is mild the prominent. The pulmonary vasculature is normal. Mild bibasilar infiltrates are present. IMPRESSION: 1. Stable bibasal infiltrates. Correlate for pneumonia and atelectasis
[2020-02-02 08:47] LABS: Basophils # (A) 0.1 k/uL (0-0.2); Basophils % (A) 1 %; Eosinophils # (A) 0.1 k/uL (0-0.7); Eosinophils % (A) 1 %; HCT 33.2 % (34.0-46.0); HGB 10.9 gm/dL (11.4-16.0); Hypochromasia Slight; Lymphocytes # (A) 0.9 k/uL (1.0-4.8); Lymphocytes % (A) 9 %; MCH 32.9 pg (25.0-35.0); MCHC 32.7 g/dL (31.0-37.0); MCV 100.6 fL (80.0-100.0); Macrocytosis Slight; Mean Platelet Volume 6.7; Monocytes # (A) 0.4 k/uL (0-1.0); Monocytes % (A) 4 %; Neutrophils # (A) 8.3 k/uL (1.3-7.7); Neutrophils % (A) 85 %; Platelet Count 406 k/uL (150-450); RDW 13.4 % (11.5-15.5); WBC 9.8 k/uL (3.8-10.6)
[2020-02-02 08:58] LABS: Calcium 9.1 mg/dL (8.4-10.2); Magnesium 2.4 mg/dL (1.6-2.3); Potassium 3.9 mmol/L (3.5-5.1)
[2020-02-02 09:06] LABS: INR 1.1 (<1.2); Prothrombin Time 11.4 sec (9.0-12.0)
[2020-02-02] MEDS: CEFEPIME 2 GM in SODIUM CHLORIDE 0.9% 100 ML IVPB SCH ×2 (09:36→20:31)
[2020-02-02] MEDS: DIGOXIN 125 MCG TAB PO SCH (09:37)
[2020-02-02] MEDS: EZETIMIBE 10 MG TAB PO SCH (09:37)
[2020-02-02] MEDS: APIXABAN 5 MG TAB PO SCH ×2 (09:37→20:31)
[2020-02-02] MEDS: ASPIRIN 81 MG PO SCH (09:37)
[2020-02-02] MEDS: POTASSIUM CHLORIDE ER 10 MEQ TAB.ER.PRT PO SCH (09:38)
[2020-02-02] MEDS: lisinopriL 20 MG TAB PO SCH (09:38)
[2020-02-02] MEDS: SPIRONOLACTONE 25 MG TAB PO SCH (09:38)
[2020-02-02] MEDS: METOPROLOL TARTRATE 25 MG TAB PO SCH ×2 (09:38→20:30)
[2020-02-02] MEDS: FUROSEMIDE 40 MG TAB PO SCH ×2 (09:38→17:13)
--- NOTE | 2020-02-02 10:58 | P.PN ---
Subjective Progress Note Date: 02/02/20 Principal diagnosis: Superficial left upper thigh EVH site cellulitis, culture showing beta hemolytic strep group C, pseudomonas; new onset paroxysmal atrial fibrillation, acute on chronic diastolic congestive heart failure. Previous medical history of severe calcified bicuspid aortic valve stenosis status post aortic valve replacement 01/16/2020, coronary artery disease status post 2 vessel CABG on 01/16/2020, hypertension, hyperlipidemia, morbid obesity, TIA in 2018, breast cancer status post lumpectomy with radiation, transaminitis from statins, previous tobacco dependence, anxiety, and family history of premature coronary artery disease The patient was seen and examined this morning with Dr. Storey. She was up in the recliner in no acute distress although very teary-eyed over her diet. Does state pain is controlled on current medication regimen, denies shortness of breath. Requesting to go home. She has been refusing SCDs and occasionally taking off her Eagle wrap to her left leg. Superficial wound cultures to her left thigh reported beta-hemolytic strep group C as well as finalized culture this morning of Pseudomonas which is susceptible to cefepime. WBC 9.8 this morning, remains afebrile. Remains in normal sinus rhythm without any further atrial f ibrillation. Objective - Vital Signs Vital signs: Vital Signs Temp 97.9 F 02/02/20 04:00 Pulse 67 02/02/20 04:00 Resp 16 02/02/20 04:00 BP 143/60 02/02/20 04:00 Pulse Ox 98 02/02/20 04:00 Intake & Output 02/01/20 02/02/20 02/02/20 18:59 06:59 18:59 Intake Total 1698 1456 Output Total 1800 750 Balance -102 706 Weight 125.9 kg 125.3 kg Intake: Intake, IV Titration 860 916 Amount Cefepime 2 gm In Sodium 100 Chloride 0.9% 100 ml @ 25 mls/hr IVPB Q12HR [facility] Rx #:[id number] Magnesium Sulfate-D5w Pmx 100 100 1 gm In Dextrose/Water 1 100ml.bag @ 100 mls/hr IVPB Q1H [facility] Rx#: [id number] Piperacillin-Tazobactam 3 200 200 .375 gm In Sodium Chloride 0.9% 100 ml @ 25 mls/hr IVPB Q8HR [facility] Rx# :[id number] Sodium Chloride 0.9% 1, 60 16 000 ml @ 20 mls/hr IV . Q24H [facility] Rx#:[id number] Vancomycin 2,250 mg In 500 500 Sodium Chloride 0.9% 500 ml 500 ml @ 167 mls/hr IVPB Q16H [facility] Rx#: [id number] Oral 838 540 Output: Urine 1800 750 Other: Voiding Method Toilet Toilet # Voids 1 # Bowel Movements 1 0 - Constitutional General appearance: Present: cooperative, morbidly obese, no acute distress - Respiratory Details: Lungs sounds diminished bilaterally. Respirations even, nonlabored. Currently on room air with oxygen saturation 98%. Able to achieve 1000 mL on incentive spirometry. Strong nonproductive cough. - Cardiovascular Details: S1, S2 present. Regular rate and rhythm, sinus rhythm on telemetry. Sternum stable. Palpable peripheral pulses bilaterally. Bilateral lower extremity edema present. No Pain or tenderness noted. Heart hugger in place with patient demonstrating appropriate use. Left leg Eagle wrapped from toes to thigh. Con tinues to refuse SCDs. - Gastrointestinal Gastrointestinal Comment(s): Abdomen soft, nontender, nondistended. Active bowel sounds present 4 quadrants. Tolerating oral intake although dislikes her diet. Positive bowel movement yesterday. - Genitourinary Genitourinary Comment(s): Continues to void - Integumentary Integumentary Comment(s): Skin is warm and dry. Anterior chest incision well approximated without redness or drainage. Left groin EVH site with serous drainage present, currently Eagle wrapped - Neurologic Neurologic: Present: CNII-XII intact - Musculoskeletal Musculoskeletal: Present: gait normal, strength equal bilaterally - Psychiatric Psychiatric Comment(s): Weepy today Psychiatric: Present: A&O x's 3, intact judgment & insight - Allied health notes Allied health notes reviewed: nursing - Labs CBC & Chem 7: 02/02/20 07:56 02/02/20 07:56 Labs: Abnormal Lab Results - Last 24 Hours (Table) 02/02/20 02/02/20 Range/Units 07:56 07:56 RBC 3.30 L (3.80-5.40) m/uL Hgb 10.9 L (11.4-16.0) gm/dL Hct 33.2 L (34.0-46.0) % MCV 100.6 H (80.0-100.0) fL Neutrophils # 8.3 H (1.3-7.7) k/uL Lymphocytes # 0.9 L (1.0-4.8) k/uL Carbon Dioxide 32 H (22-30) mmol/L Magnesium 2.4 H (1.6-2.3) mg/dL Microbiology - Last 24 Hours (Table) 01/31/20 13:34 Gram Stain - Final Leg - Left Wound Culture - Final Beta Hemolytic Strep Group C Pseudomonas aeruginosa 01/31/20 16:51 Blood Culture - Preliminary Blood No Growth after 24 hours - Imaging and Cardiology Chest x-ray: report reviewed, image reviewed Assessment and Plan Assessment: 1. Superficial left upper thigh EVH site cellulitis, culture showing beta hemolytic strep group C, pseudomonas, currently on IV cefepime per ID 2. New onset paroxysmal atrial fibrillation, currently sinus rhythm, status post left atrial appendage ligation 3. Acute on chronic diastolic congestive heart failure 4. History of severe calcified bicuspid aortic valve stenosis status post aortic valve replacement 01/16/2020 5. Coronary artery disease status post 2 vessel CABG on 01/16/2020 6. Hypertension 7. Hyperlipidemia 8. Morbid obesity 9. TIA in 2018 10. History of breast cancer status post lumpectomy with radiation 11. Transaminitis from statins 12. Previous tobacco dependence 13. Anxiety 14. Family history of premature coronary artery disease Plan: 1. Continue aspirin, Zetia, Ada chase, EAGLE inhibitor, Lasix, Aldactone. No statin secondary to intolerance with increased liver enzymes 2. Continue digoxin, Eliquis per cardiology for A. fib prophylaxis 3. Continue IV cefepime per infectious disease. Recommend transitioning to oral antibiotics tomorrow for discharge to home 4. Continue to Eagle wrap left leg from toes to thigh daily 5. Patient must shower daily. 6. Increase activity, ambulate as tolerated. PT/OT consulted 7. GI/DVT prophylaxis 8. Will monitor daily labs and x-rays 9. Daily weights with stand up scale, strict I and O 10. Continue to follow post cardiac surgery discharge instructions, continue heart hugger and lifting restrictions 11. Encourage incentive spirometry is 10 times every hour while awake 12. We recommend discharge to home with home care tomorrow on oral antibiotics to avoid further risk of infection or Covid exposure. Follow-up appointment with Dr. Storey placed on discharge plan Time with Patient: Greater than 30
[2020-02-02 12:26] LABS: Glucose,Whole Blood 122 mg/dL (75-99)
--- NOTE | 2020-02-02 12:56 | P.PN ---
Subjective Progress Note Date: 02/02/20 This is a 64-year-old female patient who is followed by Dr. Chaz Robbins on an outpatient basis. She has a past medical history significant for severe aortic valve stenosis, coronary artery disease status post aortic valve replacement using a 25 mm Avalus bioprosthetic aortic valve and is status post coronary artery bypass grafting 2 vessels on 01/16/2020. She also has a past medical history significant for hypertension, hyperlipidemia, morbid obesity, TIA in 2018, history of breast cancer, elevation of her transaminase enzymes from statins, remote history of tobacco abuse, quit smoking in 2009 and family history of coronary artery disease less than 60 years of age. She reports she has been having a good recovery from her open heart surgery at home until 01/30/2020 when she became anxious, short of breath and felt her heart was racing. She denies any recent fever, chills, nausea, vomiting, diarrhea, orthopnea, dizziness, or syncope. Due to her above-mentioned symptoms she presented to the emergency department here at [facility]. In the emergency department a chest x-ray was completed which the report showed some pulmonary vascular congestion. A 12-lead EKG was also completed which demonstrated atrial fibrillation with RVR heart rate 162 BPM. Initial laboratory results in the emergency department showed a WBC count of 18.6, hemoglobin 11.8, platelets 645, sodium 137, potassium 3.9, BUN 15, creatinine 0.86, glucose 114, and a troponin of 0.102. Due to the patient's presenting symptoms and atrial fibrillation she was admitted to the hospital for further evaluation and treatment recommendations. On 01/31/2020 she underwent a 2-D echocardiogram which demonstrated an overall left ventricular systolic function to be normal with an ejection fraction between 55 and 60%, normally functioning bioprosthetic aortic valve, mild mitral valve regurgitation and mild tricuspid valve regurgitation. No pericardial effusion demonstrated. The patient is also complaining of some increased redness to her left thigh with some serous colored drainage coming from her left groin incision. Patient was seen and examined this morning, she does state that overall her thigh is feeling quite a bit better. She's remaining at this time in a normal sinus rhythm. Blood pressure 124/70 with a heart rate of 80, 96% on room air. White blood cell count 9.8, hemoglobin 10.9, platelet count 406. Sodium 138, potassium 3.9, BUN 17, creatinine 0.9. Objective - Vital Signs Vital signs: Vital Signs Temp 97.7 F 02/02/20 08:00 Pulse 83 02/02/20 08:00 Resp 16 02/02/20 08:00 BP 125/70 02/02/20 08:00 Pulse Ox 96 02/02/20 08:00 Intake & Output 02/01/20 02/02/20 02/02/20 18:59 06:59 18:59 Intake Total 1698 1456 Output Total 1800 750 300 Balance -102 706 -300 Weight 125.9 kg 125.3 kg Intake: Intake, IV Titration 860 916 Amount Cefepime 2 gm In Sodium 100 Chloride 0.9% 100 ml @ 25 mls/hr IVPB Q12HR [facility] Rx #:[id number] Magnesium Sulfate-D5w Pmx 100 100 1 gm In Dextrose/Water 1 100ml.bag @ 100 mls/hr IVPB Q1H [facility] Rx#: [id number] Piperacillin-Tazobactam 3 200 200 .375 gm In Sodium Chloride 0.9% 100 ml @ 25 mls/hr IVPB Q8HR [facility] Rx# :[id number] Sodium Chloride 0.9% 1, 60 16 000 ml @ 20 mls/hr IV . Q24H [facility] Rx#:[id number] Vancomycin 2,250 mg In 500 500 Sodium Chloride 0.9% 500 ml 500 ml @ 167 mls/hr IVPB Q16H [facility] Rx#: [id number] Oral 838 540 Output: Urine 1800 750 300 Other: Voiding Method Toilet Toilet Toilet # Voids 1 1 # Bowel Movements 1 0 - Exam PHYSICAL EXAMINATION: GENERAL: 64-year-old female in no acute distress at the time of my examination HEENT: Head is atraumatic, normocephalic. Pupils equal, round. Sclera anicteric. Conjunctiva are clear. Mucous membranes of the mouth are moist. Neck is supple. There is no elevated jugular venous pressure. No carotid bruit is heard. HEART EXAMINATION: Heart S1, S2 normal. No murmur or gallop heard. CHEST EXAMINATION: Lungs are clear to auscultation and precussion. No chest wall tenderness is noted on palpation or with deep breathing. ABDOMEN: Soft, nontender. Bowel sounds are heard. No organomegaly noted. EXTREMITIES: 2+ peripheral pulses with no evidence of peripheral edema and no calf tenderness noted. Left groin EVH site with small amount of drainage, ear erythema to her left thigh, warm and tender to touch. EVH site to her right knee clean and dry well approximated with no drainage or redness. NEUROLOGIC patient is awake, alert and oriented 3 . . - Labs CBC & Chem 7: 02/02/20 07:56 02/02/20 07:56 Labs: Abnormal Lab Results - Last 24 Hours (Table) 02/02/20 02/02/20 02/02/20 Range/Units 07:56 07:56 12:10 RBC 3.30 L (3.80-5.40) m/uL Hgb 10.9 L (11.4-16.0) gm/dL Hct 33.2 L (34.0-46.0) % MCV 100.6 H (80.0-100.0) fL Neutrophils # 8.3 H (1.3-7.7) k/uL Lymphocytes # 0.9 L (1.0-4.8) k/uL Carbon Dioxide 32 H (22-30) mmol/L POC Glucose (mg/dL) 122 H (75-99) mg/dL Magnesium 2.4 H (1.6-2.3) mg/dL Microbiology - Last 24 Hours (Table) 01/31/20 13:34 Gram Stain - Final Leg - Left Wound Culture - Final Beta Hemolytic Strep Group C Pseudomonas aeruginosa 01/31/20 16:51 Blood Culture - Preliminary Blood No Growth after 24 hours Assessment and Plan Plan: Assessment and plan 1. Superficial left upper thigh EVH site infection, culture showing beta hemolytic strep group C 2. New onset paroxysmal atrial fibrillation, currently normal sinus rhythm, status post placement of Atriclip to her left atrial appendage on 01/16/2020 3. Acute on chronic diastolic congestive heart failure, 2-D echocardiogram showing ejection fraction 55-60% 4. History of severe bicuspid aortic valve stenosis, status post aortic valve replacement using a 25 mm Avalus bioprosthetic aortic valve on 01/16/2020 5. History of coronary artery disease, status post 2 vessel coronary artery bypass grafting surgery on 01/16/2020 6. History of hypertension 7. History of hyperlipidemia 8. Morbid obesity 9. TIA in 2018 10. History of breast cancer 11. History of elevated transaminase enzymes from statins 12. Remote history of tobacco abuse, quit smoking in 2009 13. Family history of coronary artery disease less than 60 years of age 14. Anxiety Plan From cardiology's perspective, patient may be discharged once cleared by primary and cardiovascular surgery. She still continues at this time to be on IV antibiotics. We'll make her a follow-up appointment in the office post discharge. DNP note has been reviewed, I agree with a documented findings and plan of care. Patient was seen and examined.
[2020-02-02 17:51] LABS: Glucose,Whole Blood 120 mg/dL (75-99)
[2020-02-02 20:17] LABS: Glucose,Whole Blood 125 mg/dL (75-99)
--- NOTE | 2020-02-02 20:54 | P.PN ---
Subjective This is a pleasant 64 years old female who was recently discharged from the hospital about 10 days ago for aortic stenosis and coronary artery disease, she underwent aortic valve replacement and two-vessel bypass grafting. With other medical problems including hypertension, hyperlipidemia and nicotine dependence Presents because of dyspnea and anxiety and tachycardia. She denies coughing, no dysuria. She has some purulent discharge from the p uncture at her medial upper left thigh where she had the procedure On admission her heart rate was 150-16, reversal vitals are stable. Labs showing leukocytosis of 15.1 K, rest of CBC, INR, BMP and liver enzymes were unremarkable. Troponin was elevated time for between 0.09 and 0.1 Chest x-ray: Invasive heart failure with pleural effusion agrees to recent exam EKG shows supraventricular tachycardia at 151 Echocardiogram showed ejection fraction of 55-60%. LV hypertrophy. Grade 1 diastolic dysfunction. Mild valvular disease An ER patient was started on digoxin. And started on Lasix 20 mg IV twice daily 02/01/2020 Patient still complaining from discomfort at her left upper thigh, purulent discharge is culture is growing beta hemolytic streptococcus and gram-negative bacilli. Patient to continue with Zosyn and we'll consult infectious disease for further recommendation. Cardiology on the case and echocardiogram showed ejection fraction of 55-60%, change Lasix to oral Also patient is on Eliquis and digitoxin. Blood culture is pending, patient still have leukocytosis of 13 K 02/02/2020 Patient looks comfortable, no specific complaint, no chest pain or dyspnea. Still some discomfort at her wound site in the medial left upper eyelid. Wound culture is growing group C streptococcus and pseudomonas which is sensitive to many antibiotics, currently antibiotics was switched to cefepime by ID team with the plan to change to oral antibiotics tomorrow and possible discharge as per cardiothoracic surgery recommendation. Cardiology team have signed off the case. WBC is back to normal Objective - Vital Signs Vital signs: Vital Signs Temp 97.9 F 02/02/20 16:00 Pulse 87 02/02/20 16:00 Resp 17 02/02/20 16:00 BP 148/67 02/02/20 16:00 Pulse Ox 96 02/02/20 16:00 Intake & Output 02/02/20 02/02/20 02/03/20 06:59 18:59 06:59 Intake Total 1456 820 Output Total 750 300 Balance 706 520 Weight 125.3 kg Intake: Intake, IV Titration 916 100 Amount Cefepime 2 gm In Sodium 100 100 Chloride 0.9% 100 ml @ 25 mls/hr IVPB Q12HR [facility] Rx #:[id number] Magnesium Sulfate-D5w Pmx 100 1 gm In Dextrose/Water 1 100ml.bag @ 100 mls/hr IVPB Q1H [facility] Rx#: [id number] Piperacillin-Tazobactam 3 200 .375 gm In Sodium Chloride 0.9% 100 ml @ 25 mls/hr IVPB Q8HR [facility] Rx# :[id number] Sodium Chloride 0.9% 1, 16 000 ml @ 20 mls/hr IV . Q24H [facility] Rx#:[id number] Vancomycin 2,250 mg In 500 Sodium Chloride 0.9% 500 ml 500 ml @ 167 mls/hr IVPB Q16H [facility] Rx#: [id number] Oral 540 720 Output: Urine 750 300 Other: Voiding Method Toilet Toilet # Voids 1 4 # Bowel Movements 0 - Exam GENERAL: The patient is alert and oriented x3, not in any acute distress. Well developed, well nourished. HEENT: Pupils are round and equally reacting to light. EOMI. No scleral icterus. No conjunctival pallor. Normocephalic, atraumatic. No pharyngeal erythema. No t hyromegaly. CARDIOVASCULAR: S1 and S2 present. No murmurs, rubs, or gallops. PULMONARY: Chest is clear to auscultation, no wheezing or crackles. ABDOMEN: Soft, nontender, nondistended, normoactive bowel sounds. No palpable organomegaly. MUSCULOSKELETAL: No joint swelling or deformity. -EXTREMITIES: No cyanosis, clubbing, or pedal edema. Left upper medial thigh there is a puncture wound with some purulent discharge, dressing is in place. No surrounding cellulitis NEUROLOGICAL: Gross neurological examination did not reveal any focal deficits. SKIN: No rashes. No petechiae - Labs CBC & Chem 7: 02/02/20 07:56 02/02/20 07:56 Labs: Abnormal Lab Results - Last 24 Hours (Table) 02/02/20 02/02/20 02/02/20 Range/Units 07:56 07:56 12:10 RBC 3.30 L (3.80-5.40) m/uL Hgb 10.9 L (11.4-16.0) gm/dL Hct 33.2 L (34.0-46.0) % MCV 100.6 H (80.0-100.0) fL Neutrophils # 8.3 H (1.3-7.7) k/uL Lymphocytes # 0.9 L (1.0-4.8) k/uL Carbon Dioxide 32 H (22-30) mmol/L POC Glucose (mg/dL) 122 H (75-99) mg/dL Magnesium 2.4 H (1.6-2.3) mg/dL 02/02/20 Range/Units 17:40 RBC (3.80-5.40) m/uL Hgb (11.4-16.0) gm/dL Hct (34.0-46.0) % MCV (80.0-100.0) fL Neutrophils # (1.3-7.7) k/uL Lymphocytes # (1.0-4.8) k/uL Carbon Dioxide (22-30) mmol/L POC Glucose (mg/dL) 120 H (75-99) mg/dL Magnesium (1.6-2.3) mg/dL Microbiology - Last 24 Hours (Table) 01/31/20 16:51 Blood Culture - Preliminary Blood No Growth after 48 hours 01/31/20 13:34 Gram Stain - Final Leg - Left Wound Culture - Final Beta Hemolytic Strep Group C Pseudomonas aeruginosa Assessment and Plan Assessment: Infected left upper thigh wound from her previous surgery Supraventricular tachycardia acute on chronic diastolic CHF ejection fraction 55-60% Recent history of aortic stenosis and coronary artery disease, she underwent aortic valve replacement and two-vessel bypass grafting. patient is on Eliquis 5 mg twice daily. Hypertension Hyperlipidemia Nicotine dependence Plan: this is a pleasant 64 years old female who presents because of supraventricular tachycardia and CHF. Cardiology on the case. Digoxin was started. Continue with the Eliquis. Continue with Lasix Consult cardiovascular surgery check wound culture, consult wound care. Start Zosyn Labs and medication were reviewed.. Continue same treatment. Continue with symptomatic treatment. Resume home medication. Monitor lytes and vitals. DVT and GI prophylaxis. Further recommendations depends on the clinical course of the patient DVT prophyla Eliquis GI Prophylaxis: Ppi Prognosis is guarded
--- NOTE | 2020-02-02 23:27 | PN ---
PROGRESS NOTE DATE OF SERVICE: 02/02/2020 REASON FOR FOLLOWUP: Left leg surgical site infection. INTERVAL HISTORY: The patient is currently afebrile. The patient is breathing comfortably. Denies having any chest pain. No shortness of breath or cough. No abdominal pain or diarrhea. PHYSICAL EXAMINATION: Blood pressure is 122/58 with a pulse of 92, temperature 97.8. She is 94% on room air. General description is an elderly female lying in bed in no distress. RESPIRATORY SYSTEM: Unlabored breathing, clear to auscultation anteriorly. HEART: S1, S2. Regular rate and rhythm. ABDOMEN: Soft, no tenderness. Left leg is currently wrapped up. No obvious drainage on the dressing. LABS: Hemoglobin is 10.9, white count 9.8. BUN of 17, creatinine 0.91. DIAGNOSTIC IMPRESSION AND PLAN: Patient with left leg infected wound in this patient status post bypass. Culture with Pseudomonas and Beta Hemolytic Strep. Patient is covered with cefepime to continue with a plan to finish with oral antibiotics on discharge. Continue supportive care. MMODL / IJN: [id number] /
[2020-02-03] MEDS: ACETAMINOPHEN TAB 325 MG TAB PO PRN (00:14)
[2020-02-03 01:30] VITALS: RESP 18
[2020-02-03 05:42] LABS: Glucose,Whole Blood 104 mg/dL (75-99)
[2020-02-03] MEDS: PANTOPRAZOLE 40 MG TABLET PO SCH (06:47)
--- NOTE | 2020-02-03 07:27 | P.PN ---
Subjective Progress Note Date: 02/03/20 Principal diagnosis: Superficial left upper thigh EVH site cellulitis, culture showing beta hemolytic strep group C, pseudomonas; new onset paroxysmal atrial fibrillation, acute on chronic diastolic congestive heart failure. Previous medical history of severe calcified bicuspid aortic valve stenosis status post aortic valve replacement 01/16/2020, coronary artery disease status post 2 vessel CABG on 01/16/2020, hypertension, hyperlipidemia, morbid obesity, TIA in 2018, breast cancer status post lumpectomy with radiation, transaminitis from statins, previous tobacco dependence, anxiety, and family history of premature coronary artery disease The patient was seen and examined this morning with Dr. Logan. She was up in the recliner in no acute distress although very teary-eyed again over "very busy night". Does state pain is controlled on current medication regimen, denies shortness of breath. Requesting to go home. She has been refusing SCDs and occasionally taking off her Eagle wrap to her left leg. Superficial wound cultures to her left thigh reported beta-hemolytic strep group C as well as Pseudomonas which is susceptible to multiple antibiotics. Remains afebrile. Remains in normal sinus rhythm without any further atrial fibrillation. Objective - Vital Signs Vital signs: Vital Signs Temp 97.4 F L 02/03/20 04:00 Pulse 87 02/03/20 04:00 Resp 18 02/03/20 04:00 BP 154/74 02/03/20 04:00 Pulse Ox 94 L 02/03/20 04:00 Intake & Output 02/02/20 02/03/20 02/03/20 18:59 06:59 18:59 Intake Total 820 Output Total 300 250 Balance 520 -250 Weight 123.8 kg Intake: Intake, IV Titration 100 Amount Cefepime 2 gm In Sodium 100 Chloride 0.9% 100 ml @ 25 mls/hr IVPB Q12HR [facility] Rx #:[id number] Oral 720 Output: Urine 300 250 Other: Voiding Method Toilet Toilet # Voids 4 2 # Bowel Movements 1 - Constitutional General appearance: Present: cooperative, morbidly obese, no acute distress - Respiratory Details: Lungs sounds diminished bilaterally. Respirations even, nonlabored. Currently on room air with oxygen saturation 94%. Able to achieve 1000 mL on incentive spirometry. Strong nonproductive cough. - Cardiovascular Details: S1, S2 present. Regular rate and rhythm, sinus rhythm on telemetry. Sternum stable. Palpable peripheral pulses bilaterally. Bilateral lower extremity edema present. No calf pain or tenderness noted. Heart hugger in place with patient demonstrating appropriate use. Left leg Eagle wrapped from toes to thigh. Continues to refuse SCDs. - Gastrointestinal Gastrointestinal Comment(s): Abdomen soft, nontender, nondistended. Active bowel sounds present 4 quadrant s. Tolerating oral intake although dislikes her diet. Positive bowel movement 02/01. - Genitourinary Genitourinary Comment(s): Continues to void - Integumentary Integumentary Comment(s): Skin is warm and dry. Anterior chest incision well approximated without redness or drainage. Left groin EVH site with serous drainage present, currently Eagle wrapped - Neurologic Neurologic: Present: CNII-XII intact - Musculoskeletal Musculoskeletal: Present: gait normal, strength equal bilaterally - Psychiatric Psychiatric Comment(s): Very teary eyed Psychiatric: Present: A&O x's 3 - Allied health notes Allied health notes reviewed: nursing - Labs CBC & Chem 7: 02/02/20 07:56 02/02/20 07:56 Labs: Abnormal Lab Results - Last 24 Hours (Table) 02/02/20 02/02/20 02/02/20 Range/Units 07:56 07:56 12:10 RBC 3.30 L (3.80-5.40) m/uL Hgb 10.9 L (11.4-16.0) gm/dL Hct 33.2 L (34.0-46.0) % MCV 100.6 H (80.0-100.0) fL Neutrophils # 8.3 H (1.3-7.7) k/uL Lymphocytes # 0.9 L (1.0-4.8) k/uL Carbon Dioxide 32 H (22-30) mmol/L POC Glucose (mg/dL) 122 H (75-99) mg/dL Magnesium 2.4 H (1.6-2.3) mg/dL 02/02/20 02/02/20 02/03/20 Range/Units 17:40 20:15 05:40 RBC (3.80-5.40) m/uL Hgb (11.4-16.0) gm/dL Hct (34.0-46.0) % MCV (80.0-100.0) fL Neutrophils # (1.3-7.7) k/uL Lymphocytes # (1.0-4.8) k/uL Carbon Dioxide (22-30) mmol/L POC Glucose (mg/dL) 120 H 125 H 104 H (75-99) mg/dL Magnesium (1.6-2.3) mg/dL Microbiology - Last 24 Hours (Table) 01/31/20 16:51 Blood Culture - Preliminary Blood No Growth after 48 hours 01/31/20 13:34 Gram Stain - Final Leg - Left Wound Culture - Final Beta Hemolytic Strep Group C Pseudomonas aeruginosa Assessment and Plan Assessment: 1. Superficial left upper thigh EVH site cellulitis, culture showing beta hemolytic strep group C, pseudomonas, currently on IV cefepime per ID 2. New onset paroxysmal atrial fibrillation, currently sinus rhythm, status post left atrial appendage ligation 3. Acute on chronic diastolic congestive heart failure 4. History of severe calcified bicuspid aortic valve stenosis status post aortic valve replacement 01/16/2020 5. Coronary artery disease status post 2 vessel CABG on 01/16/2020 6. Hypertension 7. Hyperlipidemia 8. Morbid obesity 9. TIA in 2018 10. History of breast cancer status post lumpectomy with radiation 11. Transaminitis from statins 12. Previous tobacco dependence 13. Anxiety 14. Family history of premature coronary artery disease Plan: 1. Continue aspirin, Zetia, Ada chase, EAGLE inhibitor, Lasix, Aldactone. No statin secondary to intolerance with increased liver enzymes 2. Continue digoxin, Eliquis per cardiology for A. fib prophylaxis 3. Continue antibiotics per infectious disease. Recommend transitioning to oral antibiotics today for discharge to home, culture sensitive to oral cipro and levaquin 4. Continue to Eagle wrap left leg from toes to thigh daily 5. Patient must shower daily. 6. Increase activity, ambulate as tolerated. PT/OT consulted 7. GI/DVT prophylaxis 8. Will monitor daily labs and x-rays 9. Daily weights with stand up scale, strict I and O 10. Continue to follow post cardiac surgery discharge instructions, continue heart hugger and lifting restrictions 11. Encourage incentive spirometry is 10 times every hour while awake 12. We recommend discharge to home with home care today on oral antibiotics to avoid further risk of infection or Covid exposure. Follow-up appointment with Dr. Storey placed on discharge plan Time with Patient: Greater than 30
[2020-02-03] MEDS: ASPIRIN 81 MG PO SCH (09:15)
[2020-02-03] MEDS: lisinopriL 20 MG TAB PO SCH (09:16)
[2020-02-03] MEDS: EZETIMIBE 10 MG TAB PO SCH (09:16)
[2020-02-03] MEDS: SPIRONOLACTONE 25 MG TAB PO SCH (09:16)
[2020-02-03] MEDS: DIGOXIN 125 MCG TAB PO SCH (09:16)
[2020-02-03] MEDS: FUROSEMIDE 40 MG TAB PO SCH ×2 (09:16→17:02)
[2020-02-03] MEDS: APIXABAN 5 MG TAB PO SCH (09:16)
[2020-02-03] MEDS: METOPROLOL TARTRATE 25 MG TAB PO SCH (09:17)
[2020-02-03] MEDS: CEFEPIME 2 GM in SODIUM CHLORIDE 0.9% 100 ML IVPB SCH (09:17)
[2020-02-03] MEDS: POTASSIUM CHLORIDE ER 10 MEQ TAB.ER.PRT PO SCH (09:22)
[2020-02-03 09:47] LABS: HCT 32.1 % (34.0-46.0); HGB 10.8 gm/dL (11.4-16.0); Hypochromasia Slight; MCH 33.6 pg (25.0-35.0); MCHC 33.6 g/dL (31.0-37.0); Mean Platelet Volume 6.9; Platelet Count 387 k/uL (150-450); RBC 3.21 m/uL (3.80-5.40); RDW 13.2 % (11.5-15.5); WBC 8.8 k/uL (3.8-10.6)
[2020-02-03 11:58] LABS: Glucose,Whole Blood 114 mg/dL (75-99)
[2020-02-03 12:04] VITALS: TEMP 97.9
--- NOTE | 2020-02-03 14:01 | PN ---
PROGRESS NOTE DATE OF SERVICE: 02/03/2020 REASON FOR FOLLOWUP: Left eye surgical site cellulitis with Pseudomonas and strep. INTERVAL HISTORY: The patient is currently afebrile. The patient is feeling better. Breathing comfortably. Denies having any chest pain, cough, abdominal pain, left eye swelling, redness has improved. No further drainage from the wound, no diarrhea. PHYSICAL EXAMINATION: Blood pressure 130/76, pulse of 88, temperature 97.9, she is 94% on room air. General description is an elderly female up in the bed, in no distress. RESPIRATORY SYSTEM: Unlabored breathing, clear to auscultation anteriorly. HEART: S1, S2. Regular rate and rhythm. ABDOMEN: Soft, nontender. Left thigh swelling has improved. LABS: Hemoglobin is 10.1, white count 8.8, creatinine 0.91. DIAGNOSTIC IMPRESSION AND PLAN: Patient with left thigh cellulitis. No evidence of any deep abscess culture with Pseudomonas and strep. Plan to finish therapy with oral Cipro 750 mg twice a day for a week. Prescription sent to pharmacy. GOKUL / SHANON: [id number] /
[2020-02-03 16:58] VITALS: BP 169/77; PULSE 90
--- NOTE | 2020-02-04 02:05 | P.DS ---
Providers Date of admission: 01/30/20 18:26 Attending physician: Keagan Hansen Consults: 01/30/20 17:55 Consult Physician Routine Consulting Provider: Karli Medellin Consult Reason/Comments: known Do you want consulting provider notified?: Yes 01/31/20 08:09 Consult Physician Routine Consulting Provider: Javier Storey Consult Reason/Comments: recent CABG Do you want consulting provider notified?: Yes 02/01/20 13:31 Consult Physician Urgent Consulting Provider: Kadi Tracey Consult Reason/Comments: surgical site infection Do you want consulting provider notified?: Yes [facility] Course: Diagnoses: Infected left upper thigh wound from her previous surgery Supraventricular tachycardia acute on chronic diastolic CHF ejection fraction 55-60% Recent history of aortic stenosis and coronary artery disease, she underwent aortic valve replacement and two-vessel bypass grafting. patient is on Eliquis 5 mg twice daily. Hypertension Hyperlipidemia Nicotine dependence Hospital course: This is a pleasant 64 years old female who was recently discharged from the hospital about 10 days ago for aortic stenosis and coronary artery disease, she underwent aortic valve replacement and two-vessel bypass grafting. With other medical problems including hypertension, hyperlipidemia and nicotine dependence Presents because of dyspnea and anxiety and tachycardia.She has some purulent discharge from the puncture at her medial upper left thigh where she had the procedure. Culture were obtained and patient was started on empiric antibiotics with Zosyn. Culture came back positive for pseudomonas And beta-hemolytic strep group C. Patient did not have much of systemic infection but located locally. Purulent discharge was drained. Patient has been evaluated by several consultants including infectious disease, enrichment director and cardiothoracic team. Patient will be discharged on Cipro for 7 days per ID team On the day of discharge patient is asymptomatic and she was eager to go home Patient was cleared for discharge by all consultants at the enrichment director, infectious disease and cardiothoracic surgeon teams Problems and management plan were discussed with the patient and he verbalized understanding and acceptance Patient was found stable and can be discharged home however he needs follow-up as an outpatient. Patient was instructed to follow up with PCP within one week and patient agrees Gen: patient is a AAOx3, no distress CVS: S1-S2, RRR, no murmur Lungs: B/L CTA, no wheezing Abdomen: soft, no distention, no tenderness, positive bowel sounds Extremity: no leg edema or induration Time spent more than 35 minutes Patient Condition at Discharge: Fair Plan - Discharge Summary Discharge Rx Participant: Yes New Discharge Prescriptions: New RX: Apixaban [Eliquis] 5 mg PO BID #60 tab Ciprofloxacin HCl [Cipro] 750 mg PO Q12H 7 Days #14 tab RX: Spironolactone [Aldactone] 12.5 mg PO DAILY #15 tab RX: Digoxin [Lanoxin] 125 mcg PO DAILY #30 tab RX: Furosemide [Lasix] 40 mg PO BID@0900,1600 #60 tab RX: Metoprolol Tartrate [Lopressor] 50 mg PO BID #60 tab Continue RX: Aspirin 325 mg PO DAILY tab RX: Clopidogrel [Plavix] 75 mg PO DAILY #30 tab RX: Pantoprazole [Protonix] 40 mg PO AC-BRKFST #30 tablet. RX: Acetaminophen Tab [Tylenol] 1,000 mg PO Q6HR PRN tab PRN Reason: Fever And/ Or Pain RX: Potassium Chloride ER [K-Dur 10] 10 meq PO DAILY #4 tab RX: Ezetimibe [Zetia] 10 mg PO DAILY #30 tab RX: lisinopriL [Prinivil] 10 mg PO DAILY Discontinued RX: Furosemide [Lasix] 40 mg PO DAILY #4 tab RX: Metoprolol Tartrate [Lopressor] 75 mg PO BID #180 tab Discharge Medication List RX: Acetaminophen Tab [Tylenol] 1,000 mg PO Q6HR PRN tab 01/21/20 [Rx] RX: Aspirin 325 mg PO DAILY tab 01/21/20 [Rx] RX: Clopidogrel [Plavix] 75 mg PO DAILY #30 tab 01/21/20 [Rx] RX: Ezetimibe [Zetia] 10 mg PO DAILY #30 tab 01/21/20 [Rx] RX: Pantoprazole [Protonix] 40 mg PO AC-BRKFST #30 tablet. 01/21/20 [Rx] RX: Potassium Chloride ER [K-Dur 10] 10 meq PO DAILY #4 tab 01/21/20 [Rx] RX: lisinopriL [Prinivil] 10 mg PO DAILY 01/30/20 [History] Ciprofloxacin HCl [Cipro] 750 mg PO Q12H 7 Days #14 tab 02/03/20 [Rx] RX: Apixaban [Eliquis] 5 mg PO BID #60 tab 02/03/20 [Rx] RX: Digoxin [Lanoxin] 125 mcg PO DAILY #30 tab 02/03/20 [Rx] RX: Furosemide [Lasix] 40 mg PO BID@0900,1600 #60 tab 02/03/20 [Rx] RX: Metoprolol Tartrate [Lopressor] 50 mg PO BID #60 tab 02/03/20 [Rx] RX: Spironolactone [Aldactone] 12.5 mg PO DAILY #15 tab 02/03/20 [Rx] Follow up Appointment(s)/Referral(s): [facility], [NON-STAFF] - Javier Storey MD [STAFF PHYSICIAN] - 02/13/20 1:00 pm Karli Medellin MD [STAFF PHYSICIAN] - 02/13/20 10:30 am (February 12 10:30) Chaz Robbins MD [Primary Care Provider] - 1-2 days Magaly Ramos MD [STAFF PHYSICIAN] - 02/17/20 9:45 am Patient Instructions/Handouts: A-fib (Atrial Fibrillation) (DC) Activity/Diet/Wound Care/Special Instructions: DISCHARGE INSTRUCTIONS: 1. No driving for 4 weeks, or until physician gives their ok. 2. The patient should sleep in their own bed, no medical bed needed. 3. Stairs are not an issue. If the bedroom is upstairs, it is advised that the patient go up at night and down in the morning for the first week. Go slowly, using handrail and take 1 step at a time. 4. KIERRA hose are to be worn for 30 days or until physician discontinues. 5. Heart hugger is to be worn 100% of the time until physician discontinues.(except when showering) 6. No lifting, pushing, or pulling more than 10 pounds for 12 weeks. The physician will advise of any restriction changes. 7. The patient is expected to continue the prescribed walking program. 8. Continue pain control per as needed orders. 9. Continue with incentive spirometry and splinting/heart hugger until otherwise directed by the physician. 10. Must shower daily using liquid antibacterial soap and a separate white washcloth for each individual incision. 11. Routine sternal incision care. No powders, lotions, ointments on incisions. No dressings are necessary on incisions unless they are draining. Dermabond tape is to remain on sternal incision until surgeon follow-up. 12. Please call surgeon/SUMMER ASSOCIATE for temp greater than 101 F or purulent drainage from incisions. 13. All prescriptions given by surgeon for 30 days. Refills need to be filled through enrichment director/primary care physician. 14. A Red armband has been placed on the patient. It should be worn for 30 days post surgery and will be removed by the cardiac surgeons. If an ER visit is necessary, please make sure the number on the Red armband is called. 15. You have been referred to and are expected to begin Cardiac Rehab in approximately 4-6 weeks. en stop 16. Please weigh yourself every morning and keep a log of your daily weights HOME HEALTH SERVICES TO PROVIDE: RN SKILLED HOME CARE SERVICES FOR POST-OP SURGICAL PATIENTS WITH THE FOLLOWING: Coronary Artery Bypass Surgery (CABG), Mitral Valve Replacement/Repair ( MVR), Aortic Valve Replacement/Repair (AVR) RN TO CONTINUE EDUCATION FROM ``ROAD TO A HEALTH HEART PATIENT EDUCATION MANUAL (GIVEN TO PATIENT IN THE HOSPITAL) MEDICATION RECONCILIATION WITH EDUCATION NEEDED ON FIRST HOME VISIT EMPHASIZE IMPORTANCE OF WEARING BREAST SUPPORT/HEART HUGGER ENCOURAGE USE OF INCENTIVE SPIROMETER 10 X EVERY HOUR WHILE AWAKE ENCOURAGE UTILIZATION OF LOWER EXTREMITY COMPRESSION STOCKINGS/KIERRA HOSE and ELEVATE LEGS ABOVE LEVEL OF HEART WHILE AT REST. ENCOURAGE AMBULATION 3-5x/day INCREASING TOLERATES, WHILE AVOIDING EXTREMES IN TEMPERATURE FREQUENCY: RN TO OPEN THE PATIENT WITHIN 24 HOURS OF DISCHARGE FROM THE HOSPITAL WITH TELEHEALTH INSTALLED AT [facility] [place], RN TO VISIT 2-3 X A WEEK FOR 4 WEEKS ESTABLISHED BY PATIENT NEEDS. TELEHEALTH PARAMETERS: WEIGHT: NOTIFY MD OF WEIGHT GAIN OF 2 LBS IN 24 HOURS OR 5 LBS IN ONE WEEK HR: NOTIFY MD OF HR <55 BPM OR HR>100 BPM BP: NOTIFY MD IF BP <90/55 OR BP>140/100 O2 SAT: NOTIFY MD IF PO2<93% ON ROOM AIR SEND TELEHEALTH REPORT TO RESEARCH AND DEVELOPMENT MANAGER AND CARDIOVASCULAR SURGEON THE FIRST WEEK OF CARE AND THEN BI-WEEKLY. PLEASE ADDITIONALLY COMMUNICATE ANY ABNORMALS AND NEW FINDINGS TO THE SURGEONS OFFICE. For any questions or concerns please call lottery sales clerk Erin @ or Robert @ Discharge Disposition: HOME SELF-CARE
== END 2020-02-03 17:28 | disposition home or self-care (01) | DRG 862 ==
LOC: EC 16:40 → 3SCARD 18:26
PROVIDERS: ADMIT Hospitalist; ATTEND Hospitalist
DX: T81.41XA Infection following a procedure, superficial incisional surgical site, initial encounter (principal); I50.33 Acute on chronic diastolic (congestive) heart failure; Z68.42 Body mass index [BMI] 45.0-49.9, adult; I47.1 Supraventricular tachycardia; L03.116 Cellulitis of left lower limb; I48.0 Paroxysmal atrial fibrillation; I25.10 Atherosclerotic heart disease of native coronary artery without angina pectoris; I11.0 Hypertensive heart disease with heart failure; F17.200 Nicotine dependence, unspecified, uncomplicated; F41.9 Anxiety disorder, unspecified; E78.5 Hyperlipidemia, unspecified; E66.01 Morbid (severe) obesity due to excess calories; I35.0 Nonrheumatic aortic (valve) stenosis; R74.01 Elevation of levels of liver transaminase levels; B96.5 Pseudomonas (aeruginosa) (mallei) (pseudomallei) as the cause of diseases classified elsewhere; Z79.899 Other long term (current) drug therapy; Z79.82 Long term (current) use of aspirin; Z79.02 Long term (current) use of antithrombotics/antiplatelets; Z79.01 Long term (current) use of anticoagulants; Z88.5 Allergy status to narcotic agent; Z95.3 Presence of xenogenic heart valve; Z95.1 Presence of aortocoronary bypass graft; Z86.73 Personal history of transient ischemic attack (TIA), and cerebral infarction without residual deficits; Z85.3 Personal history of malignant neoplasm of breast; Z82.49 Family history of ischemic heart disease and other diseases of the circulatory system; Z80.1 Family history of malignant neoplasm of trachea, bronchus and lung; Z90.49 Acquired absence of other specified parts of digestive tract; Z90.89 Acquired absence of other organs; Z98.890 Other specified postprocedural states
CPT/HCPCS: 36415; 51798; 71045; 80048; 80053; 81003; 82550; 83735; 83880; 84100; 84145; 84443; 84484; 85025; 85027; 85610; 85730; 87040; 87070; 87075; 87077; 87186; 87205; 93005; 93306; 96361; 96365; 96366; 96368; 96375; 96376; 99291

== ENCOUNTER → 2021-01-03 | Outpatient (CLI) | payer MEDICARE, BC ==
--- NOTE | 2021-01-05 10:51 | MM ---
Reason for exam: screening (asymptomatic). Last mammogram was performed 1 year and 1 month ago. History: Patient is postmenopausal and has history of breast cancer at age 60. Family history of breast cancer in 2 paternal aunts. Malignant MG pre op needle loc LT of the left breast, February 08, 2016. Lumpectomy of the left breast, 2016. Radiation therapy of the left breast, 2016. Took hormonal contraceptives for 2 years beginning at age 16. Took antineoplastic for 2 years beginning at age 60. Physical Findings: A clinical breast exam by your physician is recommended on an annual basis and results should be correlated with mammographic findings. MG 3D Screening Mammo W/Cad Bilateral CC and MLO view(s) were taken. Prior study comparison: November 28, 2019, bilateral MG 3d screening mammo w/cad. July 30, 2018, bilateral MG 3d diag mammo w/cad EDGAR. There are scattered fibroglandular densities. Post surgical changes left upper outer quadrant. No significant changes when compared with prior studies. ASSESSMENT: Benign, BI-RAD 2 RECOMMENDATION: Routine screening mammogram of both breasts in 1 year.
== END | disposition home or self-care (01) ==
LOC: RADMAMWWP 13:29
PROVIDERS: ATTEND Family Medicine
DX: Z12.31 Encounter for screening mammogram for malignant neoplasm of breast (principal); Z80.3 Family history of malignant neoplasm of breast
CPT/HCPCS: 77063; 77067